=== PATIENT | female | born 1995 | race Caucasian/White ===

== ENCOUNTER → 2017-03-23 16:00 | Outpatient (CLI) | payer OTHER, SELFPAY ==
--- NOTE | 2017-03-23 14:31 | MRI_ITS ---
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 TECHNIQUE: Standardized fat and water weighted pulse sequences were obtained in all 3 orthogonal planes. COMPARISON: Radiographs 02/02/2017. FINDINGS: Normal talonavicular articulation. Normal navicular-cuneiform articulations. Normal intercuneiform articulations. Normal first tarsometatarsal articulation. Normal Lisfranc ligament. Normal second and third tarsometatarsal articulations. Normal cuboid fourth and cuboid fifth tarsometatarsal articulation. Normal first through fifth metatarsi. There is a bone island in the first metatarsal base. Normal tibialis anterior tendon. Normal extensor hallucis longus tendon. Normal extensor digitorum longus tendons. Normal visualized peroneus longus tendon and distal insertion. Normal visualized peroneus brevis tendon and distal insertion. Normal intrinsic muscles of the mid and forefoot region. Normal extensor digitorum brevis muscle. Normal subcutis adipose space. MRI/Lower Ext/No Jt/w/o IMPRESSION: Unremarkable MRI of the right foot without demonstrated stress fracture. Electronically Signed: Mark Watson MD at 15:57 EST Tel , Service support ,
== END ==
PROVIDERS: Family Provider Family Medicine; PCP Family Medicine; Visit Provider Orthopaedic Surgery
DX: M79.673 Pain in unspecified foot (principal)
CPT/HCPCS: 73718

== ENCOUNTER → 2017-07-12 13:41 | Outpatient (CLI) | payer OTHER, SELFPAY ==
[2017-07-12 15:54] LABS: Basophil# 0.03 X10^3/uL; Basophil% 0.6 % (0-1); Eosinophil# 0.13 X10^3/uL; Eosinophils% 2.5 % (0-5); Hematocrit 40.5 % (37-47); Hemoglobin 13.2 g/dl (12.0-15.0); Lymphocyte % 46.6 % (19-41); Mean Corp Hgb Conc 32.6 g/gl (32-36); Mean Corpuscular Hgb 32.5 pg (27.0-32.0); Mean Corpuscular Volume 99.8 fL (81-99); Mean Platelet Vol. 11.9 fl (6.2-12.0); Monocyte# 0.59 X10^3/uL; Monocyte% 11.5 % (0-10); Neutrophil # 1.99 X10^3/uL (2.7-7.7); Neutrophil % 38.6 % (47-70); POSITIVE COUNT NO; POSITIVE DIFFERENTIAL NO; POSITIVE MORPHOLOGY NO; Platelet Count 226 K/mm3 (150-450); RBC Distribution Width CV 12.4 % (11.6-14.6); RBC Distribution Width SD 44.9 fl (35.1-43.9); Red Blood Count 4.06 M/mm3 (4.2-5.4); White Blood Count 5.2 K/mm3 (4.4-11.0)
[2017-07-12 16:05] LABS: Anion Gap 8 (5-15); BUN 15 mg/dL (7-18); BUN/Creat Ratio 18.6 RATIO (10-20); Calcium,Total 8.4 mg/dL (8.5-10.1); Chloride 106 mmol/L (98-107); EST Glomerular Filtration Rate 97 mL/min (>60); Est Glom Filt Rate - Afr Amer 117 mL/min (>60); Glucose 70 mg/dL (74-106); Potassium 3.6 mmol/L (3.5-5.1); Sodium Level 139 mmol/L (136-145)
[2017-07-14 11:47] LABS: AST(SGOT) 18 U/L (15-37); Alanine Aminotransfer ALT/SGPT 18 U/L (13-56); Albumin, Serum 3.7 g/dL (3.2-5.0); Alkaline Phosphatase 68 U/L (45-117); Globulin 3.8 g/dL (2.2-4.2); Protein, Total 7.5 g/dL (6.4-8.2)
== END ==
PROVIDERS: Family Provider Family Medicine; PCP Family Medicine; Visit Provider Family Medicine
DX: Z01.818 Encounter for other preprocedural examination (principal)
CPT/HCPCS: 80048; 82040; 82247; 84075; 84156; 84450; 84460; 85025

== ENCOUNTER 2017-07-21 05:54 | Day surgery (SDC) | payer OTHER, SELFPAY ==
[2017-07-21 06:16] LABS: Internal QC Validated? YES +Cl - CLEAR BKGD; Pregnancy, Urine Negative Negative
[2017-07-21 06:18] VITALS: BP 107/65; PULSE 70; RESP 18; TEMP 36.4; O2SAT 100; BMI 21.5
[2017-07-21] MEDS: Cefazolin 2 GM in 0.9% Normal Saline 100 ML IV (07:24)
--- NOTE | 2017-07-21 07:30 | NEUR_PTH ---
PATIENT: ENZO PAULINO LOC: [facility] – [place] U#:[id number] AGE/SX: 21/F ROOM: RE07/21/[address]: Dr. Marques Ferrer DPM : 1995 BED: DIS: 07/21/2017 SPEC #: [id number] RECD: 07/21/17 09:09 STATUS: [place] REAnjelica #: [id number] SPENCER: 07/21/17 07:[address]: Marques Ferrer DEPT: SURGICAL PATHOLOGY RECD BY: Claudio Clemente ENTERED: 07/21/17 10:48 SP TYPE: NEUROMA OTHR DR: Dr. Thee Hahn MD Tissues: NEUROMA Procedures: Surgery Specimen Level III HEADER OPERATION: Excision, neuroma, intermetatarsal, third PRE-OP DIAGNOSIS: Neuroma third intermetatarsal space TISSUE SUBMITTED: Neuroma third intermetatarsal space, right foot MICROSCOPIC DIAGNOSIS Soft tissue right foot, third intermetatarsal space, excision: Consistent with neuroma. AM:narinder 07/24/17 MICROSCOPIC DESCRIPTION Slides are reviewed. GROSS DESCRIPTION Received in fixative is one container labeled with the patient's name and designated neuroma third intermetatarsal space, right foot. The specimen consists of multiple irregular fragments of white-yellow soft tissue that in aggregate measure 3 x 1.5 x 0.3 cm. The specimen is totally submitted in one cassette. / AM:narinder 07/21/17 TC:1 CPT: 47864
[2017-07-21] MEDS: Bupivacaine Mpf 0.5% 30 ML VIAL (08:10)
--- NOTE | 2017-07-21 08:21 | PCM.DC.POD ---
Discharge Diet: Light diet - advance as tolerated Discharge Activity: May Not Drive, Use Crutches Weight Bearing Status: No weight bearing - No weight right foot Keep extremity elevated above heart level: Right Leg - Keep right foot elevated for at least 50 minutes of every hour using pillows Call your doctor if your incision/area has: Continuous Slow Oozing, Sudden Increased Bleeding, Foul Smelling Discharge Call your doctor if you observe: Fever of 101 or Higher, Coldness, Increased Pain, Shortness of breath, Chest pain, Increased palpitations (irregular heartbeat), Calf discomfort, Uncontrolled pain Cleanse incision/area with: Do not get Incision Wet, Keep Dressing Clean & Dry Allergies/Adverse Reactions: Allergies nickel Allergy (Mild, Verified 07/14/17 15:35) Rash Medications to take at Discharge escitalopram 10 mg tablet 20 mg PO QDAY 03/15/17 topiramate 50 mg tablet 50 mg PO BID 03/15/17 L norgest/E estradiol-E estrad 0.15 mg-30 mcg (84)/10 mcg(7) tabs,3mos 1 tab PO Q24H 04/07/17 Magnesium 250 mg PO DAILY 07/14/17 Pnv95/Ferrous Fumarate/FA [ Formula] 1 each PO DAILY 07/14/17 Hydrocodone/Acetaminophen [Vicodin 5-300 mg Tablet] 1 - 2 tab PO Q6H PRN PRN 3 Days #30 tab 07/21/17 The following prescriptions were given: Hydrocodone/Acetaminophen [Vicodin 5-300 mg Tablet] 1 - 2 tab PO Q6H PRN PRN 3 Days #30 tab PRN Reason: Pain Primary Care Physician: Thee Hahn MD [Primary Care Provider] - Please Follow Up With: Marques Ferrer DPM When: within 1 week, sooner if needed
[2017-07-21 08:22] VITALS: BP 107/65; BP 98/66; PULSE 80; RESP 16; TEMP 36.5; O2SAT 100
--- NOTE | 2017-07-21 08:22 | PCM.OPRPT ---
Report of Operation Date of Procedure: 07/21/17 Pre-Operative Diagnosis: 3rd Intermetatarsal space neuroma right foot Post-Operative Diagnosis: Same Surgery/Procedure Performed:: Excision of 3rd intermetatarsal space neuroma right foot Description of Surgical Findings:: perineural fibrosis surrounded by fatty tissue 3rd interspace neuroma right foot insurance claims representative: yes - Dr. Wesley Rush Type of Anesthesia:: General Specimen's removed: Excised 3rd intermetatarsal space neuroma right foot sent to pathology Estimated Blood Loss (mL): <1 mL Description of Procedure: Indications: There is a 21 year old female with history of chronic right foot pain at level of the 3rd intermetatarsal/digital space. She has undergone extensive conservative / nonsurgical care but continues to have significant limiting pain. She elected to proceed with surgical intervention of excision of 3rd intermetatarsal space, left foot. This was discussed with her in great detail. She agreed with this plan, reviewed all of the possible benefits vs risks, goal, expectations, and typical healing time. She was able to repeat these back, all of her questions were answered. The consent forms were reviewed with her and she agreed signed them. Operative procedure: The patient was brought back to the operating room and was placed on the operating room table in the supine position. Patient was carefully secured the the operating room table with a safely belt around her waist. A time out was performed and the patient was properly identified and the surgical plan was confirmed. The patient received 2g of IV Cefazolin for antibiotic prophylaxis. A well padded pneumatic tourniquet was applied around the right ankle. The patient did receive general anesthesia per the anesthesiologist. The right foot was scrubbed, prepped, draped in the usual aseptic fashion. The right foot was elevated for 3 minutes and the right ankle pneumatic tourniquet was inflated to 250mmHg. Attention was directed to the 3rd intermetatarsal space. An incision was made using a 15 blade on the dorsal aspect. Careful dissection was completed down to the deep transverse metatarsal ligament which was released in sharp fashion. A plantar neuroma was identified localized to the site, which was yellow, degenerative and had significant fatty tissue around it. There were findings consistent with perineural fibrosis to the lesion. This was carefully dissected out, removing the proximal nerve and also the distal branches to the 3rd and 4th toes at the base of the toes. This was passed from the surgical site and was sent to pathology for further evaluation. The proximal nerve stump was health, viable and was carefully buried into the intrinsic musculature of the foot. All other tissue to the site appeared healthy and viable with no other abnormality present. The site was flushed out with copious amounts of normal saline solution, all tissues appeared to be healthy and viable with tissue planes intact at this time. The subcutaneous tissue was reapproximated using 4-0 Vicryl. The skin was reapproximated using 4-0 Monocryl. 10mL of 0.5% Bupivacaine was given as a local nerve block around the surgical site. 4mg of Dexamethasone phosphate was injected into the proximal incision site. Cavilon was painted to the sutured skin edegs and steristrips were applied across the sutures skin incision site. All vital structures including all vital musculoskeletal and neurovascular structures were properly identified and protected/retracted as necessary. The pneumatic tourniquet was deflated at 34 minutes, and there was immediate return vascular flow to the foot, CFT < 2 seconds to all toes, normal temperature gradient, pedal pulses intact. Hemostasis was achieved prior to closure. A dressing was applied which consisted of Betadine soaked adaptic, 4x4 gauze, kerlix, and shorty bandage. The patient tolerated the above operative procedure well at the anesthesia well with no complication. The patient was transported to the recovery room with vital signs stable and in good condition. Post operative orders were placed. Post operative instructions were reviewed with her as well as with her family who was here with her today. No weightbearing right foot, keep right foot elevated for at least 50 minutes of every hour, keep dressing clean, dry and intact. Prescription for Vicodin 5mg/300mg was prescribed: 1-2 tabs PO q 6 hours PRN pain. She is to follow up with me within 1 week or sooner if needed. Grafts/Implants Used: None - Complications None
[2017-07-21 08:30] VITALS: BP 100/69; BP 107/65; PULSE 68; RESP 16; O2SAT 100
[2017-07-21 08:45] VITALS: BP 107/65; BP 109/64; PULSE 67; RESP 16; O2SAT 100
[2017-07-21 08:51] VITALS: BP 101/61; BP 107/65; PULSE 68; RESP 16; TEMP 36.6; O2SAT 100
[2017-07-21] MEDS: HYDROcodone Bitartrate/Apap 5/325 Tablet PO (09:12)
[2017-07-21 10:16] VITALS: BP 107/65
== END 2017-07-21 10:20 | disposition home or self-care (01) ==
LOC: SDC 05:56 → AC 05:56
PROVIDERS: Anesthesiology; Family Provider Family Medicine; PCP Family Medicine; Visit Provider Podiatrist
PROC: (CPT 28080; principal; 2017-07-21 07:15)
DX: G57.81 Other specified mononeuropathies of right lower limb (principal); F41.9 Anxiety disorder, unspecified; Z79.899 Other long term (current) drug therapy
CPT/HCPCS: 28080; 81025; 88304; J7120; J2405

== ENCOUNTER 2017-09-22 10:00 | Outpatient (RCR) | payer OTHER, SELFPAY ==
--- NOTE | 2017-08-23 15:57 | HP.PTEVAL ---
Patient's Visit Information ENZO VLILA is a 21 year old F referred to Physical Therapy by Marques Ferrer with a diagnosis of S/P Mortons Neuroma. Date of Evaluation: 08/23/17 Physical Therapist: Vlad Rahman PT, - Visit Plan Frequency: 2-3x /Week Duration: 4 Weeks Plan: R foot stretching/strengthening, balance and proprio, bike, and HEP - Subjective Subjective: DOS: 07/21/17. Pt reports she had R foot pain for several years prior to having this surgery. Pt reports she just always thought it was bad shoes and had back pain. Pt reports she is glad she had the surgery. The bad pain she had before the surgery is gone. Pt reports she has numbness in her R foot where the neuroma was. No sleep diff secondary to pain. 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 Pt runs ;the [employer]. 0/10 at rest, 3/10 at worst (standing and walking around a lot) - Pain Rt foot Pain Intensity (Out of 10): 0 Pain Intensity Range: 3 - Objective Neuro: B LE sensation is WNL to light touch. Observation: Incision is healing well. No obvious signs of infection. ROM: B ankle's are WNL. 2-4th digits on R foot are minimally limited. MMT: B ankles are 5/5. Pt lacks functional movement with the intrinsics of the R foot between the 2-4th digits. - Goals Goal 1:: Decrease R foot pain x 50% to aid with increased jojo for ambulation Goal Time Frame: 4-6 Weeks Goal 2:: Increase R foot strength x 50% to aid with RTS Goal Time Frame: 4-6 Weeks Goal 3:: I with HEP - Rehabilitation Potential Physical Therapy Diagnosis: R foot weakness, limited mobility, and inabiality to participate in sport secondary to being s/p Mortons neuroma Rehabilitation Potential: Good - Anticipated Interventions Patient/Client Instruction: Educate patient on: Condition, Plan of Care For the Purpose of:: To improve self management Therapeutic Exercise to Include: Strength training, Endurance training, Balance training, Flexibilty training, Gait and locomotor training, Active ROM For the Purpose of:: To decrease pain, To increase ROM, To improve muscle performance and motor function Cryotherapy (ice pack, ice massage): Yes For the Purpose of:: To decrease pain Thank you for the opportunity to evaluate your patient. For Medicare and Medicare HMO plans, please review the plan of care and approve it. It will need to be FAXED BACK to us at [phone] for Medicare purposes. Please let me know if there are questions or concerns regarding this plan of care. Physician Signature: Date:
--- NOTE | 2017-12-13 07:57 | HP.PT.NRP ---
HP - Discharge Summary (1) - Patient Information ENZO VILLA was seen in my office for initial evaluation on 08/23/17. The following Plan of Care was established for this patient: Initial Frequency: 2-3x /Week Initial Duration: 4 Weeks - Anticipated Interventions Patient/Client Instruction: Educate patient on: Condition, Plan of Care For the Purpose of:: To improve self management Therapeutic Exercise to Include: Strength training, Endurance training, Balance training, Flexibilty training, Gait and locomotor training, Active ROM For the Purpose of:: To decrease pain, To increase ROM, To improve muscle performance and motor function Cryotherapy (ice pack, ice massage): Yes For the Purpose of:: To decrease pain This patient was last seen in our office . Pertinent comments regarding their Physical therapy will appear below: Pt was treated for 9 PT visits through the date of 09/22/17 for her R foot pain. Pt was going on vacation at that time and we discussed following up with her after her vacation. Pt has not returned through todays date, and is therefore discontinued at this time. At this point I will be discontinuing this patient from physical therapy. I would be happy to see this patient again in the future if found appropriate by the physician. Thank you! Vlad Rahman, PT,
== END 2017-09-22 19:00 | disposition home or self-care (01) ==
LOC: PT 10:00
PROVIDERS: Family Provider Family Medicine; PCP Family Medicine; Visit Provider Podiatrist
DX: Z98.890 Other specified postprocedural states (principal)
CPT/HCPCS: 97110; 97161; 97530

== ENCOUNTER 2022-11-28 20:45 | Inpatient (IN) | payer BC, SELFPAY ==
[2022-11-28] VITALS (21 sets, daily range): BP systolic 121–122; BP diastolic 66–77; PULSE 59–97; TEMP 36.5–37.1; O2SAT 91–100; BMI 30.4
[2022-11-28] MEDS: Lactated Ringers 1,000 ML 50 ML IV (20:50)
--- NOTE | 2022-11-28 21:04 | PCM.HP.OB ---
HPI - General General Date of Admission: 11/28/22 Date of Service: 11/28/22 Chief Complaint: labor HPI Narrative ENZO VILLA, is a 27 F who presents at 40w5d with ctx's and 4-5 cm with BBOW per RN. No vb, lof. Good FM. [facility] Medical History (Updated 11/28/22 @ 21:[address] Lamar Chapin, ) Pseudotumor cerebri Home Medications escitalopram oxalate 10 mg tablet (Lexapro) 20 mg PO QDAY anxiety 03/15/17 [History Last Taken Unknown] topiramate 50 mg tablet (Topamax) 50 mg PO BID headaches 03/15/17 [History Last Taken Unknown] L norgest/E estradiol-E estrad 0.15 mg-30 mcg (84)/10 mcg(7) tabs,3mos (Ashlyna) 1 tab PO Q24H 04/07/17 [History Last Taken Unknown] magnesium 250 mg tablet 250 mg PO DAILY headaches 07/14/17 [History Last Taken Unknown] vit no.95-ferrous fumarate 28 mg-folic acid 800 mcg tablet ( Multivitamins) 1 ea PO DAILY supplement 07/14/17 [History Last Taken Unknown] hydrocodone 5 mg-acetaminophen 300 mg tablet 1 - 2 tab PO Q6H PRN PRN Pain 3 days #30 tabs 07/21/17 [Rx Last Taken Unknown] Allergy/AdvReac Type Severity Reaction Status Date / Time nickel Allergy Mild Rash Verified 11/28/22 20:29 Family History Other Arthritis Surgical History (Updated 07/21/17 @ 10:[address] Marques Ferrer, DPM) History of tonsillectomy and adenoidectomy Social History (Updated 04/10/17 @ 10:43 by Mario Jeffers DO) Smoking Status: Never smoker NST FHR Rate Baby A Baseline: 120 Variability:: Moderate Accelerations:: 15 x 15 Decelerations:: None NST Reactive:: Yes FHR Category:: Category I Uterine Activity:: ctx q 2-3 min Vital Signs Vital Signs Vital Signs: 11/28/22 20:25 11/28/22 20:25 11/28/22 20:25 Temperature Temperature Source Temporal Pulse Rate 73 Blood Pressure BP Systolic BP Diastolic Pulse Ox 97 11/28/22 20:26 11/28/22 20:26 11/28/22 20:25 Temperature 97.7 F L Temperature Source Pulse Rate 69 Blood Pressure 121/77 H BP Systolic 121 BP Diastolic 77 Pulse Ox Weight Weight: 212 lb Body Mass Index (BMI) 30.4 Labs Labs Labs: Hct 40.5 % (37-47) Hgb 13.2 g/dl (12.0-15.0) VZV IgG Antibody < 135 index (Immune >165) L Assessment & Plan (1) 40 weeks gestation of : PLAN: Admit for routine intrapartum care. Patient plans unmedicated . GBS negative. Expected estimated weight less than 4500 g and pelvis adequate. Anticipate vaginal delivery. (2) Primiparous: (3) Uterine contractions:
[2022-11-28 21:11] LABS: Absolute Lymphocyte Count 1.53 X10^3/uL (0.83-4.51); Absolute Neutrophil Count 10.9 X10^3/uL (2.0-7.7); Basophil# 0.04 X10^3/uL; Basophil% 0.3 % (0-1); Eosinophil# 0.01 X10^3/uL; Eosinophils% 0.1 % (0-5); Hematocrit 40.2 % (37-47); Hemoglobin 13.3 g/dL (12.0-15.0); Lymphocyte # 1.53 X10^3/ul (0.83-4.51); Lymphocyte % 11.5 % (19-41); Mean Corp Hgb Conc 33.1 g/dL (32-36); Mean Corpuscular Volume 99.8 fL (81-99); Mean Platelet Vol. 12.1 fl (6.2-12.0); Monocyte# 0.74 X10^3/uL; Monocyte% 5.6 % (0-10); NRBC Flagged by Analyzer 0 % (0-5); Neutrophil % 81.7 % (47-70); Platelet Count 220 K/mm3 (150-450); RBC Distribution Width CV 12.4 % (11.6-14.6); RBC Distribution Width SD 45.7 fl (35.1-43.9); Red Blood Count 4.03 M/mm3 (4.2-5.4); White Blood Count 13.3 K/mm3 (4.4-11.0)
--- NOTE | 2022-11-28 21:19 | PCM.PN.BLA ---
Progress Note At bedside and pt uncomfortable with ctx's Assessment & Plan Assessment/Plan (1) 40 weeks gestation of : PLAN: Cvx 5/70/0, head well applied. AROM performed for clear fluid in usual fashion. Pt requested intermittent auscultation. FHT checked before and after rupture and reassuring. (2) Uterine contractions:
[2022-11-28 21:48] LABS: Syphilis Antibodies Non-reactive
[2022-11-28] MEDS: Oxytocin 15 Units/NS 250ml 15 UNITS/250 ML IV.SOLN 83 UNITS IV (22:43)
[2022-11-29] VITALS (25 sets, daily range): BP systolic 109–129; BP diastolic 63–75; PULSE 74–100; RESP 16; TEMP 36.7–37; O2SAT 98–100
--- NOTE | 2022-11-29 00:07 | PCM.OPRPT ---
Problems Associated Problem List Diagnoses (1) 40 weeks gestation of : (2) Primiparous: (3) Uterine contractions: (4) Vaginal delivery: Report of Operation Date of Procedure: 11/29/22 Pre-Operative Diagnosis: 40 week gestation, single IUP, labor Post-Operative Diagnosis: As above, precipitous delivery Surgery/Procedure Performed:: Repair of bilateral sulcal lacerations Repair of 2nd degree perineal laceration Repair of leonardo urethral laceration Description of Surgical Findings:: VMI in JUSTIN position with a loose nuchal cord x 1. Apgars 8, 9. Normal appearing placenta with 3 VC Surgeon: Lamar Chapin Type of Anesthesia: Local Special Medications: None Specimen's removed: Placenta Drains: Fishman placed at time of repair Estimated Blood Loss (mL): 400 Fluids Replaced: N/A Description of Procedure: Patient was complete and pushing. The head of the was delivered in left occiput anterior position. A loose nuchal cord x1 was noted but the shoulders and body of the spontaneously delivered without any force or delay through the nuchal cord. A vigorous viable male was delivered atraumatically and placed on maternal abdomen. The cord was clamped and cut after 60 sec delay by the father of the baby. Cord blood was obtained. Placenta was delivered spontaneously and noted to be normal-appearing and intact with a three-vessel cord. The fundus was firm. The cervix was inspected all the way around and noted to be normal-appearing and intact. Bilateral sulcal lacerations were noted. 3-0 Vicryl was used to repair the bilateral sulcal lacerations in a running fashion. A second-degree perineal laceration was repaired with 3-0 Vicryl in usual sterile fashion. 1 vaginal packing was placed. A laceration was noted going from the clitoris to the urethra, and it was actively bleeding. Pressure was applied for several minutes and bleeding was still noted. A fishman catheter was placed with return of clear urine. Using 3-0 Vicryl two single interrupted sutures were placed along the periurethral laceration for hemostasis. Sponge counts were correct. Grafts/Implants Used: None Complications None Admit VTE Documentation VTE Present on Admission: No
[2022-11-29] MEDS: oxyCODONE 5 MG Tablet PO (00:09)
[2022-11-29] MEDS: Lidocaine 1% (20 ml mdv) 20 ML Vial INFILT (00:11)
[2022-11-29] MEDS: Oxytocin 10 UNITS/ML Vial IM (00:11)
[2022-11-29] MEDS: Ibuprofen 600 MG Tablet PO ×3 (01:51→16:03)
[2022-11-29] MEDS: Benzocaine/Lanolin/Aloe Vera 1 SPRAY EACH TOPICAL (01:51)
[2022-11-29] MEDS: 0.9% Saline Lock 10 ML Syringe IV (01:51)
[2022-11-29] MEDS: Acetaminophen 500 MG Tablet 1000 MG PO ×3 (04:52→19:42)
[2022-11-29 05:12] LABS: Absolute Neutrophil Count 13.9 X10^3/uL (2.0-7.7); Basophil# 0.04 X10^3/uL; Basophil% 0.2 % (0-1); Hematocrit 35.5 % (37-47); Hemoglobin 11.7 g/dL (12.0-15.0); Lymphocyte % 11.4 % (19-41); Mean Corpuscular Hgb 33.1 pg (27.0-32.0); Mean Corpuscular Volume 100.3 fL (81-99); Mean Platelet Vol. 11.8 fl (6.2-12.0); Monocyte# 1.51 X10^3/uL; Monocyte% 8.6 % (0-10); NRBC Flagged by Analyzer 0 % (0-5); Neutrophil # 13.87 X10^3/uL (2.7-7.7); Neutrophil % 79.1 % (47-70); POSITIVE DIFFERENTIAL YES; Platelet Count 201 K/mm3 (150-450); RBC Distribution Width CV 12.4 % (11.6-14.6); RBC Distribution Width SD 45.4 fl (35.1-43.9); Red Blood Count 3.54 M/mm3 (4.2-5.4); White Blood Count 17.5 K/mm3 (4.4-11.0)
[2022-11-29 05:21] LABS: Differential Indicated SCAN CRITERIA MET
[2022-11-29 07:06] LABS: Differential Comment SCANNED
--- NOTE | 2022-11-29 08:36 | PCM.PN.OB ---
Subjective Subjective Denies complaints Objective Data Objective Data Vital Signs: Vital Signs Temp Pulse Resp BP Pulse Ox O2 Del Method 98.5 F 83 16 109/65 98 Room Air 11/29/22 04:42 11/29/22 04:42 11/29/22 04:42 11/29/22 04:42 11/29/22 01:42 11/29/22 04:42 Oxygen Delivery Method Room Air Weight: 212 lb Body Mass Index (BMI) 30.4 Intake & Output: Intake and Output for Last 24 Hours 11/27/22 11/28/22 11/29/22 23:59 23:59 23:59 Intake Total 20.83 / 20.83 250 / 250 Output Total 400 / 400 Balance -379.17 / -379.17 250 / 250 Lab / Micro Data 11/29/22 04:55 Labs: Laboratory Results - last 24 hr 11/28/22 20:50: WBC 13.3 H, RBC 4.03 L, Hgb 13.3, Hct 40.2, MCV 99.8 H, MCH 33.0 H, MCHC 33.1, RDW Std Deviation 45.7 H, RDW Coeff of Aga 12.4, Plt Count 220, MPV 12.1 H, Immature Gran % (Auto) 0.800, Neut % (Auto) 81.7 H, Lymph % (Auto) 11.5 L, Winkler % (Auto) 5.6, Eos % (Auto) 0.1, Baso % (Auto) 0.3, Absolute Neuts (auto) 10.9 H, Absolute Lymphs (auto) 1.53, Nucleated RBC % 0, Syphilis Total Ab Non-reactive, Antibody Screen NEGATIVE 11/29/22 04:55: WBC 17.5 H, RBC 3.54 L, Hgb 11.7 L, Hct 35.5 L, MCV 100.3 H, MCH 33.1 H, MCHC 33.0, RDW Std Deviation 45.4 H, RDW Coeff of Aga 12.4, Plt Count 201, MPV 11.8, Immature Gran % (Auto) 0.700, Neut % (Auto) 79.1 H, Lymph % (Auto) 11.4 L, Winkler % (Auto) 8.6, Eos % (Auto) 0.0, Baso % (Auto) 0.2, Absolute Neuts (auto) 13.9 H, Absolute Lymphs (auto) 2.00, Nucleated RBC % 0, Differential Comment SCANNED, Diff Path Review August Physical Exam Const alert, oriented x3 and no apparent distress HEENT normocephalic GI soft to palpation, non-tender and non-distended GI Narrative: fundus firm, mid & below umbilicus Extremity normal to inspection and no calf tenderness Assessment & Plan (1) Vaginal delivery: COMMENT: PPD#1 PLAN: Plan Vaginal packing removed. No active bleeding noted. RN to remove fishman. HEME - cbc reviewed Routine care
[2022-11-29] MEDS: Senna/Docusate Sodium 1 Tablet PO (09:12)
[2022-11-29] MEDS: Sertraline 50 MG Tablet 25 MG PO (22:15)
[2022-11-30] MEDS: Ibuprofen 600 MG Tablet PO ×2 (01:58→08:14)
[2022-11-30 01:59] VITALS: BP 123/61; PULSE 70; RESP 16; TEMP 36.8
[2022-11-30] MEDS: Senna/Docusate Sodium 1 Tablet PO (08:14)
[2022-11-30] MEDS: Acetaminophen 500 MG Tablet 1000 MG PO (08:15)
[2022-11-30 08:25] VITALS: BP 118/66; PULSE 75; RESP 14; TEMP 36.8
--- NOTE | 2022-11-30 08:59 | PCM.DC.SUM ---
Providers Date of Admission: 11/28/22 Primary Care Physician: Dr. Hernán Lind MD Reason For Visit: VAGINAL DELIVERY Diagnosis Discharge Diagnosis (1) Vaginal delivery: Status: Acute Code(s): O80 - Encounter for full-term uncomplicated delivery Medications at Discharge Home Medications topiramate 50 mg tablet (Topamax) 50 mg PO BID headaches 03/15/17 magnesium 250 mg tablet 250 mg PO DAILY headaches 07/14/17 vit no.95-ferrous fumarate 28 mg-folic acid 800 mcg tablet ( Multivitamins) 1 ea PO DAILY supplement 07/14/17 sertraline 25 mg tablet mg PO QHS anxiety 11/29/22 Hospital Course Operations None Summary of Care Provided Hospital Course: 27-year-old female admitted in spontaneous labor. She delivered on 11/28/2022. She had some bilateral sulcus tears and a second-degree laceration. She had vaginal packing placed. This was removed on day #1. Patient's hemoglobin was stable. By day #2 she was ambulating, urinating tolerating regular diet without difficulty. She desired discharge home. was breast-feeding and doing well. Physical Exam Const alert and no apparent distress Narrative: Fundus firm, below umbilicus. Weight / BMI Weight Weight: 96.162 kg Body Mass Index (BMI) 30.4 ABG / Lab / Microbiology Data 11/29/22 04:55 D/C Instructions Discharge Diet: No restrictions May resume sexual activity in: 6 weeks Call your doctor if your incision/area has: Continuous Slow Oozing, Sudden Increased Bleeding, Foul Smelling Discharge and Swelling at the incision site Call your doctor if you observe: Fever of 101 or Higher and Inability to urinate Please Follow Up With: Lamar Chapin DO When: Call [phone] or send a [employer] message to schedule follow-up appointment in 1 week and 6 weeks or as needed. Meaningful Use Info Meaningful Use Diagnoses (Choose all that apply): None applicable Discharge Plan Admission Admit Date/Time: 11/28/22 20:45 Primary Reason for Your Visit: Vaginal delivery Attending Provider: Lamar Chapin Primary Care Provider: Hernán Lind Discharge Orders/Prescriptions Prescriptions: Continued topiramate [Topamax] 50 mg tablet 50 mg PO BID magnesium 250 MG tablet 250 mg PO DAILY PNV cmb#95-ferrous fumarate-FA [ Multivitamins] 1 EACH tablet 1 ea PO DAILY sertraline 25 mg tablet PO QHS Patient Comments: take 1 tablet by mouth once daily Referrals / Follow Up: Hernán Lind MD [Primary Care Provider] - Disposition Disposition (needs filled in before D/C Order can be placed): Home, Self Care
--- NOTE | 2022-11-30 09:20 | CASEMGMT ---
Social Work Assessment Labor and Delivery Unit Patient Address:[address] [place] [address]. [place] [address] Phone number: [phone] Date of Referral: 11/29/22 Time of Referral:? 829 Referred By: Nursing staff Date of Intervention: ??11/30/22 Time of Intervention:? 0900 Reason for Referral:? Sw consult received due to maternal mental health history positive for anxiety. Sw was informed by nursing staff that mother of baby (NICK Smith) has history of anxiety and is prescribed zoloft. Sw completed chart review and presented to bedside to meet with MOB. Sw introduced self to MOB and father of baby (FODian Jeffers). Sw explained reason for sw involvement. Sw completed psychosocial assessment and had FOB step out of the room to MOB could complete the Blue Grass Depression Scale. FOB did so respectfully and without pause. History obtained from: medical records, MOB and FOB. Household composition: Currently residing in the family home is VANIA, MELISSA, baby boy and their family dog, and Clara Doodle named Willian. Patient's parent/guardian status:?VANIA states that she and MELISSA are high school sweet hearts and have been together for 10 years, for almost 2. When meeting with MOB privately MOB denied any concerns of domestic violence or intimate partner violence. Medical History: VANIA received care with [facility] throughout her . VANIA is 27 year old, 1, para 0- now 1. VANIA presented to hospital in active labor and delivered baby on 11/28/22 via vaginal delivery. Baby boy, named Manny Christianson, was born at 40 weeks gestation, weighing 7lb 4oz and his apgars were 8 and 9 at one and five minutes of life respectfully. MOB states that she tore pretty bad and required lots of stitches. MOB states that although she tore she is thankful that baby is healthy. MOB states that she is breast feeding and it is going well. Baby will be seeing Dr. Pascual for Pediatrics. Educational Status:? Both parents are high school graduates. Both parents went on to obtain Bachelors Degrees. MOB has a Bachelors in Business and MELISSA has a Bachelors in Business management. Financial Status: Both parents are gainfully employed outside of the home. MELISSA was formerly working for a [employer] company, however it was long hours and far from home. FOB recently quit that job and started working for his family farm. MELISSA states that he is able to take time off now that baby has been born. MELISSA states he is willing to see if farming is his thing. VANIA works for [employer] and is able to have the rest of the year off. Her maternity leave will end at the beginning of the New Year. Supplies:?MOB states that they have obtained everything that they need for baby including: car seat, safe sleep space, clothes, diapers, wipes and a breast pump. Childcare/Caregiver(s):? VANIA states that she is able to nitro worker, so she will be the primary childcare provider to baby even when she is working. MOB states that they have a lot of family who are also available to watch baby if necessary. Transportation:??Both parents have a drivers license and reliable transportation. No transportation barriers at this time. Programs/Agencies Involved: ?Parents are not connected to any community financial supports at this time. Mo asked VANIA if she has been active with mental health counseling before, MOB denied. Sw provided VANIA with list of [facility] resources and encouraged MOB to review them and get connected to help if she were to struggle during this period. MOB expressed understanding. Children Services/Legal Issues:?NO former involvement, no issues or concerns warranting referral at this time. ?? Behavioral Health Issues: ??Mental Health History:?MELISSA denies mental health history, however when meeting with MOB privately, she states that MELISSA was experiencing some anxiety prior to changing jobs. VANIA states that she has been diagnosed with anxiety and is prescribed Zoloft. MOB states that her symptoms seem to stem around not being able to control things. VANIA completed the Blue Grass Depression Scale and her score was a 10. Mo explained to VANIA that with her high score she would benefit from getting connected to a mental health support person/ counselor. MOB expressed understanding. MOB stated that she is also receptive to increasing her Zoloft dose if that will also be of benefit. Sw encouraged VANIA to talk to her PCP who prescribes her medication, and also to reach out to family and friends who are supports. MOB expressed understanding and agreement. ?? Substance Use History:?MOB denies substance use prior to and during . ? Family History: MOB states that she has a maternal grandpa who has a history of alcoholism. MOB states that aside from that there are no concerns of mental health or substance use on either side of the family. ? Drug Screens: No urine screens observed in chart review. Family/Social Stressors:? Parents deny stressors at this time. MOB states that the biggest stressor they have experienced lately is FOB resigning from his job and starting a new career. MOB states that it has been an adjustment for them, but a positive one. Support Systems: MOB states that both sets of grandparents are supportive. MOB states that they have a lot of other family members and friends who are natural supports for them. Depression/Shaken Baby/Safe Sleeping:? Sw educated parents on signs and symptoms of baby blues and depression and anxiety. Sw provided literature for parents to review. Sw encouraged parents have a conversation regarding how FOB can support MOB during this phase if she were to struggle with the blues or . Parents expressed understanding. Sw educated parents on shaken baby prevention and ABCs of safe sleep. Parents expressed understanding. ASSESSMENT:? Parents were talkative during assessment and understanding of importance to discuss maternal mental health history. Parents have housing, transportation, employment, supplies for baby and supportive family and friends to talk to should they need something. Parents were receptive of social work involvement and support. Sw emphasized the importance of MOB getting connected to community mental health supports during her period due to her Blue Grass score already being a 10. MOB expressed understanding. PLAN:? MOB medically ready for discharge today. Baby to be discharged with parents when medically ready. ?No other services requested or indicated. Kyle Green, [employer], SCHOOL YEAR [employer]ANNY
[2022-11-30 12:48] LABS: Pathologist Review Reviewed
== END 2022-11-30 11:46 | disposition home or self-care (01) | DRG 807 ==
LOC: WPOUT 20:45 → WP 20:45
PROVIDERS: Admitting Provider Obstetrics & Gynecology; PCP Family Medicine; Visit Provider Obstetrics & Gynecology
DX: O62.3 Precipitate labor (principal); Z37.0 Single live birth; O69.81X0 Labor and delivery complicated by cord around neck, without compression, not applicable or unspecified; O70.1 Second degree perineal laceration during delivery; Z3A.40 40 weeks gestation of pregnancy
CPT/HCPCS: 59025; 59050; 85025; 86780; 86850; 86900; 86901; 99221; J7120; A4216; G0378

== ENCOUNTER 2025-03-09 09:08 | Inpatient (IN) | payer BC, SELFPAY ==
[2025-03-09] VITALS (39 sets, daily range): BP systolic 95–135; BP diastolic 56–84; PULSE 75–101; RESP 16–18; TEMP 35.9–36.8; O2SAT 96–100
--- OUTSIDE RECORDS SUMMARY | 2025-03-09 08:58 | XMS RPT_ITS | CCD ---
Author Organization [facility] ion Partnership [facility] Care Team Providers Care Health Practice Manager Name Role Phone Nadeem Cristina N Unavailable CARLITOS, PRETTI L Unavailable Unavailable YODER, CURT CHE Unavailable Unavailable YODER, CURT CHE Unavailable Unavailable ELLIOTT ASHER Unavailable Unavailable YODER, CURT CHE Unavailable Unavailable YODER, CURT CHE Unavailable Unavailable CARLITOS, PRETTI L Unavailable Unavailable YODER, CURT CHE Unavailable Unavailable YODER, CURT CHE Unavailable Unavailable CARLITOS, PRETTI L Unavailable Unavailable YODER, CURT CHE Unavailable Unavailable YODER, CURT CHE Unavailable Unavailable Mario Jeffers Unavailable Unavailable Primary Care Provider UnavailHernán Mejía Primary Care Unavailable Tavares, Camron Attending Unavailable Wiswell, Camron Admitting Unavailable Unavailable Primary Care Provider UnavailCAMRON Adhikari Referring Unavailable WISWELL, CAMRON Referring Unavailable AUGUSTINA RAPP Attending Unavailable PLOTTS, DEBRA Attending Unavailable PLOTTS, DEBRA Referring Unavailable NEAL MARROQUIN Attending Unavailable JOANNA, CRISTINA Attending Unavailable SERENITY ROGER Attending Unavail able CRISTINA BRADY Attending Unavailable LEIGHA AGUSTIN Attending Unavailable PLOTTS, DEBRA Referring Unavailable BRADY, CRISTINA Attending Unavailable PLOTTS, DEBRA Referring Unavailable PLOTTS, DEBRA Referring Unavailable PLOTTS, DEBRA Attending Unavailable PLOTTS, DEBRA Referring Unavailable PLOTTS, DEBRA Attending Unavailable Allergies Allergy Classification Reported Allergen(s) Allergy Type Date of Onset Reaction(s) Facility (20 sources) nickel; Translations: [nickel] Drug Allergy 05-16-2014 [facility] Work Phone: Medications Current Medications Medication Drug Class(es) Dates Sig (Normalized) Sig (Original) aspirin 81 mg delayed release oral tablet (10 sources) Platelet Aggregation Inhibitor, Nonsteroidal Anti-inflammatory Drug Start: 07-24-2024 take 1 tablet by mouth once daily betamethasone 0.5 mg/ml / clotrimazole 10 mg/ml topical cream (1 source) Azole Antifungal, Corticosteroid Start: 10-24-2024 End: 10-31-2024 clotrimazole-beta methasone (LOTRISONE) cream Indications: Tinea corporis Apply to affected area two times a day for 7 days. 15 g 10/24/2024 10/31/2024 Active Magnesium (1 source) Start: 07-14-2017 take 250 mg by mouth once daily Magnesium Active 250 MG PO DAILY July 14, 2017 12:00am Pnv Cmb#95-Ferrous Fumarate-Fa ( Multivitamins) 1 EACH tablet (1 source) Start: 07-14-2017 Pnv Cmb#95-Ferrous Fumarate-Fa ( Multivitamins) 1 EACH tablet Active 1 EACH PO DAILY July 14, 2017 12:00am prental multivitamin 27 mg iron- 800 mcg tablet (20 sources) take 1 tablet by mouth once daily prental multivitamin 27 mg iron- 800 mcg tablet Take 1 tablet by mouth once daily. Active take 1 tablet by mouth once antonio y prental multivitamin 27 mg iron- 800 mcg tablet Take 1 tablet by mouth once daily. 0 Active Comment on above: Take 1 tablet by félix th once daily. sertraline 50 mg oral tablet (20 sources) Serotonin Reuptake Inhibitor Start: 01-12-2023 End: 06-20-2024 take 1 tablet by mouth once daily sertraline (ZOLOFT) 50 mg tablet Indications: care and examination (HCC) Take 1 tablet by mouth once daily. 90 tablet 3 06/21/2024 Active Start: 11-29-2022 take 1 mg by mouth at bedtime Sertraline Active MG PO AT BEDTIME November 29, 2022 12:00am End: 01-12-2023 take 1 tablet by mouth once daily sertraline (ZOLOFT) 25 mg tablet Take 25 mg by mouth once daily. 0 01/12/2023 Discontinued Comment on above: Take 25 mg by mouth once daily. Take 1 tablet by félix th once daily. topiramate 50 mg oral tablet (1 source) Start: 03-15-20 17 take 1 tablet by mouth twice daily Topiramate (Topamax) 50 mg tablet Active 50 MG PO TWICE A DAY March 15, 2017 1:00am triamcinolone acetonide 0.39648 mg/mg topical ointment (20 sources) Corticosteroid Start: 08-04-19 triamcinolone (KENALOG) 0.025 % ointment Apply to affected area twice daily. 80 g 08/03/2022 Active Comment on above: Apply to affected ar ea twice daily. Completed/Discontinued Medications Medication Drug Class(es) Dates Sig (Normalized) Sig (Original) acetaminophen 300 mg / HYDROcodone bitartrate 5 mg oral tablet (1 source) Opioid Agonist Start: 07-21-2017 End: 11-29-2022 take 1 tablet by mouth every six hours as needed Hydrocodone-Acetami nophen Discontinued 1 - 2 TABLET PO EVERY 6 HOURS NEEDED 30 3 July 21, 2017 12:00am November 29, 2022 9:17am cefprozil 500 mg oral tablet (4 sources) Cephalosporin Antibacterial Start: 02-21-2010 End: 02-28-2010 CEFPROZIL 500 MG TABS twice daily CEFPROZIL [id number] Enzo Holt CNP cyproheptadine hydrochloride 4 mg oral tablet (5 sources) Start: 03-15-2017 End: 04-07-2017 take 4 mg by mouth at bedtime Cyproheptadine Discontinued 4 MG PO AT BEDTIME March 15, 2017 1:00am April 07, 2017 3:37pm Start: 05-16-2014 CYPROHEPTADINE HCL 4 MG TABS 1.5 every night CYPROHEPTADINE HCL [id number] Roscoe Narayanan estradiol 0.1 mg/ml vaginal cream (9 sources) Estrogen Start: 06-08-2023 End: 06-19-2024 estradiol (ESTRACE) 0.01 % (0.1 mg/gram) vaginal cream Indications: care and examination , Superficial dyspareunia , Exclusive by mother Insert 1 gram of cream to lower vagina and outside of vagina twice weekly. 42.5 g 06/08/2023 06/19/2024 Discontinued (Course of therapy completed) Comment on above: Insert 1 gram of cream to lower vagina a nd outside of vagina twice weekly. L Norgest/E.Estrad iol-E.Estrad (1 source) Progestin, Estrogen, Progestin-containin g Intrauterine Device Start: 04-07-2017 End: 11-29-2022 take 1 tablet by mouth every twenty-four hours L Norgest/E.Estradiol- E.Estrad (Ashlyna) 0.15 mg-30 mcg (84)/10 mcg (7) tablets,dose pack,3 month Discontinued 1 TABLET PO Q24H April 07, 2017 1:00am November 29, 2022 9:17am Problems Active Problems Problem Classification Problem Date Documented Date Episodic/Chronic Anxiety disorders (15 sources) Anxiety; Translations: [Anxiety disorder, unspecified] Onset: 07-24-2024 07-24-2024 Chronic Contraceptive and procreative management (1 source) Patient encounter status; Translations: [Encounter for other general counseling and advice on procreation] 06-19-2024 Episodic Early or threatened labor (2 sources) Uterine contractions present; Translations: [False labor, unspecified] 11-28-2022 Episodic Immunizations and screening for infectious disease (5 sources) Vaccination needed; Translations: [Encounter for immunization] Onset: 12-18-2024 Episodic Lymphadenitis (2 sources) Lymphadenopathy; Translations: [Enlarged lymph nodes, unspecified] Episodic Nonmalignant breast conditions (1 source) Inflammatory disorder of breast; Translations: [Mastitis without abscess] 11-11-2023 Episodic Other complications of (2 sources) Gestational age unknown 07-24-2024 Episodic Other connective tissue disease (2 sources) Muscle pain; Translations: [Myalgia, unspecified site] 07-04-2023 Episodic Other connective tissue disease (1 source) Myalgia, unspecified site; Translations: [Muscle pain] Onset: 07-04-2023 Episodic Other female genital disorders (1 source) Superficial pain on intercourse; Translations: [Superficial (introital) dyspareunia] 06-05-2023 Chronic Other and delivery including normal (20 sources) Normal ; Translations: [Encounter for supervision of normal first , unspecified trimester] Onset: 04-17-2022 Resolved: 09-25-2024 Episodic Other screening for suspected conditions (not mental disorders or infectious disease) (5 sources) care status; Translations: [Encounter for screening, unspecified] Onset: 08-29-2024 Episodic Other skin disorders (1 source) Localized swelling, mass and lump, right upper limb; Translations: [Mass of right axilla] Onset: 01-17-2025 Episodic Residual codes; unclassified (2 sources) Gestation period, 7 weeks; Translations: [Less than 8 weeks gestation of ] Episodic Residual codes; unclassified (4 sources) Gestation period, 12 weeks; Translations: [12 weeks gestation of ] Episodic Residual codes; unclassified (1 source) Gestation period, 16 weeks; Translations: [16 weeks gestation of ] Episodic Residual codes; unclassified (3 sources) Gestation period, 20 weeks; Translations: [20 weeks gestation of ] Episodic Residual codes; unclassified (2 sources) Gestation period, 24 weeks; Translations: [24 weeks gestation of ] Episodic Residual codes; unclassified (1 source) Gestation period, 28 weeks; Translations: [28 weeks gestation of ] Episodic Residual codes; unclassified (1 source) Gestation period, 30 weeks; Translations: [30 weeks gestation of ] Episodic Residual codes; unclassified (1 source) Gestation period, 31 weeks; Translations: [31 weeks gestation of ] Episodic Residual codes; unclassified (1 source) Gestation period, 33 weeks; Translations: [33 weeks gestation of ] Episodic Residual codes; unclassified (1 source) Gestation period, 34 weeks; Translations: [34 weeks gestation of ] 10-12-2022 Episodic Residual codes; unclassified (1 source) Gestation period, 36 weeks; Translations: [36 weeks gestation of ] 10-26-2022 Episodic Residual codes; unclassified (1 source) Gestation period, 38 weeks; Translations: [38 weeks gestation of ] 11-09-2022 Episodic Residual codes; unclassified (1 source) Gestation period, 40 weeks; Translations: [40 weeks gestation of ] 11-28-2022 Episodic Residual codes; unclassified (1 source) 40 weeks gestation of ; Translations: [ state, incidental] 11-30-2022 Episodic Residual codes; unclassified (1 source) Other specified health status; Translations: [Exclusive by mother] 06-08-2023 Episodic Residual codes; unclassified (2 sources) Gestation period, 6 weeks; Translations: [Less than 8 weeks gestation of ] 07-24-2024 Episodic Residual codes; unclassified (1 source) Gestation period, 15 weeks; Translations: [15 weeks gestation of ] 09-25-2024 Episodic Residual codes; unclassified (1 source) Gestation period, 27 weeks; Translations: [27 weeks gestation of ] 12-18-2024 Episodic Residual codes; unclassified (1 source) 34 weeks gestation of ; Translations: [34 weeks gestation of (HCC)] Onset: 01-30-2025 Episodic Residual codes; unclassified (1 source) 32 weeks gestation of ; Translations: [32 weeks gestation of (HCC)] Onset: 01-17-2025 Episodic Residual codes; unclassified (1 source) 30 weeks gestation of ; Translations: [30 weeks gestation of (HCC)] Onset: 01-03-2025 Episodic Residual codes; unclassified (1 source) 27 weeks gestation of ; Translations: [27 weeks gestation of (HCC)] Onset: 12-18-2024 Episodic Unclassified (10 sources) [facility] Education - COMMON Onset: 07-24-2024 07-24-2024 Unclassified (10 sources) Education - [place] Onset: 07-24-2024 07-24-2024 Past or Other Problems Problem Classification Problem Date Documented Date Episodic/Chronic Fracture of lower limb (3 sources) Stress fracture, right foot, initial encounter for fracture; Translations: [Stress fracture of the metatarsals] Onset: 02-08-2017 02-20-2017 Episodic Mycoses (2 sources) Tinea corporis; Translations: [Tinea corporis] Onset: 10-24-2024 10-24-2024 Episodic Other connective tissue disease (4 sources) Nodular tenosynovitis; Translations: [Benign neoplasm of connective and other soft tissue, unspecified] Onset: 07-02-2014 07-07-2014 Episodic Other connective tissue disease (3 sources) Foot pain; Translations: [Pain in right foot] Onset: 02-08-2017 02-20-2017 Episodic Other nervous system disorders (20 sources) H/O: migraine; Translations: [Personal history of other diseases of the nervous system and sense organs] Onset: 03-21-2022 03-21-2022 Episodic Other non-traumatic joint disorders (4 sources) Ankle pain; Translations: [Pain in unspecified ankle and joints of unspecified foot] Onset: 05-16-2014 05-16-2014 Episodic Other upper respiratory infections (4 sources) Acute pharyngitis; Translations: [Acute pharyngitis, unspecified] Onset: 02-21-2010 Resolved: 03-07-2010 02-21-2010 Episodic Residual codes; unclassified (14 sources) Family history of breast cancer; Translations: [Family history of malignant neoplasm of breast] Onset: 06-19-2024 06-19-2024 Episodic Residual codes; unclassified (14 sources) Family history of cancer of colon; Translations: [Family history of malignant neoplasm of digestive organs] Onset: 06-19-2024 06-19-2024 Episodic Residual codes; unclassified (15 sources) History of past delivery; Translations: [Personal history of other complications of , childbirth and the puerperium] Onset: 07-24-2024 07-24-2024 Episodic Residual codes; unclassified (1 source) 20 weeks gestation of ; Translations: [20 weeks gestation of (HCC)] Onset: 10-24-2024 Episodic Residual codes; unclassified (1 source) Personal history of other complications of , childbirth and the puerperium; Translations: [History of precipitous delivery] Onset: 07-24-2024 Episodic Residual codes; unclassified (1 source) 15 weeks gestation of ; Translations: [15 weeks gestation of (HCC)] Onset: 09-25-2024 Episodic Residual codes; unclassified (1 source) 12 weeks gestation of ; Translations: [12 weeks gestation of ([facility])] Onset: 08-29-2024 Episodic Residual codes; unclassified (1 source) Less than 8 weeks gestation of ; Translations: [6 weeks gestation of ([facility])] Onset: 07-24-2024 Episodic Screening and history of mental health and substance abuse codes (20 sources) H/O: anxiety state; Translations: [Personal history of other mental and behavioral disorders] Onset: 03-21-2022 03-21-2022 Episodic Sprains and strains (4 sources) Sprain of ankle; Translations: [Sprain of unspecified ligament of right ankle] Onset: 05-16-2014 05-19-2014 Episodic Results Test Name Value Interpretation Reference Range Facility CBC W Auto Differential pane l (Bld)on 12-18-2024 Basophils (Bld) [#/Vol] 0.04 10*3/uL Normal <0.11 [facility] Comment on above: Order Comment: Speci men Type: BLOOD SPECIMEN Ordering Facility: [facility] Address: [address] [place] [address] Performed By: #### 5 7021-8 #### [facility] CLIA [id number] [address] [place] [address] [place] Basophils/100 WBC (Bld) 0.4 % Normal [facility] Comment on above: Order Comment: Speci men Type: BLOOD SPECIMEN Ordering Facility: [facility] Address: [address] [place] [address] Performed By: #### 5 7021-8 #### [facility] CLIA [id number] [address] [place] [address] [place] Differential cell count method Nom (Bld) Auto Normal [facility] Comment on above: Order Comment: Speci men Type: BLOOD SPECIMEN Ordering Facility: [facility] Address: [address] [place] [address] Performed By: #### 5 7021-8 #### [facility] CLIA [id number] [address] [place] [address] [place] Eosinophils (Bld) [#/Vol] 0.09 10*3/uL Normal <0.46 [facility] Comment on above: Order Comment: Speci men Type: BLOOD SPECIMEN Ordering Facility: [facility] Address: [address] [place] [address] Performed By: #### 5 7021-8 #### [facility] CLIA [id number] [address] [place] [address] [place] Eosinophils/100 WBC (Bld) 0.8 % Normal [facility] Comment on above: Order Comment: Speci men Type: BLOOD SPECIMEN Ordering Facility: [facility] Address: [address] [id number] Performed By: #### 5 7021-8 #### [facility] CLIA [id number] [address] [place] [address] [place] Erythrocyte distribution width (RBC) [Ratio] 12.8 % Normal 11.5-15.0 [facility] Comment on above: Order Comment: Speci men Type: BLOOD SPECIMEN Ordering Facility: [facility] Address: [address] [place] [address] Performed By: #### 5 7021-8 #### [facility] CLIA [id number] [address] [place] [address] [place] Hematocrit (Bld) [Volume fraction] 36.0 % Normal 36.0-46.0 [facility] Comment on above: Order Comment: Speci men Type: BLOOD SPECIMEN Ordering Facility: [facility] Address: [address] [place] [address] Performed By: #### 5 7021-8 #### [facility] CLIA [id number] [address] [place] [address] [place] Hemoglobin (Bld) [Mass/Vol] 12.0 g/dL Normal 11.5-15.5 [facility] Comment on above: Order Comment: Speci men Type: BLOOD SPECIMEN Ordering Facility: [facility] Address: [address] [place] [address] Performed By: #### 5 7021-8 #### [facility] CLIA [id number] [address] [place] [address] [place] Immature granulocytes (Bld) [#/Vol] 0.23 10*3/uL High <0.10 [facility] Comment on above: Order Comment: Speci men Type: BLOOD SPECIMEN Ordering Facility: [facility] Address: [address] [place] [address] Performed By: #### 5 7021-8 #### [facility] CLIA [id number] [address] [place] [address] [place] Immature granulocytes/100 WBC (Bld) 2.0 % Normal [facility] Comment on above: Order Comment: Speci men Type: BLOOD SPECIMEN Ordering Facility: [facility] Address: [address] [place] [address] Performed By: #### 5 7021-8 #### [facility] CLIA [id number] [address] [place] [address] [place] Lymphocytes (Bld) [#/Vol] 2.10 10*3/uL Normal 1.00-4.00 [facility] Comment on above: Order Comment: Speci men Type: BLOOD SPECIMEN Ordering Facility: [facility] Address: [address] [place] [address] Performed By: #### 5 7021-8 #### [facility] CLIA [id number] [address] [place] [address] [place] Lymphocytes/100 WBC (Bld) 18.7 % Normal [facility] Comment on above: Order Comment: Speci men Type: BLOOD SPECIMEN Ordering Facility: [facility] Address: [address] [place] [address] Performed By: #### 5 7021-8 #### [facility] CLIA [id number] [address] [place] [address] [place] MCH (RBC) [Entitic mass] 33.0 pg Normal 26.0-34.0 [facility] Comment on above: Order Comment: Speci men Type: BLOOD SPECIMEN Ordering Facility: [facility] Address: [address] [place] [address] Performed By: #### 5 7021-8 #### [facility] CLIA [id number] [address] [place] [address] [place] MCHC (RBC) [Mass/Vol] 33.3 g/dL Normal 30.5-36.0 [facility] Comment on above: Order Comment: Speci men Type: BLOOD SPECIMEN Ordering Facility: [facility] Address: [address] [place] [address] Performed By: #### 5 7021-8 #### [facility] CLIA [id number] [address] [place] [address] [place] MCV (RBC) [Entitic vol] 98.9 fL Normal 80.0-100.0 [facility] Comment on above: Order Comment: Speci men Type: BLOOD SPECIMEN Ordering Facility: [facility] Address: [address] [place] [address] Performed By: #### 5 7021-8 #### [facility] CLIA [id number] [address] [place] [address] [place] Monocytes (Bld) [#/Vol] 0.95 10*3/uL High <0.87 [facility] Comment on above: Order Comment: Speci men Type: BLOOD SPECIMEN Ordering Facility: [facility] Address: [address] [place] [address] Performed By: #### 5 7021-8 #### [facility] CLIA [id number] [address] [place] [address] [place] Monocytes/100 WBC (Bld) 8.5 % Normal [facility] Comment on above: Order Comment: Speci men Type: BLOOD SPECIMEN Ordering Facility: [facility] Address: [address] [place] [address] Performed By: #### 5 7021-8 #### [facility] CLIA [id number] [address] [place] [address] [place] Neutrophils (Bld) [#/Vol] 7.81 10*3/uL High 1.45-7.50 [facility] Comment on above: Order Comment: Speci men Type: BLOOD SPECIMEN Ordering Facility: [facility] Address: [address] [place] [address] Performed By: #### 5 7021-8 #### [facility] CLIA [id number] [address] [place] [address] [place] Neutrophils/100 WBC (Bld) 69.6 % Normal [facility] Comment on above: Order Comment: Speci men Type: BLOOD SPECIMEN Ordering Facility: [facility] Address: [address] [place] [address] Performed By: #### 5 7021-8 #### [facility] CLIA [id number] [address] [place] [address] [place] Nucleated RBC (Bld) [#/Vol] 10*3/uL Normal <0.01 [facility] Comment on above: Order Comment: Speci men Type: BLOOD SPECIMEN Ordering Facility: [facility] Address: [address] [place] [address] Performed By: #### 5 7021-8 #### [facility] CLIA [id number] [address] [place] [address] [place] Nucleated RBC/100 WBC (Bld) [Ratio] 0.0 /100 WBC Normal [facility] Comment on above: Order Comment: Speci men Type: BLOOD SPECIMEN Ordering Facility: [facility] Address: [address] [place] [address] Performed By: #### 5 7021-8 #### [facility] CLIA [id number] [address] [place] [address] [place] Platelet mean volume (Bld) [Entitic vol] 10.1 fL Normal 9.0-12.7 [facility] Comment on above: Order Comment: Speci men Type: BLOOD SPECIMEN Ordering Facility: [facility] Address: [address] [place] [address] Performed By: #### 5 7021-8 #### [facility] CLIA [id number] [address] [place] [address] [place] Platelets (Bld) [#/Vol] 274 10*3/uL Normal 150-400 [facility] Comment on above: Order Comment: Speci men Type: BLOOD SPECIMEN Ordering Facility: [facility] Address: [address] [place] [address] Performed By: #### 5 7021-8 #### [facility] CLIA [id number] [address] [place] [address] [place] RBC (Bld) [#/Vol] 3.64 10*6/uL Low 3.90-5.20 [facility] Comment on above: Order Comment: Speci men Type: BLOOD SPECIMEN Ordering Facility: [facility] Address: [address] [place] [address] Performed By: #### 5 7021-8 #### [facility] CLIA [id number] [address] [place] [address] [place] WBC (Bld) [#/Vol] 11.22 10*3/uL High 3.70-11.[address] [facility] Comment on above: Order Comment: Speci men Type: BLOOD SPECIMEN Ordering Facility: [facility] Address: [address] [place] [address] Performed By: #### 5 7021-8 #### [facility] [facility] CLIA [id number] [address] [place] [address] [place] GESTATIONAL GLUCOSE SCREEN, 1-HOUR, 50 GRAM, NON-FASTINGon 12-18-2024 Glucose [Mass/Vol] 55 mg/dL Low 74-134 [facility] Comment on above: Order Comment: Speci men Type: BLOOD SPECIMEN Ordering Facility: [facility] Address: [address] [place] [id number] Result Comment: [facility] Congress of Obstetricians and Gynecologists (Sophie/Zaynab) guidelines state a gestational diabetes mellitus positive screen is made, in women not previously diagnosed with overt diabetes, when the 1 hr plasma glucose level is equal to or above 140 mg/dL. The [facility] recommends a 135 mg/dL cutoff. Performed By: #### 3 1201-7, 55538-1, 5195-3 #### [facility] CLIA [id number] [address] [place] [address] [place] Reagin and Treponema pallidu m IgG and IgM [Interp]on 12-18-2024 T. pallidum IgG+IgM IA Ql (S) Non-Reactive Normal Nonreactive [facility] Comment on above: Order Comment: Speci men Type: BLOOD SPECIMEN Ordering Facility: [facility] Address: [address] [place] [address] Performed By: #### 3 1201-7, 38939-3, 5195-3 #### [facility] CLIA [id number] [address] [place] [address] [place] Reagin+T pallidum IgG+IgM Se rPl-Impon 12-18-2024 Reagin and Treponema pallidum IgG and IgM [Interp] Cannot exclude recent Treponemal infection if specimen collected within 7-10 days after appearance of suspect lesions or 2-3 weeks after an exposure. Clinical correlation is required. Normal [facility] Comment on above: Order Comment: Speci men Type: BLOOD SPECIMEN Ordering Facility: [facility] Address: [address] [place] [address] Performed By: #### 3 1201-7, 27256-6, 5195-3 #### [facility] CLIA [id number] [address] [place] [address] [place] Examination level ultrasound on 10-24-2024 Indication Standard anatomic survey Impression remote read The patient is referred for a standard anatomic survey. - Single, live, intrauterine . - biometry is consistent with the established gestational age. - No malformations were visualized on a complete standard anatomic survey. - The amniotic fluid volume is normal amount. - The placenta is posterior, fundal. - The Transabdominal cervical length measures 41.7 mm with no evidence of funneling or other dynamic changes. - Not all structural malformations can be detected by ultrasound examination. Recommendations Additional follow-up as clinically indicated. Maternal Assessment Height 178 cm Height (ft) 5 ft Height (in) 10 in Physical Exam Initial weight (lb) 164 lb Initial BMI 23.53 kg/m Method Transabdominal ultrasound examination. View: Adequate visualization Villa . Number of fetuses: 1 Dating LMP on: 06/06/2024 GA by LMP 20 w + 0 d KENYATTA by LMP: 03/13/2025 GA by prior assessment 20 w + 0 d KENYATTA by prior assessment: 03/13/2025 Ultrasound examination on: 10/24/2024 GA by U/S based upon: AC, BPD, Femur, HC GA by U/S 20 w + 0 d KENYATTA by U/S: 03/13/2025 Assigned: based on stated KENYATTA, selected on 08/29/2024 Assigned GA 20 w + 0 d Assigned KENYATTA: 03/13/2025 General Evaluation Cardiac activity present. FHR 149 bpm. movements: present. Presentation: cephalic Placenta: Placental site: posterior, fundal Umbilical cord: Cord vessels: 3 vessel cord. Insertion site: normal insertion Amniotic fluid: Amount of AF: normal amount. MVP 4.2 cm Growth Overview Exam date GA BPD (mm) HC (mm) AC (mm) FL (mm) HL (mm) EFW (g) 10/24/2024 20w 0d 46.4 51% 169.1 35% 142.2 30% 33.4 79% 30.9 64% 318 38% Biometry Standard BPD 46.4 mm 20w 0d 51% Hadlock OFD 59.4 mm 19w 2d 38% Nicolaides HC 169.1 mm 19w 4d 35% Fina Cerebellum tr 21.6 mm 20w 3d 86% Hill Nuchal fold 4.4 mm AC 142.2 mm 19w 4d 30% Hadlock Femur 33.4 mm 20w 5d 79% Fina Humerus 30.9 mm 20w 2d 64% Fina EFW 318 g 19w 5d 38% Hadlock EFW (lb) 0 lb EFW (oz) 11 oz EFW by: Hadlock (HC-AC-FL) Extended Mobile Qa Tester 7.1 mm CM 3.8 mm 15% Nicolaides Nasal bone 6.4 mm Extremities / Bony Struc FL / HC 0.20 92% Hadlock Other Structures FHR 149 bpm Anatomy Cranium: normal Lateral ventricles: normal Choroid plexus: normal Midline falx: normal Cavum septi pellucidi: normal Cerebellum: normal Cisterna magna: normal Head / Neck Vermis: Normal but not required for a standard anatomy exam Neck: Normal but not required for a standard anatomy exam Nuchal fold: Normal but not required for a standard anatomy exam Lips: normal Profile: Normal but not required for a standard anatomy exam Nose: Normal but not required for a standard anatomy exam Face Maxilla: Normal but not required for a standard anatomy exam Mandible: Normal but not required for a standard anatomy exam Orbits: Normal but not required for a standard anatomy exam Lens: Normal but not required for a standard anatomy exam 4-chamber view: normal RVOT view: normal LVOT view: normal 3-vessel view: normal 0-tomrfg-kovbkpl view: normal Heart / Thorax Situs: situs solitus (normal) Aortic arch view: Normal but not required for a standard anatomy exam SVC: Normal but not required for a standard anatomy exam IVC: Normal but not required for a standard anatomy exam Cardiac axis: normal Rt lung: Normal but not required for a standard anatomy exam Lt lung: Normal but not required for a standard anatomy exam Diaphragm: normal Cord insertion: normal Stomach: normal Kidneys: normal Bladder: normal Genitals: normal Abdomen Abdom. wall: normal Cervical spine: normal Thoracic spine: normal Lumbar spine: normal Sacral spine: normal Arms: normal Legs: normal Rt upper arm: normal Rt forearm: normal Rt hand: normal Rt fingers: normal Lt upper arm: normal Lt forearm: normal Lt hand: normal Lt fingers: normal Rt upper leg: normal Rt lower leg: normal Rt foot: normal Lt upper leg: normal Lt lower leg: normal Lt foot: normal Gender: Unspecified Wants to know sex: no Maternal Structures Uterus / Cervix Uterus: Visualized Cervix: Visualized Approach: Transabdominal Cervical length 41.7 mm Other: Patient declined transvaginal ultrasound for cervical length. Ovaries / Tubes / Adnexa Rt ovary: Normal Lt ovary: Normal Performed By: Tere Fowler RDMS Read By: Kendal Dawson M.D. MATERNAL MEDICINE [facility] Radiology Study observation (narrative) [facility] Examination level ultrasound on 08-30-2024 Indication First trimester anatomic survey Impression The patient is referred for a first trimester anatomy scan including nuchal translucency measurement as clinically indicated. - Single, live, intrauterine . - [place] rump length measurement is consistent with the established gestational age. - A qualitative screen of the nuchal translucency and other anatomic structures was unremarkable on a complete first trimester anatomic assessment. - Not all structural malformations can be detected by ultrasound examination. Maternal Structures: Right Ovary: Size 23 mm x 25 mm x 38 mm Left Ovary: Size 34 mm x 19 mm x 15 mm Recommendations - An anatomic survey at 18-20 weeks is recommended given no identified risk factors. Maternal Assessment Height 178 cm Height (ft) 5 ft Height (in) 10 in Physical Exam Initial weight (lb) 164 lb Initial BMI 23.53 kg/m Maternal assessment other: 3 Para 1 REMOTE READ Method Transabdominal ultrasound examination Villa . Number of fetuses: 1 Dating LMP on: 06/06/2024 GA by LMP 12 w + 0 d KENYATTA by LMP: 03/13/2025 GA by prior assessment 12 w + 0 d KENYATTA by prior assessment: 03/13/2025 Ultrasound examination on: 08/29/2024 GA by U/S based upon: CRL GA by U/S 12 w + 2 d KENYATTA by U/S: 03/11/2025 Assigned: based on stated KENYATTA, selected on 08/29/2024 Assigned GA 12 w + 0 d Assigned KENYATTA: 03/13/2025 General Evaluation Cardiac activity present Placenta: posterior Cord vessels: 3 vessel cord Amniotic fluid: normal amount Biometry Standard FHR 168 bpm CRL 57.4 mm 12w 2d 58% Hadlock First Trimester Anatomy Calvarium: normal Falx cerebri: normal Choroid plexus: normal Profile: normal Nasal bone: normal Retronasal triangle: normal Maxilla: normal Mandible: normal Nuchal translucency: Unremarkable Situs: normal Cardiac position: normal Cardiac axis: normal 4-chamber view: visualized 4-chamber view with color: visualized 3-tlwkux-mlcosqf view: normal Abdominal cord insertion: normal Stomach: normal Kidneys: normal Bladder: normal Color doppler of perivesical umbilical arteries: normal Vertebral alignment: normal Arms: normal Hands: normal Legs: normal Feet: normal Maternal Structures Uterus / Cervix Uterus: Visualized Uterus length 135 mm Uterus width 99 mm Uterus height 80 mm Uterus Vol 557.0 cm Ovaries / Tubes / Adnexa Rt ovary: Visualized Rt ovary D1 23 mm Rt ovary D2 25 mm Rt ovary D3 38 mm Rt ovary Vol 11.3 cm Lt ovary: Visualized Lt ovary D1 34 mm Lt ovary D2 19 mm Lt ovary D3 15 mm Lt ovary Vol 5.2 cm Performed By: Shahnaz Love RDMS, RVT Read By: Marily Frank M.D. MATERNAL MEDICINE [facility] CBC W Auto Differential pane l (Bld)on 08-29-2024 Basophils (Bld) [#/Vol] 0.04 10*3/uL Normal <0.11 [facility] Comment on above: Order Comment: Speci men Type: BLOOD SPECIMEN Ordering Facility: [facility] Address: [address] [place] [address] Performed By: #### 3 1201-7, 96483-3, 5195-3 #### [facility] CLIA [id number] [address] [place] [address] [place] Basophils/100 WBC (Bld) 0.5 % Normal [facility] Comment on above: Order Comment: Speci men Type: BLOOD SPECIMEN Ordering Facility: [facility] Address: [address] [place] [address] Performed By: #### 3 1201-7, 48811-8, 5195-3 #### [facility] CLIA [id number] [address] [place] [address] [place] Differential cell count method Nom (Bld) Auto Normal [facility] Comment on above: Order Comment: Speci men Type: BLOOD SPECIMEN Ordering Facility: [facility] Address: [address] [place] [address] Performed By: #### 3 1201-7, 72589-6, 5195-3 #### [facility] CLIA [id number] [address] [place] [address] [place] Eosinophils (Bld) [#/Vol] 0.06 10*3/uL Normal <0.46 [facility] Comment on above: Order Comment: Speci men Type: BLOOD SPECIMEN Ordering Facility: [facility] Address: [address] [place] [address] Performed By: #### 3 1201-7, 90088-8, 5195-3 #### [facility] CLIA [id number] [address] [place] [address] [place] Eosinophils/100 WBC (Bld) 0.7 % Normal [facility] Comment on above: Order Comment: Speci men Type: BLOOD SPECIMEN Ordering Facility: [facility] Address: [address] [place] [address] Performed By: #### 3 1201-7, 11868-7, 5195-3 #### [facility] CLIA [id number] [address] [place] [address] [place] Erythrocyte distribution width (RBC) [Ratio] 12.5 % Normal 11.5-15.0 [facility] Comment on above: Order Comment: Speci men Type: BLOOD SPECIMEN Ordering Facility: [facility] Address: [address] [place] [address] Performed By: #### 3 1201-7, 07111-1, 5195-3 #### [facility] CLIA [id number] [address] [place] [address] [place] Hematocrit (Bld) [Volume fraction] 37.8 % Normal 36.0-46.0 [facility] Comment on above: Order Comment: Speci men Type: BLOOD SPECIMEN Ordering Facility: [facility] Address: [address] [place] [address] Performed By: #### 3 1201-7, 39816-1, 5195-3 #### [facility] CLIA [id number] [address] [place] [address] [place] Hemoglobin (Bld) [Mass/Vol] 12.7 g/dL Normal 11.5-15.5 [facility] Comment on above: Order Comment: Speci men Type: BLOOD SPECIMEN Ordering Facility: [facility] Address: [address] [place] [address] Performed By: #### 3 1201-7, 67872-2, 5195-3 #### [facility] CLIA [id number] [address] [place] [address] [place] Immature granulocytes (Bld) [#/Vol] 0.04 10*3/uL Normal <0.10 [facility] Comment on above: Order Comment: Speci men Type: BLOOD SPECIMEN Ordering Facility: [facility] Address: [address] [place] [address] Performed By: #### 3 1201-7, 19132-9, 5195-3 #### [facility] CLIA [id number] [address] [place] [address] [place] Immature granulocytes/100 WBC (Bld) 0.5 % Normal [facility] Comment on above: Order Comment: Speci men Type: BLOOD SPECIMEN Ordering Facility: [facility] Address: [address] [place] [address] Performed By: #### 3 1201-7, 98167-5, 5194-3 #### [facility] CLIA [id number] [address] [place] [address] [place] Lymphocytes (Bld) [#/Vol] 2.74 10*3/uL Normal 1.00-4.00 [facility] Comment on above: Order Comment: Speci men Type: BLOOD SPECIMEN Ordering Facility: [facility] Address: [address] [place] [address] Performed By: #### 3 1201-7, 03880-5, 5194-3 #### [facility] CLIA [id number] [address] [place] [address] [place] Lymphocytes/100 WBC (Bld) 31.3 % Normal [facility] Comment on above: Order Comment: Speci men Type: BLOOD SPECIMEN Ordering Facility: [facility] Address: [address] [place] [address] Performed By: #### 3 1201-7, 33611-1, 5-3 #### [facility] CLIA [id number] [address] [place] [address] [place] MCH (RBC) [Entitic mass] 32.1 pg Normal 26.0-34.0 [facility] Comment on above: Order Comment: Speci men Type: BLOOD SPECIMEN Ordering Facility: [facility] Address: [address] [place] [address] Performed By: #### 3 1201-7, 38517-5, 3 #### [facility] CLIA [id number] [address] [place] [address] [place] MCHC (RBC) [Mass/Vol] 33.6 g/dL Normal 30.5-36.0 [facility] Comment on above: Order Comment: Speci men Type: BLOOD SPECIMEN Ordering Facility: [facility] Address: [address] [place] [address] Performed By: #### 3 1201-7, 12100-6, 3 #### [facility] CLIA [id number] [address] [place] [address] [place] MCV (RBC) [Entitic vol] 95.5 fL Normal 80.0-100.0 [facility] Comment on above: Order Comment: Speci men Type: BLOOD SPECIMEN Ordering Facility: [facility] Address: [address] [place] [address] Performed By: #### 3 1201-7, 08403-5, 5194-06 #### [facility] CLIA [id number] [address] [place] [address] [place] Monocytes (Bld) [#/Vol] 0.62 10*3/uL Normal <0.87 [facility] Comment on above: Order Comment: Speci men Type: BLOOD SPECIMEN Ordering Facility: [facility] Address: [address] [place] [address] Performed By: #### 3 1201-7, 49224-1, 5195-3 #### [facility] CLIA [id number] [address] [place], [place] [address] [place] Monocytes/100 WBC (Bld) 7.1 % Normal [facility] Comment on above: Order Comment: Speci men Type: BLOOD SPECIMEN Ordering Facility: [facility] Address: [address] [place] [address] Performed By: #### 3 1201-7, 46153-1, 5195-3 #### [facility] CLIA [id number] [address] [place] [address] [place] Neutrophils (Bld) [#/Vol] 5.25 10*3/uL Normal 1.45-7.50 [facility] Comment on above: Order Comment: Speci men Type: BLOOD SPECIMEN Ordering Facility: [facility] Address: [address] [place] [address] Performed By: #### 3 1201-7, 17677-6, 3 #### [facility] CLIA [id number] [address] [place] [address] [place] Neutrophils/100 WBC (Bld) 59.9 % Normal [facility] Comment on above: Order Comment: Speci men Type: BLOOD SPECIMEN Ordering Facility: [facility] Address: [address] [place] [address] Performed By: #### 3 1201-7, 82016-8, 3 #### [facility] CLIA [id number] [address] [place] [address] [place] Nucleated RBC (Bld) [#/Vol] 10*3/uL Normal <0.01 [facility] Comment on above: Order Comment: Speci men Type: BLOOD SPECIMEN Ordering Facility: [facility] Address: [address] [place] [address] Performed By: #### 3 1201-7, 01667-3, 5195-3 #### [facility] CLIA [id number] [address] [place] [address] [place] Nucleated RBC/100 WBC (Bld) [Ratio] 0.0 /100 WBC Normal [facility] Comment on above: Order Comment: Speci men Type: BLOOD SPECIMEN Ordering Facility: [facility] Address: [address] [place] [address] Performed By: #### 3 1201-7, 51544-0, 5195-3 #### [facility] CLIA [id number] [address] [place] [address] [place] Platelet mean volume (Bld) [Entitic vol] 10.3 fL Normal 9.0-12.7 [facility] Comment on above: Order Comment: Speci men Type: BLOOD SPECIMEN Ordering Facility: [facility] Address: [address] [place] [address] Performed By: #### 3 1201-7, 22336-6, 5195-3 #### [facility] CLIA [id number] [address] [place] [address] [place] Platelets (Bld) [#/Vol] 251 10*3/uL Normal 150-400 [facility] Comment on above: Order Comment: Speci men Type: BLOOD SPECIMEN Ordering Facility: [facility] Address: [address] [place] [address] Performed By: #### 3 1201-7, 86125-2, 5195-3 #### [facility] CLIA [id number] [address] [place] [address] [place] RBC (Bld) [#/Vol] 3.96 10*6/uL Normal 3.90-5.20 [facility] Comment on above: Order Comment: Speci men Type: BLOOD SPECIMEN Ordering Facility: [facility] Address: [address] [place] [address] Performed By: #### 3 1201-7, 88413-5, 5195-3 #### [facility] CLIA [id number] [address] [place] [address] [place] WBC (Bld) [#/Vol] 8.75 10*3/uL Normal 3.70-11.00 [facility] Comment on above: Order Comment: Speci men Type: BLOOD SPECIMEN Ordering Facility: [facility] Address: [address] [place] [address] Performed By: #### 3 1201-7, 37643-4, 5195-3 #### [facility] CLIA [id number] [address] [place] [address] [place] Examination level ultrasound on 08-29-2024 Radiology Study observation (narrative) [facility] HBV surface Ag Ser Qlon 08-02 HBV surface Ag Ql (S) Negative Normal Negative [facility] Comment on above: Order Comment: Speci men Type: BLOOD SPECIMEN Ordering Facility: [facility] Address: [address] [place] [address] Performed By: #### 3 1201-7, 76654-3, 5195-3 #### [facility] CLIA [id number] [address] [place] [address] [place] HCV Ab Ser Qlon 08-29-2024 HCV Ab Ql (S) Negative Normal Negative [facility] Comment on above: Order Comment: Speci men Type: BLOOD SPECIMEN Ordering Facility: [facility] Address: [address] [place] [address] Result Comment: The result suggests no evidence of infection with Hepatitis C virus. Should recent infection be suspected, repeat testing may be considered 4-6 weeks after this draw. Performed By: #### 3 1201-7, 10673-3, 5195-3 #### [facility] CLIA [id number] [address] [place] [address] [place] HIV 1+2 Ab IA Qlon HIV 1 and 2 Ab IA.rapid Nom (S/P/Bld) Normal [facility] Comment on above: Order Comment: Speci men Type: BLOOD SPECIMEN Ordering Facility: [facility] Address: [address] [place] [address] Result Comment: Test not indicated. Performed By: #### 3 1201-7, 10976-0, 5195-3 #### [facility] CLIA [id number] [address] [place] [address] [place] HIV 1+2 Ab+HIV1 p24 Ag IA Ql Non-Reactive Normal Nonreactive [facility] Comment on above: Order Comment: Speci men Type: BLOOD SPECIMEN Ordering Facility: [facility] Address: [address] [place] [address] Performed By: #### 3 1201-7, 93947-6, 5195-3 #### [facility] CLIA [id number] [address] [place] [address] [place] HIV immunoassay testing algorithm interpretation (S/P/Bld) [Interp] Normal [facility] Comment on above: Order Comment: Speci men Type: BLOOD SPECIMEN Ordering Facility: [facility] Address: [address] [place] [address] Result Comment: No e vidence of HIV-1 or HIV-2 infection. Should recent infection be suspected, repeat testing may be considered 2-3 weeks after this draw. [place] Rev. Code 3701.243(E): This information has been disclosed to you from confidential records protected from disclosure by state law. You shall make no further disclosure of this information without the specific, written, and informed release of the individual to whom it pertains or as otherwise permitted by state law. A general authorization for the release of medical or other information is not sufficient for the purpose of the release of HIV test results or diagnoses. Performed By: #### 3 1201-7, 84575-1, 5195-3 #### [facility] CLIA [id number] [address] [place] [address] [place] HbA1c (Bld)on 08-29-2024 Average glucose Estimated from glycated hemoglobin (Bld) [Mass/Vol] 97 mg/dL Normal [facility] Comment on above: Order Comment: Speci men Type: BLOOD SPECIMEN Ordering Facility: [facility] Address: [address] [place] [address] Result Comment: eAG: (Estimated average glucose) is a calculated value from HgbA1c and is customer service representative teller of the average blood glucose level in the last 2-3 month period. Performed By: #### 3 1201-7, 82291-4, 5195-3 #### [facility] CLIA [id number] [address] [place] [address] [place] HbA1c (Bld) [Mass fraction] 5.0 % Normal 4.3-5.6 [facility] [facility] Comment on above: Order Comment: Jose Miguel yi Type: BLOOD SPECIMEN Ordering Facility: [facility] Address: [address] [place] [address] Result Comment: Amer [place] Diabetes Association guidelines indicate that patients with HgbA1c in the range 5.7-6.4% are at increased risk for development of diabetes, and intervention by lifestyle modification may be beneficial. HgbA1c greater or equal to 6.5% is considered diagnostic of diabetes. Performed By: #### 3 1201-7, 05370-1, 5194-3 #### [facility] CLIA [id number] [address] [place] [address] [place] [id number] PLUSon 08-29-2024 Cell-free DNA./Cell-free DNA.total Dosage of chromosome-specific cfDNA (cfDNA) [Molar fraction] 17% Normal [facility] Comment on above: Order Comment: Jose Miguel yi Type: BLOOD SPECIMEN Ordering Facility: [facility] Address: [address] [place] [address] Performed By: #### 3 1201-7, 16945-3, 5-3 #### [facility] CLIA [id number] [address] [place] [address] [place] Chr 13+18+21+X+Y aneuploidy Dosage of chromosome-specific cfDNA Ql (cfDNA) Negative Normal [facility] Comment on above: Order Comment: Jose Miguel yi Type: BLOOD SPECIMEN Ordering Facility: [facility] Address: [address] [place] [address] Performed By: #### 3 1201-7, 62006-8, 5195-3 #### [facility] CLIA [id number] [address] [place] [address] [place] Chr 21 trisomy Dosage of chromosome-specific cfDNA Ql (cfDNA) Negative Normal [facility] Comment on above: Order Comment: Speci men Type: BLOOD SPECIMEN Ordering Facility: [facility] Address: [address] [place] [address] Performed By: #### 3 1201-7, 81283-5, 5195-3 #### [facility] CLIA [id number] [address] [place] [address] [place] Chr X and Y aneuploidy risk Sequencing Ql (cfDNA) [Interp] Not detected Normal [facility] Comment on above: Order Comment: Speci men Type: BLOOD SPECIMEN Ordering Facility: [facility] Address: [address] [place] [address] Result Comment: Not Detected Not Detected Performed By: #### 3 1201-7, 49099-9, 5195-3 #### [facility] CLIA [id number] [address] [place] [address] [place] Citation Ck (Reference lab test) Comment Normal [facility] Comment on above: Order Comment: Speci men Type: BLOOD SPECIMEN Ordering Facility: [facility] Address: [address] [place] [address] Result Comment: 1. P minh DIAZ, et al. Lore Med. 2012;14(3):296-305. 2. Jessie LEYVA, et al. Prenat Diag. 2013;33(6):591-597. 3. Manny C, et al. Clin Chem. 2015 Apr;61(4):608-616. 4. Janice DIAZ, et al. Lore Med. 2011;13(11):913-920. 5. ACOG/SMFM Practice Bulletin No. 226, Jan 2020. Performed By: #### 3 1201-7, 57924-3, 5-3 #### [facility] CLIA [id number] [address] [place] [address] [place] Gestational age Estimated from conception date Villa Normal [facility] Comment on above: Order Comment: Speci men Type: BLOOD SPECIMEN Ordering Facility: [facility] Address: [address] [place] [address] Performed By: #### 3 1201-7, 14986-2, 5-3 #### [facility] CLIA [id number] [address] [place] [address] [place] GESTATIONALAGE AGE > OR = 9W Yes Normal [facility] Comment on above: Order Comment: Speci kd Type: BLOOD SPECIMEN Ordering Facility: [facility] Address: [address] [place] [address] Performed By: #### 3 1201-7, 36411-9, 5194-3 #### [facility] CLIA [id number] [address] [place] [address] [place] Laboratory comment Ck (Report) Comment Normal [facility] Comment on above: Order Comment: Jose Miguel yi Type: BLOOD SPECIMEN Ordering Facility: [facility] Address: [address] [place] [address] Result Comment: The MaterniT(R) 21 PLUS laboratory-developed test (LDT) analyzes circulating cell-free DNA from a maternal blood sample. This test is used for screening purposes and not diagnostic. Clinical correlation is recommended. Validation data on twin pregnancies is limited and the ability of this test to detect aneuploidy in higher multiple gestations has not yet been validated. Performed By: #### 3 1201-7, 15622-5, 5-3 #### [facility] CLIA [id number] [address] [place] [address] [place] director merit system name Nom (Provider) Comment Normal [facility] Comment on above: Order Comment: Speci men Type: BLOOD SPECIMEN Ordering Facility: [facility] Address: [address] [place] [address] Result Comment: This specimen showed an expected representation of chromosome 21, 18 and 13 material. Clinical correlation is suggested. Comment Vanessa Moreno MD, Director, [employer] Performed By: #### 3 1201-7, 11204-2, 5195-3 #### [facility] CLIA [id number] [address] [place] [address] [place] LIMITATIONS OF THE TEST Comment Normal [facility] Comment on above: Order Comment: Speci men Type: BLOOD SPECIMEN Ordering Facility: [facility] Address: [address] [place] [address] Result Comment: Madiha bach the results of these tests are highly reliable, discordant results, including inaccurate sex prediction, may occur due to placental, maternal, or mosaicism or neoplasm; vanishing twin; prior maternal organ transplant; or other causes. These tests are screening tests and not diagnostic; they do not replace the accuracy and precision of diagnosis with CVS or amniocentesis. A patient with a positive test result should be referred for genetic counseling and offered invasive diagnosis for confirmation of test results.[5] The results of this testing, including the benefits and limitations, should be discussed with a qualified healthcare provider. management decisions, including termination of the , should not be based on the results of these tests alone. The healthcare provider is responsible for the use of this information in the management of their patient. Sex chromosomal aneuploidies are not reportable for known multiple gestations. A negative result does not ensure an unaffected nor does it exclude the possibility of other chromosomal abnormalities or defects which are not a part of these tests. An uninformative result may be reported, the causes of which may include, but are not limited to, insufficient sequencing coverage, noise or artifacts in the region, amplification or sequencing bias, or insufficient fraction. These tests are not intended to identify pregnancies at risk for neural tube defects or ventral wall defects. Testing for whole chromosome abnormalities (including sex chromosomes) and for subchromosomal abnormalities could lead to the potential discovery of both and maternal genomic abnormalities that could have major, minor, or no, clinical significance. Evaluating the significance of a positive or a non-reportable result may involve both invasive testing and additional studies on the mother. Such investigations may lead to a diagnosis of maternal chromosomal or subchromosomal abnormalities, which on occasion may be associated with benign or malignant maternal neoplasms. These tests may not accurately identify triploidy, balanced rearrangements, or the precise location of subchromosomal duplications or deletions; these may be detected by diagnosis with CVS or amniocentesis. The ability to report results may be impacted by maternal BMI, maternal weight, maternal systemic lupus erythematosus (SLE) and/or by certain pharmaceutical agents such as low molecular weight heparin (for example: Lovenox(R), Xaparin(R), Clexane(R) and Fragmin(R)). Performed By: #### 3 1201-7, 87750-6, 5195-3 #### [facility] CLIA [id number] [address] [place] [address] [place] Monosomy X risk Dosage of chromosome-specific cfDNA Ql (Plasma cell-free+WBC DNA) [Interp] Not detected Normal [facility] Comment on above: Order Comment: Speci men Type: BLOOD SPECIMEN Ordering Facility: [facility] Address: [address] [place] [address] Performed By: #### 3 1201-7, 20034-2, 5194-06 #### [facility] CLIA [id number] [address] [place] [address] [place] NEGATIVE PREDICTIVE VALUE Note Normal [facility] Comment on above: Order Comment: Jose Miguel yi Type: BLOOD SPECIMEN Ordering Facility: [facility] Address: [address] [place] [address] Result Comment: The Negative Predictive Value (NPV) for trisomy 21, 18, and 13 is greater than 99%. The NPV for SCA and ESS cannot be calculated as SCA and ESS are only reported when an abnormality is detected. Performed By: #### 3 1201-7, 12269-2, 5-3 #### [facility] CLIA [id number] [address] [place] [address] [place] PERFORMANCE CHARACTERISTICS Note Normal [facility] Comment on above: Order Comment: Speci men Type: BLOOD SPECIMEN Ordering Facility: [facility] Address: [address], [place] [address] Result Comment: ! Sex ! Accuracy: 99.4% ! ! ! ! Region (associated syndrome) ! Est. Sens# ! Est. Spec ! ! ! ! Trisomy 21 (Down Syndrome) ! 99.1% ! 99.9% ! ! ! ! Trisomy 18 (Lucio Syndrome) ! >99.9% ! 99.6% ! ! ! ! Trisomy 13 (Patau Syndrome) ! 91.7% ! 99.7% ! ! ! ! Sex Chromosome Aneuploidies## ! 96.2% ! 99.7% ! ! ! * As reported in [facility] database nstd37 [https://www.ncbi.nlm.nih.gov/dbvar/studies/nstd37/ ] # Estimated Sensitivity. Sensitivity estimated across the observed size distribution of each syndrome [per [facility] database nstd37] and across the range of fractions observed in routine clinical NIPT. Actual sensitivity can also be influenced by other factors such as the size of the event, total sequence counts, amplification bias, or sequence bias. ## Villa gestation only. Performed By: #### 3 1201-7, 39530-4, 5195-3 #### [facility] CLIA [id number] [address] [place] [address] [place] POSITIVE PREDICTIVE VALUE N/A Normal [facility] Comment on above: Order Comment: Jose Miguel yi Type: BLOOD SPECIMEN Ordering Facility: [facility] Address: [address] [place] [address] Performed By: #### 3 1201-7, 49188-7, 5195-3 #### [facility] CLIA [id number] [address] [place] [address] [place] Reference Lab Test Method Comment Normal [facility] Comment on above: Order Comment: Jose Miguel yi Type: BLOOD SPECIMEN Ordering Facility: [facility] Address: [address] [place] [address] Result Comment: See Notes Circulating cell-free DNA was purified from the plasma component of maternal blood. The extracted DNA was then converted into a genomic DNA library for aneuploidy analysis of chromosomes 21, 18, and 13 via next generation sequencing.[1] Optional findings based on the test order include sex chromosome aneuploidy (SCA)[2], and enhanced sequencing series (ESS)[3], which will only be reported on as an additional finding when an abnormality is detected. SCA testing includes information on X and Y representation, while ESS testing includes deletions in selected regions (22q, 15q, 11q, 8q, 5p, 4p, 1p) and trisomy of chromosomes 16 and 22. Performed By: #### 3 1201-7, 01256-1, 5195-3 #### [facility] CLIA [id number] [address] [place] [address] [place] Service comment (Unsp spec) [Interp] Comment Normal [facility] Comment on above: Order Comment: Speci men Type: BLOOD SPECIMEN Ordering Facility: [facility] Address: [address] [place] [address] Result Comment: See Notes [employer] is a subsidiary of [employer], using the brand [employer]. This test was developed and its performance characteristics determined by [employer]. It has not been cleared or approved by the Food and Drug Administration. This laboratory is certified under the Clinical Laboratory Improvement Amendments (CLIA) as qualified to perform high complexity clinical laboratory testing and accredited by the College [employer] (CAP). Performed By: #### 3 1201-7, 42420-1, 5194-3 #### [facility] CLIA [id number] [address] [place], [place] [address] [place] Sex Dosage of chromosome-specific cfDNA Nom (cfDNA) Comment Normal [facility] Comment on above: Order Comment: Speci men Type: BLOOD SPECIMEN Ordering Facility: [facility] Address: [address] [place] [address] Result Comment: Cons istent with Female Performed By: #### 3 1201-7, 65784-7, 5194-3 #### [facility] CLIA [id number] [address] [place] [address] [place] Test performance information Ck (Unsp spec) Comment Normal [facility] Comment on above: Order Comment: Speci men Type: BLOOD SPECIMEN Ordering Facility: [facility] Address: [address] [place] [address] Result Comment: The performance characteristics of the MaterniT(R) 21 PLUS laboratory-developed test (LDT) have been determined in a clinical validation study with women at increased risk for chromosomal aneuploidy.[1-4] Performed By: #### 3 1201-7, 82970-8, 5-3 #### [facility] CLIA [id number] [address] [place] [address] [place] Trisomy 13 risk Dosage of chromosome-specific cfDNA Ql (cfDNA) [Interp] Negative Normal [facility] Comment on above: Order Comment: Speci men Type: BLOOD SPECIMEN Ordering Facility: [facility] Address: [address] [place] [address] Performed By: #### 3 1201-7, 85526-0, 5-3 #### [facility] CLIA [id number] [address] [place] [address] [place] Trisomy 18 risk Dosage of chromosome-specific cfDNA Ql (Plasma cell-free+WBC DNA) [Interp] Negative Normal [facility] Comment on above: Order Comment: Speci men Type: BLOOD SPECIMEN Ordering Facility: [facility] Address: [address] [place] [address] Performed By: #### 3 1201-7, 41193-5, 5194-3 #### [facility] CLIA [id number] [address] [place] [address] [place] RUBELLA IGG ANTIBODYon 08-29 RUBELLA IGG AB, QUAL Positive Normal Positive [facility] Comment on above: Order Comment: Speci men Type: BLOOD SPECIMEN Ordering Facility: [facility] Address: [address] [place] [address] Result Comment: The result suggests recent or past exposure to Rubella virus or history of Rubella vaccination. Positive result may also be seen due to presence of passively-transferred antibodies. Please correlate with patient's history. Performed By: #### 3 1201-7, 51526-5, 5-3 #### [facility] CLIA [id number] [address] [place] [address] [place] Reagin and Treponema pallidu m IgG and IgM [Interp]on 08-29-2024 T. pallidum IgG+IgM IA Ql (S) Non-Reactive Normal Nonreactive [facility] Comment on above: Order Comment: Speci men Type: BLOOD SPECIMEN Ordering Facility: [facility] Address: [address] [place] [address] Performed By: #### 3 1201-7, 43215-5, 5195-3 #### [facility] CLIA [id number] [address] [place] [address] [place] Reagin+T pallidum IgG+IgM Se rPl-Impon 08-29-2024 Reagin and Treponema pallidum IgG and IgM [Interp] Cannot exclude recent Treponemal infection if specimen collected within 7-10 days after appearance of suspect lesions or 2-3 weeks after an exposure. Clinical correlation is required. Normal [facility] Comment on above: Order Comment: Speci men Type: BLOOD SPECIMEN Ordering Facility: [facility] Address: [address] [place] [address] Performed By: #### 3 1201-7, 16163-8, 5195-3 #### [facility] CLIA [id number] [address] [place] [address] [place] TYPE + SCREEN PRENATALon ABO O Normal [facility] Comment on above: Order Comment: Speci men Type: BLOOD SPECIMEN Ordering Facility: [facility] Address: [address] [place] [address] Performed By: #### T SPN #### [facility] CLIA [id number] [address] [place] [address] [place] Rh Nom (Bld) Positive Normal [facility] Comment on above: Order Comment: Speci men Type: BLOOD SPECIMEN Ordering Facility: [facility] Address: [address] [place] [address] Performed By: #### T SPN #### [facility] CLIA [id number] [address] [place] [address] [place] TYPE AND SCREEN EXPIRATION 09/01/2024 23:59 Normal [facility] Comment on above: Order Comment: Speci men Type: BLOOD SPECIMEN Ordering Facility: [facility] Address: [address] [place] [address] Performed By: #### T SPN #### [facility] CLIA [id number] [address] [place] [address] [id number] CNPLiyah 08-14-2024 CNPN Telephone (PSYRMN) -------- ENZO VILLELA ([id number]) 1995 F Date Time Provider Department 08/14/24 COOPER ROLDAN PSYRMN During your visit today, we recorded the following information about you: Cooper Roldan LISW 08/14/2024 1:39 PM Signed Phone call to patient regarding [facility] referral. Patient did not answer, left message. Outreach attempt #3. Will send MC message. 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 - sertraline (ZOLOFT) 50 mg tablet Take 1 tablet by mouth once daily. - triamcinolone (KENALOG) 0.025 % ointment Apply to affected area twice daily. - prental multivitamin 27 mg iron- 800 mcg tablet Take 1 tablet by mouth once daily. Problem List As Of Date 08/14/2024 Noted Resolved History of anxiety and depression [Z86.59] 03/21/2022 History of migraine headaches [Z86.69] 03/21/2022 Patient request for diagnostic testing [Z01.89] 03/21/2022 Encounter for supervision of normal first pregn*04/17/2022 Family history of breast cancer [Z80.3] 06/19/2024 Family history of colon cancer [Z80.0] 06/19/2024 Encounter for supervision of normal i*07/24/2024 History of precipitous delivery [Z87.59] 07/24/2024 Anxiety [F41.9] 07/24/2024 Encounter Status:Closed by COOPER ROLDAN on 08/14/24 [facility] 08-02-2024 CNPN Telephone (PSYRMN) -------- ENZO VILLELA ([id number]) 1995 F Date Time Provider Department 08/02/24 COOPER ROLDAN PSYRMN During your visit today, we recorded the following information about you: Cooper Roldan LISW 08/02/2024 3:00 PM Signed Phone call to patient regarding [facility] referral. Patient did not answer, left message. [facility] SW can be reached at: [place]: [phone] [place]:[phone] Allergies As of Date: 08/02/2024 Noted Allergy Reaction NICKEL 03/21/2022 2 - Rash Date Reviewed: 07/24/2024 Reviewed by: Chelsi Bell MA - Fully Assessed Reason for Visit: Brass Polisher - Other [9466] Cmt: [facility] Consult Follow Up Prescriptions as of 08/02/2024 - aspirin, enteric coated (ECOTRIN LOW STRENGTH) 81 mg EC tablet Take 1 tablet by mouth once daily. - sertraline (ZOLOFT) 50 mg tablet Take 1 tablet by mouth once daily. - triamcinolone (KENALOG) 0.025 % ointment Apply to affected area twice daily. - prental multivitamin 27 mg iron- 800 mcg tablet Take 1 tablet by mouth once daily. Problem List As Of Date 08/02/2024 Noted Resolved History of anxiety and depression [Z86.59] 03/21/2022 History of migraine headaches [Z86.69] 03/21/2022 Patient request for diagnostic testing [Z01.89] 03/21/2022 Encounter for supervision of normal first pregn*04/17/2022 Family history of breast cancer [Z80.3] 06/19/2024 Family history of colon cancer [Z80.0] 06/19/2024 Encounter for supervision of normal i*07/24/2024 History of precipitous delivery [Z87.59] 07/24/2024 Anxiety [F41.9] 07/24/2024 Encounter Status:Closed by COOPER ROLDAN on 08/02/24 Normal [facility] C. trachomatis+N. gonorrhoea e DNA AUBREY+probe Ql (Unsp spec)on 07-25-2024 C. trachomatis rRNA AUBREY+probe Ql (Unsp spec) Not detected Not detected [facility] Interpretation and review of laboratory results Normal [facility] N. gonorrhoeae rRNA AUBREY+probe Ql (Unsp spec) Not detected Not detected [facility] This FDA-approved as say has been modified to accept rectal swabs self-collected in a healthcare setting. For self-collected rectal swabs, the test was developed and its performance characteristics determined by the [facility]'s [facility] [place] (-[facility]). It has not been cleared or approved by the FDA. -[facility] is regulated under CLIA as qualified to perform high-complexity testing. This test is used for clinical purposes. It should not be regarded as investigational or for research. [facility] Hafsa 07-25-2024 OLENA Telephone (PSYRMN) -------- ENZO VILLELA ([id number]) 1995 F Date Time Provider Department 07/25/24 OCOPER ROLDAN PSYRMN During your visit today, we recorded the following information about you: Cooper Roldan LISW 07/25/2024 11:56 AM Signed Phone call to patient regarding [facility] referral. Patient did not answer, left message. [facility] SW can be reached at: [place]: [phone] [place]:[phone] Allergies As of Date: 07/25/2024 Noted Allergy Reaction NICKEL 03/21/2022 2 - Rash Date Reviewed: 07/24/2024 Reviewed by: Chelsi Bell MA - Fully Assessed Reason for Visit: Brass Polisher - Other [2821] Cmt: [facility] Consult Follow Up Prescriptions as of 07/25/2024 - aspirin, enteric coated (ECOTRIN LOW STRENGTH) 81 mg EC tablet Take 1 tablet by mouth once daily. - sertraline (ZOLOFT) 50 mg tablet Take 1 tablet by mouth once daily. - triamcinolone (KENALOG) 0.025 % ointment Apply to affected area twice daily. - prental multivitamin 27 mg iron- 800 mcg tablet Take 1 tablet by mouth once daily. Problem List As Of Date 07/25/2024 Noted Resolved History of anxiety and depression [Z86.59] 03/21/2022 History of migraine headaches [Z86.69] 03/21/2022 Patient request for diagnostic testing [Z01.89] 03/21/2022 Encounter for supervision of normal first pregn*04/17/2022 Family history of breast cancer [Z80.3] 06/19/2024 Family history of colon cancer [Z80.0] 06/19/2024 Encounter for supervision of normal i*07/24/2024 History of precipitous delivery [Z87.59] 07/24/2024 Anxiety [F41.9] 07/24/2024 Encounter Status:Closed by COOPER ROLDAN on 07/25/24 Normal [facility] TRICHOMONAS VAGINALIS Storm 07-25-2024 Interpretation and review of laboratory results Normal [facility] T. vaginalis DNA AUBREY+probe Ql (Unsp spec) Not detected Not detected [facility] Bacteria Ur Culton Bacteria identified Cx Nom (U) ORGANISM ID: 1 10,000 -<50,000 CFU/ml Normal urogenital clarissa Normal [facility] Comment on above: Performed By: #### 3 1201-7, 43695-1, 5195-3 #### [facility] CLIA [id number] [address] [place] [address] [place] C. trachomatis+N. gonorrhoea e DNA AUBREY+probe Ql (Unsp spec)on 07-24-2024 C. trachomatis rRNA AUBREY+probe Ql (Unsp spec) Not detected Normal Not detected [facility] Comment on above: Order Comment: Speci men Type: BLOOD SPECIMEN Ordering Facility: [facility] Address: [address] [place] [address] Performed By: #### 3 1201-7, 88998-2, 5195-3 #### [facility] CLIA [id number] [address] [place] [address] [place] N. gonorrhoeae rRNA AUBREY+probe Ql (Unsp spec) Not detected Normal Not detected [facility] Comment on above: Order Comment: Speci men Type: BLOOD SPECIMEN Ordering Facility: [facility] Address: [address] [place] [address] Performed By: #### 3 1201-7, 77283-2, 5195-3 #### [facility] CLIA [id number] [address] [place] [address] [place] POC VIDEO MACHINES MECHANIC ULTRASOUNDon 07-25-19 25 Indication Viability; confirm cardiac activity, Uncertain dates Impression Single intrauterine gestational sac, CRL is appropriate for clinical dates, corresponding to KENYATTA cardiac activity is visualized Recommendations Follow up for 1st Trimester Anatomy with Nuchal Translucency as clinically indicated if desired. Method Transvaginal ultrasound examination [place] . Number of embryos: 1 Dating LMP on: 06/06/2024 GA by LMP 6 w + 6 d KENYATTA by LMP: 03/13/2025 Ultrasound examination on: 07/24/2024 GA by U/S based upon: CRL GA by U/S 6 w + 4 d KENYATTA by U/S: 03/15/2025 Assigned: based on the LMP, selected on 07/24/2024 Assigned GA 6 w + 6 d Assigned KENYATTA: 03/13/2025 Biometry Standard CRL 7.1 mm 6w 4d 18% Hadlock Assessment Gestational sac: visualized Location: intrauterine Yolk sac: visualized Embryo: visualized CRL 7.1 mm 6w 4d 18% Hadlock Cardiac activity: present General Evaluation Cardiac activity present Performed By: Debra Mcdonald CNM Read By: Debra Mcdonald CNM MATERNAL MEDICINE [facility] Radiology Study observation (narrative) [facility] TRICHOMONAS VAGINALIS NAATon 07-24-2024 T. vaginalis DNA AUBREY+probe Ql (Unsp spec) Not detected Normal Not detected [facility] Comment on above: Order Comment: Speci men Type: BLOOD SPECIMEN Ordering Facility: [facility] Address: [address] [place] [address] Performed By: #### 3 1201-7, 64869-4, 5195-3 #### [facility] CLIA [id number] [address] [place] [address] [place] CNCOon 07-17-2024 CNCO Letter Text Normal [facility] CNOVon 06-19-2024 CNOV Office Visit (OBGYWM ) -------- ENZO VILLELA ([id number]) 1995 F Date Time Provider Department 06/19/24 10:45 AM CRISTINA BRADY During your visit today, we recorded the following information about you: Blood pressure Weight Height Last Period 100/66 73.5 kg 1.778 m 06/06/24 Cristina Brady APRN.GORANM 06/19/2024 11:14 AM Signed Enzo is a 28 year old who presents for an annual gynecologic exam without complaints. Still , started menses 02/24 and regular at this time. Had chemical 04/27. Trying conceive. Taking PNV Still get period: Yes LMP: 06/06/2024 Menses: cycles every 28-31 days and 5 days of flow Menstrual flow: Moderate Bleeding amount bothersome: No Bleeding between periods: No Period symptoms: None Sexually active: Yes Contraception: Cycle tracking Contraception frequency: Sometimes HPV: N/A Last pap smear: 04/06/2022 Normal History of abnormal pap: No Bothersome pelvic pain: No Last mammogram: never Sexually active: Yes OB History Gravida1 Para1 Term1 Preterm0 AB0 Living1 SAB0 IAB0 Ectopic0 Multiple0 Live Births1 [place] Tender History LMP: 06/06/2024 (Exact Date), Having periods Age at Menarche: 16 Age at First : Age at Menopause: [place] Tender History Comments: Sexual Activity: Yes; Male Contraception: Rhythm Menstrual Tracking History Flowsheet Row Appointment from 06/10/2024 in OB/Gynecology Period Cycle (Days) 29 Period Duration (Days) 5 Menstrual Flow Moderate FAMILY HISTORY Problem Relation Age of Onset Arthritis Mother No Known Problems Father No Known Problems Brother No Known Problems Brother No Known Problems Brother Hypertension Maternal Grandmother Diabetes Maternal Grandmother Liver Disease Maternal Grandfather Alcohol abuse Maternal Grandfather Breast Cancer Paternal Grandmother Colon Cancer Paternal Grandfather SOCIAL HISTORY Social History Tobacco Use Smoking status: Never Smokeless tobacco: Never Vaping Use Vaping status: Never Used Substance Use Topics Alcohol use: Not Currently Drug use: Never REVIEW OF SYSTEMS Abdomen: No abdominal pain, nausea, vomiting, diarrhea, or constipation. No bloating, early satiety, indigestion, or increased flatulence. Bladder: No dysuria, gross hematuria, urinary frequency, urinary urgency, or incontinence. Breast: No breast lumps, nipple d/c, overlying skin changes, redness or skin retraction. Allergies and current medication updated:Yes SENSITIVE EXAM: The sensitive examination was discussed with the Patient or Patient's Authorized Wire Winding Machine Operator. As applicable, any other physician, advance practice provider, medical student, or other health professional student that will be observing or involved in the sensitive examination for educational or training purposes was discussed with the Patient or Authorized Wire Winding Machine Operator. The Patient or Authorized Wire Winding Machine Operator has agreed to proceed with the sensitive examination. (Sensitive examination includes inspection and/or palpation of the breasts, pelvis, prostate and anorectal regions). EXAM: BP 100/66 Ht 5' 10 (1.78m) Wt 162 lb (73.5kg) LMP 06/06/2024 BMI 23.24 kg/(m2). GENERAL: pleasant, female in no apparent distress HEENT: Normocephalic, atraumatic, mucus membranes moist, and no lesions NECK: Supple, full range of motion, no adenopathy, and thyroid normal DERMATOLOGY: Normal, without lesions, non-icteric, and non-hirsute BREAST: soft, non-tender, symmetric, no dominant mass, normal nipple-areolar complex, no lymphadenopathy, and no nipple discharge CHEST: Normal inspiratory effort ABDOMEN: soft, non-tender, and no masses PELVIC: external genitalia normal, normal Bartholin's glands, urethra, [place]'s glands, no vulvar lesions, no cervical lesions, good vaginal support, physiologic discharge present, normal appearing perineal body and perianal region BIMANUAL: uterus normal size, shape and consistency, no adnexal masses, and non-tender RECTOVAGINAL: deferred. NEURO: alert and oriented x3,exam grossly non-focal EXTREMITIES: normal ASSESSMENT/PLAN: 1. Encounter for gynecological examination (general) (routine) with abnormal findings - ICD9: V72.31, ICD10: Z01.411 (primary diagnosis) - Completed pelvic and breast exam - Encouraged monthly BSE - Follow up for annual exam in one year. 2. Family history of breast cancer - ICD9: V16.3, ICD10: Z80.3 -Discussed genetics referral if desires 3. Family history of colon cancer - ICD9: V16.0, ICD10: Z80.0 -Discussed genetics referral if desires 4. Encounter for preconception consultation - ICD9: V26.49, ICD10: Z31.69 Reviewed pre-conception guidelines including folic acid supplementation, optimal timing of intercourse, avoidance of smoking, alcohol, and exposure to environmental chemicals. Discussed rubella and varicella titers (more content not included)... Normal [facility] CNTHERAPYon 08-07-2023 CNTHERAPY OT/PT/Speech Visit (AKPTB) -------- ENZO VILLELA ([id number]) 1995 F Date Time Provider Department 08/07/23 5:15 PM SHARLA CADENA Date Time Provider Department [place] 08/07/2023 5:15 PM [id number] CADENA [facility] Reason for Visit: Physical Therapy [503] Primary Visit Diagnosis:Muscle pain [M79.10] Allergies As of Date: 08/07/2023 Noted Allergy Reaction NICKEL 03/21/2022 2 - Rash Date Reviewed: 06/05/2023 Reviewed by: Stephani Smith MA - Fully Assessed Prescriptions as of 08/07/2023 - estradiol (ESTRACE) 0.01 % (0.1 mg/gram) vaginal cream Insert 1 gram of cream to lower vagina and outside of vagina twice weekly. - sertraline (ZOLOFT) 50 mg tablet Take 1 tablet by mouth once daily. - triamcinolone (KENALOG) 0.025 % ointment Apply to affected area twice daily. - prental multivitamin 27 mg iron- 800 mcg tablet Take 1 tablet by mouth once daily. -------- Sem Manager: Therapy (PT/OT/Speech/Resp) ID: [id number] 08/07/2023 5:56 PM Author: SHARLA CADENA Signed by SHARLA CADENA PT on 08/07/2023 at 5:56 PM Document text: Program_ID:[id number] Access Code: [email or web address] URL: [email or web address]/ Date: 08-07-2023 Prepared By: Sharla Cadena Program Notes Exercises - Supine Diaphragmatic Breathing - 10 x daily - 7 x weekly - 1 sets - 5-10 reps - Supine Transversus Abdominis Bracing - Hands on Stomach - 1 x daily - 7 x weekly - 1 sets - 10 reps - Seated Pelvic Floor Lengthening - 1 x daily - 7 x weekly - 1 sets - 5 reps - Seated Pelvic Floor Contraction - 3 x daily - 7 x weekly - 1 sets - 10 reps Normal [facility] THERAPY NTon 08-07-2023 THERAPY NT HNO ID: [id number] Author: SHARLA CADENA, PT Service: ? Author Type: Physical Therapist Type: Therapy (PT/OT/Speech/Resp) Filed: 08/07/2023 17:56 Note Text: Program_ID:[id number] Access Code: [email or web address] URL: [email or web address]/ Date: 08-07-2023 Prepared By: Sharla Cadena Program Notes Exercises - Supine Diaphragmatic Breathing - 10 x daily - 7 x weekly - 1 sets - 5-10 reps - Supine Transversus Abdominis Bracing - Hands on Stomach - 1 x daily - 7 x weekly - 1 sets - 10 reps - Seated Pelvic Floor Lengthening - 1 x daily - 7 x weekly - 1 sets - 5 reps - Seated Pelvic Floor Contraction - 3 x daily - 7 x weekly - 1 sets - 10 reps Normal [facility] CNTHERAPYon 07-04-2023 CNTHERAPY OT/PT/Speech Visit (AKPTB) -------- ENZO VILLELA ([id number]) 1995 F Date Time Provider Department 07/04/23 2:45 PM SHARLA CADENA Date Time Provider Department Center 07/04/2023 2:45 PM [id number] CADENA [facility] Reason for Visit: PT Eval [747] Primary Visit Diagnosis:Muscle pain [M79.10] Allergies As of Date: 07/04/2023 Noted Allergy Reaction NICKEL 03/21/2022 2 - Rash Date Reviewed: 06/05/2023 Reviewed by: Stephani Smith MA - Fully Assessed Prescriptions as of 07/04/2023 - estradiol (ESTRACE) 0.01 % (0.1 mg/gram) vaginal cream Insert 1 gram of cream to lower vagina and outside of vagina twice weekly. - sertraline (ZOLOFT) 50 mg tablet Take 1 tablet by mouth once daily. - triamcinolone (KENALOG) 0.025 % ointment Apply to affected area twice daily. - prental multivitamin 27 mg iron- 800 mcg tablet Take 1 tablet by mouth once daily. -------- Sem Manager: Therapy (PT/OT/Speech/Resp) ID: [id number] 07/04/2023 3:34 PM Author: SHARLA CADENA Signed by SHARLA CADENA PT on 07/04/2023 at 3:34 PM Document text: Program_ID:[id number] Access Code: [email or web address] URL: [email or web address] [email or web address]. [email or web address] medical [email or web address] Date: 07-04-2023 Prepared By: Sharla Cadena Program Notes Exercises - Supine Diaphragmatic Breathing - 10 x daily - 7 x weekly - 1 sets - 5-10 reps - Supine Transversus Abdominis Bracing - Hands on Stomach - 1 x daily - 7 x weekly - 1 sets - 10 reps - Seated Pelvic Floor Lengthening - 1 x daily - 7 x weekly - 1 sets - 5 reps Letter Text Normal [facility] THERAPY NTon 07-04-2023 THERAPY NT HNO ID: [id number] Author: SHARLA CADENA PT Service: ? Author Type: Physical Therapist Type: Therapy (PT/OT/Speech/Resp) Filed: 07/04/2023 15:34 Note Text: Program_ID:[id number] Access Code: [email or web address] URL: [email or web address] Date: 07-04-2023 Prepared By: Sharla Cadena Program Notes Exercises - Supine Diaphragmatic Breathing - 10 x daily - 7 x weekly - 1 sets - 5-10 reps - Supine Transversus Abdominis Bracing - Hands on Stomach - 1 x daily - 7 x weekly - 1 sets - 10 reps - Seated Pelvic Floor Lengthening - 1 x daily - 7 x weekly - 1 sets - 5 reps Normal [facility] BACTERIAL VAGINOSIS NAATon 0 06-06-2023 Lactobacillus crispatus+gasseri+j ensenii + Gardnerella vaginalis + Atopobium vaginae rRNA AUBREY+probe Ql (Vag fld) Negative Negative for bacterial vaginosis [facility] JAE/TRICHOMONAS NAATon 0 06-06-2023 C. glabrata RNA AUBREY+probe Ql (Vag fld) Negative Negative for Jae glabrata [facility] Jae sp DNA AUBREY+probe Ql (Vag fld) Negative Negative for Jea species [facility] T. vaginalis DNA AUBREY+probe Ql (Unsp spec) Negative Negative for Trichomonas vaginalis by amplification [facility] MR/BMS.BBCon 01-05-2023 MR/BMS.[facility] [address] [place], [place] [id number] OFFICE VISIT Date of Service: 12/01/22 MR#: [id number] Acct: [id number] Name: ENZO PAULINO Rep #: [id number] : 1995 Provider: Deidre Peralta NP Age/Sex: 27/F Location[place] [facility] Status: Signed Intake Vital Signs 11/28/22 20:28 01/05/23 10:09 Height 5 ft 10 in 5 ft 10 in Intake Visit Reasons: first time bf mom Chief Complaint: assessment Allergies nickel Allergy (Mild, Verified 11/28/22 20:29) Rash : Yes PFSH PFSH Medical History (Updated 12/08/22 @ 00:21 by Saulo Gomez) Pseudotumor cerebri Vaginal delivery Surgical History (Updated 11/28/22 @ 21:39 by Cheryl Moreira) History of surgery History of tonsillectomy and adenoidectomy Family History Other Arthritis Social History (Updated 04/10/17 @ 10:43 by Mario Jeffers DO) Smoking Status: Never smoker History Elective abortions Hx Para 0 Spontaneous abortions Hx # Term Pregnancies Ectopic pregnancies Hx # Pregnancies Multiple births # of living children HPI HPI HPI: ENZO VILLELA, is a 27 F who presents to the office today for assessment. History provided by the patient. ROS ROS Const Constitutional: Denies fever(s) or lethargy : Denies nipple discharge Skin Skin/Breast: Denies breast pain, breast skin changes or nipple discharge Details: q2 hours, 15-30 minutes to one side, milk started to come in- feeling full, patinet has right enlarged lymph node in underarm- noticed during and has repeat US/scan on Dec 21, minimal nipple pain with feeds Exam Maternal Assessment Breast Assessment Bilateral Breasts: Full Nipple Assessment Bilateral Nipples: Everted Areolar Tissue Areolar Tissue: Pliable Assessment Baby Feeding History Is your baby latching onto the breast: Yes Number of Breast Feedings in 24 hours: 12 Minutes per breast: First Breast: 15-30 Supplements Supplement Type:: None Breast Pumping Frequency: has not started pumping Goals Breast Feeding Goals: Exclusive Exam Const General: comfortable and no acute distress Orientation: alert and oriented x3 Chest Breast inspection: normal inspection of the breasts Breast palpation: normal palpation of the breasts (bilateral breast tissue full ) and abnormal palpation of the axilla (2-3 cm possible lymph node to right underarm, mobile ) Other: bilateral nipples slight reddened Resp Effort Inspection: normal respiratory effort Skin General: no rashes or lesions noted Psych Appearance: grossly normal Mental Status: mental status grossly normal Affect: normal affect Assessment and Plan Assessment and Plan (1) Care and examination of lactating mother: Plan: Latch Score L - Latch Latch: Grasps breast, tongue down, lips flanged, rhymic sucking (2) A - Audible Swallowing Audible Swallowing: Spontaneous intermittent <24 hrs, spontaneous frequent >24 hrs (2) T - Type of Nipple Type of Nipple: Everted (after stimulation) (2) C - Comfort (Breast/Nipple) Comfort (Breast/Nipple): Filling/reddened/small blisters/bruises/mild/mo derate discomfort (1) H - Hold (Positioning) Hold (Positioning): Minimal assist, teach/hold one side and mother does other (1) Total Score Total Score:: 8 Observation Feeding Observed:: Yes Observed baby latching for 22 minutes in office. Educated on skin to skin, feeding on demand, offering both sides with each feed. Educated on engorgement, ice, milk supply, pumping and milk storage. OB following up with enlarged lymph node. Can follow up with PRN. Coding Level of Care Code 31679 PRVT COUNSELING INDIVID Diagnoses Care and examination of lactating mother Z39.1 Time Spent (min) 30 01/05/23 1015 Date Deidre Peralta NP FRESH WORK INSPECTOR-C Cosigner Signature: Date (if applicable) CC: Normal [facility] CBC W/Diff, Automatedon 08 PATH REV Reviewed Normal [facility] Comment on above: Result Comment: Neut rophilic leukocytosis. Macrocytic anemia. Clinical correlation necessary. Eamon Erickson M.D. 11/30/22 AMENDED REPORT 11/30/22 1248 PATH REV previously reported as: August Performed By: #### L 100.0100 #### [facility] [address] [place], [address] CBC-Complete Blood Cnt No Di ffon 11-30-2022 HCT Normal 37-47 [facility] Comment on above: Order Comment: Reaso n for Laboratory Test Day #1 Result Comment: CAITLIN ENT DISCHARGED. SPECIMEN NOT RECEIVED. Performed By: #### L 100.0500 #### [facility] [address] [place], [address] HGB Normal 12.0-15.0 [facility] Comment on above: Order Comment: Reaso n for Laboratory Test Day #1 Result Comment: CAITLIN ENT DISCHARGED. SPECIMEN NOT RECEIVED. Performed By: #### L 100.0500 #### [facility] [address] [place], [address] MCH Normal 27.0-32.0 [facility] Comment on above: Order Comment: Reaso n for Laboratory Test Day #1 Result Comment: CAITLIN ENT DISCHARGED. SPECIMEN NOT RECEIVED. Performed By: #### L 100.0500 #### [facility] [address] [place], [address] MCHC Normal 32-36 [facility] Comment on above: Order Comment: Reaso n for Laboratory Test Day #1 Result Comment: CAITLIN ENT DISCHARGED. SPECIMEN NOT RECEIVED. Performed By: #### L 100.0500 #### [facility] [address] [place], [address] MCV Normal 81-99 [facility] Comment on above: Order Comment: Reaso n for Laboratory Test Day #1 Result Comment: CAITLIN ENT DISCHARGED. SPECIMEN NOT RECEIVED. Performed By: #### L 100.0500 #### [facility] [address] [place], [address] PLT Normal 150-450 [facility] Comment on above: Order Comment: Reaso n for Laboratory Test Day #1 Result Comment: CAITLIN ENT DISCHARGED. SPECIMEN NOT RECEIVED. Performed By: #### L 100.0500 #### [facility] [address] [place], [address] RBC Normal 4.2-5.4 [facility] Comment on above: Order Comment: Reaso n for Laboratory Test Day #1 Result Comment: CAITLIN ENT DISCHARGED. SPECIMEN NOT RECEIVED. Performed By: #### L 100.0500 #### [facility] [address] [place], [address] RDW CV Normal 11.6-14.6 [facility] Comment on above: Order Comment: Reaso n for Laboratory Test Day #1 Result Comment: CAITLIN ENT DISCHARGED. SPECIMEN NOT RECEIVED. Performed By: #### L 100.0500 #### [facility] [address] [place], [address] RDW SD Normal 35.1-43.9 [facility] Comment on above: Order Comment: Reaso n for Laboratory Test Day #1 Result Comment: CAITLIN ENT DISCHARGED. SPECIMEN NOT RECEIVED. Performed By: #### L 100.0500 #### [facility] [address] [place], [address] WBC Normal 4.4-11.0 [facility] Comment on above: Order Comment: Reaso n for Laboratory Test Day #1 Result Comment: CAITLIN ENT DISCHARGED. SPECIMEN NOT RECEIVED. Performed By: #### L 100.0500 #### [facility] [address] [place], [address] Absolute lymphocyte countOrd ered By: Camron Chapin on 11-29-2022 Lymphocytes Auto (Unsp spec) [#/Vol] 2.00 10*3/uL 0.83-4.51 [facility] Basophil percentageOrdered B y: Camron Chapin on 11-29-2022 Basophils/100 WBC (Bld) 0.2 % 0-1 [facility] Eosinophils/100 WBC (Bld) 0.0 % 0-5 [facility] Neutrophils (Bld) [#/Vol] 13.9 10*3/uL 2.0-7.7 [facility] Neutrophils/100 WBC (Bld) 79.1 % 47-70 [facility] WBC (Bld) [#/Vol] 17.5 10*3/uL 4.4-11.0 [facility] Blood erythrocytes count (nu mber/volume)Ordered By: Camron Chapin on 11-29-2022 RBC (Bld) [#/Vol] 3.54 10*6/uL 4.2-5.4 [facility] Blood hemoglobin measurement (mass/volume)Ordered By: Camron Chapin on 11-29-2022 Hemoglobin (Bld) [Mass/Vol] 11.7 g/dL 12.0-15.0 [facility] Blood lymphocytes/100 leukoc ytesOrdered By: Camron Chapin on 11-29-2022 Lymphocytes/100 WBC (Bld) 11.4 % 19-41 [facility] Blood manual differential co mment interpretation (narrative result)Ordered By: Camron Chapin on 11-29-2022 Manual differential comment Ck (Bld) [Interp] SCANNED [facility] Comment on above: MONOCYTOSIS PRESENT Blood monocytes/100 leukocyt esOrdered By: Camron Chapin on 11-29-2022 Monocytes/100 WBC (Bld) 8.6 % 0-10 [facility] Blood platelet mean volumeOr dered By: Camron Chapin on 11-29-2022 Platelet mean volume (Bld) [Entitic vol] 11.8 fL 6.2-12.0 [facility] Determination of erythrocyte mean corpuscular volume (MCV)Ordered By: Camron Chapin on 11-29-2022 MCV (RBC) [Entitic vol] 100.3 fL 81-99 [facility] Hematocrit Auto (Bld) [Volum e fraction]Ordered By: Camron Chapin on 11-29-2022 Hematocrit (Bld) [Volume fraction] 35.5 % 37-47 [facility] - Hematology and Cell countsOrdered By: Camron Chapin on 11-29-2022 Erythrocyte distribution width (RBC) [Entitic vol] 45.4 fL 35.1-43.9 [facility] Erythrocyte distribution width (RBC) [Ratio] 12.4 % 11.6-14.6 [facility] Immature granulocytes/100 WBC (Bld) 0.700 % 0.0-0.9 [facility] Comment on above: IG% - Immature Granu locytes (promyelocytes, myelocytes and metamyelocytes) > 1% indicates that a LEFT SHIFT is Present. MCH (RBC) [Entitic mass] 33.1 pg 27.0-32.0 [facility] Nucleated RBC/100 WBC (Bld) [Ratio] 0 % 0-5 [facility] MCHC Auto (RBC) [Mass/Vol]Or dered By: Camron Chapin on 11-29-2022 MCHC (RBC) [Mass/Vol] 33.0 g/dL 32-36 [facility] Operative Reporton 3 Operative Report [facility] [facility] Medical Records Department [address] [place] [address] Operative Report 11/29/22 0007 MR#: [id number] Acct: [id number] Name: ENZO OSMAN Rep #: [id number] : 1995 27 From: Camron Chapin DO PCP: Dr. Hernán Lind MD Status:ADM IN Location: [id number] Problems Associated Problem List Diagnoses (1) 40 weeks gestation of : (2) Primiparous: (3) Uterine contractions: (4) Vaginal delivery: Report of Operation Date of Procedure: 11/29/22 Pre-Operative Diagnosis: 40 week gestation, single IUP, labor Post-Operative Diagnosis: As above, precipitous delivery Surgery/Procedure Performed:: Repair of bilateral sulcal lacerations Repair of 2nd degree perineal laceration Repair of leonardo urethral laceration Description of Surgical Findings:: VMI in JUSTIN position with a loose nuchal cord x 1. Apgars 8, 9. Normal appearing placenta with 3 VC Surgeon: Camron Chapin Type of Anesthesia: Local Special Medications: None Specimen's removed: Placenta Drains: Mccormick placed at time of repair Estimated Blood Loss (mL): 400 Fluids Replaced: N/A Description of Procedure: Patient was complete and pushing. The head of the was delivered in left occiput anterior position. A loose nuchal cord x1 was noted but the shoulders and body of the spontaneously delivered without any force or delay through the nuchal cord. A vigorous viable male infant was delivered atraumatically and placed on maternal abdomen. The cord was clamped and cut after 60 sec delay by the father of the baby. Cord blood was obtained. Placenta was delivered spontaneously and noted to be normal-appearing and intact with a three-vessel cord. The fundus was firm. The cervix was inspected all the way around and noted to be normal-appearing and intact. Bilateral sulcal lacerations were noted. 3-0 Vicryl was used to repair the bilateral sulcal lacerations in a running fashion. A second-degree perineal laceration was repaired with 3-0 Vicryl in usual sterile fashion. 1 vaginal packing was placed. A laceration was noted going from the clitoris to the urethra, and it was actively bleeding. Pressure was applied for several minutes and bleeding was still noted. A mccormick catheter was placed with return of clear urine. Using 3-0 Vicryl two single interrupted sutures were placed along the periurethral laceration for hemostasis. Sponge counts were correct. Grafts/Implants Used: None Complications None Admit VTE Documentation VTE Present on Admission: No 11/29/22 0016 Cosigner Signature (if applicable): CC: Dr. Hernán Lind MD; Dr. Camron Chapin DO Signed Normal [facility] Platelets bldOrdered By: Josh Chapin on 11-29-2022 Platelets (Bld) [#/Vol] 201 10*3/uL 150-450 [facility] Review by pathologistOrdered By: Camron Chapin on 11-29-2022 Pathologist review Ck (Unsp spec) [Interp] May foll [facility] Type AND Screenon 11-29-2022 Ab SCREEN GEL Negative Normal [facility] Comment on above: Order Comment: Labor Performed By: #### B TS, L100.0100 #### [facility] [address] [place], [address] ABO and Rh group Nom (Bld) Blood group O Rh(D) positive Normal [facility] Comment on above: Order Comment: Labor Performed By: #### Gabriela NERI, L100.0100 #### [facility] [address] [place], [address] CBC W/Diff, Automatedon 11-02 Absolute Lymph 1.53 X10 3/uL Normal 0.83-4.51 [facility] Comment on above: Performed By: #### Gabriela NERI, L100.0100 #### [facility] [address] [place], [address] Absolute Neut 10.9 X10 3/uL High 2.0-7.7 [facility] Comment on above: Performed By: #### Gabriela NERI, L100.0100 #### [facility] [address] [place], [address] Basophils/100 WBC (Bld) 0.3 % Normal 0-1 [facility] Comment on above: Performed By: #### Gabriela NERI, L100.0100 #### [facility] [address] [place], [address] Eosinophils/100 WBC (Bld) 0.1 % Normal 0-5 [facility] Comment on above: Performed By: #### Gabriela NERI, L100.0100 #### [facility] [address] [place], [address] Erythrocyte distribution width (RBC) [Ratio] 12.4 % Normal 11.6-14.6 [facility] Comment on above: Performed By: #### Gabriela NERI, L100.0100 #### [facility] [address] [place], [address] Hematocrit (Bld) [Volume fraction] 40.2 % Normal 37-47 [facility] Comment on above: Performed By: #### Gabriela NERI, L100.0100 #### [facility] [address] [place], [address] Hemoglobin (Bld) [Mass/Vol] 13.3 g/dL Normal 12.0-15.0 [facility] Comment on above: Performed By: #### Gabriela NERI, L100.0100 #### [facility] [address] [place], [address] IG% 0.800 Normal 0.0-0.9 [facility] Comment on above: Result Comment: IG% - Immature Granulocytes (promyelocytes, myelocytes and metamyelocytes) > 1% indicates that a LEFT SHIFT is Present. Performed By: #### Gabriela NERI, L100.0100 #### [facility] [address] [place], [address] Lymphocytes/100 WBC (Bld) 11.5 % Low 19-41 [facility] Comment on above: Performed By: #### Gabriela NERI, L100.0100 #### [facility] [address] [place], [address] MCH (RBC) [Entitic mass] 33.0 pg High 27.0-32.0 [facility] Comment on above: Performed By: #### Gabriela NERI, L100.0100 #### [facility] [address] [place], [address] MCHC (RBC) [Mass/Vol] 33.1 g/dL Normal 32-36 [facility] Comment on above: Performed By: #### Gabriela NERI, L100.0100 #### [facility] [address] [place], [address] MCV (RBC) [Entitic vol] 99.8 fL High 81-99 [facility] Comment on above: Performed By: #### Gabriela NERI, L100.0100 #### [facility] [address] [place], [address] Monocytes/100 WBC (Bld) 5.6 % Normal 0-10 [facility] Comment on above: Performed By: #### Gabriela NERI, L100.0100 #### [facility] [address] [place], [address] Neutrophils/100 WBC (Bld) 81.7 % High 47-70 [facility] Comment on above: Performed By: #### Gabriela NERI, L100.0100 #### [facility] [address] [place], [address] Nucleated RBC (Bld) [#/Vol] 0 10*3/uL Normal 0-5 [facility] Comment on above: Performed By: #### Gabriela NERI, L100.0100 #### [facility] [address] [place], [address] Platelet mean volume (Bld) [Entitic vol] 12.1 fL High 6.2-12.0 [facility] Comment on above: Performed By: #### Gabriela NERI, L100.0100 #### [facility] [address] [place], [address] Platelets (Bld) [#/Vol] 220 10*3/uL Normal 150-450 [facility] Comment on above: Performed By: #### Gabriela NERI, L100.0100 #### [facility] [address] [place], [address] RBC (Bld) [#/Vol] 4.03 10*6/uL Low 4.2-5.4 [facility] Comment on above: Performed By: #### Gabreila NERI, L100.0100 #### [facility] [address] [place], [address] RDW SD 45.7 fl High 35.1-43.9 [facility] Comment on above: Performed By: #### Gabriela NERI, L100.0100 #### [facility] [address] [place], [place], [address] WBC (Bld) [#/Vol] 13.3 10*3/uL High 4.4-11.0 [facility] Comment on above: Performed By: #### B TS, L100.0100 #### [facility] [address] [place], [address] H AND P Exam - OB/GYNon 11-02 H&P Exam - PACKAGE CLERK [facility] Medical Records Department [address] [place] [address] H P Exam - PACKAGE CLERK 11/28/22 2104 MR#: [id number] Acct: [id number] Name: ENZO OSMAN Rep #: [id number] : 1995 27 From: Camron Chapin DO PCP: Dr. Hernán Lind MD Status:ADM IN Location: [id number] HPI - General General Date of Admission: 11/28/22 Date of Service: 11/28/22 Chief Complaint: labor HPI Narrative ENZO OSMAN, is a 27 F who presents at 40w5d with ctx's and 4-5 cm with BBOW per RN. No vb, lof. Good FM. PFSH PFS Medical History (Updated 11/28/22 @ 21:[address] Camron Chapin, DO) Pseudotumor cerebri Home Medications escitalopram oxalate 10 mg tablet (Lexapro) 20 mg PO QDAY anxiety 03/15/17 [History Last Taken Unknown] topiramate 50 mg tablet (Topamax) 50 mg PO BID headaches 03/15/17 [History Last Taken Unknown] L norgest/E estradiol-E estrad 0.15 mg-30 mcg (84)/10 mcg(7) tabs,3mos (Ashlyna) 1 tab PO Q24H 04/07/17 [History Last Taken Unknown] magnesium 250 mg tablet 250 mg PO DAILY headaches 07/14/17 [History Last Taken Unknown] vit no.95-ferrous fumarate 28 mg-folic acid 800 mcg tablet ( Multivitamins) 1 ea PO DAILY supplement 07/14/17 [History Last Taken Unknown] hydrocodone 5 mg-acetaminophen 300 mg tablet 1 - 2 tab PO Q6H PRN PRN Pain 3 days #30 tabs 07/21/17 [Rx Last Taken Unknown] Allergy/AdvReac Type Severity Reaction Status Date / Time nickel Allergy Mild Rash Verified 11/28/22 20:29 Family History Other Arthritis Surgical History (Updated 07/21/17 @ 10:[address] Marques Ferrer DPM) History of tonsillectomy and adenoidectomy Social History (Updated 04/10/17 @ 10:43 by Mario Jeffers DO) Smoking Status: Never smoker NST FHR Rate Baby A Baseline: 120 Variability:: Moderate Accelerations:: 15 x 15 Decelerations:: None NST Reactive:: Yes FHR Category:: Category I Uterine Activity:: ctx q 2-3 min Vital Signs Vital Signs Vital Signs: 11/28/22 20:25 11/28/22 20:25 11/28/22 20:25 Temperature Temperature Source Temporal Pulse Rate 73 Blood Pressure BP Systolic BP Diastolic Pulse Ox 97 11/28/22 20:26 11/28/22 20:26 11/28/22 20:25 Temperature 97.7 F L Temperature Source Pulse Rate 69 Blood Pressure 121/77 H BP Systolic 121 BP Diastolic 77 Pulse Ox Weight Weight: 212 lb Body Mass Index (BMI) 30.4 Labs Labs Labs: Hct 40.5 % (37-47) Hgb 13.2 g/dl (12.0-15.0) VZV IgG Antibody < 135 index (Immune >165) L Assessment Plan (1) 40 weeks gestation of : PLAN: Admit for routine intrapartum care. Patient plans unmedicated . GBS negative. Expected estimated weight less than 4500 g and pelvis adequate. Anticipate vaginal delivery. (2) Primiparous: (3) Uterine contractions: 11/28/222106 Cosigner Signature (if applicable): CC: Dr. Hernán Lind MD; Dr. Camron Chapin DO Signed [facility] [id number] 11-28-2022 Syphilis Abs Non-Reactive [facility] Comment on above: Performed By: #### L [id number] #### [facility] [address] [place], [address] Serum Treponema species anti body detectionOrdered By: Camron Chapin on 11-28-2022 Treponema sp Ab Ql (S) Non-Reactive [facility] URINE OB DIP B/Oon 3 Glucose Ql (U) Negative Neg mg/dL [facility] Protein.monoclonal (U) [Mass/Vol] Negative Neg mg/dL [facility] URINE OB DIP B/Oon 3 Glucose Ql (U) Negative Neg mg/dL [facility] Protein.monoclonal (U) [Mass/Vol] Negative Neg mg/dL [facility] URINE OB DIP B/Oon 3 Glucose Ql (U) Negative Neg mg/dL [facility] Protein.monoclonal (U) [Mass/Vol] Negative Neg mg/dL [facility] URINE OB DIP B/Oon 3 Glucose Ql (U) Negative Neg mg/dL [facility] Protein.monoclonal (U) [Mass/Vol] Negative Neg mg/dL [facility] URINE OB DIP B/Oon 3 Glucose Ql (U) Negative Neg mg/dL [facility] Protein.monoclonal (U) [Mass/Vol] Negative Neg mg/dL [facility] US BREAST LTD RIGHTon 2022 [facility] URINE OB DIP B/Oon 3 Glucose Ql (U) Negative Neg mg/dL [facility] Protein.monoclonal (U) [Mass/Vol] Negative Neg mg/dL [facility] URINE OB DIP B/Oon 3 Glucose Ql (U) Negative Neg mg/dL [facility] Protein.monoclonal (U) [Mass/Vol] Negative Neg mg/dL [facility] URINE OB DIP B/Oon 3 Glucose Ql (U) Negative Neg mg/dL [facility] Protein.monoclonal (U) [Mass/Vol] Negative Neg mg/dL [facility] OBSTETRIC ULTRASOUND WHIon 0 07-06-2022 [facility] URINE OB DIP B/Oon 3 Glucose Ql (U) Negative Neg mg/dL [facility] Protein.monoclonal (U) [Mass/Vol] Negative Neg mg/dL [facility] URINE OB DIP B/Oon 3 Glucose Ql (U) Negative Neg mg/dL [facility] Protein.monoclonal (U) [Mass/Vol] Negative Neg mg/dL [facility] NUCHAL TRANSLUCENCY WHIon [facility] URINE OB DIP B/Oon 3 Glucose Ql (U) Negative Neg mg/dL [facility] Protein.monoclonal (U) [Mass/Vol] Negative Neg mg/dL [facility] CYSTIC FIBROSIS PATHOGENIC V ARIANT ANALYSISon 04-13-2022 CYSTIC FIBROSIS PATHOGENIC VARIANT RPT CYSTIC FIBROSIS PATHOGENIC VARIANT ANALYSIS Laboratory Accession Number: [id number] RESULT: Negative INTERPRETATION: This individual is negative for 139 pathogenic variants analyzed in the CFTR gene. A negative test result reduces the possibility that this individual has cystic fibrosis (CF) and also reduces the CF carrier risk. This test does not detect all variants in the CFTR gene, and it is possible that this individual could have a CFTR variant not included in this test. Note: due to technical issues, this specimen was not interrogated for three CFTR variants normally included in this panel, c.2464G>T, p.Cam875Q (legacy name E822X), c.3744G>A, p.Oxm7634V (legacy name W8117M(3744G>A)), and c.3587C>G, p.Dsa2172H (legacy name G7340I). These are not variants for which the [place] recommends screening, and the residual carrier risk is not anticipated to be affected significantly. Residual CF carrier risk is based on ethnicity and personal/family history (see table below). For questions about this result, genetic consultation and clinical correlation are recommended. Residual Cystic Fibrosis Carrier Risk after Negative Carrier Screen Residual risk for unlisted ethnicities is unknown. Ethnicity Carrier Detection Residual carrier rate rate (%) risk (with negative family history) 1 in 61 74 1 in 231 Ashkenazi Orthodox 1 in 24 97 1 in 768 1 in 94 49 1 in 183 1 in 25 91 1 in 267 1 in 58 77 1 in 248 LIMITATIONS: DNA studies do not provide a definitive genetic risk in all individuals. While results of this testing are highly accurate, infrequent errors may be due to unusual DNA sequences in the DNA analyzed. Rare polymorphisms or large deletions may affect primer binding resulting in a false negative result. A negative carrier screening panel test result does not remove all risk of having a child with one of these disorders because rare variants may influence the risk of developing disease. METHODOLOGY: Purified genomic DNA is subjected to polymerase chain reaction-based amplification. The CFTR gene is interrogated for known clinically relevant variants(see list below). Primer extension products are analyzed using matrix-assisted laser desorption/ionization mass spectrometry, and specific genotypes assigned. The reference genome used is GRCh38/hg38. VARIANTS ANALYZED: Cystic fibrosis (CFTR, RefSeq# [id number]) Legacy names of 142 pathogenic variants: 1078delT,1154insTC, 1213delT, 1248+1G>A, 1259insA, 1341+1G>A, 5006lmv4, 1525-1G>A, 1548delG, 1677delTA, 1717-1G>A, 1717-8G>A, 1811+1.6kbA>G, 1812-1G>A, 1898+1G>A, 1898+3A>G, 1898+5G>A, 1898+5G>T, 4220znd0>A, 2143delT, 2183AAtoG, 2184delA, 2184insA, 2307insA, 2347delG, 2585delT, 2622+1G>A, 2711delT, 2789+5G>A, 394delTT, 3007delG, 3120+1G>A, 3120G>A, 3121-1G>A, 7887yrn8, 3272-26A>G, 3659delC, 3791delC, 3849+10KbC>T, 3876delA, 3905insT, 405+1G>A, 406-1G>A, 4005+1G>A, 4016insT, 4209TGTT>AA, 4382delA, 457TAT>G, 574delA, 621+1G>T, 663delT, 711+1G>T, 711+3A>G, 711+5G>A, 712-1G>T, 295cto00, 935delA, A455E, A559T, CFTRdele2,3, GXBAnzwc93,23, D110H, I3971W, doviuI315, zmwhiB729, W7137O, E585X, E60X, E822X, E831X, E92K, E92X, F508C, J9493B, Z6979W, G178R, G330X, G542X, G551D, G85E, G970R, H199Y, I336K, K710X, I1676K, R2209J, L206W, L467P, L732X, L927P, V7308K, M1V, W3160Z, P205S, P67L, Z6159V, Q220X, Q39X, Q493X, Q525X, Q552X, Q890X, Q98X, X4370I, C6418R, A7474R, H2752X, R117C, R117H, R334W, R347H, R347P, R352Q, R553X, R560K, R560T, R709X, R75X, R764X, R851X, M8271X, C9796F, U8572D, S341P, S466X, S489X, S492F, S549N, F446E-WZT, T697I-JCV, S945L, T338I, V520F, Q8844T, I4749D (3611), B8412W (3612), C6951Q, W401X, W846X, S3247T (C>A), C5437G (C>G), Y122X (conditionally reported variants: Poly T, I506V, I507V). This test was developed and its performance characteristics determined by [facility]'s [facility] [place] ([facility]). It has not been cleared or approved by the FDA. [facility] is regulated under CLIA as qualified to perform high- complexity testing. This test is used for clinical purposes. It should not be regarded as investigational or for research. REFERENCES: 1. Carrier screening for genetic conditions. Committee Opinion No. 691. [place]. Obstet Gynecol. 2017;129:e41-55. 2. The Clinical and Functional Translation of CFTR (CFTR2); available at http://CFTR2.org. 3. Erinn EA, Dae EM, Yanira SHAH, et al. CFTR mutation distribution among [place] and individuals: Evaluation in cystic fibrosis patient and carrier screening populations. Lore Med. 2004;6(5):392-99. 4. For more information about CF consult www.Ge (more content not included)... [facility] PAP FLUID CERVICAL SCREENING on 04-08-2022 Case Report Gynecologic Cytology Report Case: [id number] Authorizing Provider: Cristina Brady APRN.CNM Collected: 04/06/2022 02:05 PM Ordering Location: OB/Gynecology Received: 04/06/2022 04:49 PM First Screen: Antonieta Chiang, CT, ASCP Specimen: Pap, Manual, Screening, CERVICAL SCREENING FLUID [facility] Clinical History ROUTINE EXAM [facility] Cytology Interpretation Negative [facility] FINAL DIAGNOSIS A - CERVICAL SCREENI NG FLUID Satisfactory for interpretation Negative for Intraepithelial lesion or malignancy. Blood [facility] HPV Requested? Yes, Reflex HPV for ASCUS [facility] LMP [facility] Other Interpretation Blood [facility] Pap Disclaimer The Pap Smear is a screening test for cervical cancer. False negative results occur with all screening tests, emphasizing the need for rescreening at recommended intervals, and clinical correlation. [facility] Performing Lab Technical component, caisson worker screening performed at [facility], [address] [place], [place] [id number] CLIA# [id number] Diagnostic interpretation performed at [facility], [address] [place], [place] [id number] CLIA# [id number] Endocrinology Teacher: George Doyle M.D. [facility] HEP B SURF AG SCRNon 023 HBV surface Ag Ql (S) Negative Negative [facility] HEP C AB IA W/CONF SCRNon HCV Ab Ql (S) Negative Negative [facility] HIV 1+2 Ab IA Qlon 3 HIV 1 and 2 Ab IA.rapid Nom [facility] HIV 1+2 Ab+HIV1 p24 Ag IA Ql Non-Reactive Nonreactive [facility] HIV Interpretation [facility] RUBELLA IGG ABon 04-07-2022 Rubella IgG, Qual Positive Positive [facility] Reagin and Treponema pallidu m IgG and IgM [Interp]on 04-07-2022 Syphilis Interpretation Cannot exclude recent Treponemal infection if specimen collected within 7-10 days after appearance of suspect lesions or 2-3 weeks after an exposure. Clinical correlation is required. [facility] T. pallidum IgG+IgM IA Ql (S) Non-Reactive Nonreactive [facility] TYPE + SCREEN PRENATALon ABO O [facility] HIstorical Ab Scr Status Negative [facility] Rh Nom (Bld) Positive [facility] Type and Screen Expiration 04/09/2022 23:59 [facility] URINE CULTUREon 04-07-2022 Bacteria identified Cx Nom (U) No growth (<1,000 CFU/ml) [facility] C. trachomatis+N. gonorrhoea e DNA AUBREY+probe Ql (Unsp spec)on 04-06-2022 C. trachomatis DNA AUBREY+probe Ql (Unsp spec) Negative Negative for Chlamydia trachomatis by amplificaton [facility] N. gonorrhoeae DNA AUBREY+probe Ql (Unsp spec) Negative Negative for Neisseria gonorrhoeae by amplification [facility] CBC panel Auto (Bld)on 04-06 Erythrocyte distribution width (RBC) [Ratio] 12.6 % 11.5 - 15.0 % [facility] Hematocrit (Bld) [Volume fraction] 35.4 % Low 36.0 - 46.0 % [facility] Hemoglobin (Bld) [Mass/Vol] 11.9 g/dL 11.5 - 15.5 g/dL [facility] MCH (RBC) [Entitic mass] 32.2 pg 26.0 - 34.0 pg [facility] MCHC (RBC) [Mass/Vol] 33.6 g/dL 30.5 - 36.0 g/dL [facility] MCV (RBC) [Entitic vol] 95.7 fL 80.0 - 100.0 fL [facility] Nucleated RBC (Bld) [#/Vol] <0.01 k/uL [facility] Platelet mean volume (Bld) [Entitic vol] 10.7 fL 9.0 - 12.7 fL [facility] Platelets (Bld) [#/Vol] 230 10*3/uL 150 - 400 k/uL [facility] RBC (Bld) [#/Vol] 3.70 10*6/uL Low 3.90 - 5.2 0 m/uL [facility] WBC (Bld) [#/Vol] 6.94 10*3/uL 3.70 - 11. 00 k/uL [facility] Progress Noteon 10-11-2017 Sem Manager Authentication Interface Message Text I had the pleasure of seeing Enzo in clinic today for a follow-up visitregarding her headaches. She was last seen at the clinic on 07/12/2017. She is 21years old and was accompanied by her mother for this visit.Since the last visit, Enzo reports since we added the Riboflavin 400mg daily,she has only had one severe migraine and averaging about one milder headache amonth. When she got her severe migraine it was when she was ion vacation andbelieves it was due to the barometric pressure change. She does report shebegan to have some weird dreams, not scary or fearful, but weird. She is unsureif it was after her Lexapro dose increase, the addition of Melatonin or theaddition of the Riboflavin.She had surgery in July for a neuroma removal from her foot and during thistime her headaches remained infrequent as well.Interval headache history:Frequency: See aboveCharacter: pressureLocation: behind the eyes, temporal regionsRadiation: Occipital regionAverage pain scale: 3-4/10Aura: NoneAssociated symptoms: Photophobia and occasional phonophobiaAny Focal Neurologic symptoms with headache: noneDuration: 45 minutes with treatmentAbortive Treatment: Imitrex 25 mg for severe or Aleve 2 tabletsResponse to treatment: effective, has not used AcetaminophenAny recent E.R. Visits for headache: NonePreventive treatment: Topamax 50 mg BID, Magnesium,RiboflavinAggr avating factors: Not drinking enough water, not treatingOverall patient's assessment of headaches: ImprovedPrevious Abortive Medications Used: Tylenol, naproxen, ibuprofen Previous Preventive Medications Used: None Previous Work-Up Done For Headache: Spinal tap on prone position on 03/06/2014: Opening pressure: 38. CSF routineanalysis: normal.MRI of the brain 03/03/2014CT 02/28/2014- normalMRV 03/11/14: no venous thrombosis Pertinent labs and imaging have been reviewed.Meds:Medication Sig topiramate (TOPAMAX) 50 MG tablet Take 1 Tab (50 mg) by mouth 2 times daily SUMAtriptan (IMITREX) 25 MG tablet Treat within 30 minutes of migraine onset,repeat in 2 hours if needed Magnesium Oxide (MAG OX) 400 (241.3 Mg) MG TABS tablet Take one tablet vitamin B-2 (RIBOFLAVIN) 100 MG capsule Take 4 capsules daily escitalopram (LEXAPRO) 10 MG tabletTake 20 mg by mouth daily ASHLYNA 0.15-0.03 &0.01 MG TABS take 1 tablet by mouth once daily Naproxen Sodium (ALEVE) 220 MG CAPS Take 440 mg by mouth as needed.Indications: headacheAllergies: No Known AllergiesPast Medical History:- Stress fracture on the right foot- T&A- Eczema-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 - Maternal grandfather- [place] at age 57. - Maternal grandmother- DM. - Paternal grandfather- colon cancer. - Paternal grandmother- breast cancer. - Maternal aunt- mental retardation. 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 There has not been any injuries that have required medical attentionHead: Negative for any medical issues regarding the patient's skullFace: Negative for any facial abnormalitiesNeck: Negative for any medical issues regarding the patient's neck or neckstructuresEyes: Negative for any medical issues regarding the patient's eyesENT: Negative for any medical issues regarding the patient's ears, nose orthroatRespiratory: Negative for any medical issues regarding the lungsCardiovascular: Negative for any medical issues regarding the patient's heartGI: Negative for any medical issues regarding the esophagus, stomach,intestines, exocrine pancreas or liverUrinary: Negative for any medical issues with eliminationMusculoskel: Negative for any medical issues regarding the patient's musclesOrthopedic: Negative for any orthopedic issues involving bones, joints, spine orsoft tissues comprising the orthopedic systemsSkin: Negative for any skin abnormalities or discolorationHematologic : Negative for any medical issues involving the blood or bloodclotting mechanismsEndocrine system: Negative for any medical issues regarding the endocrine systemincluding problems with the thyroid gland or diabetesInfectious: Negative for any infectious processes that have required theassistance of a physicianNeuro exam:VSS: BP 115/56 Pulse 73 Ht 178 cm Wt 70.4 kg BMI 22.22 kg/m General: Patient appears healthy, well developed, well nourished and in noacute distressCardiac: Rhythm regular, no murmurs presentRespiratory: CTA, No wheezing, rhonchi or rales present.Mental status: Normal for age including orientation, memory, attention span,language and fund of knowledgeCranial nerve testing revealed the following:II- Pupils constrict to light bilaterally and accomodation reflex present. Nopapilledema on fundoscopic examination to the un-dilated eye.III, IV, - Pupils are equal, round, and reactive to light. Extraocularmovements are intact. No nystagmus or strabismus present.V- Facial sensation was present and symmetricalVII - Eye closure was normal bilaterally and facial contours and strength weresymmetricalVIII - Hearing present and equal bilaterallyIX & X - Uvula midline with normal soft palate movementXI - Shoulder shrug strength appeared normal bilaterallyXII - Tongue protrusion was midlineMotor exam: Normal strength, muscle mass and tone in all extremities.Deep tendon reflexes were 2+ bilaterally.Cerebellar exam noted no involuntary movements or tremors present and finger tonose without dysmetria bilaterally.Sensation was intact and present to light touch.Coordination: fine motor intact, finger/nose exam performed, no abnormalitiespresent. Rapidly alternating movements performed correctly.Gait: tandem gait normal and no ataxic movements presentLabs: NoneImpression: 21yo female with episodic migraine without aura improved with theaddition of Riboflavin.Plans:1. Keep a headache diary and bring to your next visit.2. Practice good lifestyle habits by: Drinking plenty of fluids Get regular and sufficient sleep Eat balanced meals Avoid skipping any meals especially breakfast Minimize stress Avoid known headache triggers3. Preventive treatment: Decrease Topamax 50mg-Take 1/2 tablet in the AM and one tablet in the PM for one week and then onetablet in the PM and stay there-If with this weaning process the headache frequency begins to increase, go backto the dose that kept the headaches at bay and notify the office.-Continue Magnesium 400mg daily-Continue Riboflavin 400mg daily 4. Abortive Treatment(Mild): (Treat within 30 minutes of migraine onset) Lay down in a cool, dark, quiet room Apply cold compress to forehead For head pain: Take Aleve 2-3 tablets. If no better in 2 hours, take 2 ExtraStrength Tylenol Limit over the counter medication use to 2-3 days/week. 5. Abortive Treatment(Severe): (Treat within 30 minutes of migraine onset) Lay down in a cool, dark, quiet room Apply cold compress to forehead For head pain: Take Imitrex 25mg. If no better in 2 hours, take Imitrex 25mg Can take 2 doses of Imitrex in one day, 4 doses in 2 consecutive days, no morethan 8 days per month.6. Return in 3 months, sooner if neededPrejhonny Urbina, MSN, SAND CLEANING MACHINE OPERATOR, CPNPNeurology Nurse Practitioner[address] [phone] note or partial portions of this note may have been created using a copyforward orcopy paste feature, but these portions have been verified and re-edited foraccuracy and any portions not in need of editing or review are not being used togenerate any component necessary for billing purposes. Elements necessary forproper CPT code selection are based only on elements of the visit that arereviewed, re-examined or unique to this visit.Counseling and/or coordination of care was greater than 20 minutes which is morethan 50% of the total time of 25 minutes spent on the encounter. Normal [facility] Progress Noteon 07-12-2017 Sem Manager Authentication Interface Message Text I had the pleasure of seeing Enzo in clinic today for a follow-up visitregarding her headaches. She was last seen at the clinic on 04/05/2017 by She is 21 years old and was accompanied by her mother for this visit.Since the last visit, Enzo reports things have been going well. She hasneuroma in her foot and will be having surgery July 21, 2017. She is unsureif the Magnesium is effective, but thinks it is and mom believe she is on a goodpath. Mom reports she has not been complaining as much and feels she is doingmuch better.Headache Diary:May: March: 12April: 7Severe MigraineFrequency: Once every 2 weeksCharacter: pressureLocation: behind the eyes, temporal regionsRadiation: noneAverage pain scale: 3/10Aura: NoneAssociated symptoms: occasional nausea, photophobia and phonophobiaAny Focal Neurologic symptoms with headache: noneDuration: 20 minutes-2 hours with or without treatmentAbortive Treatment: Imitrex 25 mg or Aleve 2 tabletsResponse to treatment: effectiveAny recent E.R. Visits for headache: NonePreventive treatment: Topamax 50 mg BIDOverall patient's assessment of headaches: Unchanged Mild headacheFrequency: Every other dayCharacter: pressureLocation: bitemporal regions and neckRadiation: noneAverage pain scale: 2/10Aura: noneAssociated symptoms: photophobia and phonophobia (mild)Any Focal Neurologic symptoms with headache: noneDuration: Normal [facility] Progress Noteon 04-05-2017 Sem Manager Authentication Interface Message Text Enzo returns to the clinic today for a follow-up visit regarding headache. Shewas last seen at the clinic on 11/09/16 by Jen Urbina CNP. She is 21 years oldand was accompanied by her mother, Marisol for this visit.Since the last visit, the headaches have been more frequent during the firstsemester in college. She admits that frequency of her headaches especially themilder ones are overall related to the amount of stress that she has.Interval headache history:MigraineFrequenc y: once per monthCharacter: pressureLocation: behind the eyes, temporal regions right more than left, neckRadiation: noneAverage pain scale: 6/10Aura: NoneAssociated symptoms: occasional nausea, photophobia and phonophobiaAny Focal Neurologic symptoms with headache: noneDuration: 1 hour with Imitrex, 2 hours if she takes AleveAbortive Treatment: Imitrex 25 mg or Aleve 2 tabletsResponse to treatment: effectiveAny recent E.R. Visits for headache: NonePreventive treatment: Topamax 50 mg BID. No side effectsOverall patient's assessment of headaches: betterMild headacheFrequency: 3 times per weekCharacter: pressure in bitemporal regionsLocation: bitemporal regions and neckRadiation: noneAverage pain scale: 3/10Aura: noneAssociated symptoms: photophobia and phonophobia (mild)Any Focal Neurologic symptoms with headache: noneDuration: 1-2 hoursAbortive Treatment: Aleve 2 tabletsResponse to treatment: effectiveAny recent E.R. Visits for headache: NonePrevious Abortive Medications Used: Tylenol, naproxen, ibuprofenPrevious Preventive Medications Used: NonePrevious Work-Up Done For Headache:Spinal tap on prone position on 03/06/2014: Opening pressure: 38. CSF routineanalysis: normal.MRI of the brain 03/03/2014CT 02/28/2014- normalMRV 03/11/14: no venous thrombosisAllergies: NKDACurrent Medications:Medication Sig escitalopram (LEXAPRO) 10 MG tablet Take 10 mg by mouth daily topiramate (TOPAMAX) 50 MG tablet Take one tablet in the AM and 1.5 tablets inthe PM (Patient taking differently:50 mg 2 times daily Take one tablet in the AM and 1.5 tablets in the PM) SUMAtriptan (IMITREX) 25 MG tablet Treat within 30 minutes of migraine onset,repeat in 2 hours if needed ASHLYNA 0.15-0.03 &0.01 MG TABS take 1 tablet by mouth once daily Naproxen Sodium (ALEVE) 220 MG CAPS Take 440 mg by mouth as needed.Indications: headachePast Medical History:- Stress fracture on the right foot- T&A- EczemaFamily History:- Mother- arthritis and kidney stones.- Maternal grandfather- [place] at age 57.- Maternal grandmother- DM.- Paternal grandfather- colon cancer.- Paternal grandmother- breast cancer.- Maternal aunt- mental retardation.- Maternal cousin- cerebral palsy- Maternal cousin- ADHD.Social History: She is a 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.Updated Review Of Systems Since the Last Visit With Me:Head: There have not been any medical issues regarding the patient's skullEyes: There have not been any medical issues regarding the patient's eyesENT: There have not been any medical issues regarding the patient's ears, noseor throatNeck: There have not been any medical issues regarding the patient's neck orneck structuresLungs: There have not been any medical issues regarding the patient's lungsHeart: There have not been any medical issues regarding the patient's heartEndocrine system: There have not been any endocrine issues including problemswith the thyroid gland or diabetesGI: There have not been any medical issues with the esophagus, stomach,intestines, exocrine pancreas or liverOrthopedic:+fractur e of the right footInfectious: There have not been any infectious processes that have required theassistance of a physicianHeme: There has not been any medical issues involving the blood or bloodclotting mechanismsGeneral: There has not been any unintended weight gain or lossInjury: There has not been any injuries that have required medical attentionExamination:BP 98/72 Pulse 80 Ht 177.6 cm Wt 67 kg Comment: With walking boot on BMI 21.24 kg/m General Appearance: well appearing, no acute distressHEENT: clear without signs of inflammationChest: Clear to auscultation bilaterallyHeart: Normal rate and rhythm without murmursCV: No cranial, ocular or carotid bruitsSkin: No abnormal cutaneous lesions notedNeurologicMental Status: Patient is bright, alert, and interactive. Fluent speech withnormal ability to follow instructions.Cranial Nerves II-XII: Pupils are equal, round, and reactive to light.Extraocular movements are intact. No papilledema on fundoscopic examination. Theface is symmetric to movement and sensation. The palate elevates equally and thetongue protrudes midline. SCM strength is full.Motor: Tone and strength are normal. No evidence of wasting or fasciculations.DTR: 2+/4+ symmetric, no pathologic reflexes presentSensation: Intact to light touchCoordination: Normal including pgxjce-yppp-yeyfrl testGait:Normal steady gaitImpression:21 year old female with high frequency migraine without aura. Clearlypsychosocial stressors have been contributing and triggering her headaches.Plans:1. Keep a headache diary and bring it with you in the next visit.2. For mild migraine: rest and take Aleve 2 tablets.3. Limit use of pnum-etw-hehtesu pain killers to less than or equal to 2-3 daysper week to avoid rebound or medication overuse headaches4. Abortive Treatment for severe migraine: (Treat within 30 minutes of migraineonset) A. Lay down in a cool, dark quiet room B. Apply cold compress to forehead. C. For head pain: Imitrex 25 mg. If no better in 2 hours, take Imitrex 25 mg.Can take 2 doses of Imitrex in one day, 4 doses in 2 consecutive days, no morethan 8 days per month.5. Preventive Treatment: A. Continue Topamax 50 mg 2x/day. B. Start Magnesium oxide 400 mg once daily. Discussed Magnesium dosing andpotential side effects. Discussed realistic goals of preventive treatment.6. Counseled on healthy habits for headaches.7. Counseled on transitioning to adult care. She wished to continue care withACH for now.8. Return visit in 3-4 months with SOPHIA Andrade M.D., FAHSPediatric NeurologistDirector, Headache Program- [facility] CenterAssistant Professor in Pediatrics- [address], [address] [place], [place] [address]Phone: Nvip note or partial portions of this note may have been created using a copyforward or copy paste feature, but these portions have been verified and elias-edited for accuracy and any portions not in need of editing or review are notbeing used to generate any component necessary for billing purposes. Elementsnecessary for proper CPT code selection are based only on elements of the visitthat are reviewed, re-examined or unique to this visit.The duration of the office visit was 26 minutes, with >50% of the time [id number] counseling regarding diagnosis, prognosis and plan of care. Normal [facility] Office Visiton 02-08-2017 Tobacco smoking status Tobacco smoking status NHIS Invalid Interpretation Code [facility] Work Phone: Tobacco use status CPHS Never smoker Invalid Interpretation Code [facility] Work Phone: Progress Noteon 11-09-2016 Sem Manager Authentication Interface Message Text I had the pleasure of seeing Enzo in clinic today for a follow-up visitregarding her headaches. She was last seen at the clinic on 06/24/2016. She is 21years old and was accompanied by her mother for this visit.Since the last visit, Enzo reports her headaches have decreased in frequencysince the conclusion of school in August. She still has been averaging aboutonce/week, but she feels they are less severe and shorter in duration. She hasnot needed her Imitrex, but the headaches are usually relieved with Aleve 2tablets.Interval headache history:Frequency: Once/weekPain: Pressure and stabbingLocation: Behind the ears and eyesRadiation: Bitemporal regionAverage pain scale: 3/10Aura: Lines of lights twiceAssociated symptoms: Photophobia and phonophobiaAny Focal Neurologic symptoms with headache: NoDuration: One hour without treatmentAbortive Treatment: Aleve 2 tabletsResponse to treatment: Effective majority of the timeAggravating Factors: Dehydration, vigorous physical activity, stressAny recent E.R. Visits for headache: NoPreventive treatment: TopamaxOverall patient's assessment of headaches: ImprovedHeadache Disability:1. In the last 3 months, how many full days of school were missed due toheadaches? : 02. In the last 3 months, how many partial days of school were missed due toheadaches? (Do not include the full days missed counted on Question 1): 03. In the last 3 months, how many days did you function less than half yourability in school because of a headache? (Do not include the days counted inQuestions 1 and 2): 04. In the last 3 months, how many days were you not able to do things at homedue to a headache? (For example chores, homework, etc): 05. In the last 3 months, how many days did you not participate in otheractivities due to a headache? (For example: play, go out, sports, etc): 26. In the last 3 months, how many days did you participate in these activitiesbut functioned at less than half your ability? (Do not include the days countedin Question 5): 1Total Score: 3Previous Abortive Medications Used: Tylenol, naproxen, ibuprofen Previous Preventive Medications Used: None Previous Work-Up Done For Headache:Spinal tap on prone position on 03/06/2014: Opening pressure: 38. CSF routineanalysis: normal.MRI of the brain 03/03/2014CT 02/28/2014- normal MRI 03/17/2014:IMPRESSION: No thrombus is seen in the superior sagittal, straight, transverseand sigmoidsinuses. The visualized proximal internal jugular veins are normal inappearance. The internalcerebral veins are unremarkable. No thrombus is seen in the rest of the drainingcorticalveins.Pe rtinent labs and imaging has been reviewed.Meds:Medication Sig topiramate (TOPAMAX) 50 MG tablet Take one tablet in the AM and 1.5 tablets inthe PM ASHLYNA 0.15-0.03 &0.01 MG TABS take 1 tablet by mouth once daily SUMAtriptan (IMITREX) 25 MG tablet Treat within 30 minutes of migraine onset,repeat in 2 hours if needed Naproxen Sodium (ALEVE) 220 MG CAPS Take 440 mg by mouth as needed.Indications: headacheAllergies: No Known AllergiesPast History:Diagnosis 6Th nerve palsy Family History:- Mother- arthritis and kidney stones.- Maternal grandfather- [place] at age 57.- Maternal grandmother- DM.- Paternal grandfather- colon cancer.- Paternal grandmother- breast cancer.- Maternal aunt- mental retardation.- Maternal cousin- cerebral palsy- Maternal cousin- ADHD.Social History: She is going to [employer] this November [place] in [id number]. 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 Her team placed 3rd and 8th. She also has aboyfriend of 4 years now.ROS:General: Negative for any unintended weight gain or lossInjury. There has not been any injuries that have required medical attentionHead: Negative for any medical issues regarding the patient's skullFace: Negative for any facial abnormalitiesNeck: Negative for any medical issues regarding the patient's neck or neckstructuresEyes: Negative for any medical issues regarding the patient's eyesENT: Negative for any medical issues regarding the patient's ears, nose orthroatRespiratory: Negative for any medical issues regarding the lungsCardiovascular: Negative for any medical issues regarding the patient's heartGI: Negative for any medical issues regarding the esophagus, stomach,intestines, exocrine pancreas or liverUrinary: Negative for any medical issues with eliminationMusculoskel: Negative for any medical issues regarding the patient's musclesOrthopedic: Negative for any orthopedic issues involving bones, joints, spine orsoft tissues comprising the orthopedic systemsSkin: Negative for any skin abnormalities or discolorationHematologic : Negative for any medical issues involving the blood or bloodclotting mechanismsEndocrine system: Negative for any medical issues regarding the endocrine systemincluding problems with the thyroid gland or diabetesInfectious: +viral infectionNeuro exam:VSS: BP 104/80 Pulse 60 Ht 177.6 cm Wt 61.6 kg BMI 19.53 kg/n9Uicheld: Patient appears healthy, well developed, well nourished and in noacute distressCardiac: Rhythm regular, no murmurs presentRespiratory: CTA, No wheezing, rhonchi or rales present.Mental status: Normal for age including orientation, memory, attention span,language and fund of knowledgeCranial nerve testing revealed the following:II- Pupils constrict to light bilaterally and accomodation reflex present. Nopapilledema on fundoscopic examination to the un-dilated eye.III, IV, - Pupils are equal, round, and reactive to light. Extraocularmovements are intact. No nystagmus or strabismus present.V- Facial sensation was present and symmetricalVII - Eye closure was normal bilaterally and facial contours and strength weresymmetricalVIII - Hearing present and equal bilaterallyIX & X - Uvula midline with normal soft palate movementXI - Shoulder shrug strength appeared normal bilaterallyXII - Tongue protrusion was midlineMotor exam: Normal strength, muscle mass and tone in all extremities.Deep tendon reflexes were 2+ bilaterally.Cerebellar exam noted no involuntary movements or tremors present and finger tonose without dysmetria bilaterally.Sensation was intact and present to light touch.Coordination: fine motor intact, finger/nose exam performed, no abnormalitiespresent. Rapidly alternating movements performed correctly.Gait: tandem gait normal and no ataxic movements presentLabs: NoneImpression: 21yo female with episodic migraine with and without aura.Plans:1. Keep a headache diary and bring to your next visit.2. Practice good lifestyle habits by: Drinking plenty of fluids Get regular and sufficient sleep Eat balanced meals Avoid skipping any meals especially breakfast Minimize stress Avoid known headache triggers3. Preventive treatment: Decrease Topamax 50mg-Take one tablet 2x/day-If with this weaning process the headache frequency begins to increase, go backto the dose that kept the headaches at bay and notify the office.4. Abortive Treatment(Mild): (Treat within 30 minutes of migraine onset) Lay down in a cool, dark, quiet room Apply cold compress to forehead For head pain: Take Aleve 2 tablets. If no better in 2 hours, take 2 ExtraStrength TylenolLimit over the counter medication use to 2-3 days/week.5. Abortive Treatment(Severe): (Treat within 30 minutes of migraine onset) Lay down in a cool, dark, quiet room Apply cold compress to forehead For head pain: Take Imitrex 25mg. If no better in 2 hours, take Imitrex 25mgCan take 2 doses of Imitrex in one day, 4 doses in 2 consecutive days, no morethan 8 days per month.6. Begin to look for an adult neurologist7. Return in 4 months, sooner if neededPrejhonny Urbina, MSN, SAND CLEANING MACHINE OPERATOR, CPNPNeurology Nurse Practitioner[address] [phone] note or partial portions of this note may have been created using a copyforward orcopy paste feature, but these portions have been verified and re-edited foraccuracy and any portions not in need of editing or review are not being used togenerate any component necessary for billing purposes. Elements necessary forproper CPT code selection are based only on elements of the visit that arereviewed, re-examined or unique to this visit.The duration of the office visit was 25 minutes, with 10minutes spent witheducation, counseling and/or coordination of care on medication dosing Normal [facility] Office Visiton 07-02-2014 Documentation of current medications (procedure) Done Invalid Interpretation Code [facility] Work Phone: Tobacco use CPHS Never smoker Invalid Interpretation Code [facility] Work Phone: Office Visit: Pharyngitison 02-21-2010 Rapid strep test Negative Invalid Interpretation Code [facility] Work Phone: S. pyogenes DNA AUBREY+probe Ql (Throat) Negative Invalid Interpretation Code [facility] Work Phone: Vital Signs Date Time Vital Sign Value Performing Clinician Facility 12-18-2024 09:24-0400 Body mass index (BMI) [Ratio] 27.75 kg/m2 Augustina Rapp MD Work Phone: [facility] 12-18-2024 09:24-0400 Body weight 87.73 kg Augustina Rapp MD Work Phone: [facility] 12-18-2024 09:24-0400 Diastolic blood pressure 80 mm[Hg] Augustina Rapp MD Work Phone: [facility] 12-18-2024 09:24-0400 Systolic blood pressure 120 mm[Hg] Augustina Rapp MD Work Phone: [facility] 11-21-2024 10:36-0400 Body mass index (BMI) [Ratio] 26.72 kg/m2 Debra Plotts SAND CLEANING MACHINE OPERATOR.CNM Work Phone: [facility] 11-21-2024 10:36-0400 Body weight 84.46 kg Debra Plotts SAND CLEANING MACHINE OPERATOR.CNM Work Phone: [facility] 11-21-2024 10:36-0400 Diastolic blood pressure 66 mm[Hg] Debra Plotts SAND CLEANING MACHINE OPERATOR.CNM Work Phone: [facility] 11-21-2024 10:36-0400 Systolic blood pressure 118 mm[Hg] Debra Plotts SAND CLEANING MACHINE OPERATOR.CNM Work Phone: [facility] 10-24-2024 09:51-0400 Body mass index (BMI) [Ratio] 25.25 kg/m2 Nealhayden Marroquin SAND CLEANING MACHINE OPERATOR.DATA PROCESSOR Work Phone: [facility] 10-24-2024 09:51-0400 Body weight 79.83 kg Neal Marroquin SAND CLEANING MACHINE OPERATOR.DATA PROCESSOR Work Phone: [facility] 10-24-2024 09:51-0400 Diastolic blood pressure 62 mm[Hg] Neal Marroquin SAND CLEANING MACHINE OPERATOR.DATA PROCESSOR Work Phone: [facility] 10-24-2024 09:51-0400 Systolic blood pressure 112 mm[Hg] Neal Perezjuice SAND CLEANING MACHINE OPERATOR.DATA PROCESSOR Work Phone: [facility] 09-25-2024 15:10-0400 Body mass index (BMI) [Ratio] 23.96 kg/m2 Cristina Brady SAND CLEANING MACHINE OPERATOR.CNM Work Phone: [facility] 09-25-2024 15:10-0400 Body weight 75.75 kg Cristina Brady SAND CLEANING MACHINE OPERATOR.CNM Work Phone: [facility] 09-25-2024 15:10-0400 Diastolic blood pressure 66 mm[Hg] Cristina Brady SAND CLEANING MACHINE OPERATOR.CNM Work Phone: [facility] 09-25-2024 15:10-0400 Systolic blood pressure 110 mm[Hg] Cristina Brady SAND CLEANING MACHINE OPERATOR.CNM Work Phone: [facility] 08-29-2024 15:05-0400 Body mass index (BMI) [Ratio] 24.11 kg/m2 Debra Mcdonald SAND CLEANING MACHINE OPERATOR.CNM Work Phone: [facility] 08-29-2024 15:05-0400 Body weight 76.2 kg Debra Mcdonald SAND CLEANING MACHINE OPERATOR.CNM Work Phone: [facility] 08-29-2024 15:05-0400 Diastolic blood pressure 68 mm[Hg] Debra Plotts SAND CLEANING MACHINE OPERATOR.CNM Work Phone: [facility] 08-29-2024 15:05-0400 Systolic blood pressure 100 mm[Hg] Debra Plotts SAND CLEANING MACHINE OPERATOR.CNM Work Phone: [facility] 07-24-2024 12:56-0400 Body height 177.8 cm Debra Plotts SAND CLEANING MACHINE OPERATOR.CNM Work Phone: [facility] 07-24-2024 12:56-0400 Body mass index (BMI) [Ratio] 23.65 kg/m2 Debra Plotts SAND CLEANING MACHINE OPERATOR.CNM Work Phone: [facility] 07-24-2024 12:56-0400 Body weight 74.75 kg Debra Mcdonald SAND CLEANING MACHINE OPERATOR.CNM Work Phone: [facility] 07-24-2024 12:56-0400 Diastolic blood pressure 64 mm[Hg] Debra Mcdonald SAND CLEANING MACHINE OPERATOR.CNM Work Phone: [facility] 07-24-2024 12:56-0400 Systolic blood pressure 102 mm[Hg] Debra Mcdonald SAND CLEANING MACHINE OPERATOR.CNM Work Phone: [facility] 06-19-2024 10:41-0400 Body height 177.8 cm Cristina Brady SAND CLEANING MACHINE OPERATOR.CNM Work Phone: [facility] 06-19-2024 10:41-0400 Body mass index (BMI) [Ratio] 23.24 kg/m2 Cristina Brady SAND CLEANING MACHINE OPERATOR.CNM Work Phone: [facility] 06-19-2024 10:41-0400 Body weight 73.48 kg Cristina Brady SAND CLEANING MACHINE OPERATOR.CNM Work Phone: [facility] 06-19-2024 10:41-0400 Diastolic blood pressure 66 mm[Hg] Cristina Brady SAND CLEANING MACHINE OPERATOR.CNM Work Phone: [facility] 06-19-2024 10:41-0400 Systolic blood pressure 100 mm[Hg] Cristina Brady SAND CLEANING MACHINE OPERATOR.CNM Work Phone: [facility] 06-05-2023 [id number] Body height 180.3 cm Camron Chapin MD Work Phone: [facility] 06-05-2023 [id number] Body weight 68.81 kg Camron Chapin MD Work Phone: [facility] 06-05-2023 14:26-0500 Diastolic blood pressure 70 mm[Hg] Camron Chapin MD Work Phone: [facility] 06-05-2023 14:26-0500 Systolic blood pressure 110 mm[Hg] Camron Chapin MD Work Phone: [facility] 01-12-2023 10:09-0400 Body weight 83.1 kg Camron Chapin MD Work Phone: [facility] 01-12-2023 10:09-0400 Diastolic blood pressure 70 mm[Hg] Camron Chapin MD Work Phone: [facility] 01-12-2023 10:09-0400 Systolic blood pressure 102 mm[Hg] Camron Chapin MD Work Phone: [facility] 11-30-2022 08:25-0400 Body temperature 98.3 [degF] [facility] 11-30-2022 08:25-0400 Diastolic blood pressure 66 mm[Hg] [facility] 11-30-2022 08:25-0400 Heart rate 75 /min [facility] 11-30-2022 08:25-0400 Respiratory rate 14 /min [facility] 11-30-2022 08:25-0400 Systolic blood pressure 118 mm[Hg] [facility] 11-29-2022 01:42-0400 SaO2% (BldA) [Mass fraction] 98 % [facility] 11-28-2022 20:28-0400 Body height 177.8 cm [facility] 11-28-2022 20:28-0400 Body mass index (BMI) [Ratio] 30.4 kg/m2 [facility] 11-28-2022 20:28-0400 Body weight 96.16 kg [facility] 11-09-2022 15:57-0400 Diastolic blood pressure 83 mm[Hg] Debra Mcdonald SAND CLEANING MACHINE OPERATOR.CNM Work Phone: [facility] 11-09-2022 15:57-0400 Systolic blood pressure 117 mm[Hg] Debra Mcdoanld SAND CLEANING MACHINE OPERATOR.CNM Work Phone: [facility] 10-26-2022 13:17-0400 Body weight 95.25 kg Debra Mcdonald SAND CLEANING MACHINE OPERATOR.CNM Work Phone: [facility] 10-26-2022 13:17-0400 Diastolic blood pressure 78 mm[Hg] Debra Mcdonald SAND CLEANING MACHINE OPERATOR.CNM Work Phone: [facility] 10-26-2022 13:17-0400 Systolic blood pressure 120 mm[Hg] Debra Plotts SAND CLEANING MACHINE OPERATOR.CNM Work Phone: [facility] 10-12-2022 13:26-0400 Body weight 93.8 kg Debra Plotts SAND CLEANING MACHINE OPERATOR.CNM Work Phone: [facility] 10-12-2022 13:26-0400 Diastolic blood pressure 81 mm[Hg] Debra Plotts SAND CLEANING MACHINE OPERATOR.CNM Work Phone: [facility] 10-12-2022 13:26-0400 Systolic blood pressure 120 mm[Hg] Debra Plotts SAND CLEANING MACHINE OPERATOR.CNM Work Phone: [facility] 10-06-2022 11:18-0400 Body weight 93.89 kg Debra Plotts SAND CLEANING MACHINE OPERATOR.CNM Work Phone: [facility] 10-06-2022 11:18-0400 Diastolic blood pressure 68 mm[Hg] Debra Plotts SAND CLEANING MACHINE OPERATOR.CNM Work Phone: [facility] 10-06-2022 11:18-0400 Systolic blood pressure 116 mm[Hg] Debra Plotts SAND CLEANING MACHINE OPERATOR.CNM Work Phone: [facility] 09-23-2022 14:35-0400 Body weight 92.26 kg Camron Chapin MD Work Phone: [facility] 09-23-2022 14:35-0400 Diastolic blood pressure 60 mm[Hg] Camron Chapin MD Work Phone: [facility] 09-23-2022 14:35-0400 Systolic blood pressure 104 mm[Hg] Camron Chapin MD Work Phone: [facility] 09-14-2022 13:23-0400 Body weight 91.81 kg Cristina Brady SAND CLEANING MACHINE OPERATOR.CNM Work Phone: [facility] 09-14-2022 13:23-0400 Diastolic blood pressure 75 mm[Hg] Cristina Brady SAND CLEANING MACHINE OPERATOR.CNM Work Phone: [facility] 09-14-2022 13:23-0400 Systolic blood pressure 113 mm[Hg] Cristina Brady SAND CLEANING MACHINE OPERATOR.CNM Work Phone: [facility] 08-31-2022 13:49-0400 Body weight 90.27 kg Cristina Brady SAND CLEANING MACHINE OPERATOR.CNM Work Phone: [facility] 08-31-2022 13:49-0400 Diastolic blood pressure 79 mm[Hg] Cristina Brady SAND CLEANING MACHINE OPERATOR.CNM Work Phone: [facility] 08-31-2022 13:49-0400 Systolic blood pressure 127 mm[Hg] Cristina Brady SAND CLEANING MACHINE OPERATOR.CNM Work Phone: [facility] 08-03-2022 14:36-0400 Body weight 87.54 kg Cristina Brady SAND CLEANING MACHINE OPERATOR.CNM Work Phone: [facility] 08-03-2022 14:36-0400 Diastolic blood pressure 77 mm[Hg] Cristina Brady SAND CLEANING MACHINE OPERATOR.CNM Work Phone: [facility] 08-03-2022 14:36-0400 Systolic blood pressure 126 mm[Hg] Cristina Brady SAND CLEANING MACHINE OPERATOR.CNM Work Phone: [facility] 07-06-2022 14:13-0400 Body weight 83.46 kg Cristina Brady SAND CLEANING MACHINE OPERATOR.CNM Work Phone: [facility] 07-06-2022 14:13-0400 Diastolic blood pressure 70 mm[Hg] Cristina Brady SAND CLEANING MACHINE OPERATOR.CNM Work Phone: [facility] 07-06-2022 14:13-0400 Systolic blood pressure 102 mm[Hg] Cristina Brady SAND CLEANING MACHINE OPERATOR.CNM Work Phone: [facility] 06-08-2022 15:30-0500 Body weight 82.56 kg Debra Puentespop SAND CLEANING MACHINE OPERATOR.CNM Work Phone: [facility] 06-08-2022 15:30-0500 Diastolic blood pressure 68 mm[Hg] Debra Dhavalpop SAND CLEANING MACHINE OPERATOR.CNM Work Phone: [facility] 06-08-2022 15:30-0500 Systolic blood pressure 114 mm[Hg] Debra Mcdonald SAND CLEANING MACHINE OPERATOR.CNM Work Phone: [facility] 05-11-2022 14:25-0500 Body weight 79.92 kg Debra Mcdonald SAND CLEANING MACHINE OPERATOR.CNM Work Phone: [facility] 05-11-2022 14:25-0500 Diastolic blood pressure 70 mm[Hg] Debra Puentests SAND CLEANING MACHINE OPERATOR.CNM Work Phone: [facility] 05-11-2022 14:25-0500 Systolic blood pressure 100 mm[Hg] Debra Puentests SAND CLEANING MACHINE OPERATOR.CNM Work Phone: [facility] 04-06-2022 13:30-0500 Body height 177.8 cm Cristina Brady SAND CLEANING MACHINE OPERATOR.CNM Work Phone: [facility] 04-06-2022 13:05-0500 Body weight 77.93 kg Cristina Brady SAND CLEANING MACHINE OPERATOR.CNM Work Phone: [facility] 04-06-2022 13:05-0500 Diastolic blood pressure 64 mm[Hg] Cristina Brady SAND CLEANING MACHINE OPERATOR.CNM Work Phone: [facility] 04-06-2022 13:05-0500 Systolic blood pressure 110 mm[Hg] Cristina Brady SAND CLEANING MACHINE OPERATOR.CNM Work Phone: [facility] 05-16-2014 14:12-0500 BMI (Body Mass Index) 19.66 kg/m2 Cristina Silver [facility] Work Phone: 05-16-2014 14:12-0500 Body weight 63.96 kg Mario Jeffers Work Phone: [facility] Work Phone: 05-16-2014 14:12-0500 BP Diastolic 66 mm[Hg] Cristina Silver [facility] Work Phone: 05-16-2014 14:12-0500 BP Systolic 97 mm[Hg] Cristina Silver [facility] er Sports Medicine and Orthopaedics Work Phone: 05-16-2014 14:12-0500 Height 180.34 [facility] Work Phone: 05-16-2014 14:12-0500 Pulse (Heart Rate) 68 /min [facility] enter Sports Medicine and Orthopaedics Work Phone: 05-16-2014 14:12-0500 [facility] 63.96 [facility] Work Phone: 02-21-2010 15:55-0500 Body Temperature 99.7 [degF] [facility] ter [facility] Medicine [facility] Work Phone: 02-21-2010 15:55-0500 Body Temperature 99.68 [degF] [facility] Medicine [facility] Work Phone: 02-21-2010 15:55-0500 Body weight 43.18 kg Mario Zeyad Work Phone: [facility] Work Phone: 02-21-2010 15:55-0500 Respiratory Rate 16 /min [facility] Medicine [facility] Work Phone: 02-21-2010 15:55-0500 Weight 43.18 [facility] Work Phone: Encounters Encounter Date Encounter Type Care Provider Facility Start: 01-30-2025 End: 01-30-2025 ambulatory SERENITY ALMANZAR Facility:[facility] Start: 01-17-2025 End: 01-17-2025 ambulatory CRISTINA BRADY Facility:[facility] Start: 01-03-2025 End: 01-03-2025 ambulatory LEIGHA AGUSTIN Facility:[facility] Start: 12-18-2024 End: 12-18-2024 Patient encounter procedure Augustina Rapp MD Work Phone: OB/Gynecology Comment on above: Need for influenza v accination (Primary Dx); Need for vaccination; 27 weeks gestation of (HCC); Encounter for supervision of normal first in second trimester (HCC) Start: 12-18-2024 End: 12-18-2024 ambulatory AUGUSTINA RAPP Facility:[facility] Start: 11-21-2024 End: 11-21-2024 ambulatory DEBRA MCDONALD Facility:[facility] Start: 11-21-2024 End: 11-21-2024 Patient encounter procedure Debra Mcdonald SAND CLEANING MACHINE OPERATOR.CNM Work Phone: OB/Gynecology Comment on above: Screening for diabet es mellitus (Primary Dx); Encounter for supervision of normal first in second trimester (HCC); Encounter for supervision of normal in multigravida in second trimester (HCC); History of precipitous delivery; 24 weeks gestation of (HCC) Start: 10-24-2024 End: 10-24-2024 Patient encounter procedure Neal Marroquin APRN.DATA PROCESSOR Work Phone: OB/Gynecology Comment on above: Encounter for superv ision of normal in multigravida in second trimester (HCC) (Primary Dx); 20 weeks gestation of (HCC); History of precipitous delivery; Anxiety; Tinea corporis Encounter for superv ision of other normal in second trimester (HCC) (Primary Dx); with fetus of unknown gestational age (HCC) Start: 10-24-2024 End: 10-24-2024 ambulatory DEBRA MCDONALD Facility:[facility] Start: 09-25-2024 End: 09-25-2024 Patient encounter procedure Cristina Brady APRN.CNM Work Phone: OB/Gynecology Comment on above: Encounter for superv ision of normal in multigravida in second trimester (HCC) (Primary Dx); 15 weeks gestation of (HCC); Anxiety; History of precipitous delivery Start: 09-25-2024 End: 09-25-2024 ambulatory CRISTINA BRADY Facility:[facility] Start: 09-11-2024 End: 09-11-2024 ambulatory Debra Mcdonald APRN.CNM Work Phone: OB/Gynecology Comment on above: NIPT Start: 08-29-2024 End: 08-29-2024 ambulatory [facility] Facility:[facility] Start: 08-29-2024 End: 08-29-2024 Patient encounter procedure Debra Mcdonald APRN.CNM Work Phone: OB/Gynecology Comment on above: 12 weeks gestation o f (HCC) (Primary Dx); Anxiety; History of precipitous delivery; Encounter for supervision of normal first in third trimester ([facility]); Encounter for supervision of normal in multigravida in first trimester ([facility]) Encounter for antena michael screening for malformation using ultrasound ([facility]) (Primary Dx); 12 weeks gestation of ([facility]) Start: 08-29-2024 End: 08-29-2024 [facility] Facility:[facility] Start: 07-26-2024 End: 09-25-2024 Follow-up encounter Neal Marroquin APRN.DATA PROCESSOR Work Phone: OB/Gynecology Start: 07-24-2024 End: 07-24-2024 Patient encounter procedure Debra Mcdonald APRN.CNM Work Phone: OB/Gynecology Comment on above: with fetus of unknown gestational age (HCC) (Primary Dx); 6 weeks gestation of ([facility]); History of anxiety; Encounter for supervision of normal in multigravida in first trimester ([facility]); History of precipitous delivery; Anxiety Start: 07-24-2024 End: 07-24-2024 ambulatory [facility] Facility:[facility] Start: 07-09-2024 End: 07-09-2024 ambulatory Camron Chapin MD Work Phone: OB/Gynecology Comment on above: Decongestant Start: 06-20-2024 End: 06-21-2024 Refill Camron Chapin MD Work Phone: OB/Gynecology Comment on above: Refill Request Start: 06-19-2024 End: 06-19-2024 ambulatory CRISTINA BRADY Facility:[facility] Start: 06-19-2024 End: 06-19-2024 Patient encounter procedure Cristina Brady APRN.CNM Work Phone: OB/Gynecology Comment on above: Encounter for gyneco logical examination (general) (routine) with abnormal findings (Primary Dx); Family history of breast cancer; Family history of colon cancer; Encounter for preconception consultation Start: 06-19-2024 End: 06-19-2024 Patient encounter status Cristina Brady APRN.CNBandar Work Phone: [facility] Start: 06-10-2024 End: 06-10-2024 Refill Camron Chapin MD Work Phone: OB/Gynecology Comment on above: Refill Request Start: 04-05-2024 End: 04-05-2024 ambulatory Cristina Brady APRN.CNBandar Work Phone: OB/Gynecology Comment on above: Chemical?? Start: 12-07-2023 End: 12-07-2023 ambulatory Camron Chapin MD Work Phone: OB/Gynecology Comment on above: New Pharmacy Start: 12-06-2023 End: 12-07-2023 Refill Camron Chapin MD Work Phone: OB/Gynecology Comment on above: Refill Request Start: 11-11-2023 Refill Marisela Fine PRN.CNP Work Phone: [facility] Comment on above: Refill Request Start: 08-07-2023 End: 08-07-2023 ambulatory CAMRON CHAPIN Facility:[facility] Start: 08-07-2023 End: 08-07-2023 ambulatory Sharla Cadena PT Work Phone: [facility] Comment on above: Muscle pain (Primary Dx) Start: 07-04-2023 End: 07-04-2023 ambulatory CAMRON CHAPIN Facility:[facility] Start: 07-04-2023 End: 07-04-2023 ambulatory Sharla Cadena PT Work Phone: [facility] Comment on above: Muscle pain (Primary Dx) Start: 06-05-2023 End: 06-05-2023 Patient encounter procedure Camron Chapin MD Work Phone: OB/Gynecology Comment on above: Encounter for gyneco logical examination (general) (routine) without abnormal findings (Primary Dx); care and examination; Superficial dyspareunia; Exclusive by mother Start: 06-05-2023 End: 06-05-2023 Patient encounter status Camron Chapin MD Work Phone: [facility] Start: 01-12-2023 End: 01-12-2023 Patient encounter procedure Camron Chapin MD Work Phone: OB/Gynecology Comment on above: care and examination (Primary Dx) Start: 12-19-2022 ambulatory Camron Duvall Work Phone: OB/Gynecology Comment on above: Maternity Leave Form Start: 12-05-2022 ambulatory Camron Duvall Work Phone: [facility] Start: 12-05-2022 Follow-up encounter Camron jordan MD Work Phone: OB/Gynecology Comment on above: PP Follow Up Start: 11-29-2022 ambulatory Camron Duvall Work Phone: OB/Gynecology Comment on above: Ob Delivery Note Start: 11-28-2022 End: 11-30-2022 Evaluation and management of inpatient Hernán Lind Facility:[facility] Start: 11-28-2022 End: 11-30-2022 Evaluation and management of inpatient [facility] Work Phone: Start: 11-25-2022 ambulatory Debra daly APRN.CNM Work Phone: OB/Gynecology Comment on above: Induction Start: 11-09-2022 End: 11-09-2022 Patient encounter procedure Debra Mcdonald APRN.CNM Work Phone: OB/Gynecology Comment on above: 38 weeks gestation o f (Primary Dx); Supervision of normal first , antepartum; History of anxiety; History of migraine headaches; Patient request for diagnostic testing Start: 11-09-2022 End: 11-09-2022 Patient requested procedure Debra Mcdonald APRN.KALIN Work Phone: [facility] Start: 10-26-2022 End: 10-26-2022 Patient encounter procedure Debra Mcdonald APRN.CNBandar Work Phone: OB/Gynecology Comment on above: 36 weeks gestation o f (Primary Dx); Supervision of normal first , antepartum Start: 10-12-2022 End: 10-12-2022 Patient encounter procedure Debra Mcdonald APRN.CNBandar Work Phone: OB/Gynecology Comment on above: 34 weeks gestation o f (Primary Dx) Start: 10-06-2022 End: 10-06-2022 Patient encounter procedure Debra Mcdonald APRN.CNBandar Work Phone: OB/Gynecology Comment on above: 33 weeks gestation o f (Primary Dx) Start: 09-23-2022 End: 09-23-2022 Patient encounter procedure Camron Chapin MD Work Phone: OB/Gynecology Comment on above: 31 weeks gestation o f (Primary Dx) Start: 09-20-2022 Telephone encounter Cristina carr APRN.CNM Work Phone: OB/Gynecology Comment on above: Results Start: 09-20-2022 End: 09-20-2022 Subsequent hospital visit by physician [facility] Work Phone: Radiology Comment on above: Swollen lymph nodes [R59.9] Start: 09-15-2022 Telephone encounter Cristina carr APRN.CNBandar Work Phone: OB/Gynecology Comment on above: Breast Pump Start: 09-14-2022 End: 09-14-2022 Patient encounter procedure Cristina Brady APRN.CNM Work Phone: OB/Gynecology Comment on above: Need for vaccination (Primary Dx); 30 weeks gestation of ; History of anxiety; History of migraine headaches; Patient request for diagnostic testing Start: 09-14-2022 End: 09-14-2022 Patient requested procedure Cristina Brady APRN.CNM Work Phone: OB/Gynecology Start: 08-31-2022 End: 08-31-2022 Patient encounter procedure Cristina Brady APRN.KALIN Work Phone: OB/Gynecology Comment on above: 28 weeks gestation o f (Primary Dx); Swollen lymph nodes Start: 08-03-2022 End: 08-03-2022 Patient encounter procedure Cristina Brady APRN.CNBandar Work Phone: OB/Gynecology Comment on above: 24 weeks gestation o f (Primary Dx) Start: 07-06-2022 End: 07-06-2022 Patient requested procedure Cristina Brady APRN.CNBandar Work Phone: OB/Gynecology Start: 07-06-2022 End: 07-06-2022 Patient encounter procedure Marily Frank MD Work Phone: Maternal Medicine Comment on above: Encounter for superv ision of normal first in first trimester; 7 weeks gestation of History of anxiety ( Primary Dx); History of migraine headaches; Patient request for diagnostic testing; 20 weeks gestation of Start: 06-08-2022 End: 06-08-2022 Patient encounter procedure Debra Mcdonald APRN.CNBandar Work Phone: OB/Gynecology Comment on above: 16 weeks gestation o f (Primary Dx); Encounter for supervision of normal first in first trimester; History of anxiety; History of migraine headaches; Patient request for diagnostic testing Start: 06-08-2022 End: 06-08-2022 Patient requested procedure Debra Mcdonald APRN.CNBandar Work Phone: OB/Gynecology Start: 05-27-2022 Telephone encounter Cristina carr APRN.CNM Work Phone: OB/Gynecology Comment on above: Appointment Start: 05-17-2022 Telephone encounter Leigha Agustin MD Work Phone: Maternal Medicine Comment on above: NIPT results Start: 05-11-2022 End: 05-11-2022 Patient encounter procedure Debra Mcdonald APRN.CNBandar Work Phone: OB/Gynecology Comment on above: 12 weeks gestation o f (Primary Dx); Encounter for supervision of normal first in first trimester First trimester scre ening (Primary Dx); 12 weeks gestation of Start: 05-02-2022 ambulatory Cristina Brady APRN.CNM Work Phone: OB/Gynecology Comment on above: NIPT Testing Start: 04-11-2022 ambulatory [facility] Provider OB/Gynecol rashi Comment on above: visit optio n Start: 04-11-2022 E-mail encounter [facility] caregiver [facility] Start: 04-06-2022 End: 04-06-2022 Patient encounter procedure Cristina Brady APRN.CNBandar Work Phone: OB/Gynecology Comment on above: Encounter for superv ision of normal first in first trimester (Primary Dx); 7 weeks gestation of Start: 03-21-2022 ambulatory Cristina Brady APRN.KALIN Work Phone: OB/Gynecology Comment on above: Resource g uide Start: 03-21-2022 E-mail encounter fro m caregiver Cristina Brady APRN.CNM [facility] Phone[facility] Start: 03-21-2022 End: 03-21-2022 Nursing evaluation of patient and report Nurse [facility] Work Phone: OB/Gynecology Comment on above: Supervision of gege l first , antepartum (Primary Dx); History of anxiety and depression; History of migraine headaches; Patient request for diagnostic testing Start: 03-21-2022 End: 09-25-2024 Patient requested procedure Nurse Pnob [facility] Work Phone: [facility] Work Phone: Start: 10-11-2017 End: 10-11-2017 Patient encounter JEN URBINA [facility] Start: 07-12-2017 End: 07-12-2017 Patient encounter JEN URBINA [facility] Start: 04-05-2017 End: 04-05-2017 Patient encounter ASHER GALLAGHER [facility] Start: 11-09-2016 End: 11-09-2016 Patient encounter JEN URBINA [facility] Procedures Date Procedure Procedure Detail Performing Clinician Start: 10-24-2024 Us preg uterus after 1st trimest 04/03 gestation Debra Mcdonald SAND CLEANING MACHINE OPERATOR.CNM Work Phone: Start: 08-29-2024 Antibody screen HEATH RAPP Comment on above: Order Comment: Speci men Type: BLOOD SPECIMEN Ordering Facility: [facility] Address: [address] [place] [address] Performed By: #### T SPN #### [facility] CLIA [id number] [facility] [place] [place] [address] [place] Start: 08-29-2024 Us preg uterus after 1st trimest 04/03 gestation Debra Mcdonald SAND CLEANING MACHINE OPERATOR.CNM Work Phone: Start: 07-24-2024 Iadna chlamydia trac homatis amplified probe tq Debra Mcdonald SAND CLEANING MACHINE OPERATOR.CNM Work Phone: Start: 07-24-2024 Us uterus l imited 1/> fetuses Debra Mcdonald SAND CLEANING MACHINE OPERATOR.CNM Work Phone: Start: 06-05-2023 BACTERIAL VAGINOSIS NAAT Camron Chapin MD Work Phone: Start: 06-05-2023 Iadna trichomonas va ginalis amplified probe tech Camron Chapin MD Work Phone: Start: 11-09-2022 URINE OB DIP B/O Courtn alexis Mcdonald SAND CLEANING MACHINE OPERATOR.CNM Work Phone: Start: 10-26-2022 URINE OB DIP B/O Courtn ey Plotpop SAND CLEANING MACHINE OPERATOR.CNM Work Phone: Start: 10-12-2022 URINE OB DIP B/O Courtn ey Tamara SAND CLEANING MACHINE OPERATOR.CNM Work Phone: Start: 10-06-2022 URINE OB DIP B/O Courtn ey Plotpop SAND CLEANING MACHINE OPERATOR.CNM Work Phone: Start: 09-23-2022 URINE OB DIP B/O Camron banks MD Work Phone: Start: 09-20-2022 Us breast uni real t autumn with image limited Cristina Brady APRN.CNM Work Phone: Start: 09-14-2022 URINE OB DIP B/O Mina Brady APRN.CNM Work Phone: Start: 08-31-2022 URINE OB DIP B/O Mina Brady APRN.CNM Work Phone: Start: 08-03-2022 URINE OB DIP B/O Mina Brady APRN.CNM Work Phone: Start: 07-06-2022 URINE OB DIP B/O Mina Brady APRN.CNM Work Phone: Start: 07-06-2022 Us preg uterus after 1st trimest 1/ gestation Cristina Brady APRN.CNM Work Phone: Start: 06-08-2022 URINE OB DIP B/O Mina Brady APRN.CNM Work Phone: Start: 05-11-2022 URINE OB DIP B/O Leila Mcdonald APRN.CNM Work Phone: Start: 05-11-2022 Us nuchal translucency 1st gestation Cristina Brady APRN.CNM Work Phone: Start: 04-07-2022 Antibody screen Cristina Brady APRN.CNM Work Phone: Start: 04-06-2022 Cytp cerv/vag auto t hin layer prep mnl screen Cristina Brady APRN.CNBandar Work Phone: Start: 04-06-2022 End: 04-06-2022 Iadna chlamydia trachomatis amplified probe tq Cristina Brady APRN.CNM Work Phone: Start: 02-08-2017 End: 02-08-2017 Documentation of current medications Mario Jeffers Work Phone: Plan of Treatment Date Care Activity Detail Author Start: 12-18-2034 Urine microalbumin profile DTaP,Tdap,Td Vaccine (5 - Td or Tdap) [facility] Start: 10-05-2032 Urine microalbumin profile DTaP,Tdap,Td Vaccine (4 - Td or Tdap) [facility] Start: 09-14-2032 Urine microalbumin profile [facility] Start: 06-24-2025 End: 06-24-2025 Patient encounter procedure 06/24/2025 10:45 AM EDT Office Visit OB/Gynecology [address] [place] [address] Cristina Brady APRN.CN [address] [place] [address] Annual OB/Gynecology Comment on above: Annual Start: 04-06-2025 PAP TESTING PAP TESTING [facility] Start: 04-06-2025 Screening for malignant neoplasm of cervix [facility] Start: 01-16-2025 RSV Vaccine (1 - Risk 1-dose series) RSV Vaccine (1 - Risk 1-dose series) [facility] Start: 12-18-2024 End: 12-18-2024 Patient encounter procedure 12/18/2024 9:40 AM EDT Routine Office Visit OB/Gynecology [address] [place] [address] Augustina Rapp MD [address] [place] [address] Glucose/OB OB/Gynecology Comment on above: Glucose/OB Start: 12-18-2024 End: 12-18-2024 ambulatory 12/18/2024 9:30 AM EDT Results [facility] [address] [place] [address] Lab glucose [facility] Comment on above: Lab glucose Start: 12-02-2024 Influenza vaccination [facility] Start: 11-21-2024 End: 02-20-2025 ANEMIA REFLEX PANEL ANEMIA REFLEX PANEL Lab Routine Encounter for supervision of normal first in second trimester (HCC) Expected: 11/21/2024, Expires: 02/20/2025 [facility] Comment on above: Expected: 11/21/2024, Expires: Start: 11-21-2024 End: 11-21-2025 GESTATIONAL GLUCOSE SCREEN, 1-HOUR, 50 GRAM, NON-FASTING GESTATIONAL GLUCOSE SCREEN, 1-HOUR, 50 GRAM, NON-FASTING Lab Routine Screening for diabetes mellitus Expected: 11/21/2024, Expires: 11/21/2025 [facility] Work Phone: Comment on above: Expected: 11/21/2024, Expires: Start: 11-21-2024 End: 11-21-2025 SYPHILIS TREPONEMAL W/REFLEX SYPHILIS TREPONEMAL W/REFLEX Lab Routine Encounter for supervision of normal first in second trimester (HCC) Expected: 11/21/2024, Expires: 11/21/2025 [facility] Comment on above: Expected: 11/21/2024, Expires: Start: 11-21-2024 End: 11-21-2024 Patient encounter procedure 11/21/2024 10:30 AM EDT Routine Office Visit OB/Gynecology [address] [place] [address] Debra Mcdonald APRN.CNM [address] [place] [address] OB OB/Gynecology Comment on above: OB Start: 2024 HPV Vaccine (1 - 3-dose SCDM series) HPV Vaccine (1 - 3-dose SCDM series) [facility] Start: 10-23-2024 End: 10-23-2024 Patient encounter procedure Maternal Medicine Comment on above: Anatomy Scan OB Routine Start: 09-26-2024 End: 09-26-2024 Patient encounter procedure 09/26/2024 11:15 AM EDT Routine Office Visit OB/Gynecology [address] [address] Debra Mcdonald APRN.CNBandar [address] [place] [place] [address] OB Routine OB/Gynecology Comment on above: OB Routine Start: 09-25-2024 End: 09-25-2024 Patient encounter procedure 09/25/2024 3:15 PM EDT Routine Office Visit OB/Gynecology [address] [place] [address] Cristina Brady APRN.CNM [address] [place] [address] 16wk routine visit OB/Gynecology Comment on above: 16wk routine visit Start: 08-29-2024 End: 08-29-2024 Patient encounter procedure Maternal Medicine Comment on above: Nuchal OB Routine Start: 08-29-2024 End: 11-28-2024 Chromosome 21 trisomy [Presence] in Blood or Tissue by Cytogenetics [facility] Work Phone: Comment on above: Expected: 08/29/2024, Expires: Start: 08-21-2024 End: 08-21-2024 Patient encounter procedure 08/21/2024 2:30 PM EDT Routine Office Visit OB/Gynecology [address] [place] [address] Cristina Brady APRN.CN [address] [place] [address] first ob OB/Gynecology Comment on above: first ob Start: 07-24-2024 End: 10-23-2024 ANEMIA REFLEX PANEL ANEMIA REFLEX PANEL Lab Routine with fetus of unknown gestational age (HCC) Expected: 07/24/2024, Expires: 10/23/2024 [facility] Work Phone: Comment on above: Expected: 07/24/2024, Expires: Start: 07-24-2024 End: 10-23-2024 Hemoglobin A1c in Blood HEMOGLOBIN A1C Lab Routine with fetus of unknown gestational age (HCC) Expected: 07/24/2024, Expires: 10/23/2024 [facility] Comment on above: Expected: 07/24/2024, Expires: Start: 07-24-2024 End: 10-23-2024 Hepatitis B virus surface Ag [Presence] in Serum HEPATITIS B SURFACE ANTIGEN Lab Routine with fetus of unknown gestational age (HCC) Expected: 07/24/2024, Expires: 10/23/2024 [facility] Comment on above: Expected: 07/24/2024, Expires: Start: 07-24-2024 End: 10-23-2024 Hepatitis C virus Ab [Presence] in Serum HEPATITIS C ANTIBODY IA WITH CONFIRMATION Lab Routine with fetus of unknown gestational age (HCC) Expected: 07/24/2024, Expires: 10/23/2024 [facility] Comment on above: Expected: 07/24/2024, Expires: Start: 07-24-2024 End: 10-23-2024 HIV 1+2 Ab [Presence] in Serum or Plasma by Immunoassay HIV 1/2 COMBO WITH REFLEX TO DIFFERENTIATION Lab Routine with fetus of unknown gestational age (HCC) Expected: 07/24/2024, Expires: 10/23/2024 [facility] Comment on above: Expected: 07/24/2024, Expires: Start: 07-24-2024 End: 07-24-2025 OBSTETRIC ULTRASOUND WHI OBSTETRIC ULTRASOUND WHI Anc Imaging Routine with fetus of unknown gestational age (HCC) Expected: 07/24/2024, Expires: 07/24/2025 [facility] Comment on above: Expected: 07/24/2024, Expires: Start: 07-24-2024 End: 10-23-2024 RUBELLA IGG ANTIBODY RUBELLA IGG ANTIBODY Lab Routine with fetus of unknown gestational age (HCC) Expected: 07/24/2024, Expires: 10/23/2024 [facility] Comment on above: Expected: 07/24/2024, Expires: Start: 07-24-2024 End: 10-23-2024 SYPHILIS TREPONEMAL W/REFLEX SYPHILIS TREPONEMAL W/REFLEX Lab Routine with fetus of unknown gestational age (HCC) Expected: 07/24/2024, Expires: 10/23/2024 [facility] Comment on above: Expected: 07/24/2024, Expires: Start: 07-24-2024 End: 10-23-2024 TYPE + SCREEN TYPE + SCREEN Blood Bank Routine with fetus of unknown gestational age (HCC) Expected: 07/24/2024, Expires: 10/23/2024 [facility] Comment on above: Expected: 07/24/2024, Expires: Start: 07-24-2024 End: 07-24-2024 Patient encounter procedure 07/24/2024 1:00 PM EDT Initial Office Visit OB/Gynecology [address] [place] [address] Debra Mcdonald APRN.CNM [address] [place] [address] first ob OB/Gynecology Comment on above: first ob Start: 06-19-2024 End: 06-19-2024 Patient encounter procedure 06/19/2024 10:45 AM EDT Office Visit OB/Gynecology [address] [place] [address] Cristina Brady APRN.CNM [address] [place] [address] Annual exam, TTC OB/Gynecology Comment on above: Annual exam, TTC Start: 06-10-2024 End: 06-10-2024 Patient encounter procedure 06/10/2024 1:40 PM EDT Office Visit OB/Gynecology [address] [place] [address] Camron Chapin MD [address] [place] [address] Annual OB/Gynecology Comment on above: Annual Start: 06-06-2024 End: 06-06-2024 Patient encounter procedure 06/06/2024 1:40 PM EST Office Visit OB/Gynecology [address] [place] [address] Camron Chapin MD [address] [place] [address] Annual OB/Gynecology Comment on above: Annual Start: 12-03-2023 Covid-19 Vaccine ( season) Covid-19 Vaccine () [facility] Start: 12-03-2023 Covid-19 Vaccine () Covid-19 Vaccine () [facility] Start: 12-03-2023 Influenza vaccination [facility] Start: 11-09-2023 End: 11-09-2023 ambulatory 11/09/2023 5:45 PM EDT OT/PT/Speech Visit [facility] [address] [place] [address] Sharla Cadena, PT [address] [place] [address] care and examination [Z39.2]; Encounter for gynecological examination (general) (routine) without abnormal findings [Z01.419]; Superficial dyspareunia [N94.11] [facility] Comment on above: care and examination [Z39.2]; Encounter for gynecological examination (general) (routine) without abnormal findings [Z01.419]; Superficial dyspareunia [N94.11] Start: 10-04-2023 End: 10-04-2023 ambulatory 10/04/2023 5:45 PM EDT OT/PT/Speech Visit [facility] [address] [place] [address] Roscoe Etienne PT [address] [place] [address] care and examination [Z39.2]; Encounter for gynecological examination (general) (routine) without abnormal findings [Z01.419]; Superficial dyspareunia [N94.11] [facility] Comment on above: care and examination [Z39.2]; Encounter for gynecological examination (general) (routine) without abnormal findings [Z01.419]; Superficial dyspareunia [N94.11] Start: 09-04-2023 End: 09-04-2023 ambulatory 09/04/2023 5:00 PM EDT OT/PT/Speech Visit [facility] [address] [place] [address] Roscoe Etienne, PT [address] [facility] [place] [address] care and examination [Z39.2]; Encounter for gynecological examination (general) (routine) without abnormal findings [Z01.419]; Superficial dyspareunia [N94.11] [facility] Comment on above: care and examination [Z39.2]; Encounter for gynecological examination (general) (routine) without abnormal findings [Z01.419]; Superficial dyspareunia [N94.11] Start: 04-03-2023 Behavioral Health Screening Behavioral Health Screening [facility] Start: 04-03-2023 Depression Assessment Depression Assessment [facility] Start: 12-02-2022 Covid-19 Vaccine () Covid-19 Vaccine ( season) [facility] Start: 12-02-2022 Influenza vaccination [facility] Start: 11-30-2022 Patient discharge [facility] Start: 11-30-2022 Complete blood count [facility] Start: 11-29-2022 Administration of medication [facility] Start: 11-29-2022 Application of ice collar, cap or bag [facility] Start: 11-29-2022 Catheterization of vein [facility] Start: 11-29-2022 Introduction of urinary catheter [facility] Start: 11-29-2022 Measuring intake and output [facility] Start: 11-29-2022 Notification of physician [facility] Start: 11-29-2022 Procedure discontinued [facility] Start: 11-29-2022 Provision of activity privileges [facility] Start: 11-29-2022 Vital signs measurements [facility] Start: 11-29-2022 [facility] Start: 11-29-2022 Consultation [facility] Start: 11-28-2022 Admission procedure [facility] Start: 07-05-2022 End: 04-06-2023 OBSTETRIC ULTRASOUND WHI OBSTETRIC ULTRASOUND WHI Anc Imaging Routine Encounter for supervision of normal first in first trimester 7 weeks gestation of Expected: 07/05/2022 (Approximate), Expires: 04/06/2023 [facility] Work Phone: Comment on above: Expected: 07/05/2022 (Approximate), Expi res: 04/06/2023 Start: 06-08-2022 End: 08-08-2022 ALPHA FETOPRO MATERNAL ALPHA FETOPRO MATERNAL Lab Routine 16 weeks gestation of Expected: 06/08/2022, Expires: 08/08/2022 [facility] Work Phone: Comment on above: Expected: 06/08/2022, Expires: 3 Start: 05-07-2022 End: 04-06-2023 NUCHAL TRANSLUCENCY WHI NUCHAL TRANSLUCENCY WHI Anc Imaging Routine Encounter for supervision of normal first in first trimester 7 weeks gestation of Expected: 05/07/2022 (Approximate), Expires: 04/06/2023 [facility] Work Phone: Comment on above: Expected: 05/07/2022 (Approximate), Expi res: 04/06/2023 Start: 05-03-2022 End: 07-03-2022 Chromosome 21 trisomy [Presence] in Blood or Tissue by Cytogenetics [id number] [id number] Lab Routine Encounter for supervision of normal first in first trimester Expected: 05/03/2022, Expires: 07/03/2022 [facility] Work Phone: Comment on above: Expected: 05/03/2022, Expires: 3 Start: 04-03-2022 DEPRESSION ASSESSMENT DEPRESSION ASSESSMENT [facility] Start: 12-02-2021 Influenza vaccination INFLUENZA (#1) [facility] Start: 06-08-2021 COVID-19 VACCINE (4 - Booster for Moderna series) COVID-19 VACCINE (4 - Booster for Moderna series) [facility] Start: 06-08-2021 COVID-19 VACCINE (4 - Moderna series) COVID-19 VACCINE (4 - Moderna series) [facility] Start: 04-03-2021 DEPRESSION ASSESSMENT DEPRESSION ASSESSMENT [facility] Start: 2018 PAP TESTING PAP TESTING [facility] Start: 03-15-2017 End: 03-15-2017 Patient encounter procedure Appointment [facility] Work Phone: Start: 02-08-2017 End: 02-08-2017 Appointment Appointment [facility] Work Phone: Start: 2016 Hepatitis B Vaccine (1 of 3 - 19+ 3-dose series) Hepatitis B Vaccine (1 of 3 - 19+ 3-dose series) [facility] Start: 2016 Urine microalbumin profile DTAP,TDAP,TD (1 - Tdap) [facility] Start: 11-05-2015 Anxiety Screening Anxiety Screening [facility] Start: 11-05-2015 Depression Screening Depression Screening [facility] Start: 11-05-2015 HEPATITIS C SCREENING HEPATITIS C SCREENING [facility] Start: 11-05-2015 HIV SCREENING HIV SCREENING [facility] Start: 05-16-2014 End: 05-16-2014 Radex ankle complete minimum 3 views X-Ray, Ankle [facility] Work Phone: Start: 05-16-2014 End: 05-16-2014 Radex ankle complete minimum 3 views X-Ray, Ankle [facility] Work Phone: Start: 2013 MENINGOCOCCAL B: Consider based on risk (1 of 2 - Patient Seeks Protection) MENINGOCOCCAL B: Consider based on risk (1 of 2 - Patient Seeks Protection) [facility] Start: 2012 HPV Vaccine (1 - 3-dose series) HPV Vaccine (1 - 3-dose series) [facility] Start: 11-05-2011 PEDS TO ADULT TRANSITION ANNUAL ASSESSMENT PEDS TO ADULT TRANSITION ANNUAL ASSESSMENT [facility] Start: 2009 PEDS TO ADULT TRANSITION INITIAL DISCUSSION PEDS TO ADULT TRANSITION INITIAL DISCUSSION [facility] Start: 2008 HPV VACCINE (1 - 2-dose series) HPV VACCINE (1 - 2-dose series) [facility] Start: 11-05-2007 MENINGOCOCCAL B: Consider based on risk (1 of 2 - Risk Bexsero 2-dose series) MENINGOCOCCAL B: Consider based on risk (1 of 2 - Risk Bexsero 2-dose series) [facility] Start: 2006 HPV VACCINE (1 - 2-dose series) HPV VACCINE (1 - 2-dose series) [facility] Start: 05-07-1998 COVID-19 VACCINE (#1) COVID-19 VACCINE (#1) [facility] Start: 1997 HEPATITIS B (1 of 3 - 3-dose series) HEPATITIS B (1 of 3 - 3-dose series) [facility] Start: 1997 Hepatitis B Vaccine (1 of 3 - 3-dose series) Hepatitis B Vaccine (1 of 3 - 3-dose series) [facility] Bacteria identified in Urine by Culture BACTERIAL CULTURE, URINE Microbiology Routine with fetus of unknown gestational age (HCC) 07/24/2024 3:11 PM EDT [facility] Hematocrit [Volume Fraction] of Blood [facility] Hemoglobin [Mass/vol ume] in Blood [facility] Leukocytes [#/volume ] in Blood [facility] Mean corpuscular hemoglobin concentration determination [facility] Mean corpuscular hemoglobin determination [facility] Patient Education ANKLE+SPRAIN [employer] [facility] Work Phone: Patient referral [facility] Work Phone: Platelets [#/volume] in Blood [facility] Red blood cell count [facility] Red cell distributio n width determination [facility] ROUTINE, GR OUP B STREP PCR ROUTINE, GROUP B STREP PCR Microbiology Routine 36 weeks gestation of 10/26/2022 2:15 PM EDT [facility] Work Phone: End: 09-30-2023 US BREAST LTD RIGHT US BREAST LTD RIGHT Radiology Routine Swollen lymph nodes 1 Occurrences starting 08/31/2022 until 09/30/2023 [facility] Work Phone: Comment on above: 1 Occurrences starting 08/31/2022 until 09/30/2023 [facility] Immunizations Immunization Date Immunization Notes Care Provider Fa aver[facility] 12-18-2024 influenza, seasonal, injectable, preservative free Augustina Rapp MD Work Phone: [facility] 12-18-2024 tetanus toxoid, redu cliff diphtheria toxoid, and acellular pertussis vaccine, adsorbed Augustina Rapp MD Work Phone: [facility] 10-05-2022 tetanus toxoid, redu cliff diphtheria toxoid, and acellular pertussis vaccine, adsorbed [facility] 09-14-2022 tetanus toxoid, redu cliff diphtheria toxoid, and acellular pertussis vaccine, adsorbed Cristina Brady APRN.CNM Work Phone: [facility] 01-17-2020 influenza virus vaccine, unspecified formulation Camron Chapin MD Work Phone: [facility] Payers Date Payer Category Payer Self-pay [id number] 2022 [employer] [id number] 2022 Unknown [employer] PPO [id number] 2022-Present [phone] [address] [place] [address] PPO [id number] 2022 Unknown [id number] 2013 Unknown [id number] Unknown [id number] Social History Date Type Detail Facility Start: 03-21-2022 Tobacco smoking stat us NHIS Never smoked tobacco [facility] Work Phone: Start: 03-21-2022 Tobacco use and exposure Smokeless tobacco non-user [facility] Work Phone: Start: 03-21-2022 End: 12-18-2024 Alcohol intake Ex-drinker (finding) [facility] Start: 03-21-2022 Education 17 [facility] [place] Start: 03-21-2022 Alcohol Comment Occasionally [facility] Start: 03-02-2022 [facility] [place] Start: 1995 Sex Assigned At Female C [facility] Start: 08-03-2022 End: 10-12-2022 History of Social function [facility] [place] Start: 08-03-2022 End: 10-12-2022 Tobacco use panel [facility] [place] The thought of mary haque myself has occurred to me Never [facility] [place] Start: 03-13-2020 National Score (1-10 0), lower number is lower risk 50 [facility] [place] Start: 03-21-2022 Gender identity Identifies as female gender (finding) [facility] [place] Start: 11-28-2022 Tobacco smoking stat us NHIS Unknown if ever smoked [facility] Start: 07-24-2024 Sexual orientation Heterosexual (pranav riddle) [facility] [place] Goals Date Patient Goal Desired Activity /State Personal health goal Personal health goal Clinical Notes 03-21-2022 to 12-18-2024 Quick Notes - Augustina Rapp MD - 12/18/2024 9:58 AM EDTPrenatal Quick Notes - Augustina Rapp MD - 12/18/2024 9:58 AM Stephani Castelan MA - 12/18/2024 9:23 AM EDTPatient Instructions Note Date & Type Note Facility 12-18-2024 Progress note Formatting of t his note might be different from the original. S: Enzo Villela is a 29 year old female who presents at 03/13/2025, Alternate KENYATTA Entry for a routine visit. Denies headache, visual changes, chest pain, shortness of breath, vaginal bleeding, leakage of fluid, or dysuria. Feeling well, no complaints. Good movement, No contractions O: See flow sheet Gen: No apparent distress Abd: Gravid, nontender TDAP today Flu vaccine today GCT fresh test today Declined LARC ASSESSMENT/PLAN: 1. Need for influenza vaccination - ICD9: V04.81, ICD10: Z23 (primary diagnosis) - INFLUENZA VACCINE, PRSV FREE, AGE 6MO-64YR, TRIVALENT (AFLURIA, FLUARIX, FLULAVAL, FLUVIRIN, FLUZONE) 2. Need for vaccination - ICD9: V05.9, ICD10: Z23 3. 27 weeks gestation of (HCC) - ICD9: V22.2, ICD10: Z3A.27 4. Encounter for supervision of normal first in second trimester ([facility]) - ICD9: V22.0, ICD10: Z34.02 Augustina Rapp MD [facility] [place] 12-18-2024 Miscellaneous Notes S: Enzo Villela is a 29 year old female who presents at 03/13/2025, Alternate KENYATTA Entry for a routine visit. Denies headache, visual changes, chest pain, shortness of breath, vaginal bleeding, leakage of fluid, or dysuria. Feeling well, no complaints. Good movement, No contractions O: See flow sheet Gen: No apparent distress Abd: Gravid, nontender TDAP today Flu vaccine today GCT fresh test today Declined LARC ASSESSMENT/PLAN: 1. Need for influenza vaccination - ICD9: V04.81, ICD10: Z23 (primary diagnosis) - INFLUENZA VACCINE, PRSV FREE, AGE 6MO-64YR, TRIVALENT (AFLURIA, FLUARIX, FLULAVAL, FLUVIRIN, FLUZONE) 2. Need for vaccination - ICD9: V05.9, ICD10: Z23 3. 27 weeks gestation of (HCC) - ICD9: V22.2, ICD10: Z3A.27 4. Encounter for supervision of normal first in second trimester ([facility]) - ICD9: V22.0, ICD10: Z34.02 Augustina Rapp MD documented in this encounter [facility] [place] 12-18-2024 Note HNO ID: [id number] Author: STEPHANI SMITH MA Service: ? Author Type: Bottling Supervisor Type: Progress Notes Filed: 12/18/2024 12:38 Note Text: Patient identified by name and date of . Enzo Villela presents today for a vaccination of Tdap. Patient denies an allergy to latex: yes Patient denies a severe (life-threatening) allergy to a previous dose of Tdap, DTP, DTaP, DT or Td vaccine. Yes Patient denies history of epilepsy or neurological problems: Yes Patient is afebrile and denies being moderately or severely ill: Yes Patient denies history of Guillain-Welcome Syndrome (a severe paralytic illness): Yes Tdap Adacel injection was given without incident. See immunizations for details of immunizations administered today. VIS sheet provided: Yes Provider Augustina Rapp MD was present in office at time of injection. Stephani Smith MA [facility] 12-18-2024 History of Presen t illness Narrative Patient identified by name and date of . Enzo Villela presents today for a vaccination of Tdap. Patient denies an allergy to latex: yes Patient denies a severe (life-threatening) allergy to a previous dose of Tdap, DTP, DTaP, DT or Td vaccine. Yes Patient denies history of epilepsy or neurological problems: Yes Patient is afebrile and denies being moderately or severely ill: Yes Patient denies history of Guillain-Welcome Syndrome (a severe paralytic illness): Yes Tdap Adacel injection was given without incident. See immunizations for details of immunizations administered today. VIS sheet provided: Yes Provider Augustina Rapp MD was present in office at time of injection. Stephani Smith MA documented in this encounter [facility] [place] 12-18-2024 Instructions Stephani Smith MA - 12/18/2024 9:23 AM EDT SEQUENTIAL SCREENINGS The [facility] [place] offers sequential screenings for women who are interested in screenings for chromosomal abnormalities and certain defects during a . The sequential screen combines ultrasound and blood tests to determine the risk of chromosomal abnormalities, including Down's Syndrome (Trisomy 21) and Trisomy 18, as well as open neural tube defects including spina bifida. Ultrasound examination is performed between 11 weeks and 13 weeks gestational age. Blood tests are drawn after the ultrasound and again later in the between 15 and 21 weeks gestational age. Please let your physician know if you are interested in this testing. It will require an appointment with our electrocardiograph technician. This is not an ultrasound performed by a physician in our office during a routine visit. SIGNS AND SYMPTOMS OF LABOR 1. Contractions every 10 minutes or more often 2. Clear, pink, or brownish fluid (water) leaking from vagina 3. Feeling that baby is pushing down, pressure 4. Low, dull backache 5. Cramps that feel like a period 6. Cramps with or without diarrhea If you notice any of the above symptoms, contact our office at [phone] and ask to speak with a nurse. After hours, you can call doctors registry at [phone] OR call [facility] at [phone] and ask to have the doctor carbonation tester paged. If you consider this an emergency, dial 3-7-2 or go to your nearest emergency department. NEED HELP? Are you dealing with a violent or abusive relationship? Are you a victim of rape or sexual assult? Call [facility] ([place]) 24 hour Crisis Hotline: 180.980.6365 or 418-626-9279. MANUAL Your Guide to a Healthy manual is now on-line. Visit [email or web address] to download your free copy documented in this encounter [facility] [place] 11-21-2024 Progress note Formatting of t his note might be different from the original. S: Enzo Villela is a 29 year old female who presents at 24 weeks gestation for a routine visit. Positive movements. Denies headache, visual changes, chest pain, shortness of breath, vaginal bleeding, leakage of fluid, or dysuria. Feeling well, no complaints. O: See flow sheet Gen: No apparent distress Abd: Gravid, non tender ASSESSMENT/PLAN: 1. Screening for diabetes mellitus - ICD9: V77.1, ICD10: Z13.1 (primary diagnosis) 2. Encounter for supervision of normal in multigravida in second trimester 3. History of precipitous delivery 4. 24 weeks gestation of - Mood / anxiety- stable - Continue Zoloft 50 mg PO Daily - Continue ASA/ vitamin daily - Discussed The Fresh Test for GCT- patient to look into product - RTO 4 weeks or sooner if needed Debra Mcdonald APRN.CNM [facility] [place] 11-21-2024 Miscellaneous Notes S: Enoz Villela is a 29 year old female who presents at 24 weeks gestation for a routine visit. Positive movements. Denies headache, visual changes, chest pain, shortness of breath, vaginal bleeding, leakage of fluid, or dysuria. Feeling well, no complaints. O: See flow sheet Gen: No apparent distress Abd: Gravid, non tender ASSESSMENT/PLAN: 1. Screening for diabetes mellitus - ICD9: V77.1, ICD10: Z13.1 (primary diagnosis) 2. Encounter for supervision of normal in multigravida in second trimester 3. History of precipitous delivery 4. 24 weeks gestation of - Mood / anxiety- stable - Continue Zoloft 50 mg PO Daily - Continue ASA/ vitamin daily - Discussed The Fresh Test for GCT- patient to look into product - RTO 4 weeks or sooner if needed Debra Mcdonald APRN.CNM documented in this encounter [facility] [place] 10-24-2024 Progress note Formatting of t his note might be different from the original. EH - S: Enzo is a 28 year old female who presents at 20w0d for a routine visit. Feeling movement. Denies headache today, visual changes, chest pain, shortness of breath, vaginal bleeding, leakage of fluid, or dysuria. Has some tailbone pain. Has ringworm on right arm. Occasional headaches and constipation. O: See flow sheet Gen: No apparent distress Abd: Gravid, nontender ASSESSMENT/PLAN: 1. Encounter for supervision of normal in multigravida in second trimester (HCC) - ICD9: V22.1, ICD10: Z34.82 (primary diagnosis) - Continue PNV and LDA - Discussed Tylenol for headaches, Magnesium Citrate 400 mg per day, may also help with constipation - Continue topical antifungal for ringworm 2. 20 weeks gestation of (HCC) - ICD9: V22.2, ICD10: Z3A.20 - Anatomy ultrasound today, report pending - Discussed medicare specialist and pelvic floor therapy for pain, consult to PFPT placed 3. History of precipitous delivery - ICD9: V13.29, ICD10: Z87.59 4. Anxiety - ICD9: 300.00, ICD10: F41.9 - Continue Zoloft - Reports mood stable PTL precautions reviewed. RTO in 4 weeks or sooner as needed. Neal Marroquin APRN.DATA PROCESSOR T [facility] [place] 10-24-2024 Miscellaneous Notes EH - S: Enzo is a 28 year old female who presents at 20w0d for a routine visit. Feeling movement. Denies headache today, visual changes, chest pain, shortness of breath, vaginal bleeding, leakage of fluid, or dysuria. Has some tailbone pain. Has ringworm on right arm. Occasional headaches and constipation. O: See flow sheet Gen: No apparent distress Abd: Gravid, nontender ASSESSMENT/PLAN: 1. Encounter for supervision of normal in multigravida in second trimester ([facility]) - ICD9: V22.1, ICD10: Z34.82 (primary diagnosis) - Continue PNV and LDA - Discussed Tylenol for headaches, Magnesium Citrate 400 mg per day, may also help with constipation - Continue topical antifungal for ringworm 2. 20 weeks gestation of (HCC) - ICD9: V22.2, ICD10: Z3A.20 - Anatomy ultrasound today, report pending - Discussed medicare specialist and pelvic floor therapy for pain, consult to PFPT placed 3. History of precipitous delivery - ICD9: V13.29, ICD10: Z87.59 4. Anxiety - ICD9: 300.00, ICD10: F41.9 - Continue Zoloft - Reports mood stable PTL precautions reviewed. RTO in 4 weeks or sooner as needed. Neal Marroquin APRN.CNP documented in this encounter [facility] [place] 10-24-2024 Instructions Neal Marroquin APRN.CNP - 10/24/2024 9:51 AM EDT Headaches: Magnesium Citrate 400 mg per day SEQUENTIAL SCREENINGS The [facility] [place] offers sequential screenings for women who are interested in screenings for chromosomal abnormalities and certain defects during a . The sequential screen combines ultrasound and blood tests to determine the risk of chromosomal abnormalities, including Down's Syndrome (Trisomy 21) and Trisomy 18, as well as open neural tube defects including spina bifida. Ultrasound examination is performed between 11 weeks and 13 weeks gestational age. Blood tests are drawn after the ultrasound and again later in the between 15 and 21 weeks gestational age. Please let your physician know if you are interested in this testing. It will require an appointment with our electrocardiograph technician. This is not an ultrasound performed by a physician in our office during a routine visit. SIGNS AND SYMPTOMS OF LABOR 1. Contractions every 10 minutes or more often 2. Clear, pink, or brownish fluid (water) leaking from vagina 3. Feeling that baby is pushing down, pressure 4. Low, dull backache 5. Cramps that feel like a period 6. Cramps with or without diarrhea If you notice any of the above symptoms, contact our office at [phone] and ask to speak with a nurse. After hours, you can call doctors registry at [phone] OR call [facility] at [phone] and ask to have the doctor carbonation tester paged. If you consider this an emergency, dial 5--4 or go to your nearest emergency department. NEED HELP? Are you dealing with a violent or abusive relationship? Are you a victim of rape or sexual assult? Call [facility] ([place]) 24 hour Crisis Hotline: 176.246.9939 or 139-389-6837. MANUAL Your Guide to a Healthy manual is now on-line. Visit [email or web address] to download your free copy documented in this encounter [facility] [place] 09-25-2024 Progress note Formatting of t his note might be different from the original. DAVE-S: Enzo Villela is a 28 year old female who presents at 15w6d with KENYATTA:03/13/2025, Alternate KENYATTA Entry for a routine visit. Denies headache, visual changes, chest pain, shortness of breath, vaginal bleeding, leakage of fluid, or dysuria. Feeling well, no complaints. O: See flow sheet Gen: No apparent distress Abd: Gravid, nontender ASSESSMENT/PLAN: 1. Encounter for supervision of normal in multigravida in second trimester -PN labs completed -Continue ASA -Anatomy US ordered 2. 15 weeks gestation of 3. Anxiety 4. History of precipitous delivery PTL precautions reviewed and when to call RTO in 4 weeks Cristina Brady APRN.CNM [facility] [place] 09-25-2024 Miscellaneous Notes DAVE-S: Enzo Villela is a 28 year old female who presents at 15w6d with KENYATTA:03/13/2025, Alternate KENYATTA Entry for a routine visit. Denies headache, visual changes, chest pain, shortness of breath, vaginal bleeding, leakage of fluid, or dysuria. Feeling well, no complaints. O: See flow sheet Gen: No apparent distress Abd: Gravid, nontender ASSESSMENT/PLAN: 1. Encounter for supervision of normal in multigravida in second trimester -PN labs completed -Continue ASA -Anatomy US ordered 2. 15 weeks gestation of 3. Anxiety 4. History of precipitous delivery PTL precautions reviewed and when to call RTO in 4 weeks Cristina Brady APRN.CNM documented in this encounter [facility] [place] 09-25-2024 Instructions Nelson Payne MA - 09/25/2024 3:05 PM EDT SEQUENTIAL SCREENINGS The [facility] [place] offers sequential screenings for women who are interested in screenings for chromosomal abnormalities and certain defects during a . The sequential screen combines ultrasound and blood tests to determine the risk of chromosomal abnormalities, including Down's Syndrome (Trisomy 21) and Trisomy 18, as well as open neural tube defects including spina bifida. Ultrasound examination is performed between 11 weeks and 13 weeks gestational age. Blood tests are drawn after the ultrasound and again later in the between 15 and 21 weeks gestational age. Please let your physician know if you are interested in this testing. It will require an appointment with our electrocardiograph technician. This is not an ultrasound performed by a physician in our office during a routine visit. SIGNS AND SYMPTOMS OF LABOR 1. Contractions every 10 minutes or more often 2. Clear, pink, or brownish fluid (water) leaking from vagina 3. Feeling that baby is pushing down, pressure 4. Low, dull backache 5. Cramps that feel like a period 6. Cramps with or without diarrhea If you notice any of the above symptoms, contact our office at [phone] and ask to speak with a nurse. After hours, you can call doctors registry at [phone] OR call [facility] at [phone] and ask to have the doctor carbonation tester paged. If you consider this an emergency, dial 9-1-4 or go to your nearest emergency department. NEED HELP? Are you dealing with a violent or abusive relationship? Are you a victim of rape or sexual assult? Call [facility] ([place]) 24 hour Crisis Hotline: 164.350.2927 or 928-117-8510. MANUAL Your Guide to a Healthy manual is now on-line. Visit [email or web address] to download your free copy documented in this encounter [facility] [place] 09-02-2024 Progress note Formatting of t his note might be different from the original. Anatomy ultrasound reviewed. No abnormalities identified. Follow up as clinically indicated. Please place copy in ob chart. Leigha Agustin MD [facility] [place] 09-02-2024 Miscellaneous Notes Anatomy ultrasound reviewed. No abnormalities identified. Follow up as clinically indicated. Please place copy in ob chart. Leigha Agustin MD documented in this encounter [facility] [place] 08-30-2024 Note HNO ID: [id number] Author: COOPER ROLDAN LISW Service: ? Author Type: Plate Printer Type: Progress Notes Filed: 08/30/2024 20:13 Note Text: Summary: Integrated Mental Health Plan of Care Integrated Mental Health Plan of Care If not connected to Care are they agreeable to referral?No declined referral Patient outreached X3 with no contact Additional information Patient outreach: phone call, left message x3, MCM sent, unable to reach patient. [facility] 08-29-2024 Progress note Formatting of t his note might be different from the original. S: Enzo Villela is a 28 year old female who presents at 12 weeks gestation for a routine visit. Just completed 1st trimester ultrasound. Having labs drawn today. Desires MaterniT 21 but does not want to know gender. No nausea. Some minor food aversions. Denies headache, visual changes, chest pain, shortness of breath, vaginal bleeding, leakage of fluid, or dysuria. Feeling well, no complaints. O: See flow sheet Gen: No apparent distress Abd: Gravid, non tender ASSESSMENT/PLAN: 1. 12 weeks gestation of 2. Anxiety 3. History of precipitous delivery - Start ASA nightly - Continue vitamin - Continue Zoloft PO daily- feels mood is stable - labs today - RTO 4 weeks Debra Mcdonald APRN.CNM [facility] [place] 08-29-2024 Miscellaneous Notes S: Enzo Villela is a 28 year old female who presents at 12 weeks gestation for a routine visit. Just completed 1st trimester ultrasound. Having labs drawn today. Desires MaterniT 21 but does not want to know gender. No nausea. Some minor food aversions. Denies headache, visual changes, chest pain, shortness of breath, vaginal bleeding, leakage of fluid, or dysuria. Feeling well, no complaints. O: See flow sheet Gen: No apparent distress Abd: Gravid, non tender ASSESSMENT/PLAN: 1. 12 weeks gestation of 2. Anxiety 3. History of precipitous delivery - Start ASA nightly - Continue vitamin - Continue Zoloft PO daily- feels mood is stable - labs today - RTO 4 weeks Debra Mcdonald APRN.CNM documented in this encounter [facility] [place] 08-29-2024 Nelson Lr MA - 08/29/2024 3:02 PM EDT SEQUENTIAL SCREENINGS The [facility] [place] offers sequential screenings for women who are interested in screenings for chromosomal abnormalities and certain defects during a . The sequential screen combines ultrasound and blood tests to determine the risk of chromosomal abnormalities, including Down's Syndrome (Trisomy 21) and Trisomy 18, as well as open neural tube defects including spina bifida. Ultrasound examination is performed between 11 weeks and 13 weeks gestational age. Blood tests are drawn after the ultrasound and again later in the between 15 and 21 weeks gestational age. Please let your physician know if you are interested in this testing. It will require an appointment with our electrocardiograph technician. This is not an ultrasound performed by a physician in our office during a routine visit. SIGNS AND SYMPTOMS OF LABOR 1. Contractions every 10 minutes or more often 2. Clear, pink, or brownish fluid (water) leaking from vagina 3. Feeling that baby is pushing down, pressure 4. Low, dull backache 5. Cramps that feel like a period 6. Cramps with or without diarrhea If you notice any of the above symptoms, contact our office at [phone] and ask to speak with a nurse. After hours, you can call doctors registry at [phone] OR call [facility] at [phone] and ask to have the doctor carbonation tester paged. If you consider this an emergency, dial 1- or go to your nearest emergency department. NEED HELP? Are you dealing with a violent or abusive relationship? Are you a victim of rape or sexual assult? Call [facility] ([place]) 24 hour Crisis Hotline: 374.578.1642 or 915-408-7968. MANUAL Your Guide to a Healthy manual is now on-line. Visit [email or web address] to download your free copy documented in this encounter [facility] [place] 07-24-2024 Note Addended by: DEBRA MCDONALD on: 07/24/2024 02:28 PM Modules accepted: Orders [facility] [place] 07-24-2024 Miscellaneous Notes Addended by: DEBRA MCDONALD on: 07/24/2024 02:28 PM Modules accepted: Orders Addended by: CARMELA SHORT on: 07/24/2024 02:16 PM Modules accepted: Orders Patient is at 6w6d gestation here for NOB. See progress note. Debra Mcdonald APRN.CNM documented in this encounter [facility] [place] 07-24-2024 Note Addended by: CARMELA SHORT on: 07/24/2024 02:16 PM Modules accepted: Orders [facility] [place] 07-24-2024 Progress note Formatting of t his note might be different from the original. Patient is at 6w6d gestation here for NOB. See progress note. Debra Mcdonald APRN.CNM [facility] [place] 07-24-2024 Note HNO ID: [id number] Author: DEBRA MCDONALD APRN.CNM Service: ? Author Type: Insole Filler Type: Progress Notes Filed: 07/24/2024 13:51 Note Text: INITIAL OB ASSESSMENT HPI: Enzo is a 28 year old White Female here to establish Obstetrical Care. Patient's last menstrual period was 06/06/2024. from OB Dating Form. was planned Complaints: No OB History Gravida3 Para1 Term1 Preterm0 AB1 Living1 SAB1 IAB0 Ectopic0 Multiple0 Live Births1 Previous history: Prior : No History of 4th degree laceration: No History of shoulder dystocia: No History of Hypertensive disorders including pre-eclampsia or gestational hypertension: No History of gestational diabetes: No Patient's Risk Screening for delivery: Have you had a prior villa between 20w and 36w6d? No How many pregnancies have you had before? 2 Did you have a previous baby with a GBS Infection? No Please select all that apply for any prior : N/A MEDICAL/PSYCHOSOCIAL HISTORY: History of hemorrhage or bleeding concerns: No Thyroid Disease: No History of chronic hypertension: No History of pre-existing diabetes: No No results found for: ABORHD BMI 23.65 kg/(m2) Last Pap: 04/08/2022 History of abnormal pap: No Prior treatment for cervical dysplasia: none. Last HPV: History of STDs: N/A Partner History of STDs: None Did you have a partner with Herpes? No Tobacco use: No E-Cigarette/Vaping Use: No Caffeine use: No Drug use: No Alcohol use: No Multivitamin with Folic acid: No Would refuse blood transfusion if medically necessary: No Social Needs: How often does this describe you? I don't have enough money to pay my bills: Never Within the past 12 months, have you worried that your food would run out before you had money to buy more? Never In the past 12 months, has lack of reliable transportation kept you from going to medical appointments or work, or from getting things needed for daily living? Never In the past 12 months, have you had any concerns about having a place to live, or about the condition or quality of your housing? Never Would you like more information on any of the following (please check all that apply)? Insole Filler care Social History: Do you have any history of depression, anxiety, PTSD, or other mood problems? Yes Do you have a history of abuse or trauma that may impact your experience? No Are you currently employed? Yes Depression/Anxiety Screening: denies, admits to symptoms of depression. OB Depression and Anxiety Screening- This Encounter Over the past 2 weeks have you felt down, depressed, or hopeless? Negative Over the past two weeks, have you felt little interest or pleasure in doing things?? Negative Feeling nervous, anxious or on edge 1-Several days Not being able to stop or control worrying 1-Several days Anxiety Pre-Screening Total (If >/= 3 additional questions will be reviewed) 2 Genetic Screening: Partner present: No Patient verbalized knowledge of partner family health history: Yes Do you or your partner have any personal or family history of defects not previously discussed: No Do you have history of a complicated by anomaly, genetic condition, or demise: No Preeclampsia Risk Screening: Screening for prevention of preeclampsia: High risk factors: None Moderate risk ractors: None OB Risk Screening: Completed, no positive findings documented. 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 90 tablet 3 triamcinolone (KENALOG) 0.025 % ointment Apply to affected area twice daily. 80 g 0 prental multivitamin 27 mg iron- 800 mcg tablet Take 1 tablet by mouth once daily. No current facility-administered medications for this visit. Allergies As of Date: 07/24/2024 Allergen Noted Reaction NICKEL 03/21/2022 Rash Fully Assessed 07/24/2024 Does patient have penicillin allergy: No REVIEW OF SYSTEMS: GENERAL: Negative for: Fever or Chills and Positive for: Fatigue HEENT: Negative for: Headache, Impaired Vision, Ringing in Ears, Nosebleeds NECK: Negative for: Swelling, Pain, Stiffness RESPIRATORY: Negative for: Cough, Shortness of breath, Wheezing GASTROINTESTINAL: Negative for: Heartburn, Constipation, Diarrhea, Blood in stool, Vomiting and positive for nausea, no emesis MUSCULOSKELETAL: Negative for: Muscle or joint pain, stiffness, Joint swell (more content not included)... [facility] 07-24-2024 History of Presen t illness Narrative INITIAL OB ASSESSMENT HPI: Enzo is a 28 year old White Female here to establish Obstetrical Care. Patient's last menstrual period was 06/06/2024. from OB Dating Form. was planned Complaints: No OB History Gravida3 Para1 Term1 Preterm0 AB1 Living1 SAB1 IAB0 Ectopic0 Multiple0 Live Births1 Previous history: Prior : No History of 4th degree laceration: No History of shoulder dystocia: No History of Hypertensive disorders including pre-eclampsia or gestational hypertension: No History of gestational diabetes: No Patient's Risk Screening for delivery: Have you had a prior villa between 20w and 36w6d? No How many pregnancies have you had before? 2 Did you have a previous baby with a GBS Infection? No Please select all that apply for any prior : N/A MEDICAL/PSYCHOSOCIAL HISTORY: History of hemorrhage or bleeding concerns: No Thyroid Disease: No History of chronic hypertension: No History of pre-existing diabetes: No No results found for: ABORHD BMI 23.65 kg/(m^2) Last Pap: 04/08/2022 History of abnormal pap: No Prior treatment for cervical dysplasia: none. Last HPV: History of STDs: N/A Partner History of STDs: None Did you have a partner with Herpes? No Tobacco use: No E-Cigarette/Vaping Use: No Caffeine use: No Drug use: No Alcohol use: No Multivitamin with Folic acid: No Would refuse blood transfusion if medically necessary: No Social Needs: How often does this describe you? I don't have enough money to pay my bills: Never Within the past 12 months, have you worried that your food would run out before you had money to buy more? Never In the past 12 months, has lack of reliable transportation kept you from going to medical appointments or work, or from getting things needed for daily living? Never In the past 12 months, have you had any concerns about having a place to live, or about the condition or quality of your housing? Never Would you like more information on any of the following (please check all that apply)? Insole Filler care Social History: Do you have any history of depression, anxiety, PTSD, or other mood problems? Yes Do you have a history of abuse or trauma that may impact your experience? No Are you currently employed? Yes Depression/Anxiety Screening: denies, admits to symptoms of depression. OB Depression and Anxiety Screening- This Encounter Over the past 2 weeks have you felt down, depressed, or hopeless? Negative Over the past two weeks, have you felt little interest or pleasure in doing things? Negative Feeling nervous, anxious or on edge 1-Several days Not being able to stop or control worrying 1-Several days Anxiety Pre-Screening Total (If >/= 3 additional questions will be reviewed) 2 Genetic Screening: Partner present: No Patient verbalized knowledge of partner family health history: Yes Do you or your partner have any personal or family history of defects not previously discussed: No Do you have history of a complicated by anomaly, genetic condition, or demise: No Preeclampsia Risk Screening: Screening for prevention of preeclampsia: High risk factors: None Moderate risk ractors: None OB Risk Screening: Completed, no positive findings documented. 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 90 tablet 3 triamcinolone (KENALOG) 0.025 % ointment Apply to affected area twice daily. 80 g 0 prental multivitamin 27 mg iron- 800 mcg tablet Take 1 tablet by mouth once daily. No current facility-administered medications for this visit. Allergies As of Date: 07/24/2024 Allergen Noted Reaction NICKEL 03/21/2022 Rash Fully Assessed 07/24/2024 Does patient have penicillin allergy: No REVIEW OF SYSTEMS: GENERAL: Negative for: Fever or Chills and Positive for: Fatigue HEENT: Negative for: Headache, Impaired Vision, Ringing in Ears, Nosebleeds NECK: Negative for: Swelling, Pain, Stiffness RESPIRATORY: Negative for: Cough, Shortness of breath, Wheezing GASTROINTESTINAL: Negative for: Heartburn, Constipation, Diarrhea, Blood in stool, Vomiting and positive for nausea, no emesis MUSCULOSKELETAL: Negative for: Muscle or joint pain, stiffness, Joint swelling NEUROLOGIC/PSYCHIATRIC: Negative for: Weakness, Paralysis, Numbness, Tingling, Tremor, Anxiety, Depression, Memory loss Treatment for anxiety, Zoloft SKIN: Negative for: Rash, Itching GENITOURINARY: Negative for: vaginal itching, vaginal discharge, hematuria or dysuria SENSITIVE EXAM: The sensitive examination was discussed with the Patient or Patient's Authorized Wire Winding Machine Operator. As applicable, any other physician, advance practice provider, medical student, or other health professional student that will be observing or involved in the sensitive examination for educational or training purposes was discussed with the Patient or Authorized Wire Winding Machine Operator. The Patient or Authorized Wire Winding Machine Operator has agreed to proceed with the sensitive examination. (Sensitive examination includes inspection and/or palpation of the breasts, pelvis, prostate and anorectal regions). PHYSICAL EXAM: BP 102/64 Ht 5' 10 (1.78m) Wt 164 lb 12.8 oz (74.8kg) LMP 06/06/2024 BMI 23.65 kg/(m^2). GENERAL: pleasant in no apparent distress DERMATOLOGY: Normal and without lesions NECK: Supple and full range of motion CHEST: Normal inspiratory effort BREAST: deferred ABDOMEN: soft, non-tender, and no masses NEURO: alert and oriented x3,exam grossly non-focal PELVIS: External genitalia normal without lesions. Perineal body intact. No vaginal or cervical lesions. Clinical Pelvimetry: Pelvimetry clinically assessed as adequate Limited OB ultrasound exam: single intrauterine , positive cardiac activity, and crown-rump length 6w4d ASSESSMENT: 28 year old at 6w6d wks gestational age PLAN: 1) Patient oriented to practice. Patient given new OB orientation folder. Discussed routine OB labs including STD/HIV. Discussed how to access Your guide to a health and the Clinical Trials Nurse. Reviewed midwifery and stock cutter services that are available. 2) Screening: Hemoglobin A1C: ordered Baby Aspirin: The patient has been counseled about the potential benefits of low dose aspirin in and our recommendation that this be offered to all patients, regardless of whether they meet the high risk criteria specified above. She Accepts Aneuploidy Screening: Discussed aneuploidy screening, nuchal translucency/first trimester early anatomy ultrasound and NIPT. The risks/benefits and limitations of NIPT/aneuploidy screening were reviewed including the potential for false negative and false positive results. The availability of genetic counseling was reviewed. Information on aneuploidy screening was provided. The patient chooses to proceed with NIPT (10 weeks) Myriad Carrier Screening: Discussed myriad carrier screening. We discussed the availability of professional-society guided carrier screening and reviewed the conditions screened and limitations of screening. The availability of genetic counseling was reviewed. Information on carrier screening was provided. The patient Declines 3) Patient offered option of Virtual Visits. Patient prefers in person visits. Follow up in 4 weeks for 1st trimester ultrasound, AXEL and labs or sooner prn. Debra Mcdonald APRN.CNM documented in this encounter [facility] 07-24-2024 Instructions Chelsi Bell MA - 07/24/2024 8:19 AM EDT Please select the following link to access the [facility] Your Guide to a Healthy . [email or web address] documented in this encounter [facility] 07-09-2024 Telephone encounter Note Can take plain mucinex - avoid Decongestant. Can take benadryl but would not take at regular intervals as may cause her to decrease supply. [facility] Work Phone: 07-09-2024 Miscellaneous Notes Can take plain mucinex - avoid Decongestant. Can take benadryl but would not take at regular intervals as may cause her to decrease supply. LMP 3/6 Approximately 4w5d and . documented in this encounter [facility] 07-09-2024 Telephone encounter Note LMP 3/6 Approximately 4w5d and . [facility] 06-20-2024 Telephone encounter Note Annual with DAVE 06/20/24. Requested Prescriptions Pending Prescriptions Disp Refills sertraline (ZOLOFT) 50 mg tablet 90 tablet 3 Sig: Take 1 tablet by mouth once daily. Pauly Kilpatrick RN [facility] 06-20-2024 Miscellaneous Notes Annual with DAVE 06/20/24. Requested Prescriptions Pending Prescriptions Disp Refills sertraline (ZOLOFT) 50 mg tablet 90 tablet 3 Sig: Take 1 tablet by mouth once daily. Pauly Kilpatrick RN documented in this encounter [facility] 06-19-2024 Note HNO ID: [id number] Author: CRISTINA BRADY APRN.CNM Service: ? Author Type: Insole Filler Type: Progress Notes Filed: 06/19/2024 11:14 Note Text: Enzo is a 28 year old who presents for an annual gynecologic exam without complaints. Still , started menses 02/24 and regular at this time. Had chemical 04/27. Trying conceive. Taking PNV Still get period: Yes LMP: 06/06/2024 Menses: cycles every 28-31 days and 5 days of flow Menstrual flow: Moderate Bleeding amount bothersome: No Bleeding between periods: No Period symptoms: None Sexually active: Yes Contraception: Cycle tracking Contraception frequency: Sometimes HPV: N/A Last pap smear: 04/06/2022 Normal History of abnormal pap: No Bothersome pelvic pain: No Last mammogram: never Sexually active: Yes OB History Gravida1 Para1 Term1 Preterm0 AB0 Living1 SAB0 IAB0 Ectopic0 Multiple0 Live Births1 [place] Tender History LMP: 06/06/2024 (Exact Date), Having periods Age at Menarche: 16 Age at First : Age at Menopause: [place] Tender History Comments: Sexual Activity: Yes; Male Contraception: Rhythm Menstrual Tracking History Flowsheet Row Appointment from 06/10/2024 in OB/Gynecology Period Cycle (Days) 29 Period Duration (Days) 5 Menstrual Flow Moderate FAMILY HISTORY Problem Relation Age of Onset Arthritis Mother No Known Problems Father No Known Problems Brother No Known Problems Brother No Known Problems Brother Hypertension Maternal Grandmother Diabetes Maternal Grandmother Liver Disease Maternal Grandfather Alcohol abuse Maternal Grandfather Breast Cancer Paternal Grandmother Colon Cancer Paternal Grandfather SOCIAL HISTORY Social History Tobacco Use Smoking status: Never Smokeless tobacco: Never Vaping Use Vaping status: Never Used Substance Use Topics Alcohol use: Not Currently Drug use: Never REVIEW OF SYSTEMS Abdomen: No abdominal pain, nausea, vomiting, diarrhea, or constipation. No bloating, early satiety, indigestion, or increased flatulence. Bladder: No dysuria, gross hematuria, urinary frequency, urinary urgency, or incontinence. Breast: No breast lumps, nipple d/c, overlying skin changes, redness or skin retraction. Allergies and current medication updated:Yes SENSITIVE EXAM: The sensitive examination was discussed with the Patient or Patient's Authorized Wire Winding Machine Operator. As applicable, any other physician, advance practice provider, medical student, or other health professional student that will be observing or involved in the sensitive examination for educational or training purposes was discussed with the Patient or Authorized Wire Winding Machine Operator. The Patient or Authorized Wire Winding Machine Operator has agreed to proceed with the sensitive examination. (Sensitive examination includes inspection and/or palpation of the breasts, pelvis, prostate and anorectal regions). EXAM: BP 100/66 Ht 5' 10 (1.78m) Wt 162 lb (73.5kg) LMP 06/06/2024 BMI 23.24 kg/(m2). GENERAL: pleasant, female in no apparent distress HEENT: Normocephalic, atraumatic, mucus membranes moist, and no lesions NECK: Supple, full range of motion, no adenopathy, and thyroid normal DERMATOLOGY: Normal, without lesions, non-icteric, and non-hirsute BREAST: soft, non-tender, symmetric, no dominant mass, normal nipple-areolar complex, no lymphadenopathy, and no nipple discharge CHEST: Normal inspiratory effort ABDOMEN: soft, non-tender, and no masses PELVIC: external genitalia normal, normal Bartholin's glands, urethra, [place]'s glands, no vulvar lesions, no cervical lesions, good vaginal support, physiologic discharge present, normal appearing perineal body and perianal region BIMANUAL: uterus normal size, shape and consistency, no adnexal masses, and non-tender RECTOVAGINAL: deferred. NEURO: alert and oriented x3,exam grossly non-focal EXTREMITIES: normal ASSESSMENT/PLAN: 1. Encounter for gynecological examination (general) (routine) with abnormal findings - ICD9: V72.31, ICD10: Z01.411 (primary diagnosis) - Completed pelvic and breast exam - Encouraged monthly BSE - Follow up for annual exam in one year. 2. Family history of breast cancer - ICD9: V16.3, ICD10: Z80.3 -Discussed genetics referral if desires 3. Family history of colon cancer - ICD9: V16.0, ICD10: Z80.0 -Discussed genetics referral if desires 4. Encounter for preconception consultation - ICD9: V26.49, ICD10: Z31.69 Reviewed pre-conception guidelines including folic acid supplementation, optimal timing of intercourse, avoidance of smoking, alcohol, and exposure to environmental chemicals. Discussed rubella and varicella titers and immunization if needed. Offered carrier screening. Reviewed need for evaluation if not within 12 months. 1) Health maintenance: Pap/HPV up to date. Nutrition, exercise and routine health maintenance exams reviewed. Calcium/Vitamin D supplementation (more content not included)... [facility] 06-19-2024 History of Presen t illness Narrative Enzo is a 28 year old who presents for an annual gynecologic exam without complaints. Still , started menses 02/24 and regular at this time. Had chemical 04/27. Trying conceive. Taking PNV Still get period: Yes LMP: 06/06/2024 Menses: cycles every 28-31 days and 5 days of flow Menstrual flow: Moderate Bleeding amount bothersome: No Bleeding between periods: No Period symptoms: None Sexually active: Yes Contraception: Cycle tracking Contraception frequency: Sometimes HPV: N/A Last pap smear: 04/06/2022 Normal History of abnormal pap: No Bothersome pelvic pain: No Last mammogram: never Sexually active: Yes OB History Gravida1 Para1 Term1 Preterm0 AB0 Living1 SAB0 IAB0 Ectopic0 Multiple0 Live Births1 [place] Tender History LMP: 06/06/2024 (Exact Date), Having periods Age at Menarche: 16 Age at First : Age at Menopause: [place] Tender History Comments: Sexual Activity: Yes; Male Contraception: Rhythm Menstrual Tracking History Flowsheet Row Appointment from 06/10/2024 in OB/Gynecology Period Cycle (Days) 31 Period Duration (Days) 5 Menstrual Flow Moderate FAMILY HISTORY Problem Relation Age of Onset Arthritis Mother No Known Problems Father No Known Problems Brother No Known Problems Brother No Known Problems Brother Hypertension Maternal Grandmother Diabetes Maternal Grandmother Liver Disease Maternal Grandfather Alcohol abuse Maternal Grandfather Breast Cancer Paternal Grandmother Colon Cancer Paternal Grandfather SOCIAL HISTORY Social History Tobacco Use Smoking status: Never Smokeless tobacco: Never Vaping Use Vaping status: Never Used Substance Use Topics Alcohol use: Not Currently Drug use: Never REVIEW OF SYSTEMS Abdomen: No abdominal pain, nausea, vomiting, diarrhea, or constipation. No bloating, early satiety, indigestion, or increased flatulence. Bladder: No dysuria, gross hematuria, urinary frequency, urinary urgency, or incontinence. Breast: No breast lumps, nipple d/c, overlying skin changes, redness or skin retraction. Allergies and current medication updated:Yes SENSITIVE EXAM: The sensitive examination was discussed with the Patient or Patient's Authorized Wire Winding Machine Operator. As applicable, any other physician, advance practice provider, medical student, or other health professional student that will be observing or involved in the sensitive examination for educational or training purposes was discussed with the Patient or Authorized Wire Winding Machine Operator. The Patient or Authorized Wire Winding Machine Operator has agreed to proceed with the sensitive examination. (Sensitive examination includes inspection and/or palpation of the breasts, pelvis, prostate and anorectal regions). EXAM: BP 100/66 Ht 5' 10 (1.78m) Wt 162 lb (73.5kg) LMP 06/06/2024 BMI 23.24 kg/(m^2). GENERAL: pleasant, female in no apparent distress HEENT: Normocephalic, atraumatic, mucus membranes moist, and no lesions NECK: Supple, full range of motion, no adenopathy, and thyroid normal DERMATOLOGY: Normal, without lesions, non-icteric, and non-hirsute BREAST: soft, non-tender, symmetric, no dominant mass, normal nipple-areolar complex, no lymphadenopathy, and no nipple discharge CHEST: Normal inspiratory effort ABDOMEN: soft, non-tender, and no masses PELVIC: external genitalia normal, normal Bartholin's glands, urethra, [place]'s glands, no vulvar lesions, no cervical lesions, good vaginal support, physiologic discharge present, normal appearing perineal body and perianal region BIMANUAL: uterus normal size, shape and consistency, no adnexal masses, and non-tender RECTOVAGINAL: deferred. NEURO: alert and oriented x3,exam grossly non-focal EXTREMITIES: normal ASSESSMENT/PLAN: 1. Encounter for gynecological examination (general) (routine) with abnormal findings - ICD9: V72.31, ICD10: Z01.411 (primary diagnosis) - Completed pelvic and breast exam - Encouraged monthly BSE - Follow up for annual exam in one year. 2. Family history of breast cancer - ICD9: V16.3, ICD10: Z80.3 -Discussed genetics referral if desires 3. Family history of colon cancer - ICD9: V16.0, ICD10: Z80.0 -Discussed genetics referral if desires 4. Encounter for preconception consultation - ICD9: V26.49, ICD10: Z31.69 Reviewed pre-conception guidelines including folic acid supplementation, optimal timing of intercourse, avoidance of smoking, alcohol, and exposure to environmental chemicals. Discussed rubella and varicella titers and immunization if needed. Offered carrier screening. Reviewed need for evaluation if not within 12 months. 1) Health maintenance: Pap/HPV up to date. Nutrition, exercise and routine health maintenance exams reviewed. Calcium/Vitamin D supplementation information provided. Colon cancer screening: start at age 45 Lipids/glucose: followed by PCP Vitamin D: followed by PCP 2) Contraception: none. Contraceptive options reviewed and information provided. 3) STD screening: Declined STD check. 4) Follow up one year or sooner as needed Cristina Brady APRN.CNM documented in this encounter [facility] 06-10-2024 Telephone encounter Note filed [facility] 06-10-2024 Miscellaneous Notes filed Annual appt scheduled with 06/19/24. Requested Prescriptions Pending Prescriptions Disp Refills sertraline (ZOLOFT) 50 mg tablet 90 tablet 4 Sig: Take 1 tablet by mouth once daily. Cielo Dao RN documented in this encounter [facility] 06-10-2024 Telephone encounter Note Annual appt scheduled with 06/19/24. Requested Prescriptions Pending Prescriptions Disp Refills sertraline (ZOLOFT) 50 mg tablet 90 tablet 4 Sig: Take 1 tablet by mouth once daily. Cielo Dao RN [facility] 08-07-2023 Note HNO ID: [id number] Author: SHARLA CADENA PT Service: ? Author Type: Physical Therapist Type: Progress Notes Filed: 08/07/2023 18:07 Note Text: Episode Visit Count: 2 Therapist That Will Accept/Oversee The Plan Of Care: Sharla Cadena PT, DPT Start of Care Date: 07/04/23 Onset Date: 11/23/22 Patient Identified by Name and Date of : Yes REHABILITATION AND SPORTS THERAPY PHYSICAL THERAPY TREATMENT NOTE ASSESSMENT: Enzo Villela tolerated the session with no issues. She demonstrated improvements in pelvic floor muscular tension and pain. Good carryover of instructions and improving coordination. The patient will continue to benefit from ongoing skilled physical therapy to progress toward set goals. PLAN FOR NEXT VISIT: Assess hips, add multifidus, ask about progress with HEP SUBJECTIVE: Patient reports things are going a little better. Doing the exercises and feels like the diaphragmatic breathing really helps relax. Re-attempted intercourse with a better response. Doing the exercises a few times a week, but does them laying in bed and falls asleep. However, not doing the perineal massage much because she doesn't like it. However, doing the other exercises more. Pain: Pain Pain Level: 3 Pain Location: Vaginal Description: Burning, Sharp Frequency: Intermittent (mostly just penetration now) OBJECTIVE MEASURES WITH LEVEL OF FUNCTION: Pelvic Floor Muscle Assessment Consent for pelvic assessment/testing and treatment: Patient verbalized consent for the above treatment approaches today. Patient understands they have control of the treatment and an opportunity to stop treatment at any time., Patient was educated regarding pelvic floor physical therapy assessment/treatment which may include pelvic floor and girdle muscle assessment externally or internally (vaginal or rectal approach). Pelvic Floor Muscle Assessment: Muscle Dynamics, PERFECT Power: 2+ Endurance: 10 (but partial loss around 4-5 sec) Reps: 10 Fast Reps: 5 Reps / Seconds: 08/10 and 01/19 Contracton Pressure: Moderate squeeze, felt all the way around finger surface Duration of Contraction: >3 seconds Recruitment of pelvic floor muscles: Coordinated Range of Motion: Decreased Ability to Lengthen pelvic floor: Difficulty at first, but improves with cueing and practice Diaphragmatic Breathing : Fair Pelvic Floor Manual Assessment Pelvic Floor Tenderness/Hyperactivity: Tested Vaginally in Tested Vaginally in : Supine/hooklying Bulbocavernosus: Bilateral (mod tension, min TTP) Superficial transverse perineal: Bilateral (mod tension, min TTP) Ischiocavernosus: Bilateral (min-mod tension, TTP L>R) Deep transverse perineal: Bilateral (min tension) Iliococcygeus: Bilateral (min-mod tension) Obturator internus: Bilateral (min-mod tension) Pubococcygeus: Bilateral (min-mod tension, TTP) TREATMENT: Manual Therapy: 1: Perineal STM/TPR 2: STM to levator ani 3: Re-instructed patient briefly in perineal massage for home Skilled Intervention: Manual skills to improve joint mobility, ROM, and decrease pain. Utilized anatomy knowledge of the therapist, and assessment of patient's response to intervention. Neuromuscular Re-Education: 1: Internal PFM assessment 2: Pt instructed in diaphragmatic breathing. Place one hand on chest and one hand on abdomen. Inhale through the nose for 4 seconds and exhale through pursed lips for 8 seconds. Allow belly to rise but not chest. Focusing on promoting coordination 3: PFM lengthening with breathing coordination 4: TrA activation with breathing coordination 5: *Long holds 10 sec x10 6: *Quick flicks Skilled Intervention: Skilled judgment used to assess appropriate program for balance and coordination activity. Provided written instruction for home program to facilitate proper performance and compliance. Correct performance of home program was facilitated with verbal, visual, and tactile cueing. Patient education as noted. Access Code: [email or web address] URL: [email or web address] Date: 08/07/2023 Prepared by: Sharla Cadena Exercises - Supine Diaphragmatic Breathing - 10 x daily - 7 x weekly - 1 sets - 5-10 reps - Supine Transversus Abdominis Bracing - Hands on Stomach - 1 x daily - 7 x weekly - 1 sets - 10 reps - 3 hold - Seated Pelvic Floor Lengthening - 1 x daily - 7 x weekly - 1 sets - 5 reps - Seated Pelvic Floor Contraction - 3 x daily - 7 x weekly - 1 sets - 10 reps Billing Manual TherapyTreatment Minutes: 14 Neuromuscular Re-Education Treatment Minutes: 29 Skilled Treatment Time Minutes (timed and untimed codes): 43 Total Session Time (minutes): 43 Session Start Time : 1717 Session Stop Time : 1800 Sharla Cadena, PT [facility] 08-07-2023 History of Presen t illness Narrative Program_ID:[id number] Access Code: [email or web address] URL: [email or web address] Date: 08-07-2023 Prepared By: Sharla Cadena Program Notes Exercises - Supine Diaphragmatic Breathing - 10 x daily - 7 x weekly - 1 sets - 5-10 reps - Supine Transversus Abdominis Bracing - Hands on Stomach - 1 x daily - 7 x weekly - 1 sets - 10 reps - Seated Pelvic Floor Lengthening - 1 x daily - 7 x weekly - 1 sets - 5 reps - Seated Pelvic Floor Contraction - 3 x daily - 7 x weekly - 1 sets - 10 reps Episode Visit Count: 2 Therapist That Will Accept/Oversee The Plan Of Care: Sharla Cadena PT, DPT Start of Care Date: 07/04/23 Onset Date: 11/23/22 Patient Identified by Name and Date of : Yes REHABILITATION AND SPORTS THERAPY PHYSICAL THERAPY TREATMENT NOTE ASSESSMENT: Enzo Byrne Surinderhenry tolerated the session with no issues. She demonstrated improvements in pelvic floor muscular tension and pain. Good carryover of instructions and improving coordination. The patient will continue to benefit from ongoing skilled physical therapy to progress toward set goals. PLAN FOR NEXT VISIT: Assess hips, add multifidus, ask about progress with HEP SUBJECTIVE: Patient reports things are going a little better. Doing the exercises and feels like the diaphragmatic breathing really helps relax. Re-attempted intercourse with a better response. Doing the exercises a few times a week, but does them laying in bed and falls asleep. However, not doing the perineal massage much because she doesn't like it. However, doing the other exercises more. Pain: Pain Pain Level: 3 Pain Location: Vaginal Description: Burning, Sharp Frequency: Intermittent (mostly just penetration now) OBJECTIVE MEASURES WITH LEVEL OF FUNCTION: Pelvic Floor Muscle Assessment Consent for pelvic assessment/testing and treatment: Patient verbalized consent for the above treatment approaches today. Patient understands they have control of the treatment and an opportunity to stop treatment at any time., Patient was educated regarding pelvic floor physical therapy assessment/treatment which may include pelvic floor and girdle muscle assessment externally or internally (vaginal or rectal approach). Pelvic Floor Muscle Assessment: Muscle Dynamics, PERFECT Power: 2+ Endurance: 10 (but partial loss around 4-5 sec) Reps: 10 Fast Reps: 5 Reps / Seconds: 08/10 and 01/19 Contracton Pressure: Moderate squeeze, felt all the way around finger surface Duration of Contraction: >3 seconds Recruitment of pelvic floor muscles: Coordinated Range of Motion: Decreased Ability to Lengthen pelvic floor: Difficulty at first, but improves with cueing and practice Diaphragmatic Breathing : Fair Pelvic Floor Manual Assessment Pelvic Floor Tenderness/Hyperactivity: Tested Vaginally in Tested Vaginally in : Supine/hooklying Bulbocavernosus: Bilateral (mod tension, min TTP) Superficial transverse perineal: Bilateral (mod tension, min TTP) Ischiocavernosus: Bilateral (min-mod tension, TTP L>R) Deep transverse perineal: Bilateral (min tension) Iliococcygeus: Bilateral (min-mod tension) Obturator internus: Bilateral (min-mod tension) Pubococcygeus: Bilateral (min-mod tension, TTP) TREATMENT: Manual Therapy: 1: Perineal STM/TPR 2: STM to levator ani 3: Re-instructed patient briefly in perineal massage for home Skilled Intervention: Manual skills to improve joint mobility, ROM, and decrease pain. Utilized anatomy knowledge of the therapist, and assessment of patient's response to intervention. Neuromuscular Re-Education: 1: Internal PFM assessment 2: Pt instructed in diaphragmatic breathing. Place one hand on chest and one hand on abdomen. Inhale through the nose for 4 seconds and exhale through pursed lips for 8 seconds. Allow belly to rise but not chest. Focusing on promoting coordination 3: PFM lengthening with breathing coordination 4: TrA activation with breathing coordination 5: *Long holds 10 sec x10 6: *Quick flicks Skilled Intervention: Skilled judgment used to assess appropriate program for balance and coordination activity. Provided written instruction for home program to facilitate proper performance and compliance. Correct performance of home program was facilitated with verbal, visual, and tactile cueing. Patient education as noted. Access Code: [email or web address] URL: [email or web address] Date: 08/07/2023 Prepared by: Sharla Cadena Exercises - Supine Diaphragmatic Breathing - 10 x daily - 7 x weekly - 1 sets - 5-10 reps - Supine Transversus Abdominis Bracing - Hands on Stomach - 1 x daily - 7 x weekly - 1 sets - 10 reps - 3 hold - Seated Pelvic Floor Lengthening - 1 x daily - 7 x weekly - 1 sets - 5 reps - Seated Pelvic Floor Contraction - 3 x daily - 7 x weekly - 1 sets - 10 reps Billing Manual TherapyTreatment Minutes: 14 Neuromuscular Re-Education Treatment Minutes: 29 Skilled Treatment Time Minutes (timed and untimed codes): 43 Total Session Time (minutes): 43 Session Start Time : 1717 Session Stop Time : 1800 Sharla Cadena PT documented in this encounter [facility] 07-04-2023 Note HNO ID: [id number] Author: SHARLA CADENA PT Service: ? Author Type: Physical Therapist Type: Progress Notes Filed: 07/04/2023 15:46 Note Text: Episode Visit Count: 1 Therapist That Will Accept/Oversee The Plan Of Care: Sharla Cadena PT, DPT Start of Care Date: 07/04/23 Onset Date: 11/23/22 Patient Identified by Name and Date of : Yes REHABILITATION AND SPORTS THERAPY PHYSICAL THERAPY EVALUATION PLAN OF CARE: Assessment: Enzo Villela presents with chief complaint of pelvic pain that interferes with altered sexual function, physical activities . She presents with impairments in coordination, overall function, range of motion, symptom management, and tissue tenderness. PROMIS? (Patient-Reported Outcomes Measurement Information System) scores were reviewed and identified as within normal limits. Prognosis for therapy is Good due to: current objective clinical presentation, good overall health status, acuteness of condition, good support system/ coping skills . Deficits consistent with vaginal childbirth complicated by tearing resulting in scar tissue and muscle dysfunction/pain. She will benefit from skilled therapy services to meet the goals established for this plan of care as noted below. Goals for Episode of Care: created on 07/04/23 through 10/24/23 Patient demonstrates independence and compliance with home exercise program. Patient displays improved range of motion, coordination, and muscle dynamics of pelvic floor as evidenced by the ability to lengthen without paradoxical contraction at least 80% of the time to normalize bladder/bowel function; reduce pelvic pain. Patient demonstrates ability to perform diaphragmatic breathing and relaxation practice independently to allow for decreased muscle tightness, decreased pain, and improved bladder/bowel function. Patient displays decreased muscle spasms in levator ani, obturator internus, and superficial pelvic floor muscles to allow for decreased pain levels, improved bladder/bowel function. Patient will report decreased pain rating by 2 points to meet minimal clinical important difference for numeric pain rating scale. Patient will demonstrate <1 finger width diastasis recti with good underlying tension to improve core stability. Patient Goals: Not be in pain, be able to have another healthy vaginal Planned Interventions, Frequency, and Duration: Current Frequency: 1x/month Duration: 16 weeks Total Number of Visits Planned: 5 Planned Treatment Interventions: Therapeutic exercise (47978), Neuromuscular re-education (48103), Manual therapy (29004), Therapeutic activities (74150), Self-fci management (03517), Patient/Family/Caregiver Education, Body Mechanics Training, E-Stim Attended/TENS (41253) PLAN FOR NEXT VISIT: Check for progress with HEP, internal manual and recommend pelvic wand as indicated, progress core stability Patient demonstrates good understanding of plan of care and treatment. The above goals and plan of care were discussed and agreed upon by patient/family. SUBJECTIVE: Patient states she had a very quick 7 months ago. Charted as precipitous . Onset of labor to was about 3 hours. She had 4-5 total tears, but 2nd degree tear. Having pain with intercourse and being on her feet a lot. Denies hypermobility conditions. She did have some tailbone pain in . Pelvic pain Patient Goals: Not be in pain, be able to have another healthy vaginal Functional Limitations: altered sexual function, physical activities Intake Information: Prescription present Previous Treatment: NSAIDs Pain: Pain Pain Level: 6 Pain Location: Vaginal Description: Burning, Sharp (tearing) Frequency: Intermittent (penetration and prolonged standing/walking) PROMIS Scales 07/04/2023 Higher is Better Phys Func - Score 56 (within normal limits) Phys Func - Percentile 73 Self-Eff Symptom - Score 54 (Average) Self-Eff Symptom - Percentile 66 T-scores: mean of general population = 50. 5 points is clinically meaningfully difference Percentiles provide an indication of how the patient's score ranks in relation to the general population. Higher percentile rankings indicate better function/quality of life. 50th percentile is the average of the general population and indicates half of respondents had a worse score. OBJECTIVE MEASURES WITH LEVEL OF FUNCTION: Pelvic Floor Menstruation: Has not yet resumed Control Method: none, comments Control Comment: Natural family planning Pregnancies: 1 Births: 1 Vaginal Delivery: Tearing Currently ?: Yes Pain with penetration: Pain during intercourse, Deep and superficial, Pain after intercourse, Not sexually active, Pain with internal medical exam (lasts a little bit afterwards) Urinary/Bowel History : Urinary History, Bowel History Difficulty starting stream: No Incomplete emptying (more content not included)... [facility] 07-04-2023 History of Presen t illness Narrative Program_ID:[id number] Access Code: [email or web address] URL: [email or web address]/ Date: 07-04-2023 Prepared By: Sharla Cadena Program Notes Exercises - Supine Diaphragmatic Breathing - 10 x daily - 7 x weekly - 1 sets - 5-10 reps - Supine Transversus Abdominis Bracing - Hands on Stomach - 1 x daily - 7 x weekly - 1 sets - 10 reps - Seated Pelvic Floor Lengthening - 1 x daily - 7 x weekly - 1 sets - 5 reps Episode Visit Count: 1 Therapist That Will Accept/Oversee The Plan Of Care: Sharla Cadena PT, DPT Start of Care Date: 07/04/23 Onset Date: 11/23/22 Patient Identified by Name and Date of : Yes REHABILITATION AND SPORTS THERAPY PHYSICAL THERAPY EVALUATION PLAN OF CARE: Assessment: Enzo Villela presents with chief complaint of pelvic pain that interferes with altered sexual function, physical activities . She presents with impairments in coordination, overall function, range of motion, symptom management, and tissue tenderness. PROMIS (Patient-Reported Outcomes Measurement Information System) scores were reviewed and identified as within normal limits. Prognosis for therapy is Good due to: current objective clinical presentation, good overall health status, acuteness of condition, good support system/ coping skills . Deficits consistent with vaginal childbirth complicated by tearing resulting in scar tissue and muscle dysfunction/pain. She will benefit from skilled therapy services to meet the goals established for this plan of care as noted below. Goals for Episode of Care: created on 07/04/23 through 10/24/23 Patient demonstrates independence and compliance with home exercise program. Patient displays improved range of motion, coordination, and muscle dynamics of pelvic floor as evidenced by the ability to lengthen without paradoxical contraction at least 80% of the time to normalize bladder/bowel function; reduce pelvic pain. Patient demonstrates ability to perform diaphragmatic breathing and relaxation practice independently to allow for decreased muscle tightness, decreased pain, and improved bladder/bowel function. Patient displays decreased muscle spasms in levator ani, obturator internus, and superficial pelvic floor muscles to allow for decreased pain levels, improved bladder/bowel function. Patient will report decreased pain rating by 2 points to meet minimal clinical important difference for numeric pain rating scale. Patient will demonstrate <1 finger width diastasis recti with good underlying tension to improve core stability. Patient Goals: Not be in pain, be able to have another healthy vaginal Planned Interventions, Frequency, and Duration: Current Frequency: 1x/month Duration: 16 weeks Total Number of Visits Planned: 5 Planned Treatment Interventions: Therapeutic exercise (80280), Neuromuscular re-education (17931), Manual therapy (39631), Therapeutic activities (34078), Self-fci management (87154), Patient/Family/Caregiver Education, Body Mechanics Training, E-Stim Attended/TENS (32604) PLAN FOR NEXT VISIT: Check for progress with HEP, internal manual and recommend pelvic wand as indicated, progress core stability Patient demonstrates good understanding of plan of care and treatment. The above goals and plan of care were discussed and agreed upon by patient/family. SUBJECTIVE: Patient states she had a very quick 7 months ago. Charted as precipitous . Onset of labor to was about 3 hours. She had 4-5 total tears, but 2nd degree tear. Having pain with intercourse and being on her feet a lot. Denies hypermobility conditions. She did have some tailbone pain in . Pelvic pain Patient Goals: Not be in pain, be able to have another healthy vaginal Functional Limitations: altered sexual function, physical activities Intake Information: Prescription present Previous Treatment: NSAIDs Pain: Pain Pain Level: 6 Pain Location: Vaginal Description: Burning, Sharp (tearing) Frequency: Intermittent (penetration and prolonged standing/walking) PROMIS Scales 07/04/2023 Higher is Better Phys Func - Score 56 (within normal limits) Phys Func - Percentile 73 Self-Eff Symptom - Score 54 (Average) Self-Eff Symptom - Percentile 66 T-scores: mean of general population = 50. 5 points is clinically meaningfully difference Percentiles provide an indication of how the patient's score ranks in relation to the general population. Higher percentile rankings indicate better function/quality of life. 50th percentile is the average of the general population and indicates half of respondents had a worse score. OBJECTIVE MEASURES WITH LEVEL OF FUNCTION: Pelvic Floor Menstruation: Has not yet resumed Control Method: none, comments Control Comment: Natural family planning Pregnancies: 1 Births: 1 Vaginal Delivery: Tearing Currently ?: Yes Pain with penetration: Pain during intercourse, Deep and superficial, Pain after intercourse, Not sexually active, Pain with internal medical exam (lasts a little bit afterwards) Urinary/Bowel History : Urinary History, Bowel History Difficulty starting stream: No Incomplete emptying: No Stress Incontinence: No Urgency: No Nocturia (times per night): (Just when already up feeding baby) Fluid Intake: Water Water : 80-120 oz Daytime Voiding Interval: 3-4 hours Difficulty evacuating / Excessive Straining: No Incomplete emptying: No Bowel Movement Frequency: 2/day Bowel Movement Consistency (Riley) : 3: Like a sausage or snake but with cracks on its surface, 4: Like a sausage or snake, smooth and soft Bloating / abdominal pain: No Fecal incontinence: No Daily Dietary Fiber/ Food Intake: Vegetables, oats, fruit Bowel Aides / Supplements: Magnesium Pelvic Floor Muscle Assessment Consent for pelvic assessment/testing and treatment: Patient was educated regarding pelvic floor physical therapy assessment/treatment which may include pelvic floor and girdle muscle assessment externally or internally (vaginal or rectal approach)., Patient verbalized consent for the above treatment approaches today. Patient understands they have control of the treatment and an opportunity to stop treatment at any time. Pelvic Floor Muscle Assessment: Muscle Dynamics Contracton Pressure: Moderate squeeze, felt all the way around finger surface Duration of Contraction: >3 seconds Recruitment of pelvic floor muscles: Coordinated Range of Motion: Decreased Ability to Lengthen pelvic floor: Difficulty at first, but improves with cueing and practice Diastasis Rectus Abdominis: Above Umbilicus, At Umbilicus, Below Umbilicus Above Umbilicus (fingerwidth separation): 0.5 At Umbilicus (fingerwidth separation): 1.5 Below Umbilicus (fingerwidth separation): 0.5 Underlying REBECCA tissue tension: Fair (good above and below) Diaphragmatic Breathing : Poor Pelvic Floor Manual Assessment Pelvic Floor Tenderness/Hyperactivity: Tested Vaginally in Tested Vaginally in : Supine/hooklying Bulbocavernosus: Bilateral (major tension, TTP and mod scar tissue) Superficial transverse perineal: Bilateral (major tension, TTP and mod scar tissue) Ischiocavernosus: Bilateral (mod tension, TTP) Deep transverse perineal: Bilateral (mod tension) Iliococcygeus: Bilateral (min-mod tension) Obturator internus: Bilateral (min-mod tension) Pubococcygeus: Bilateral (min-mod tension, TTP) Education: Education Learning Preferences: Demonstration, Explanation, Performance, Printed Materials Barriers: None Learning/educational needs: Lifestyle changes, Health promotion, Plan of Care, Home exercise program, Posture, Body Mechanics Education Provided: Yes, see treatment interventions for education provided Education Provided To: Patient Education Mode/Type: Demonstration, Explanation/Discussion, Literature/Printed Materials, Performance Response to Education/Teach Back: States/Identifies, Return Demonstration, Requires Review/Additional Education TREATMENT: PT Treatment Interventions: Neuromuscular Re-Education, Self-Fci Management, Manual Therapy Evaluation Evaluation Manual Therapy: 1: Perineal STM/TPR 2: *Instructed patient in perineal massage for home Skilled Intervention: Manual skills to improve joint mobility, ROM, and decrease pain. Utilized anatomy knowledge of the therapist, and assessment of patient's response to intervention. Neuromuscular Re-Education: 1: Educated patient on reciprocal relationship between respiratory diaphragm and pelvic floor with role in pressure management. 2: *Pt instructed in diaphragmatic breathing. Place one hand on chest and one hand on abdomen. Inhale through the nose for 4 seconds and exhale through pursed lips for 8 seconds. Allow belly to rise but not chest. Focusing on promoting coordination 3: *PFM lengthening with breathing coordination 4: *TrA activation with breathing coordination Skilled Intervention: Skilled judgment used to assess appropriate program for balance and coordination activity. Provided written instruction for home program to facilitate proper performance and compliance. Correct performance of home program was facilitated with verbal, visual, and tactile cueing. Patient education as noted. Self-Fci Management: 1: Educated patient that for future deliveries, positional strategies can bs used to slow down labor and allow muscles time to accommodate for labor. Perineal massage may also help to reduce tearing Skilled Intervention: Skilled judgment in the selection of proper modification for activity of daily living/home management based on clinical presentation, deficits, and needs. Educated the patient regarding recommendations and provided written instruction to facilitate compliance. Reviewed patient specific diagnosis in relation to activities of daily living/home management. Access Code: [email or web address] URL: [email or web address] Date: 07/04/2023 Prepared by: Sharla Cadena Exercises - Supine Diaphragmatic Breathing - 10 x daily - 7 x weekly - 1 sets - 5-10 reps - Supine Transversus Abdominis Bracing - Hands on Stomach - 1 x daily - 7 x weekly - 1 sets - 10 reps - 3 hold - Seated Pelvic Floor Lengthening - 1 x daily - 7 x weekly - 1 sets - 5 reps Billing * Evaluation Low Complexity: 1 Unit Manual TherapyTreatment Minutes: 10 Neuromuscular Re-Education Treatment Minutes: 14 Self-Care/Home Management Treatment Minutes: 5 Skilled Treatment Time Minutes (timed and untimed codes): 50 Total Session Time (minutes): 50 Session Start Time : 1454 Session Stop Time : 1544 Sharla Cadena PT documented in this encounter [facility] 06-05-2023 Instructions Camron Chapin MD - 06/05/2023 2:44 PM EST Counseling and Psychiatry Services [facility] [address] [place], [place] [id number] *counseling [facility] [facility] [place] [address] [facility], [address], [facility] [id number] *counseling [place] [address] [place] [address] *counseling [place] [address] [place] [address] *counseling and psychiatry [address] [address] *counseling [place] [address] [place] [address] *counseling [place] [address] [facility] [place] [id number] *counseling [place] [address] [place] [address] *counseling [facility] [address] [place] [address] [facility] [address] [facility] [address] [place] [address] *counseling [facility] [address] [place] [address] [facility] [address] [place], [place] [address] *counseling Skye Medina [facility] [address] [facility] [address] [place] [address] [facility] [address] [facility] [place] [address] *counseling [employer] [address] [place] [address] *counseling [facility] [address] [place] [address] *counseling and psychiatry [facility] [address] [facility] [address] [place], [place] [address] *psychiatry [facility] [phone] *grief counseling, individual and groups *If you ever experience a mental health crisis please call [phone] 911, Please verify with insurance provider for coverage documented in this encounter [facility] 06-05-2023 History of Presen t illness 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 Smith is a 27 year old who presents for an annual gynecologic exam with complaints, dyspareunia . Superficial dyspareunia with every time she has intercourse. She describes the pain as a burning and tearing sensation. Having spotting that is brown in color. Has vaginal discharge as well. Menses: no menses - exclusive . Contraception: none. Tracking cycles HPV vaccine: Yes Last Pap: 04/08/2022 normal HPV: N/A History of abnormal pap: No Last mammogram: never Sexually active: Yes OB History T1 L1 SAB0 IAB0 Ectopic0 Multiple0 Live Births1 [place] History LMP: 02/16/2022 (Exact Date), Age at Menarche: Age at First : Age at Menopause: [place] History Comments: Sexual Activity: Yes; Male Contraception: Rhythm PAST MEDICAL HISTORY Diagnosis Date Generalized anxiety disorder anxiety and depression Migraines Dx 2014 PAST SURGICAL HISTORY Procedure Laterality Date PAST SURGICAL HISTORY OF 2019 removal of neuroma-benign SPINAL TAP PROCEDURE 2015 TONSILLECTOMY & ADENOIDECTOMY <AGE 14 age 5 FAMILY HISTORY Problem Relation Age of Onset Arthritis Mother No Known Problems Father No Known Problems Brother No Known Problems Brother No Known Problems Brother Hypertension Maternal Grandmother Diabetes Maternal Grandmother Liver Disease Maternal Grandfather Alcohol abuse Maternal Grandfather Breast Cancer Paternal Grandmother Colon Cancer Paternal Grandfather SOCIAL HISTORY Social History Tobacco Use Smoking status: Never Smokeless tobacco: Never Vaping Use Vaping Use: Never used Substance Use Topics Alcohol use: Not Currently Comment: Occasionally Drug use: Never REVIEW OF SYSTEMS Abdomen: No abdominal pain, nausea, vomiting, diarrhea, or constipation. No bloating, early satiety, indigestion, or increased flatulence. Bladder: No dysuria, gross hematuria, urinary frequency, urinary urgency, or incontinence. Breast: No breast lumps, nipple d/c, overlying skin changes, redness or skin retraction. Allergies and current medication updated:Yes EXAM: BP 110/70 Ht 5' 11 (1.80m) Wt 151 lb 11.2 oz (68.8kg) LMP 02/16/2022 BMI 21.17 kg/(m^2). GENERAL: pleasant, female in no apparent distress HEENT: Normocephalic and atraumatic NECK: full range of motion DERMATOLOGY: Normal, without lesions, non-icteric, and non-hirsute BREAST: soft, non-tender, symmetric, no dominant mass, normal nipple-areolar complex, no lymphadenopathy, and no nipple discharge CHEST: Normal inspiratory effort ABDOMEN: soft, non-tender, and no masses PELVIC: external genitalia normal, normal Bartholin's glands, urethra, [place]'s glands, no vulvar lesions, no cervical lesions, good vaginal support, physiologic discharge present, normal appearing perineal body and perianal region BIMANUAL: uterus normal size, shape and consistency, no adnexal masses, and tenderness along left vaginal side wall RECTOVAGINAL: deferred. NEURO: exam grossly non-focal EXTREMITIES: normal ASSESSMENT/PLAN: 1) Health maintenance: Pap/HPV up to date. Nutrition, exercise and routine health maintenance exams reviewed. HPV vaccine: completed series Dyspareunia: Recommend pelvic floor PT. Check BV, yeast 2) Contraception: natural family planning. Contraceptive options reviewed and information provided. 3) STD screening: Declined STD check. 4) Follow up one year or sooner as needed Camron Chapin DO documented in this encounter [facility] 01-12-2023 Instructions Camron Chapin MD - 01/12/2023 10:34 AM EDT Counseling and Psychiatry Services [facility] [address] [place] [address] *counseling [facility] [address] [facility], [address], [facility] [address] *counseling [address] [address] *counseling [facility] [place] [address] [place], [place] [id number] *counseling and psychiatry [address] [address] *counseling [address] [address] *counseling [place] [address] [facility] [place] [phone] *counseling [place] [address] [place], [place] [phone] *counseling [facility] [facility] [address] [place], [place] [address] [facility] [address] [facility], [address] [place] [address] *counseling [facility] [address] [place] [address] [facility] [address] [place], [place] [address] *counseling [place] [facility] [address] [facility] [address] [place] [address] [employer] [address] [place] [address] *counseling [facility] [facility] [address] [place] [address] *counseling [facility] [address] [place] [address] *counseling and psychiatry [facility] [address] [facility] [address] [place] [address] *psychiatry [facility] [phone] *grief counseling, individual and groups *If you ever experience a mental health crisis please call [phone], 911, Please verify with insurance provider for coverage documented in this encounter [facility] 01-12-2023 History of Presen t illness 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 VISIT Enzo Osman is a 27 year old year old here for visit. Delivery Summary: 11/28/2022 ROS/ Recovery: Feeding: Breast feeding problems: Sore nipples Menses since delivery: spotting Menstrual pattern prior to : Regular periods [place] since delivery: Not resumed Depression: denies, admits to symptoms of depression. OB Depression and Anxiety Screening- This Encounter (since 01/11/2023) Over the past 2 weeks have you felt down, depressed, or hopeless? Positive - Further Testing Indicated Over the past two weeks, have you felt little interest or pleasure in doing things? Negative I have been able to laugh and see the funny side of things. As much as I always could I have looked forward with enjoyment to things. As much as I ever did I have blamed myself unnecessarily when things went wrong. Yes, some of the time I have been anxious or worried for no good reason. Yes, sometimes I have felt scared or panicky for no good reason. Yes, sometimes Things have been getting on top of me. No, most of the time I have coped quite well I have been so unhappy that I have had difficulty sleeping. Not at all I have felt sad or miserable. Not very often I have been so unhappy that I have been crying. No, never The thought of harming myself has occurred to me. Never [place] Depression Scale Total 8 Feeling nervous, anxious or on edge 1-Several days Not being able to stop or control worrying 1-Several days Anxiety Pre-Screening Total (If >/= 3 additional questions will be reviewed) 2 Emotional support: Yes Bowel symptoms: Negative for abdominal discomfort, blood in stools or black stools and change in bowel habits Abdomen: N/A Bladder symptoms: No dysuria, gross hematuria, urinary frequency, urinary urgency, or incontinence Other issues: None Last Pap: 2022 normal HPV: N/A PAST MEDICAL HISTORY Diagnosis Date Generalized anxiety disorder anxiety and depression Migraines Dx 2014 PAST SURGICAL HISTORY Procedure Laterality Date PAST SURGICAL HISTORY OF 2019 removal of neuroma-benign SPINAL TAP PROCEDURE 2015 TONSILLECTOMY & ADENOIDECTOMY <AGE 14 age 5 FAMILY HISTORY Problem Relation Age of Onset Arthritis Mother No Known Problems Father No Known Problems Brother No Known Problems Brother No Known Problems Brother Hypertension Maternal Grandmother Diabetes Maternal Grandmother Liver Disease Maternal Grandfather Alcohol abuse Maternal Grandfather Breast Cancer Paternal Grandmother Colon Cancer Paternal Grandfather Social History Tobacco Use Smoking status: Never Smokeless tobacco: Never Vaping Use Vaping Use: Never used Substance Use Topics Alcohol use: Not Currently Comment: Occasionally Drug use: Never PHYSICAL EXAMINATION: BP 102/70 Wt 183 lb 3.2 oz (83.1kg) LMP 02/16/2022 GENERAL: pleasant, female in no apparent distress HEENT: Normocephalic, atraumatic, mucus membranes moist, and no lesions NECK: full range of motion DERMATOLOGY: Normal, without lesions, non-icteric, and non-hirsute BREAST: soft, non-tender, symmetric, no dominant mass, normal nipple-areolar complex, no lymphadenopathy, and no nipple discharge CHEST: Normal inspiratory effort ABDOMEN: soft, non-tender, and no masses. INCISION: N/A PELVIC: external genitalia normal, normal Bartholin's glands, urethra, [place]'s glands, no vulvar lesions, no cervical lesions, good vaginal support, physiologic discharge present, normal appearing perineal body and perianal region BIMANUAL: uterus normal size, shape and consistency, no adnexal masses, and non-tender NEURO: exam grossly non-focal EXTREMITIES: normal ASSESSMENT AND PLAN: 27 year old status post with normal course. - Increased Zoloft today and information given on counselors and psych services in area - Patient is going to ask her sister who is a PT for pelvic floor exercises to do at home for now given she does not have time to schedule with recommended pelvic floor PT Contraception plan: Called patient after visit to discuss further with no answer. Will send my chart message Follow up: RTC for annual exams and PRN Camron Chapin DO documented in this encounter [facility] 12-22-2022 Miscellaneous Notes [facility] paperwork completed, faxed to employer, scanned into EMR and filed in nurses station. Jaqueline Ortega LPN [facility] paperwork completed and placed on providers desk for signature. Jaqueline Ortega LPN documented in this encounter [facility] 11-30-2022 Discharge summary Note Date/Time November 30, 2022 9:01am [facility] Medical Records Department [address] [place] [address] Discharge Summary 11/30/22 0859 MR#: [id number] Acct: [id number] Name: ENZO PAULINO Rep #:[id number] : 1995 From: Leigha Agustin MD PCP: Dr. Hernán Lind MD Status:ADM I N Location: PU782-1 Providers Date of Admission: 11/28/22 Primary Care Physician: Dr. Hernán Lind MD Reason For Visit: VAGINAL DELIVERY Diagnosis Discharge Diagnosis (1) Vaginal delivery: Status: Acute Code(s): O80 - Encounter for full-term uncomplicated delivery Medications at Discharge Home Medications topiramate 50 mg tablet (Topamax) 50 mg PO BID headaches 03/15/17 magnesium 250 mg tablet 250 mg PO DAILY headaches 07/14/17 vit no.95-ferrous fumarate 28 mg-folic acid 800 mcg tablet ( Multivitamins) 1 ea PO DAILY supplement 07/14/17 sertraline 25 mg tablet mg PO QHS anxiety 11/29/22 Hospital Course Operations None Summary of Care Provided Hospital Course: 27-year-old female admitted in spontaneous labor. She delivered on 11/28/2022. She had some bilateral sulcus tears and a second-degree laceration. She had vaginal packing placed. This was removed on day #1. Patient's hemoglobin was stable. By day #2 she was ambulating, urinating tolerating regular diet without difficulty. She desired discharge home. was breast-feeding and doing well. Physical Exam Const alert and no apparent distress Narrative: Fundus firm, below umbilicus. Weight / BMI Weight Weight: 96.162 kg Body Mass Index (BMI) 30.4 ABG / Lab / Microbiology Data 11/29/22 04:55 D/C Instructions Discharge Diet: No restrictions May resume sexual activity in: 6 weeks Call your doctor if your incision/area has: Continuous Slow Oozing, Sudden Increased Bleeding, Foul Smelling Discharge and Swelling at the incision site Call your doctor if you observe: Fever of 101 or Higher and Inability to urinate Please Follow Up With: Camron Chapin DO When: Call [phone] or send a [employer] message to schedule follow-up appointment in 1 week and 6 weeks or as needed. Meaningful Use Info Meaningful Use Diagnoses (Choose all that apply): None applicable Discharge Plan Admission Admit Date/Time: 11/28/22 20:45 Primary Reason for Your Visit: Vaginal delivery Attending Provider: Camron Chapin Primary Care Provider: Hernán Lind Discharge Orders/Prescriptions Prescriptions: Continued topiramate [Topamax] 50 mg tablet 50 mg PO BID magnesium 250 MG tablet 250 mg PO DAILY PNV cmb#95-ferrous fumarate-FA [ Multivitamins] 1 EACH tablet 1 ea PO DAILY sertraline 25 mg tablet PO QHS Patient Comments: take 1 tablet by mouth once daily Referrals / Follow Up: Hernán Lind MD [Primary Care Provider] - Disposition Disposition (needs filled in before D/C Order can be placed): Home, Self Care 11/30/22 09 <Electronically signed by Leigha Agustin MD> Cosigner Signature (if applicable): CC: Dr. Hernán Lind MD; Dr. Leigha Agustin MD~ Signed [facility] Work Phone: 1(531) 497-987008-30-2023 [facility] Medical Records Department [address] [place] [address] Discharge Summary 11/30/2259 MR#: [id number] Acct: [id number] Name: ENZO PAULINO Rep #: [id number] : 1995 27 From: Leigha Agustin MD PCP: Dr. Hernán Lind MD Status:ADM IN [facility] Providers Date of Admission: 11/28/22 Primary Care Physician: Dr. Hernán Lind MD Reason For Visit: VAGINAL DELIVERY Diagnosis Discharge Diagnosis (1) Vaginal delivery: Status: Acute Code(s): O80 - Encounter for full-term uncomplicated delivery Medications at Discharge Home Medications topiramate 50 mg tablet (Topamax) 50 mg PO BID headaches 03/15/17 magnesium 250 mg tablet 250 mg PO DAILY headaches 07/14/17 vit no.95-ferrous fumarate 28 mg-folic acid 800 mcg tablet ( Multivitamins) 1 ea PO DAILY supplement 07/14/17 sertraline 25 mg tablet mg PO QHS anxiety 11/29/22 Hospital Course Operations None Summary of Care Provided Hospital Course: 27-year-old female admitted in spontaneous labor. She delivered on 11/28/2022. She had some bilateral sulcus tears and a second-degree laceration. She had vaginal packing placed. This was removed on day #1. Patient's hemoglobin was stable. By day #2 she was ambulating, urinating tolerating regular diet without difficulty. She desired discharge home. was breast-feeding and doing well. Physical Exam Const alert and no apparent distress Narrative: Fundus firm, below umbilicus. Weight / BMI Weight Weight: 96.162 kg Body Mass Index (BMI) 30.4 ABG / Lab / Microbiology Data 11/29/22 04:55 D/C Instructions Discharge Diet: No restrictions May resume sexual activity in: 6 weeks Call your doctor if your incision/area has: Continuous Slow Oozing, Sudden Increased Bleeding, Foul Smelling Discharge and Swelling at the incision site Call your doctor if you observe: Fever of 101 or Higher and Inability to urinate Please Follow Up With: Camron Chapin DO When: Call [phone] or send a [employer] message to schedule follow-up appointment in 1 week and 6 weeks or as needed. Meaningful Use Info Meaningful Use Diagnoses (Choose all that apply): None applicable Discharge Plan Admission Admit Date/Time: 11/28/22 20:45 Primary Reason for Your Visit: Vaginal delivery Attending Provider: Camron Chapin Primary Care Provider: Hernán Lind Discharge Orders/Prescriptions Prescriptions: Continued topiramate [Topamax] 50 mg tablet 50 mg PO BID magnesium 250 MG tablet 250 mg PO DAILY PNV cmb#95-ferrous fumarate-FA [ Multivitamins] 1 EACH tablet 1 ea PO DAILY sertraline 25 mg tablet PO QHS Patient Comments: take 1 tablet by mouth once daily Referrals / Follow Up: Hernán Lind MD [Primary Care Provider] - Disposition Disposition (needs filled in before D/C Order can be placed): Home, Self Care 11/30/22 0902 Cosigner Signature (if applicable): CC: Dr. Hernán Lind MD; Dr. Leigha Agustin MD [facility]08-29-2023 Progress note Author Uche Avalos [facility] November 29, 2022 8:38am Note Date/Time November 29, 2022 8: 38am [facility] Medical Records Department [address] [place] [address] Progress Note - OBGYN 11/29/22 0836 MR#: [id number] Acct: [id number] Name: ENZO OSMAN Rep #:[id number] : 1995 27 From: Uche Avalos MD PCP: Dr. Hernán Lind MD Status:ADM I N [facility] Subjective Subjective Denies complaints Objective Data Objective Data Vital Signs: Vital Signs Temp Pulse Resp BP Pulse Ox O2 Del Method 98.5 F 83 16 109/65 98 Room Air 11/29/22 04:42 11/29/22 04:42 11/29/22 04:42 11/29/22 04:42 11/29/22 01:42 11/29/22 04:42 Oxygen Delivery Method Room Air Weight: 212 lb Body Mass Index (BMI) 30.4 Intake & Output: Intake and Output for Last 24 Hours 11/27/22 11/28/22 11/29/22 23:59 23:59 23:59 Intake Total 20.83 / 20.83 250 / 250 Output Total 400 / 400 Balance -379.17 / -379.17 250 / 250 Lab / Micro Data 11/29/22 04:55 Labs: Laboratory Results - last 24 hr 11/28/22 20:50: WBC 13.3 H, RBC 4.03 L, Hgb 13.3, Hct 40.2, MCV 99.8 H, MCH 33.0H, MCHC 33.1, RDW Std Deviation 45.7 H, RDW Coeff of Aga 12.4, Plt Count 220, MPV 12.1 H, Immature Gran % (Auto) 0.800, Neut % (Auto) 81.7 H, Lymph % (Auto) 11.5 L, [place] % (Auto) 5.6, Eos % (Auto) 0.1, Baso % (Auto) 0.3, Absolute Neuts (auto) 10.9 H, Absolute Lymphs (auto) 1.53, Nucleated RBC % 0, Syphilis Total AbNon-reactive, Antibody Screen NEGATIVE 11/29/22 04:55: WBC 17.5 H, RBC 3.54 L, Hgb 11.7 L, Hct 35.5 L, MCV 100.3 H, MCH33.1 H, MCHC 33.0, RDW Std Deviation 45.4 H, RDW Coeff of Aga 12.4, Plt Count 201, MPV 11.8, Immature Gran % (Auto) 0.700, Neut % (Auto) 79.1 H, Lymph % (Auto) 11.4 L, [place] % (Auto) 8.6, Eos % (Auto) 0.0, Baso % (Auto) 0.2, Absolute Neuts (auto) 13.9 H, Absolute Lymphs (auto) 2.00, Nucleated RBC % 0, Differential Comment SCANNED, Diff Path Review August Physical Exam Const alert, oriented x3 and no apparent distress HEENT normocephalic GI soft to palpation, non-tender and non-distended GI Narrative: fundus firm, mid & below umbilicus Extremity normal to inspection and no calf tenderness Assessment & Plan (1) Vaginal delivery: COMMENT: PPD#1 PLAN: Plan Vaginal packing removed. No active bleeding noted. RN to remove mccormick. HEME - cbc reviewed Routine care 11/29/22 0838 <Electronically signed by Uche Avalos MD> Cosigner Signature (if applicable): CC: ~ Signed [facility] Work Phone: 1([phone]) 377-371208-29-2023 History of Present illness Narrative* Augustina Theodore RN - 11/29/2022 9:20 AM EDT Patient delivered via at [facility] on 11/29/22 per Camron Cahpin DO. See OB Outcome note. Augustina Theodore RN [facility] [facility]08-28-2023 Progress note Author Camron Chapin [facility] November 28, 2022 9:20pm Note Date/Time November 28, 2022 9: 20pm [facility] Medical Records Department [address] [place] [address] Progress Note 11/28/222118 MR#: [id number] Acct: [id number] Name: ENZO OSMAN Rep #:[id number] : 1995 27 From: Camron Chapin DO PCP: Dr. Hernán Lind MD Status:ADM I N Location: [place] [address] Progress Note At bedside and pt uncomfortable with ctx's Assessment & Plan Assessment/Plan (1) 40 weeks gestation of : PLAN: Cvx /0, head well applied. AROM performed for clear fluid in usual fashion. Pt requested intermittent auscultation. FHT checked before and after rupture and reassuring. (2) Uterine contractions: 11/28/222119 <Electronically signed by Camron Chapin DO> Camron Chapin DO Cosigner Signature (if applicable): CC: ~ Signed [facility] Work Phone: 1(693) 143-146608-28-2023 History and physical note Author Camron Chapin [facility] November 28, 2022 9:07pm Note Date/Time November 28, 2022 9: 07pm [facility] Medical Records Department [address] [place] [address] H&P Exam - PACKAGE CLERK 11/28/222103 MR#: [id number] Acct: [id number] Name: ENZO OSMAN Rep #:[id number] : 1995 From: Camron Chapin DO PCP: Dr. Hernán Lind MD Status:ADM I N [facility] HPI - General General Date of Admission: 11/28/22 Date of Service: 11/28/22 Chief Complaint: labor HPI Narrative ENZO OSMAN, is a 27 F who presents at 40w5d with ctx's and 4-5 cm with BBOWper RN. No vb, lof. Good FM. [facility] Medical History (Updated 11/28/22 @ 21:[address] Camron Chapin DO) Pseudotumor cerebri Home Medications escitalopram oxalate 10 mg tablet (Lexapro) 20 mg PO QDAY anxiety 03/15/17 [History Last Taken Unknown] topiramate 50 mg tablet (Topamax) 50 mg PO BID headaches 03/15/17 [History Last Taken Unknown] L norgest/E estradiol-E estrad 0.15 mg-30 mcg (84)/10 mcg(7) tabs,3mos (Ash[place])1 tab PO Q24H 04/07/17 [History Last Taken Unknown] magnesium 250 mg tablet 250 mg PO DAILY headaches 07/14/17 [History Last Taken Unknown] vit no.95-ferrous fumarate 28 mg-folic acid 800 mcg tablet ( Multivitamins) 1 ea PO DAILY supplement 07/14/17 [History Last Taken Unknown] hydrocodone 5 mg-acetaminophen 300 mg tablet 1 - 2 tab PO Q6H PRN PRN Pain 3 days #30 tabs 04/20/18 [Rx Last Taken Unknown] Allergy/AdvReac Type Severity Reaction Status Date / Time nickel Allergy Mild Rash Verified 11/28/22 20:29 Family History Other Arthritis Surgical History (Updated 07/21/17 @ 10:[address] Marques Ferrer DPM) History of tonsillectomy and adenoidectomy Social History (Updated 04/10/17 @ 10:43 by Mario Jeffers DO) Smoking Status: Never smoker NST FHR Rate Baby A Baseline: 120 Variability:: Moderate Accelerations:: 15 x 15 Decelerations:: None NST Reactive:: Yes FHR Category:: Category I Uterine Activity:: ctx q 2-3 min Vital Signs Vital Signs Vital Signs: 11/28/22 20:25 11/28/22 20:25 11/28/22 20:25 Temperature Temperature Source Temporal Pulse Rate 73 Blood Pressure BP Systolic BP Diastolic Pulse Ox 97 11/28/22 20:26 11/28/22 20:26 11/28/22 20:25 Temperature 97.7 F L Temperature Source Pulse Rate 69 Blood Pressure 121/77 H BP Systolic 121 BP Diastolic 77 Pulse Ox Weight Weight: 212 lb Body Mass Index (BMI) 30.4 Labs Labs Labs: Hct 40.5 % (37-47) Hgb 13.2 g/dl (12.0-15.0) VZV IgG Antibody < 135 index (Immune >165) L Assessment & Plan (1) 40 weeks gestation of : PLAN: Admit for routine intrapartum care. Patient plans unmedicated . GBSnegative. Expected estimated weight less than 4500 g and pelvis adequate. Anticipate vaginal delivery. (2) Primiparous: (3) Uterine contractions: 11/28/222106 <Electronically signed by Camron Chapin DO> Cosigner Signature (if applicable): CC: Dr. Hernán Lind MD; Dr. Camron Chapin DO~ Signed [facility] Work Phone: 1(737) 673-531108-25-2023 Miscellaneous Notes* Telephone Encounter - Jaqueline Ortega LPN - 11/25/2022 7:49 AM EDT Please see pt's mychart message and advise. Jaqueline Ortega LPN documented in this encounter[facility] Miscellaneous Notes* Quick Notes - Debra Mcdonald APRN.CNM - 11/09/2022 3:58 PM EDT CP- HAZEL Enzo Osman is a 27 year old female who presents at 38w0d Estimated Date of Delivery: 11/23/22 for a routine visit. Good movement. Denies any cramps or contractions. Occasional headaches without visual changes, chest pain, shortness of breath, vaginal bleeding, leakage of fluid, or dysuria. Feeling well, no complaints. Drinking red raspberry leaf tea and sitting on birthing ball at home. Size equal to dates. Labor and preeclampsia precautions reviewed. RTC in 1 week for AXEL or sooner if needed. Debra Mcdonald APRN.CNM documented in this encounterSelect [facility]08-[facility]-2023 Instructions* Patient Instructions* Stephani Simth MA - 11/09/2022 1:18 PM EDT SEQUENTIAL SCREENINGS The [facility] offers sequential screenings for women who are interested in screenings for chromosomal abnormalities and certain defects during a . The sequential screen combinesultrasound and blood tests to determine the risk of chromosomal abnormalities, including Down's Syndrome (Trisomy 21) and Trisomy 18, as well as open neural tube defects including spina bifida. Ultrasound examination is performed between 11 weeks and 13 weeks gestational age. Blood tests are drawn after the ultrasound and again later in the between 15 and 21 weeks gestational age. Please let your physician know if you are interested in this testing. It will require an appointment withour electrocardiograph technician. This is not an ultrasound performed by a physician in our office during a routine visit. SIGNS AND SYMPTOMS OF LABOR 1. Contractions every 10 minutes or more often 2. Clear, pink, or brownish fluid (water) leaking from vagina 3. Feeling that baby is pushing down, pressure 4. Low, dull backache 5. Cramps that feel like a period 6. Cramps with or without diarrhea If you notice any of the above symptoms, contact our office at [phone] and ask to speak with anurse. After hours, you can call doctors registry at [phone] OR call [facility] at [phone] ask to have the doctor carbonation tester paged. If you consider this an emergency, dial 9--1 or go to your nearest emergency department. NEED HELP? Are you dealing with a violent or abusive relationship? Are you a victim of rape or sexual assult? Call [facility] ([place]) 24 hour Crisis Hotline: 668.113.4000 or 230-952-7182. MANUAL Your Guide to a Healthy manual is now on-line. Visit [email or web address] to download your free copy documented in this encounterSelect [facility] [place]07-26-2023 Instructions* Patient Instructions* Nelson Payne Cma - 10/26/2022 2:14 PM EDT SEQUENTIAL SCREENINGS The [facility] offers sequential screenings for women who are interested in screenings for chromosomal abnormalities and certain defects during a . The sequential screen combinesultrasound and blood tests to determine the risk of chromosomal abnormalities, including Down's Syndrome (Trisomy 21) and Trisomy 18, as well as open neural tube defects including spina bifida. Ultrasound examination is performed between 11 weeks and 13 weeks gestational age. Blood tests are drawn after the ultrasound and again later in the between 15 and 21 weeks gestational age. Please let your physician know if you are interested in this testing. It will require an appointment withour electrocardiograph technician. This is not an ultrasound performed by a physician in our office during a routine visit. SIGNS AND SYMPTOMS OF LABOR 1. Contractions every 10 minutes or more often 2. Clear, pink, or brownish fluid (water) leaking from vagina 3. Feeling that baby is pushing down, pressure 4. Low, dull backache 5. Cramps that feel like a period 6. Cramps with or without diarrhea If you notice any of the above symptoms, contact our office at [phone] and ask to speak with anurse. After hours, you can call doctors registry at [phone] OR call [facility] at [phone] ask to have the doctor carbonation tester paged. If you consider this an emergency, dial 9-1-3 or go to your nearest emergency department. NEED HELP? Are you dealing with a violent or abusive relationship? Are you a victim of rape or sexual assult? Call [facility] ([place]) 24 hour Crisis Hotline: 927.977.2943 or 677-594-2668. MANUAL Your Guide to a Healthy manual is now on-line. Visit [email or web address] to download your free copy documented in this encounterSelect [facility] [place]07-26-2023 Miscellaneous Notes* Quick Notes - Debra Mcdonald APRN.CNM - 10/26/2022 1:16 PM EDT CP Centering Enzo Dawson is a 26 year old female who presents at 36w0d for a routine visit. Feeling good. Good movement. Feeling occasional tightening. Denies headache, visual changes,chest pain, shortness of breath, vaginal bleeding, leakage of fluid, or dysuria. Feeling well, no complaints. GBS today. 43lbs TWG. PTL precautions reviewed. RTC in 1 week for AXEL with TAUS for position. Debra Mcdonald APRN.CNM documented in this encounterSelect [facility] [place]07-12-2023 Miscellaneous Notes* Quick Notes - Nelson Payne Cma - 10/12/2022 1:26 PM EDT CP- Centering Enzo Osman is a 26 year old female who presents at 35w5d Estimated Date of Delivery: 11/11/22 for a routine visit. Good movement. Denies headache, visual changes, chest pain, shortness of breath, vaginal bleeding, leakage of fluid, or dysuria. Feeling well, no complaints. Size equal to dates. PTL precautions reviewed. RTC in 2 weeks or sooner if needed. Debra Mcdonald APRN.CNM documented in this encounterSelect [facility] [place]07-12-2023 Instructions* Patient Instructions* Nelson Payne Cma - 10/12/2022 12:48 PM EDT SEQUENTIAL SCREENINGS The [facility] offers sequential screenings for women who are interested in screenings for chromosomal abnormalities and certain defects during a . The sequential screen combinesultrasound and blood tests to determine the risk of chromosomal abnormalities, including Down's Syndrome (Trisomy 21) and Trisomy 18, as well as open neural tube defects including spina bifida. Ultrasound examination is performed between 11 weeks and 13 weeks gestational age. Blood tests are drawn after the ultrasound and again later in the between 15 and 21 weeks gestational age. Please let your physician know if you are interested in this testing. It will require an appointment withour electrocardiograph technician. This is not an ultrasound performed by a physician in our office during a routine visit. SIGNS AND SYMPTOMS OF LABOR 1. Contractions every 10 minutes or more often 2. Clear, pink, or brownish fluid (water) leaking from vagina 3. Feeling that baby is pushing down, pressure 4. Low, dull backache 5. Cramps that feel like a period 6. Cramps with or without diarrhea If you notice any of the above symptoms, contact our office at [phone] and ask to speak with anurse. After hours, you can call doctors registry at [phone] OR call [facility] at [phone] ask to have the doctor carbonation tester paged. If you consider this an emergency, dial 9-1-1 or go to your nearest emergency department. NEED HELP? Are you dealing with a violent or abusive relationship? Are you a victim of rape or sexual assult? Call [facility] ([place]) 24 hour Crisis Hotline: 704.624.2162 or 276-595-7998. MANUAL Your Guide to a Healthy manual is now on-line. Visit [email or web address] to download your free copy documented in this encounterSelect [facility] [place]07-06-2023 Miscellaneous Notes* Quick Notes - Debra Mcdonald APRN.CNM - 10/06/2022 11:28 AM EDT Enzo Osman is a 26 year old female who presents at 33w1d for a routine visit. Was on vacation last week and missed centering class. Good movement. Denies headache, visual changes, chest pain,shortness of breath, vaginal bleeding, leakage of fluid, or dysuria. Feeling well, no complaints. 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 Size equal to dates. PTL precautions reviewed. RTC in 1 week for Centering. Debra Mcdonald APRN.CNM documented in this encounterSelect [facility] [place]07-06-2023 Instructions* Patient Instructions* Nelson Payne Cma - 10/06/2022 11:12 AM EDT SEQUENTIAL SCREENINGS The [facility] offers sequential screenings for women who are interested in screenings for chromosomal abnormalities and certain defects during a . The sequential screen combinesultrasound and blood tests to determine the risk of chromosomal abnormalities, including Down's Syndrome (Trisomy 21) and Trisomy 18, as well as open neural tube defects including spina bifida. Ultrasound examination is performed between 11 weeks and 13 weeks gestational age. Blood tests are drawn after the ultrasound and again later in the between 15 and 21 weeks gestational age. Please let your physician know if you are interested in this testing. It will require an appointment withour electrocardiograph technician. This is not an ultrasound performed by a physician in our office during a routine visit. SIGNS AND SYMPTOMS OF LABOR 1. Contractions every 10 minutes or more often 2. Clear, pink, or brownish fluid (water) leaking from vagina 3. Feeling that baby is pushing down, pressure 4. Low, dull backache 5. Cramps that feel like a period 6. Cramps with or without diarrhea If you notice any of the above symptoms, contact our office at [phone] and ask to speak with anurse. After hours, you can call doctors registry at [phone] OR call [facility] at [phone] ask to have the doctor carbonation tester paged. If you consider this an emergency, dial 4-9- or go to your nearest emergency department. NEED HELP? Are you dealing with a violent or abusive relationship? Are you a victim of rape or sexual assult? Call [facility] ([place]) 24 hour Crisis Hotline: 709.924.9947 or 823-818-4713. MANUAL Your Guide to a Healthy manual is now on-line. Visit [email or web address] to download your free copy documented in this encounterSelect [facility] [place]06-23-2023 Miscellaneous Notes* Quick Notes - Camron Chapin MD - 09/23/2022 2:46 PM EDT SW- No pain, lof, vb. Good FM PE: Gen- NAD, well appearing Abd- Soft, gravid, NT See flowsheet A/p 31 wk gestation - Reviewed ultrasound of axilla and questions answered - Scheduled for [facility] classes - Reviewed weight gain and exercise in - RTO 2 wks Camron Chapin DO documented in this encounterSelect Medical [facility] [place]06-23-2023 Instructions* Patient Instructions* Stephani Smith MA - 09/23/2022 2:30 PM EDT SEQUENTIAL SCREENINGS The [facility] offers sequential screenings for women who are interested in screenings for chromosomal abnormalities and certain defects during a . The sequential screen combinesultrasound and blood tests to determine the risk of chromosomal abnormalities, including Down's Syndrome (Trisomy 21) and Trisomy 18, as well as open neural tube defects including spina bifida. Ultrasound examination is performed between 11 weeks and 13 weeks gestational age. Blood tests are drawn after the ultrasound and again later in the between 15 and 21 weeks gestational age. Please let your physician know if you are interested in this testing. It will require an appointment withour electrocardiograph technician. This is not an ultrasound performed by a physician in our office during a routine visit. SIGNS AND SYMPTOMS OF LABOR 1. Contractions every 10 minutes or more often 2. Clear, pink, or brownish fluid (water) leaking from vagina 3. Feeling that baby is pushing down, pressure 4. Low, dull backache 5. Cramps that feel like a period 6. Cramps with or without diarrhea If you notice any of the above symptoms, contact our office at [phone] and ask to speak with anurse. After hours, you can call doctors registry at [phone] OR call [facility] at [phone] ask to have the doctor carbonation tester paged. If you consider this an emergency, dial 7- or go to your nearest emergency department. NEED HELP? Are you dealing with a violent or abusive relationship? Are you a victim of rape or sexual assult? Call [facility] ([place]) 24 hour Crisis Hotline: 219.216.7968 or 435-670-4755. MANUAL Your Guide to a Healthy manual is now on-line. Visit [email or web address] to download your free copy documented in this encounterSelect [facility] [place]06-20-2023 Miscellaneous Notes* Telephone Encounter - Jaqueline Ortega LPN - 09/20/2022 1:49 PM EDT Mychart and voicemail message left for pt. Will await further response from pt. Jaqueline Ortega LPN * Telephone Encounter - Jaqueline Ortega LPN - 09/20/2022 1:46 PM EDT ----- Message from Cristina Brady APRN.CNM sent at 09/20/2022 10:17 AM EDT ----- Follow up breast US in 3 months. documented in this encounterCleveland [id number] History of Present illness Narrative* Iris Saha RDMS - 09/20/2022 8:30 AM EDT Radiology Service Progress Note PATIENT NAME: Enzo Osman DATE OF SERVICE: September 20, 2022 TIME: 9:15 AM PATIENT IDENTITY VERIFICATION COMPLETED USING TWO (2) IDENTIFIERS: Name and Date of confirmedby patient verbally. FALL SCREENING: Has the patient had 2 falls in the last year or 1 fall with injury or currently using an Ambulatory Assistive Device (Walker, Cane, Wheelchair, Crutches, etc.)? No PATIENT GENDER DATA: Female. status: : No status: NO. PATIENT RELEVANT IMPLANT DATA REVIEWED: Not Applicable RADIOLOGY DEPARTMENT: Ultrasound PERIPHERAL IV DATA: Not applicable SIGNED BY: Iris Saha RDMS September 20, 2022 9:15 AM documented in this encounterSelect [facility]06-19-2023 Miscellaneous Notes* Telephone Encounter - Shahnaz Calvin RN - 09/19/2022 4:29 PM EDT Order signed and faxed. Shahnaz Calvin RN * Telephone Encounter - Augustina Theodore RN - 09/15/2022 8:03 AM EDT [facility] To DAVE to sign. Augustina Theodore RN documented in this encounterSelect [facility] [place]06-14-2023 Miscellaneous Notes* Quick Notes - Cristina Brady APRN.CNM - 09/14/2022 1:23 PM EDT DAVE-S: Centering GroupEnzo Osman is a 26 year old female who presents at 30w0d with KENYATTA:11/23/2022, by Last Menstrual Period for a routine visit. Good FM. Denies headache, visual changes, chest pain, shortness of breath, vaginal bleeding, leakage of fluid, or dysuria. Feeling well, no complaints. O: See flow sheet Gen: No apparent distress Abd: Gravid, nontender Breast: right axillary mass remains present, soft, mobile, distinct, no redness. ASSESSMENT/PLAN: 1. Need for vaccination 2. 30 weeks gestation of P: 1) PTL precautions reviewed and when to call 2) RTO in 2 weeks 3) Tdap today 4) Did not make appt for axilla US, will schedule today. 5) Continue ASA Cristina Brady APRN.CNM documented in this encounterSelect [facility]06-14-2023 Instructions* Patient Instructions* Stephani Smith MA - 09/14/2022 1:09 PM EDT SEQUENTIAL SCREENINGS The [facility] offers sequential screenings for women who are interested in screenings for chromosomal abnormalities and certain defects during a . The sequential screen combinesultrasound and blood tests to determine the risk of chromosomal abnormalities, including Down's Syndrome (Trisomy 21) and Trisomy 18, as well as open neural tube defects including spina bifida. Ultrasound examination is performed between 11 weeks and 13 weeks gestational age. Blood tests are drawn after the ultrasound and again later in the between 15 and 21 weeks gestational age. Please let your physician know if you are interested in this testing. It will require an appointment withour electrocardiograph technician. This is not an ultrasound performed by a physician in our office during a routine visit. SIGNS AND SYMPTOMS OF LABOR 1. Contractions every 10 minutes or more often 2. Clear, pink, or brownish fluid (water) leaking from vagina 3. Feeling that baby is pushing down, pressure 4. Low, dull backache 5. Cramps that feel like a period 6. Cramps with or without diarrhea If you notice any of the above symptoms, contact our office at [phone] and ask to speak with anurse. After hours, you can call doctors registry at [phone] OR call [facility] at [phone] ask to have the doctor carbonation tester paged. If you consider this an emergency, dial 9-1-1 or go to your nearest emergency department. NEED HELP? Are you dealing with a violent or abusive relationship? Are you a victim of rape or sexual assult? Call [facility] ([place]) 24 hour Crisis Hotline: 730.676.8382 or 759-141-5555. MANUAL Your Guide to a Healthy manual is now on-line. Visit [email or web address] to download your free copy documented in this encounterSelect [facility]06-14-2023 History of Present illness Narrative* Stephani Smith MA - 09/14/2022 8:30 AM EDT Patient identified by name and date of . Enzo Osman presents today for a vaccination of Tdap. Patient denies an allergy to latex: yes Patient denies a severe (life-threatening) allergy to a previous dose of Tdap, DTP, DTaP, DT or Td vaccine. Yes Patient denies history of epilepsy or neurological problems: Yes Patient is afebrile and denies being moderately or severely ill: Yes Patient denies history of Guillain-Welcome Syndrome (a severe paralytic illness): Yes Tdap Adacel injection was given without incident. See immunizations for details of immunizations administered today. VIS sheet provided: Yes Provider Cristina Brady CNM was present in office at time of injection. Stephani Smith MA documented in this encounterSelect [facility]06-04-2023 Miscellaneous Notes* Quick Notes - Cristina Brady APRN.CNM - 09/04/2022 9:39 PM EDT DAVE-S: Centering Group. Enzo Osman is a 26 year old female who presents at 28w4d with KENYATTA:11/23/2022, by Last Menstrual Period for a routine visit. Good FM. Denies headache, visual changes,chest pain, shortness of breath, vaginal bleeding, leakage of fluid, or dysuria. Feeling well, no complaints. O: See flow sheet Gen: No apparent distress Abd: Gravid, nontender Breast: RIght axilla swollen lymp node S=D ASSESSMENT/PLAN: 1. 28 weeks gestation of 2. Swollen lymph nodes P: 1) PTL precautions reviewed and when to call 2) RTO in 2 weeks 3) 28 week labs today 4) Right axilla swelling/probable lymph node. US ordered. 5) Tdap next visit, not available in office today. Cristina Brady APRN.CNM documented in this encounterSelect Medical [facility]05-31-2023 Instructions* Patient Instructions* Nelson Payne Ground Water Technician - 08/31/2022 9:56 AM EDT SEQUENTIAL SCREENINGS The [facility] offers sequential screenings for women who are interested in screenings for chromosomal abnormalities and certain defects during a . The sequential screen combinesultrasound and blood tests to determine the risk of chromosomal abnormalities, including Down's Syndrome (Trisomy 21) and Trisomy 18, as well as open neural tube defects including spina bifida. Ultrasound examination is performed between 11 weeks and 13 weeks gestational age. Blood tests are drawn after the ultrasound and again later in the between 15 and 21 weeks gestational age. Please let your physician know if you are interested in this testing. It will require an appointment withour electrocardiograph technician. This is not an ultrasound performed by a physician in our office during a routine visit. SIGNS AND SYMPTOMS OF LABOR 1. Contractions every 10 minutes or more often 2. Clear, pink, or brownish fluid (water) leaking from vagina 3. Feeling that baby is pushing down, pressure 4. Low, dull backache 5. Cramps that feel like a period 6. Cramps with or without diarrhea If you notice any of the above symptoms, contact our office at [phone] and ask to speak with anurse. After hours, you can call doctors registry at [phone] OR call [facility] at [phone] ask to have the doctor carbonation tester paged. If you consider this an emergency, dial 12-02- or go to your nearest emergency department. NEED HELP? Are you dealing with a violent or abusive relationship? Are you a victim of rape or sexual assult? Call [facility] ([place]) 24 hour Crisis Hotline: 192.658.3986 or 137-327-4127. MANUAL Your Guide to a Healthy manual is now on-line. Visit [email or web address] to download your free copy documented in this encounterSelect [facility] [place]05-03-2023 Miscellaneous Notes* Addendum Note - Nelson Payne Cma - 08/03/2022 2:41 PM EDTAddended by: NELSON PAYNE CMA on: 08/03/2022 02:41 PM Modules accepted: Orders documented in this encounterSelect Medical [facility]ty [facility] [place]05-03-2023 History of Present illness Narrative* Cristina Brday APRN.CNM - 08/03/2022 1:50 PM EDT DAVE-Centering Group today S: Enzo Osman is a 26 year old female who presents at 24w0d with KENYATTA:11/23/2022, by Last MenstrualPeriodfor a routine visit. Good FM. Denies headache, visual changes, chest pain, shortness of breath, vaginal bleeding, leakage of fluid, or dysuria. Feeling well, no complaints. Headaches, no visual changes. Po hydration, rest, tylenol and resolved. Eczema returned to neck and under axilla right side. O: See flow sheet Gen: No apparent distress Abd: Gravid, nontender ASSESSMENT/PLAN: 1. 24 weeks gestation of P: 1) PTL precautions reviewed and when to call 2) RTO in 4 weeks 3) 1hr GCT, CBC, and RPR next visit 4) Tdap next visit 5) plan given 6) Magnesium for headaches. 7) ASA 162mg PO once daily 8) Steroid ointment for skin irritation. Cristina Brady APRN.CNM documented in this [facility]05-03-2023 Instructions* Patient Instructions* Cristina Brday APRN.CNM - 08/03/2022 1:20 PM EDT Magnesium 400mg by mouth at bedtime. SIGNS AND SYMPTOMS OF LABOR 1. Contractions every 10 minutes or more often 2. Clear, pink, or brownish fluid (water) leaking from vagina 3. Feeling that baby is pushing down, pressure 4. Low, dull backache 5. Cramps that feel like a period 6. Cramps with or without diarrhea If you notice any of the above symptoms, contact our office at [phone] and ask to speak with anurse. After hours, you can call doctors registry at [phone] OR call [facility] at [phone] ask to have the doctor carbonation tester paged. If you consider this an emergency, dial 5-7-5 or go to your nearest emergency department. NEED HELP? Are you dealing with a violent or abusive relationship? Are you a victim of rape or sexual assult? Call [facility] ([place]) 24 hour Crisis Hotline: 280.111.7580 or 326-338-0587. MANUAL Your Guide to a Healthy manual is now on-line. Visit [email or web address] to download your free copy documented in this encounterSelect Medical [facility]04-[facility]-2023 Instructions* Patient Instructions* Nelson Payne [facility] - 07/06/2022 2:13 PM EDT SEQUENTIAL SCREENINGS The [facility] offers sequential screenings for women who are interested in screenings for chromosomal abnormalities and certain defects during a . The sequential screen combinesultrasound and blood tests to determine the risk of chromosomal abnormalities, including Down's Syndrome (Trisomy 21) and Trisomy 18, as well as open neural tube defects including spina bifida. Ultrasound examination is performed between 11 weeks and 13 weeks gestational age. Blood tests are drawn after the ultrasound and again later in the between 15 and 21 weeks gestational age. Please let your physician know if you are interested in this testing. It will require an appointment withour electrocardiograph technician. This is not an ultrasound performed by a physician in our office during a routine visit. SIGNS AND SYMPTOMS OF LABOR 1. Contractions every 10 minutes or more often 2. Clear, pink, or brownish fluid (water) leaking from vagina 3. Feeling that baby is pushing down, pressure 4. Low, dull backache 5. Cramps that feel like a period 6. Cramps with or without diarrhea If you notice any of the above symptoms, contact our office at [phone] and ask to speak with anurse. After hours, you can call doctors registry at [phone] OR call [facility] at [phone] ask to have the doctor carbonation tester paged. If you consider this an emergency, dial 9- or go to your nearest emergency department. NEED HELP? Are you dealing with a violent or abusive relationship? Are you a victim of rape or sexual assult? Call [facility] ([place]) 24 hour Crisis Hotline: 188.663.7136 or 843-536-1994. MANUAL Your Guide to a Healthy manual is now on-line. Visit [email or web address] to download your free copy documented in this encounter[facility] Miscellaneous Notes* Quick Notes - Cristina Brady APRN.CNM - 07/06/2022 12:27 PM EDT DAVE-S: Centering Group visit Enzo Osman is a 26 year old female who presents at 20w0d with KENYATTA:11/23/2022, by Last Menstrual Period for a routine visit. Good FM. Denies headache, visual changes, chest pain, shortness of breath,vaginal bleeding, leakage of fluid, or dysuria. Feeling well, no complaints. O: See flow sheet Gen: No apparent distress Abd: Gravid, nontender S=D, 17 lb TWG P: 1) PTL precautions reviewed and when to call 2) RTO in 4 weeks 3) Anatomy US today 4) Reviewed AFP results and negative 5) Reviewed CBE and Cristina Brady APRN.CNM documented in this encounterSelect [facility] [place]-2023 Miscellaneous Notes* Quick Notes - Cristina Brady APRN.CNM - 06/08/2022 5:17 PM EST CP-S: Enzo Osman is a 26 year old female who presents at 16w0d with KENYATTA:11/23/2022, by Last Menstrual Period Gestational for a routine visit. No movement to date. Denies headache, visual changes, chest pain, shortness of breath, vaginal bleeding, leakage of fluid, or dysuria. Feeling well, no complaints. O: See flow sheet Gen: No apparent distress Abd: Gravid, nontender ASSESSMENT/PLAN: 1. 16 weeks gestation of 2. Encounter for supervision of normal first in first trimester 3. History of anxiety 4. History of migraine headaches 5. Patient request for diagnostic testing P: 1) PTL precautions reviewed and when to call 2) RTO in 4 weeks 3) Anatomy US ordered 4) AFP today Debra Mcdonald APRN.CNM documented in this encounterSelect [facility] [place]-2023 Instructions* Patient Instructions* Stephani Smith MA - 06/08/2022 3:30 PM EST SEQUENTIAL SCREENINGS The [facility] offers sequential screenings for women who are interested in screenings for chromosomal abnormalities and certain defects during a . The sequential screen combinesultrasound and blood tests to determine the risk of chromosomal abnormalities, including Down's Syndrome (Trisomy 21) and Trisomy 18, as well as open neural tube defects including spina bifida. Ultrasound examination is performed between 11 weeks and 13 weeks gestational age. Blood tests are drawn after the ultrasound and again later in the between 15 and 21 weeks gestational age. Please let your physician know if you are interested in this testing. It will require an appointment withour electrocardiograph technician. This is not an ultrasound performed by a physician in our office during a routine visit. SIGNS AND SYMPTOMS OF LABOR 1. Contractions every 10 minutes or more often 2. Clear, pink, or brownish fluid (water) leaking from vagina 3. Feeling that baby is pushing down, pressure 4. Low, dull backache 5. Cramps that feel like a period 6. Cramps with or without diarrhea If you notice any of the above symptoms, contact our office at [phone] and ask to speak with anurse. After hours, you can call doctors registry at [phone] OR call [facility] at [phone] ask to have the doctor carbonation tester paged. If you consider this an emergency, dial 9--3 or go to your nearest emergency department. NEED HELP? Are you dealing with a violent or abusive relationship? Are you a victim of rape or sexual assult? Call [facility] ([place]) 24 hour Crisis Hotline: 207.823.8093 or 472-959-4628. MANUAL Your Guide to a Healthy manual is now on-line. Visit [email or web address] to download your free copy documented in this encounterSelect Medical [facility] [place]02-24-2023 Miscellaneous Notes* Telephone Encounter - Augustina Theodore RN - 05/27/2022 10:26 AM EST Patient returned call. 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 Patient will send us a [email or web address] message reply. Augustina Theodore RN * Telephone Encounter - Stephani Smith MA - 05/27/2022 10:20 AM EST LM for patient to call back. Please ask patient if she has reviewed information about centering and if she is interested in getting scheduled. Stephani Smith MA documented in this encounterSelect Medical [facility] [place]02-14-2023 Miscellaneous Notes* Telephone Encounter - Elana Villatoro RN - 05/17/2022 10:48 AM EST Called Enzo Osman and identified by name and date of . Enzo Osman was informed of negativeNon-Invasive Testing (NIPT) results for Trisomy 21, Trisomy 18 and Trisomy 13. Patient wasalso notified of the result of no sex chromosome aneuploidy detected. Patient does not wish to knowreported sex. Reviewed with patient Enzo Osman that NIPT is considered screening and not diagnostic, so this result greatly reduces, but does not eliminate the chance that the fetus could have trisomy 21, trisomy 18, trisomy 13 or sex chromosome aneuploidy. Enzo Osman indicated understanding this information. Patient advised to follow up with AFP neural tube defect screening (blood draw) at 16-18 weeks gestation and 18-20 week detailed anatomy ultrasound. Also instructed to follow-up with Primary OB Provider. Elana Villatoro RN documented in this encounterSelect Medical [facility] [place]02-09-2023 Miscellaneous Notes* Telephone Encounter - Debra Mcdonald APRN.CNM - 05/12/2022 1:40 PM EST Message about Centering option sent to patient. Debra Mcdonald APRN.CNM documented in this encounterSelect Medical [facility] [place]02-08-2023 Miscellaneous Notes* Quick Notes - Debra Mcdonald APRN.CNM - 05/11/2022 2:41 PM EST Enzo Osman is a 26 year old female who presents at 12w0d for a routine visit. Just completed NT US and will have blood work today (MaterniT 21). Denies headache, visual changes, chest pain, shortness of breath, vaginal bleeding, leakage of fluid, or dysuria. Feeling well, no complaints. Size =Dates. 9 lbs. TWG. PTL/Bleeding precautions reviewed. RTC in 4 weeks or sooner if needed. Debra Mcdonald APRN.CNM documented in this encounterSelect Medical [facility] [place]02-08-2023 Instructions* Patient Instructions* Stephani Simth MA - 05/11/2022 2:22 PM EST SEQUENTIAL SCREENINGS The [facility] offers sequential screenings for women who are interested in screenings for chromosomal abnormalities and certain defects during a . The sequential screen combinesultrasound and blood tests to determine the risk of chromosomal abnormalities, including Down's Syndrome (Trisomy 21) and Trisomy 18, as well as open neural tube defects including spina bifida. Ultrasound examination is performed between 11 weeks and 13 weeks gestational age. Blood tests are drawn after the ultrasound and again later in the between 15 and 21 weeks gestational age. Please let your physician know if you are interested in this testing. It will require an appointment withour electrocardiograph technician. This is not an ultrasound performed by a physician in our office during a routine visit. SIGNS AND SYMPTOMS OF LABOR 1. Contractions every 10 minutes or more often 2. Clear, pink, or brownish fluid (water) leaking from vagina 3. Feeling that baby is pushing down, pressure 4. Low, dull backache 5. Cramps that feel like a period 6. Cramps with or without diarrhea If you notice any of the above symptoms, contact our office at [phone] and ask to speak with anurse. After hours, you can call doctors registry at [phone] OR call [facility] at [phone] ask to have the doctor carbonation tester paged. If you consider this an emergency, dial 4-3-1 or go to your nearest emergency department. NEED HELP? Are you dealing with a violent or abusive relationship? Are you a victim of rape or sexual assult? Call [facility] ([place]) 24 hour Crisis Hotline: 631.594.2271 or 483-041-0826. MANUAL Your Guide to a Healthy manual is now on-line. Visit [email or web address] to download your free copy documented in this encounterSelect [facility] [place]01-30-2023 Miscellaneous Notes* Telephone Encounter - Cristina Brady APRN.CNM - 05/02/2022 12:10 PM EST Patient would like NIPT with NT US, can you please place order. Thank you, Cristina Brady APRN.CNM * Telephone Encounter - Jaqueline Ortega LPN - 05/02/2022 10:33 AM EST Pt wanting to remind you that she does not want to know the gender and does not want to have reportin mychart where she might see it. Jaqueline Ortega LPN * Telephone Encounter - Jaqueline Ortega LPN - 05/02/2022 9:25 AM EST Please see pt's [employer] message. Jaqueline Ortega LPN documented in this encounterSelect Medical [facility] [place]01-04-2023 History of Present illness Narrative* Cristina Brady APRN.CNM - 04/06/2022 1:01 PM EST INITIAL OB ASSESSMENT OB Provider: Cristina Brady CNM HPI: Enzo Osman is a 26 year old female here to establish Obstetrical Care. Patient's last menstrual period was 02/16/2022 (exact date). from OB Dating Form. Cycle length: 29-32 days Complaints: nausea without vomiting and breast tenderness was planned. OB History T0 L0 SAB0 IAB0 Ectopic0 Multiple0 Live Births0 Prior : never History of 4th degree laceration: NA Patient's Risk Screening for delivery: History of abnormal pap: No Prior treatment for cervical dysplasia: none. 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 Patient BMI over 30? No Marital Status: Partner: Name: Zeyad Villela Age: 26 Occupation: unemployed Gender: male History of STDs: None PAST MEDICAL HISTORY Diagnosis Date Generalized anxiety disorder anxiety and depression Migraines Dx 2013 PAST SURGICAL HISTORY Procedure Laterality Date PAST SURGICAL HISTORY OF 2019 removal of neuroma-benign SPINAL TAP PROCEDURE 2015 TONSILLECTOMY & ADENOIDECTOMY <AGE 14 age 5 Current Outpatient Medications on File Prior to Visit Medication Sig sertraline (ZOLOFT) 25 mg tablet Take 25 mg by mouth once daily. prental multivitamin 27 mg iron- 800 mcg tablet Take 1 tablet by mouth once daily. No current facility-administered medications on file prior to visit. Review of Systems: GENERAL: Negative for: Fever or Chills HEENT: Negative for: Headache, Impaired Vision, Ringing in Ears, Nosebleeds- occasionally normal for patient NECK: Negative for: Swelling, Pain, Stiffness RESPIRATORY: Negative for: Cough, Shortness of breath, Wheezing GASTROINTESTINAL: Negative for: Heartburn, Constipation, Diarrhea, Blood in stool, Vomiting MUSCULOSKELETAL: Negative for: Muscle or joint pain, stiffness, Joint swelling NEUROLOGIC/PSYCHIATRIC: Negative for: Weakness, Paralysis, Numbness, Tingling, Tremor, Anxiety, Depression, Memory loss SKIN: Negative for: Rash, Itching GENITOURINARY: Negative for: vaginal itching, vaginal discharge, hematuria or dysuria PHYSICAL EXAM: BP 110/64 Wt 171 lb 12.8 oz (77.9kg) LMP 02/16/2022 GENERAL: pleasant female in no apparent distress DERMATOLOGY: Normal, without lesions, non-icteric, and non-hirsute NECK: Supple, full range of motion, no adenopathy, and thyroid normal CHEST: Normal inspiratory effort BREAST: soft, non-tender, symmetric, no dominant mass, normal nipple-areolar complex, no lymphadenopathy, and no nipple discharge ABDOMEN: soft, non-tender, and no masses NEURO: alert and oriented x3,exam grossly non-focal PELVIS: External genitalia normal without lesions. Perineal body intact. No vaginal or cervical lesions. Cervix closed. Uterus 8 week size. No adnexal masses or tenderness. Clinical Pelvimetry: Pelvimetry clinically assessed as adequate Limited OB ultrasound exam: single intrauterine , positive cardiac activity, crown-rump length 6w5d, and normal bilateral adnexa LMP 7w0d US 6w5d OB Risk Screening: Completed, no positive findings documented. ASSESSMENT: 26 year old at 7 wks gestational age PLAN: 1) Patient oriented to practice. Discussed nutrition, folic acid supplementation, dietary guidelines, exercise, smoking, alcohol, caffeine, and drug use. Discussed routine OB labs including STD/HIV. Discussed aneuploidy screening options including serum screening and nuchal translucency. Reviewed risks of testing and alternatives. Discussed aneuploidy screening options including serum screening and nuchal translucency. Info given on NIPT and sequential screen. Reviewed testing is screening and not diagnostic. Testing is for aneuploidy screening and not determination of sex. Reviewed risks, benefits and alternatives to testing. Discussed detections rate and false positive rate with NIPT vs sequential screen. Discussed follow up testing if positive screen for either test. Patient will verify cost with insurance prior to testing and decide at next visit. NT US ordered CF carrier screening discussed and accepted. 2) PN labs next visit 3) ASA 162 mg PO once daily starting at 12 weeks 4) Ok to continue Zoloft, handout given on risks vs benefit of treatment vs no treatment during . Follow up in 4 weeks or sooner prn. Cristina Brady APRN.CNM documented in this encounterSelect Medical [facility]01-04-2023 Instructions* Patient Instructions* Cristina Brady APRN.CNM - 04/06/2022 1:01 PM EST Please select the following link to access the [facility] Your Guide to a Healthy . [email or web address] Look over taking Aspirin during for prevention. Will start at 12 weeks. Nausea and Vomitin) Vitamin B6 50 mg by mouth twice daily. Take this daily until approximately 14 weeks for prevention. 2) Unisom 1/2 tablet by mouth at bedtime. May increase to full tablet if needed. If no improvement in nausea may up to a full tablet every 8 hours as needed. Share with Women Nausea and Vomiting During Do all women have nausea or vomiting during ? About one in 4 women have only mild nausea. Three of every 10 women have nausea that is bad enough to interfere with their daily lives. Half of all women have both nausea and vomiting during the first months of . Nausea and vomiting during tends to be the worst at 8 to 10 weeks after your last menstrual period. It usually goes away by 12 to 16 weeks after your last period. Nausea and vomiting during is often called morning sickness but can occur all day longor at any time in the day or night. What causes nausea and vomiting during ? The cause of nausea and vomiting during is not known for sure. Changes in hormone levels may be involved. If your mother had morning sickness when she was , you may be more likely to have nausea and vomiting during . A history of motion sickness or stomach problems beforeyou got may be another risk factor. Nausea during is worse if you are dehydrated (there is not enough fluid in your body) or if the level of sugar in your blood is low from not eating often enough. Are nausea and vomiting during dangerous? Mild nausea and vomiting may make you feel awful, but it will not hurt you or your baby. You can talk to your health care provider about ways to make you feel better if nausea and or vomiting is making it hard for you to do your normal activities. Lots of vomiting that keeps you from keeping any food down is rare, but severe vomiting can cause health problems. You should call your health care provider if any of the following happen: You are not able to keep any liquids or foods down for 24 hours You are vomiting several times a day or after every meal You have abdominal pain, difficulty urinating, or a fever You do not urinate as often as usual and your urine is dark in color You are weak, dizzy, or faint when you stand up You do not gain weight or you lose weight in a week How are nausea and vomiting treated? Nausea or vomiting during is treated in 3 steps: 1. Simple diet changes in what you eat and how often you eat may lessen nausea and help you avoid vomiting. This is all it takes for many women. 2. If diet changes are not enough, you can try eating irvin or using acupressure bands. Both have been shown to decrease nausea in research studies. 3. If the nausea and/or vomiting are making it hard to do your usual activities, your health care provider can prescribe medication. Your health care provider can talk with you about how often you have nausea and are vomiting then help you decide which of the following ways to treat nausea and vomiting will be best for you. Step One: Lifestyle and Diet Changes Drink small amounts of fluids often all day long. Drinking a small amount at one time will also help the nausea lessen. Cold drinks may make you feel better than hot drinks will. Eat small meals every 2 to 3 hours. Do notwait to be hungry or thirsty before you eat or drink. Eat something plain like crackers, toast, or cereal in themorning. Some women find it helps to eat something before getting out of bed. Avoid eating foods that have strong odors. Avoid foods that are greasy, fried, spicy, or very hot. Try eating foods that are high in carbohydrates, such as potatoes, noodles, rice, or toast.AmericanCollege of [email or web address] [email or web address] Do not lie down right after eating. Some women say dairy products like yogurt are helpful, but this does not work for every woman. vitamins may make your nausea worse. If you take your vitamin at night or with food, it may not make you nauseated. Your provider can also help you find a vitamin that does not makeyour nausea worse. Vitamins that do not have iron in them are less likely to cause your stomach to be upset. Children s vitamins that have folic acid can also be used. If you stop taking a multivitamin, you should take one tablet of folic acid daily (0.4 mg, which is 400 micrograms per day). Folic acid tablets will not worsen nausea. Step Two: Treatments that Do Not Use Medications Irvin Irvin has been used for treating nausea since ancient times and can lessen nausea. Irvin root tea, irvin gum, irvin snaps, irvin syrup added to water, irvin newton, and all other forms of irvin are safe to use in . You can also buy irvin capsules at a drug store. The dose of irvin that has been studied for nausea and vomiting in is 1 gram per day. Some forms of irvin like tea or cookies do not list the dose. Ask your health care provider or pharmacist how often you should take irvin products that do not have the dose of irvin listed. Acupressure Bands Seabands are wristbands with a pressure point placed on the inside of your wrist. They are often used for motion sickness. Some women find them helpful for nausea during , and they are safe. Step Three: Medication There are several different types of nauseamedicines that work well and are safe for you and your baby. Because nausea and vomiting is caused by different triggers in your body, you and your health care provider can work together to find the medicine that is right for you. There are both gcqt-mgx-tunlovr and prescription medicines that can be used if your nausea and vomiting are severe. Tkic-Sxm-Pvxqupb Medication Xgop-tir-uzsqhcd medications for motion sickness should not be taken during unless recommended by your health care provider. Many women have found that vitamin B6 is helpful for making mildnausea better. Vitamin B6 does not help stop vomiting. Your health care provider can help you choose the dose and how often to take vitamin B6 if you want to try it. Prescription Medication If your nausea and vomiting continues after trying lifestyle and diet changes and hzam-qwl-whlwbqa medications or you are vomiting frequently, you may need a prescription medication. There are several different prescription medicines that have been studied and found to be safe for you and your baby. Your health care provider can talk with you about these medicines. For More Information [employer] Research Nausea and Vomiting Helpline [email or web address] Sertraline (Zoloft ) March 04, 2019 This sheet talks about exposure to sertraline during and while . This information should not take the place of medical care and advice from your healthcare provider. What is sertraline? Sertraline is a medication that has been used to treat depression, obsessive- compulsive disorder, panic disorder, post-traumatic stress disorder, premenstrual dysphoric disorder (a severe form of premenstrual syndrome), and social phobia. Sertraline belongs to the class of antidepressants known as s elective serotonin reuptake inhibitors (SSRIs). A brand name for sertraline is Zoloft . I take sertraline. Can it make it harder for me to get ? Studies have not been done to see if sertraline could make it harder for a woman to get . I just found out I am . Should I stop taking sertraline? You should speak to your healthcare providers before making any changes to this medication. For some women, the benefits of staying on an antidepressant during can outweigh the potential risks. If you plan to stop the medication, your healthcare provider may suggest that you slowly lower the dose instead of stopping all at once. Stopping this medication suddenly can cause some people to have withdrawal symptoms. In addition, some people may have a relapse of their symptoms if they stop this medication during . Does taking sertraline increase the chance for miscarriage? Miscarriage can occur in any . Use of sertraline and the chance of miscarriage has not been well-studied. One study found no significant differences in the rates of miscarriage in women who filled prescriptions for sertraline during the first 35 days of and those who stopped filling prescriptions between 3 and 12 months before to . Can taking sertraline in the first trimester increase the chance of defects? In every , a woman starts out with a 3-5% chance of having a baby with a defect. This is called her background risk. Sertraline is one of the better studied antidepressants during . There are reports of more than 10,000 pregnancies exposed to sertraline during the first trimester. A small number of studies have found associations between sertraline use during andbirth defects, such as heart defects. However, the majority of studies have found that women takingsertraline during are not more likely to have a baby with a defect than women not taking sertraline. Overall, the available information does not suggest that sertraline increases the chance for defects above the 3-5% background risk. Could taking sertraline in the second or third trimester cause other complications? Some studies suggest that use of SSRIs, like sertraline, during can contribute to complications like low weight and premature delivery (delivery before 37 weeks of ). It is difficult to know whether these findings are due to the medicine, underlying depression, orother factors. Two studies have suggested that babies whose mothers take SSRIs like sertraline during the second half of the may be at an increased risk for pulmonary hypertension, a serious lung problem at . Other studies have not supported this association. Further study is needed but if any increased risk does exist, it is thought to be small. You should inform your marine photographer and your baby s paper machine back tender that you are taking sertraline so that any extra care can be provided,if needed. Research has also shown that when depression is left untreated during , there could be an increased chance for complications. This makes it difficult to determine if it is the medication or the untreated depression that is increasing the chance for these problems. Please see our fact sheet on Depression at https://mothertobaby.org/fact-sheets/depression-/pdf/. Does taking sertraline in cause long-term problems in behavior or learning for the baby? One study found that children whose mothers took SSRIs during scored lower on motor skilltests than other children. This was a very small study of 31 children; about half of these childrenwere exposed to sertraline. Another small study evaluated behaviors in children ages 4-5 years old.This study found no difference in behavior between children whose mothers took sertraline or other S SRIs and those children whose mother did not take an SSRI. I need to take sertraline throughout my entire . Will it cause withdrawal symptoms in my baby? If you are taking sertraline at the time of delivery, your baby may have some difficulties for the first few days of life. Your baby may have jitteriness, vomiting, constant crying, increased muscle tone, irritability, altered sleep patterns, tremors, difficulty eating and regulating body temperature and some problems with breathing. While in most cases these effects are mild and go away on theirown within 2 weeks of age, some babies may need to stay in a special care nursery for several days until the effects from sertraline and withdrawal go away. Not all babies exposed to sertraline will have these symptoms. Can I breastfeed while taking sertraline? When a mother takes sertraline, only a small amount of the drug passes into the breast milk. Very small amounts of sertraline and its breakdown product, norsertraline, are found in breast milk. Most published reports on sertraline and reported no harmful effects on the nursing infant.Long-term studies on infants exposed to sertraline in breast milk have not been conducted. If you are worried about symptoms your baby has, contact the child s healthcare provider. Be sure to talk toyour healthcare provider about all of your questions. If a man takes sertraline, could it affect his fertility (ability to get partner ) or increase the chance of defects? An increased chance of defects or complications is not expected when the father of the baby takes sertraline. In general, exposures that fathers have are unlikely to increase risks toa . For more information, please see the MotherToBaby fact sheet Paternal Exposures at http s://mothertobaby.org/fact-sheets/xugbtcfx-jziydcdav-oqnqcbgij/pdf/. Please click here to view references National Registry for Psychiatric Medications: There is a registry for women who take psychiatric medications, such as sertraline. For more information you can look at their website: https://womensmentalhealth.org/research/pregnancyregistry/ INFORMATION FOR [facility] PATIENTS WHO ARE CONSIDERING CARRIER SCREENING FOR CYSTIC FIBROSIS The [facility] offers carrier screening for cystic fibrosis or CF. Because the results of the screening test may be confusing, the purpose of this document is to provide information to those patients who would like to be tested for carrier status of cystic fibrosis. This is a voluntary test so please read the following information carefully and discuss any concerns with your marine photographer or healthcare provider. CYSTIC FIBROSIS: Cystic fibrosis is a chronic life-shortening illness that can cause problems with breathing and digestion. Some patients are more severely affected than others. However, appearance and intelligence are generally not affected. Treatment is necessary and there is no cure. In general,individuals with CF have a shortened life span usually due to recurrent, frequent lung infections. The purpose of CF carrier testing is to determine if you are at increased risk of giving to achild with CF. The gene that causes CF was identified in 1988. Identifying this gene and one of themany mutations (altered gene) allows for screening of carrier status. Your ethnicity or race and family history are important to estimate your carrier risk. For example, a or Ashkenazi Orthodox person has a 1 in 29 chance of being a CF carrier. A Singaporean has a 1 in 46 chance of being a CF carrier; an has a 1 in 65 chance; and an [place]an has a 1 in 90 chance. In addition, both parents must be carriers of this gene to have a baby with CF because it is genetically inherited as an autosomal recessive disease. That is, if both the mother and the father of the fetus are carriers, the risk of having an affected baby will be 1 in 4 or 25%. Further testing would be necessary to know whether your fetus has CF. The carrier screening test for cystic fibrosis is performed from the DNA in your blood. The laboratory test is highly complex and the current standard screening panel consists of 25 mutations. The [place] [employer]ician (ACOG) currently recommends this 25 mutation screening panel that [facility]. This test is expected to detect most carriers, depending on ethnici ty. Detection rates of carriers are 97% for Ashkenazi Jews, 80% for Caucasians, 69% for Americans, and 57% for Hispanics. A more complex screening panel is available as a send out toa reference lab, but this test can still fail to diagnose some cases. In addition, this DNA test may disclose a risk for male infertility. LIMITATIONS of CYSTIC FIBROSIS SCREENING: It is important for you to know that cystic fibrosis screening cannot detect all mutations, that is carriers of the gene. A negative screening test for one of both members of a couple does not exclude the small possibility of an affected child. This level of risk depends on your ethnic background, the specific mutation, family history, and correct paternity. For example, a couple in which both partners test negative, the risk of having a childwith cystic fibrosis is estimated to be 1 in 80,000. If only one partner is screened and the test is negative, the risk of having a child with CF is about 1 in 16,000 for a couple, 1 in 19,000 for a Singaporean couple, and 1 in 50,000 for n couple. A CF screening strategy is to test one partner and then the second partner only if the first partner is identified asa carrier. This sequential approach may be used for CF screening. However, testing both partners more precisely identifies each individual's carrier status. Finally, your insurance company may not cover the cost of CF testing. The estimated cost of one CF screening test is approximately $550. We suggest that you check with your insurance company. The decision to be tested for cystic fibrosis is completely yours. The [facility] also offers more detailed genetic counseling and information through the Medical Genetics program. Genetic counselors are available to answer any questions that you may have or if you have additional concerns. More information is available through the [place] [employer]. Your healthcare provider can answer your questions. A few resources are listed below: Cystic Fibrosis Foundation: [address] [place] [address], [place] [address]; www.cff.org National Society of Genetic Counselors: [address]. Ion Hickman [id number]; www.nsgc.org Genetic [place]: [address] [place], [address] [email or web address] MaterniT 21 PLUS: The MaterniT 21 Plus test analyzes genetic information that enters your bloodstream from the placenta. It requires a serum sample (blood draw). It screens for certain chromosomal abnormalities that could affect you baby's health and development. The MaterniT 21 Plus detects the following chromosomal abnormalities: Trisomy 21 (Downs syndrome), Trisomy 18 (Lucio syndrome), Trisomy 13 (Patau syndrome). It also detects 45 X, 47 XXY, 47 XXX, and 47 XYY. MaterniT 21 PLUS is a noninvasive test that can be completed as early as 9 weeks gestation. There are many ways to get this abnormal chromosomal information including serum screens and diagnostic procedures such as amniocentesis. MaterniT 21 has a high er detection rate over routine serum screening and results are typically available within 5 days. Please contact your insurance company to inquire if this service is covered and if not you could be required to pay for this test out of pocket. Please contact [employer] at forgeneral questions and for billing and/or cost questions. [email or web address]/transparency genetic testing gives suabads-hu-dl information about whether their fetus has certain genetic disorders. Genetic disorders are caused by changes in a person s genes or chromosomes. Aneuploidy is a condition in which there are missing or extra chromosomes. In a trisomy, there is an extra chromosome. In amonosomy, a chromosome is missing. Inherited disorders are caused by changes in genes called mutations. Inherited disorders include sickle cell disease, cystic fibrosis, Nahun-Sachs disease, and many others. In most cases, both parents must carry the same gene to have an affected child. Cell-free DNA is the small amount of DNA that is released from the placenta into a woman sbloodstream. The cell-free DNA in a sample of a woman s blood can be screened for Down syndrome, Patau syndrome (trisomy 13), Lucio syndrome, and problems with the number of sex chromosomes. This test can be done starting at 10 weeks of . It takes about 1 week to get the results. A positive cell-free DNA test result should be followed by a diagnostic test with amniocentesis or [facility]. Results of blood screening tests for aneuploidy are reported as the level of risk that the disordermight be present: A positive screening test result for aneuploidy means that your fetus is at higher risk of having the disorder compared with the general population. It does not mean that your fetus definitely has the disorder. A negative result means that your fetus is at lower risk of having the disorder compared with the general population. It does not rule out the possibility that your fetus has the disorder. Diagnostic testing with CVS or amniocentesis that gives a more definite result is an option for all women. Your marine photographer or other health personal care aide, such as a genetic counselor, will discuss what your screening test results mean and help you decide the next steps. With any type of testing, there is a possibility of false-positive results and false-negative results. A screening test result that shows there is a problem when one does not exist is called a false-positive result. A screening test result that shows there is not a problem when one does exist is called a false- negative result. Your health personal care aide can give you information about the ratesof false-positive and false-negative results for each test. We discussed the nuchal translucency measurement as a method of detection for both aneuploidy and congenital malformations. She was counseled that in up to 70-80% of fetuses with these conditions, demonstrable thickening of the transl ucent area of the scalp and neck area is visible. Hence, the finding of a normal nuchal skin is very reassuring in reduction of risk. The patient was counseled about first trimester biochemical screening using Melecio-A and free beta HCG. She was counseled that biochemical testing permits detection of approximately 80% of cases of Down Syndrome. She was counseled that the combined nuchal translucency biochemical testing is highly sensitive for the detection of Down Syndrome. Chorionic villi sampling for karyotype was also discussed. The patient was counseled about the technique, including the benefits and limitations. She was counseled that in up to 4% of cases, the karyotype indicates placental mosaicism. Under those circumstances, amniocentesis is required. The fetalloss rate is 1-1.5%. We then discussed that the AFP Quadruple Screen was available for screening earliest at the 15th week of gestation. This test is primarily useful for the detection of Down Syndrome, which approximates 70-80% with a false-positive rate of approximately 5-7%. She was counseled that the test was also useful for the detection of 60% of cases of Trisomy-18 and 85% of cases of open neural tube defect. she currently appears accepting of this test and was given a requisition for the test to be drawn after the 15th week of gestation. We have also requested that copies be forwarded to you. We then discussed the issue of a Level II ultrasound for the detection of aneuploidy and defects. She was counseled that a 16-18 week ultrasound is sensitive for the detection of 80% of cases of serious congenital abnormalities. One of the major limitations of the midtrimester ultrasound is in the detection of down Syndrome, which only approximates 30-50%. She was counseled that for fe michael Trisomy-13 and Trisomy-18, the detection rate approximate 90 and 80% respectively. For spinal defects, the detection rate approximates 90-95%. Lastly, we discussed the issue of amniocentesis at 16 weeks. The patient was counseled that this remains one of the most sensitive methods for the detection of all aneuploidies, including Down Syndrome. she was counseled that amniocentesis is insensitive for the detection of single gene defects such as cystic fibrosis, mental retardation, cerebral palsy, and epilepsy. She was counseled thatamniocentesis carries a loss rate of approximately 1/200 or 0.5%. [facility] Miscellaneous Notes* Quick Notes - Madeline Clemente RN - 03/21/2022 11:07 AM EST DISTANCE HEALTH VISIT This Team Access Model visit is a phone encounter. It required patient-provider interaction for themedical decision making as documented below. Enzo Osman is a 26 year old female seen for PNOB visit.Pt has a history of anxiety diagnosed in 2018. She states she has had depression in the past but has never been diagnosed. She currently takesZoloft prescribed by Dr. Lind. She believes she is doing well on Zoloft. I have read precautionsregarding Zoloft in from up-to-date.com to patient. I have advised her to call Dr. Lind to discuss treatment of the anxiety during .. Discussed increased risks of depression during and and importance of reporting the development or worsening of symptoms should they occur. Pt denies ever having any suicidal thoughts or tendencies or thoughts of hurting others. Patient states that she had migraines caused by increased intracranial pressure in 2013. She was treated by Dr. Yoder her PCP [facility] Neurology visits are viewable in care everywhere. Patient was last seen by neurology in 2018. She states that she has not had any migraines since 2018 and has been following up with Dr. Lind. Patient desires aneuploidy screening. Contact information for integrated genetics given to patient to check on insurance coverage. Patient considering genetic carrier screening testing. Contact informationfor [facility] given to patient to check on insurance coverage.Madeline Clemente RN documented in [facility] [place] [facility]* Diagnosis Supervision of normal first , antepartum- Primary History of anxiety and depression Personal history of other mental disorder History of migraine headaches Personal history of other disorders of nervous system and sense organs Patient request for diagnostic testing Other specified examination documented [facility] [place] [facility]* Diagnosis Encounter for supervision of normal first in first trimester- Primary Supervision of normal first 7 weeks gestation of state, incidental [facility] [place] [facility] Diagnosis Encounter for supervision of normal first in first trimester- Primary Supervision of normal first [facility] [place] [facility]* Diagnosis 12 weeks gestation of - Primary state, incidental Encounter for supervision of normal first in first trimester Supervision of normal first [facility] [place] [facility]* Diagnosis First trimester screening- Primary Other specified screening 12 weeks gestation of state, incidental [facility] [place] [facility] Diagnosis 16 weeks gestation of - Primary state, incidental Encounter for supervision of normal first in first trimester Supervision of normal first History of anxiety Personal history of other mental disorder History of migraine headaches Personal history of other disorders of nervous system and sense organs Patient request for diagnostic testing Other specified examination [facility] Diagnosis Encounter for supervision of normal first in first trimester Supervision of normal first 7 weeks gestation of state, incidental documented in this [facility] [place] [facility]* Diagnosis History of anxiety- Primary Personal history of other mental disorder History of migraine headaches Personal history of other disorders of nervous system and sense organs Patient request for diagnostic testing Other specified examination 20 weeks gestation of state, incidental documented in this encounter [facility] [place] [facility]* Diagnosis 24 weeks gestation of - Primary state, incidental documented in this encounter [facility] [place] [facility]* Diagnosis 28 weeks gestation of - Primary state, incidental Swollen lymph nodes Enlargement of lymph nodes documented in this [facility] [place] [facility]* Diagnosis Need for vaccination- Primary Need for prophylactic vaccination and inoculation against unspecified single disease 30 weeks gestation of state, incidental History of anxiety Personal history of other mental disorder History of migraine headaches Personal history of other disorders of nervous system and sense organs Patient request for diagnostic testing Other specified examination documented [facility] this [facility] [place] [facility]* Diagnosis 31 weeks gestation of - Primary state, incidental documented in this encounter [facility] [place] [facility]* Diagnosis 33 weeks gestation of - Primary state, incidental documented in this encounter [facility] [place] [facility]* Diagnosis 34 weeks gestation of - Primary state, incidental documented in this encounter [facility] [place] [facility]* Diagnosis 36 weeks gestation of - Primary state, incidental Supervision of normal first , antepartum [facility] [place] [facility]* Diagnosis 38 weeks gestation of - Primary state, incidental Supervision of normal first , antepartum History of anxiety Personal history of other mental disorder History of migraine headaches Personal history of other disorders of nervous system and sense organs Patient request for diagnostic testing Other specified examination documented in this encounter [facility] [place] [facility]* Diagnosis Onset Date Resolution Status 40 weeks gestation of acute Primiparous acute Uterine contractions acute Vaginal delivery [facility] Work Phone: Evaluation note* Diagnosis care and examination- Primary Routine follow-up documented in this encounter [facility] [place] [facility]* Diagnosis Swollen lymph nodes Enlargement of lymph nodes documented in this encounter [facility] [place] [facility]* Diagnosis Encounter for gynecological examination (general) (routine) without abnormal findings- Primary care and examination Routine follow-up Superficial dyspareunia Exclusive by mother documented in this encounter [facility] [place] [facility]* Diagnosis Muscle pain- Primary Mylagia and myositis, unspecified documented in this encounter [facility] [place] [facility]* Diagnosis Mastitis Inflammatory disease of breast documented in this encounter [facility] [place] [facility]* Diagnosis care and examination Routine follow-up documented in this encounter [facility] [place] [facility]* Diagnosis care and examination Routine follow-up documented in this encounter [facility] [place] [facility]* Diagnosis Encounter for gynecological examination (general) (routine) with abnormal findings- Primary Family history of breast cancer Family history of malignant neoplasm of breast Family history of colon cancer Family history of malignant neoplasm of gastrointestinal tract Encounter for preconception consultation Other procreative management counseling and advice documented in this encounter [facility] [place] [facility]* Diagnosis care and examination Routine follow-up documented in this encounter [facility] [place] [facility]* Diagnosis with fetus of unknown gestational age (HCC)- Primary 6 weeks gestation of ([facility]) state, incidental History of anxiety Personal history of other mental disorder Encounter for supervision of normal in multigravida in first trimester ([facility]) History of precipitous delivery Anxiety Anxiety state, unspecified documented in this encounter [facility] [place] [facility]* Diagnosis 12 weeks gestation of (HCC)- Primary state, incidental Anxiety Anxiety state, unspecified History of precipitous delivery Encounter for supervision of normal first in third trimester ([facility]) Supervision of normal first Encounter for supervision of normal in multigravida in first trimester ([facility]) documented in this encounter [facility] [place] [facility]* Diagnosis Encounter for screening for malformation using ultrasound ([facility])- Primary 12 weeks gestation of ([facility]) state, incidental documented in this encounter [facility] [place] [facility]* Diagnosis Encounter for supervision of normal in multigravida in second trimester ([facility])- Primary 15 weeks gestation of ([facility] [facility] state, incidental Anxiety Anxiety state, unspecified History of precipitous delivery [facility] [place] [facility] Diagnosis Encounter for supervision of normal in multigravida in second trimester ([facility])- Primary 20 weeks gestation of ([facility]) state, incidental History of precipitous delivery Anxiety Anxiety state, unspecified Tinea corporis Dermatophytosis of the body documented in this [facility] [place] [facility] Diagnosis Encounter for supervision of other normal in second trimester ([facility])- Primary with fetus of unknown gestational age ([facility]) documented [facility] [place] [facility]* Diagnosis Screening for diabetes mellitus- Primary Encounter for supervision of normal first in second trimester ([facility]) Supervision of normal first Encounter for supervision of normal in multigravida in second trimester ([facility]) History of precipitous delivery 24 weeks gestation of ([facility]) state, incidental documented in this encounter [facility] note* Diagnosis Need for influenza vaccination- Primary Need for prophylactic vaccination and inoculation against influenza Need for vaccination Need for prophylactic vaccination and inoculation against unspecified single disease 27 weeks gestation of ([facility]) state, incidental Encounter for supervision of normal first in second trimester ([facility]) Supervision of normal first documented in this encounter [facility] for referral (narrative)* Diagnostic Procedure Only (Routine) - Pending Review Specialty Diagnoses / Procedures Referred By David story Referred To Contact [facility] Diagnoses Swollen lymph nodes Procedures US BREAST LTD RIGHT US BREAST UNI REAL TIME WITH IMAGE LIMITED Cristina Brady APRN.CNM [address] [place] [address] [facility] [address] [place] [address] Referral ID Status Reason Start Date Expiration Date Visits Requested Visits Authorized [id number] Pending Review Auto-Generat ed Referral 08/31/2022 09/30/2023 1 1 [facility] for referral (narrative)* Diagnostic Procedure Only (Routine) - Closed Specialty Diagnoses / Procedures Referred By David story Referred To Contact [facility] Diagnoses Swollen lymph nodes Procedures US BREAST LTD RIGHT US BREAST UNI REAL TIME WITH IMAGE LIMITED Cristina Brady APRN.CNM [address] [place] [address] [facility] [address] [place] [address] Referral ID Status Reason Start Date Expiration Date V isits Requested Visits Authorized [id number] Closed Auto-Generate d Referral 08/31/2022 09/30/2023 1 1 [facility] Summary Purpose Family History No Family History Records Found Relationship Condition Age at Onset Recorded Date/T autumn Not Specified Arthritis Unknown Advance Directives No Advanced Directives Records Found Advance Directive Response Recorded Date/ Time Living Will No November 28 9:39pm 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 No November 28 023 9:39pm Reason for Referral Specialty Diagnoses / Procedures Referred By David t Referred To Contact [facility] Diagnoses 7 weeks gestation of Procedures CYSTIC FIBROSIS PATHOGENIC VARIANT ANALYSIS CFTR GENE ANALYSIS COMMON VARIANTS Cristina Brady APRN.CNM [address] [place] [address] [facility] [address] [id number] Referral ID Status Reason Start Date Expiration Date V isits Requested Visits Authorized [id number] Closed PCP Requested Referral Auto-Generated Referral 04/06/2022 04/06/2022 1 1 Specialty Diagnoses / Procedures Referred By David t Referred To Contact [facility] Diagnoses Encounter for supervision of normal first in first trimester 7 weeks gestation of Procedures NUCHAL TRANSLUCENCY WHI US NUCHAL TRANSLUCENCY 1ST GESTATION Cristina Brady APRN.CNM [address] [place] [address] [address] [address] [place] [address] Referral ID Status Reason Start Date Expiration Date Visits Requested Visits Authorized [id number] Authorized Auto-Generat ed Referral 05/07/2022 04/06/2023 1 1 Specialty Diagnoses / Procedures Referred By David t Referred To Contact [facility] Diagnoses Encounter for supervision of normal first in first trimester 7 weeks gestation of Procedures OBSTETRIC ULTRASOUND WHI US PREG UTERUS AFTER 1ST TRIMEST GESTATION Cristina Brady APRN.CNM [address] [place] [address] [address] Referral ID Status Reason Start Date Expiration Date Visits Requested Visits Authorized [id number] Pending Review Auto-Generat ed Referral 07/05/2022 04/06/2023 1 1 Specialty Diagnoses / Procedures Referred By David story Referred To Contact [facility] Diagnoses care and examination Encounter for gynecological examination (general) (routine) without abnormal findings Superficial dyspareunia Procedures CONSULT TO PHYSICAL THERAPY PHYSICAL THERAPY EVALUATION HIGH COMPLEX 45 MINS Camron Chapin MD [address] [place] [address] [facility] [address] [place] [address] Referral ID Status Reason Start Date Expiration Date Visits Requested Visits Authorized [id number] Pending Review Auto-Generat ed Referral 06/05/2023 06/04/2024 1 1 Health Concerns Problem Noted Date OB Reminders 04/06/2022 Problem Noted Date OB Reminders 04/06/2022 Problem Noted Date OB Reminders 04/06/2022 Problem Noted Date OB Reminders 04/06/2022 Problem Noted Date OB Reminders 04/06/2022 Problem Noted Date OB Reminders 04/06/2022 Problem Noted Date OB Reminders 04/06/2022 Problem Noted Date OB Reminders 04/06/2022 Problem Noted Date OB Reminders 04/06/2022 Problem Noted Date OB Reminders 04/06/2022 Problem Noted Date OB Reminders 04/06/2022 Problem Noted Date OB Reminders 04/06/2022 Problem Noted Date Diagnosed Date OB Reminders 04/06/2022 Problem Noted Date Diagnosed Date OB Reminders 04/06/2022 Problem Noted Date Diagnosed Date OB Reminders 04/06/2022 Problem Noted Date Diagnosed Date OB Reminders 04/06/2022 Problem Noted Date Diagnosed Date OB Reminders 04/06/2022 Problem Noted Date Diagnosed Date OB Reminders 04/06/2022 Problem Noted Date Diagnosed Date OB Reminders 04/06/2022 Problem Noted Date Diagnosed Date OB Reminders 04/06/2022 Chief Complaint and Reason for Visit Chief Complaint VAGINAL DELIVERY Reason for Visit 40 weeks gestation o f Primiparous Uterine contractions Vaginal delivery Additional Source Comments INFORMATION SOURCE (unrecogn ized section and content) DATE CREATED AUTHOR 10/11/[address] [facility] DATE CREATED AUTHOR AUTHOR'S ORGANIZ ATION 01/08/2023 [facility] DATE CREATED AUTHOR AUTHOR'S ORGANIZ ATION 08/08/2023 [facility] DATE CREATED AUTHOR AUTHOR'S ORGANIZ ATION 02/01/2025 [facility] Source Comments (unrecognize d section and content) In the event this informatio n is protected by the Federal Confidentiality of Alcohol and Drug Abuse Patient Records regulations: The Federal rules restrict any use of the information to criminally investigate or prosecute any alcohol or drug abuse patient.[facility] the event this information is protected by the Federal Confidentiality of Alcohol and Drug Abuse Patient Records regulations: The Federal rules restrict any use of the information to criminally investigate or prosecute any alcohol or drug abuse patient.[facility] the event this information is protected by the Federal Confidentiality of Alcohol and Drug Abuse Patient Records regulations: The Federal rules restrict any use of the information to criminally investigate or prosecute any alcohol or drug abuse patient.[facility] the event this information is protected by the Federal Confidentiality of Alcohol and Drug Abuse Patient Records regulations: The Federal rules restrict any use of the information to criminally investigate or prosecute any alcohol or drug abuse patient.[facility] the event this information is protected by the Federal Confidentiality of Alcohol and Drug Abuse Patient Records regulations: The Federal rules restrict any use of the information to criminally investigate or prosecute any alcohol or drug abuse patient.[facility] the event this information is protected by the Federal Confidentiality of Alcohol and Drug Abuse Patient Records regulations: The Federal rules restrict any use of the information to criminally investigate or prosecute any alcohol or drug abuse patient.[facility] the event this information is protected by the Federal Confidentiality of Alcohol and Drug Abuse Patient Records regulations: The Federal rules restrict any use of the information to criminally investigate or prosecute any alcohol or drug abuse patient.[facility] the event this information is protected by the Federal Confidentiality of Alcohol and Drug Abuse Patient Records regulations: The Federal rules restrict any use of the information to criminally investigate or prosecute any alcohol or drug abuse patient.[facility] the event this information is protected by the Federal Confidentiality of Alcohol and Drug Abuse Patient Records regulations: The Federal rules restrict any use of the information to criminally investigate or prosecute any alcohol or drug abuse patient.[facility] the event this information is protected by the Federal Confidentiality of Alcohol and Drug Abuse Patient Records regulations: The Federal rules restrict any use of the information to criminally investigate or prosecute any alcohol or drug abuse patient.[facility] the event this information is protected by the Federal Confidentiality of Alcohol and Drug Abuse Patient Records regulations: The Federal rules restrict any use of the information to criminally investigate or prosecute any alcohol or drug abuse patient.[facility] the event this information is protected by the Federal Confidentiality of Alcohol and Drug Abuse Patient Records regulations: The Federal rules restrict any use of the information to criminally investigate or prosecute any alcohol or drug abuse patient.[facility] the event this information is protected by the Federal Confidentiality of Alcohol and Drug Abuse Patient Records regulations: The Federal rules restrict any use of the information to criminally investigate or prosecute any alcohol or drug abuse patient.[facility] the event this information is protected by the Federal Confidentiality of Alcohol and Drug Abuse Patient Records regulations: The Federal rules restrict any use of the information to criminally investigate or prosecute any alcohol or drug abuse patient.[facility] the event this information is protected by the Federal Confidentiality of Alcohol and Drug Abuse Patient Records regulations: The Federal rules restrict any use of the information to criminally investigate or prosecute any alcohol or drug abuse patient.[facility] the event this information is protected by the Federal Confidentiality of Alcohol and Drug Abuse Patient Records regulations: The Federal rules restrict any use of the information to criminally investigate or prosecute any alcohol or drug abuse patient.[facility] the event this information is protected by the Federal Confidentiality of Alcohol and Drug Abuse Patient Records regulations: The Federal rules restrict any use of the information to criminally investigate or prosecute any alcohol or drug abuse patient.[facility] the event this information is protected by the Federal Confidentiality of Alcohol and Drug Abuse Patient Records regulations: The Federal rules restrict any use of the information to criminally investigate or prosecute any alcohol or drug abuse patient.[facility] the event this information is protected by the Federal Confidentiality of Alcohol and Drug Abuse Patient Records regulations: The Federal rules restrict any use of the information to criminally investigate or prosecute any alcohol or drug abuse patient.[facility] the event this information is protected by the Federal Confidentiality of Alcohol and Drug Abuse Patient Records regulations: The Federal rules restrict any use of the information to criminally investigate or prosecute any alcohol or drug abuse patient.[facility] the event this information is protected by the Federal Confidentiality of Alcohol and Drug Abuse Patient Records regulations: The Federal rules restrict any use of the information to criminally investigate or prosecute any alcohol or drug abuse patient.[facility] the event this information is protected by the Federal Confidentiality of Alcohol and Drug Abuse Patient Records regulations: The Federal rules restrict any use of the information to criminally investigate or prosecute any alcohol or drug abuse patient.[facility] the event this information is protected by the Federal Confidentiality of Alcohol and Drug Abuse Patient Records regulations: The Federal rules restrict any use of the information to criminally investigate or prosecute any alcohol or drug abuse patient.[facility] the event this information is protected by the Federal Confidentiality of Alcohol and Drug Abuse Patient Records regulations: The Federal rules restrict any use of the information to criminally investigate or prosecute any alcohol or drug abuse patient.[facility] the event this information is protected by the Federal Confidentiality of Alcohol and Drug Abuse Patient Records regulations: The Federal rules restrict any use of the information to criminally investigate or prosecute any alcohol or drug abuse patient.[facility] the event this information is protected by the Federal Confidentiality of Alcohol and Drug Abuse Patient Records regulations: The Federal rules restrict any use of the information to criminally investigate or prosecute any alcohol or drug abuse patient.[facility] the event this information is protected by the Federal Confidentiality of Alcohol and Drug Abuse Patient Records regulations: The Federal rules restrict any use of the information to criminally investigate or prosecute any alcohol or drug abuse patient.[facility] the event this information is protected by the Federal Confidentiality of Alcohol and Drug Abuse Patient Records regulations: The Federal rules restrict any use of the information to criminally investigate or prosecute any alcohol or drug abuse patient.[facility] the event this information is protected by the Federal Confidentiality of Alcohol and Drug Abuse Patient Records regulations: The Federal rules restrict any use of the information to criminally investigate or prosecute any alcohol or drug abuse patient.[facility] the event this information is protected by the Federal Confidentiality of Alcohol and Drug Abuse Patient Records regulations: The Federal rules restrict any use of the information to criminally investigate or prosecute any alcohol or drug abuse patient.[facility] the event this information is protected by the Federal Confidentiality of Alcohol and Drug Abuse Patient Records regulations: The Federal rules restrict any use of the information to criminally investigate or prosecute any alcohol or drug abuse patient.[facility] the event this information is protected by the Federal Confidentiality of Alcohol and Drug Abuse Patient Records regulations: The Federal rules restrict any use of the information to criminally investigate or prosecute any alcohol or drug abuse patient.[facility] the event this information is protected by the Federal Confidentiality of Alcohol and Drug Abuse Patient Records regulations: The Federal rules restrict any use of the information to criminally investigate or prosecute any alcohol or drug abuse patient.[facility] the event this information is protected by the Federal Confidentiality of Alcohol and Drug Abuse Patient Records regulations: The Federal rules restrict any use of the information to criminally investigate or prosecute any alcohol or drug abuse patient.[facility] the event this information is protected by the Federal Confidentiality of Alcohol and Drug Abuse Patient Records regulations: The Federal rules restrict any use of the information to criminally investigate or prosecute any alcohol or drug abuse patient.[facility] the event this information is protected by the Federal Confidentiality of Alcohol and Drug Abuse Patient Records regulations: The Federal rules restrict any use of the information to criminally investigate or prosecute any alcohol or drug abuse patient.[facility] the event this information is protected by the Federal Confidentiality of Alcohol and Drug Abuse Patient Records regulations: The Federal rules restrict any use of the information to criminally investigate or prosecute any alcohol or drug abuse patient.[facility] the event this information is protected by the Federal Confidentiality of Alcohol and Drug Abuse Patient Records regulations: The Federal rules restrict any use of the information to criminally investigate or prosecute any alcohol or drug abuse patient.[facility] the event this information is protected by the Federal Confidentiality of Alcohol and Drug Abuse Patient Records regulations: The Federal rules restrict any use of the information to criminally investigate or prosecute any alcohol or drug abuse patient.[facility] the event this information is protected by the Federal Confidentiality of Alcohol and Drug Abuse Patient Records regulations: The Federal rules restrict any use of the information to criminally investigate or prosecute any alcohol or drug abuse patient.[facility] the event this information is protected by the Federal Confidentiality of Alcohol and Drug Abuse Patient Records regulations: The Federal rules restrict any use of the information to criminally investigate or prosecute any alcohol or drug abuse patient.[facility] the event this information is protected by the Federal Confidentiality of Alcohol and Drug Abuse Patient Records regulations: The Federal rules restrict any use of the information to criminally investigate or prosecute any alcohol or drug abuse patient.[facility] the event this information is protected by the Federal Confidentiality of Alcohol and Drug Abuse Patient Records regulations: The Federal rules restrict any use of the information to criminally investigate or prosecute any alcohol or drug abuse patient.[facility] the event this information is protected by the Federal Confidentiality of Alcohol and Drug Abuse Patient Records regulations: The Federal rules restrict any use of the information to criminally investigate or prosecute any alcohol or drug abuse patient.[facility] the event this information is protected by the Federal Confidentiality of Alcohol and Drug Abuse Patient Records regulations: The Federal rules restrict any use of the information to criminally investigate or prosecute any alcohol or drug abuse patient.[facility] the event this information is protected by the Federal Confidentiality of Alcohol and Drug Abuse Patient Records regulations: The Federal rules restrict any use of the information to criminally investigate or prosecute any alcohol or drug abuse patient.[facility]In the event this information is protected by the Federal Confidentiality of Alcohol and Drug Abuse Patient Records regulations: The Federal rules restrict any use of the information to criminally investigate or prosecute any alcohol or drug abuse patient.[facility] the event this information is protected by the Federal Confidentiality of Alcohol and Drug Abuse Patient Records regulations: The Federal rules restrict any use of the information to criminally investigate or prosecute any alcohol or drug abuse patient.[facility] the event this information is protected by the Federal Confidentiality of Alcohol and Drug Abuse Patient Records regulations: The Federal rules restrict any use of the information to criminally investigate or prosecute any alcohol or drug abuse patient.[facility] Reason for Visit (unrecogniz ed section and content) Reason Comments Physical Therapy Specialty Diagnoses / Procedures Referred By Contac t Referred To Contact [facility] Diagnoses care and examination Encounter for gynecological examination (general) (routine) without abnormal findings Superficial dyspareunia Procedures CONSULT TO PHYSICAL THERAPY PHYSICAL THERAPY EVALUATION HIGH COMPLEX 45 MINS Camron Chapin MD [address] [place] [address] [facility] [address] [address] Referral ID Status Reason Start Date Expiration Date Visits Requested Visits Authorized [id number] Authorized Auto-Generat ed Referral 06/05/2023 04/02/2024 60 60 Reason Comments Care Reason Comments Care Reason Onset Date Comments Care 05/11/2022 Reason Comments US Specialty Diagnoses / Procedures Referred By Contac t Referred To Contact [facility] Diagnoses Encounter for supervision of normal first in first trimester 7 weeks gestation of Procedures NUCHAL TRANSLUCENCY WHI US NUCHAL TRANSLUCENCY 1ST GESTATION Cristina Brady APRN.CNM [address] [place] [address] [address] Referral ID Status Reason Start Date Expiration Date V isits Requested Visits Authorized [id number] Closed Auto-Generate d Referral 05/07/2022 04/06/2023 1 1 Reason Comments NIPT results Reason Comments Appointment Reason Onset Date Comments Care 06/08/2022 Specialty Diagnoses / Procedures Referred By Contac t Referred To Contact [facility] Diagnoses Encounter for supervision of normal first in first trimester 7 weeks gestation of Procedures OBSTETRIC ULTRASOUND WHI US PREG UTERUS AFTER 1ST TRIMEST GESTATION Cristina Brady APRN.CNM [address] [place] [address] [address] Referral ID Status Reason Start Date Expiration Date V isits Requested Visits Authorized [id number] Closed Auto-Generate d Referral 07/05/2022 04/06/2023 1 1 Reason Onset Date Comments Care 07/06/2022 Reason Onset Date Comments Care 08/03/2022 Reason Onset Date Comments Care 08/31/2022 Reason Onset Date Comments Care 09/14/2022 Reason Comments Breast Pump Reason Comments Results Reason Onset Date Comments Care 09/23/2022 Reason Onset Date Comments Care 10/06/2022 Reason Onset Date Comments Care 10/12/2022 Reason Onset Date Comments Care 10/26/2022 Reason Onset Date Comments Care 11/09/2022 Reason Comments Ob Delivery Note Reason Comments Routine Reason Comments Radiology US Specialty Diagnoses / Procedures Referred By Contac t Referred To Contact [facility] Diagnoses Swollen lymph nodes Procedures US BREAST LTD RIGHT US BREAST UNI REAL TIME WITH IMAGE LIMITED Cristina Brady APRN.CNM [address] [place] [address] [facility] [address] [place] [address] Referral ID Status Reason Start Date Expiration Date V isits Requested Visits Authorized [id number] Closed Auto-Generate d Referral 08/31/2022 09/30/2023 1 1 Reason Comments Well Woman Reason Comments PT Eval Reason Comments Refill Request Reason Onset Date Comments Refill Request 12/06/2023 Reason Onset Date Comments Refill Request 06/10/2024 Reason Onset Date Comments Refill Request 06/20/2024 Reason Comments Initial OB Visit Reason Onset Date Comments Care 08/29/2024 Specialty Diagnoses / Procedures Referred By Contac t Referred To Contact [facility] Diagnoses with fetus of unknown gestational age (HCC) Procedures OBSTETRIC ULTRASOUND WHI US PREG UTERUS AFTER 1ST TRIMEST GESTATION Debra Mcdonald APRN.[facility] [address] [place] [address] Phone: tel: fax: [facility] [address] [place] [address] Referral ID Status Reason Start Date Expiration Date V isits Requested Visits Authorized [id number] Closed Auto-Generate d Referral 07/24/2024 07/24/2025 1 1 Reason Onset Date Comments Care 09/25/2024 Reason Onset Date Comments Care 10/24/2024 Referral ID Status Reason Start Date Expiration Date V isits Requested Visits Authorized [id number] Closed Auto-Generate d Referral 07/24/2024 07/24/2025 1 1 Reason Onset Date Comments Immunizations 12/18/2024 Flu vaccination Care 12/18/2024 Care Teams (unrecognized sec tion and content) Team Status: Active Member Role Status Dates Dr. Curt Yoder MD Family Provider Active Dr. Hernán Lind MD Primary Care Provider Active Team Status: Inactive Member Role Status Dates Dr. Hernán Lidn MD Primary Care Provider Active Dr. Camron Chapin DO Admit Provider, Attending Provid er Active FOR RECORDS PERTAINING TO PATIENTS WHO ARE OR HAVE BEEN ENROLLED IN A CHEMICAL DEPENDENCY/SUBSTANCEABUSE PROGRAM, SOME INFORMATION MAY BE OMITTED. This clinical summary was aggregated from multiple sources. Caution should be exercised in using it in the provision of clinical care. This summary normalizes information from multiple sources, and as a consequence, information in this document may materially change the coding, format and clinical context of patient data. In addition, data may be omitted in some cases. CLINICAL DECISIONS SHOULD BE BASED ON THE PRIMARY CLINICAL RECORDS. [facility] [employer] [facility]. provides no warranty or guarantee of the accuracy or completeness of information in this document.
[2025-03-09 09:24] LABS: Hematocrit 38.0 % (37-47); Hemoglobin 12.8 g/dL (12.0-15.0); Immature Granulocytes Count 0.170 X10^3/uL (0.0-0.0); Mean Corp Hgb Conc 33.7 g/dL (32-36); Mean Corpuscular Volume 98.4 fL (81-99); Mean Platelet Vol. 10.9 fl (6.2-12.0); NRBC Flagged by Analyzer 0 % (0-5); Platelet Count 234 K/mm3 (150-450); RBC Distribution Width CV 12.8 % (11.6-14.6); RBC Distribution Width SD 46.0 fl (35.1-43.9); Red Blood Count 3.86 M/mm3 (4.2-5.4); White Blood Count 14.1 K/mm3 (4.4-11.0)
[2025-03-09] MEDS: Oxytocin 15 Units/NS 250ml 15 UNITS/250 ML IV.SOLN 334 UNITS IV (09:27)
[2025-03-09] MEDS: Lidocaine 1% (20 ml mdv) 20 ML Vial INFILT (09:38)
[2025-03-09 09:56] LABS: Syphilis Antibodies Nonreactive (Nonreactive)
[2025-03-09] MEDS: GLYCERIN/WITCH HAZEL (TUCKS) MED..PAD 1 EACH TOPICAL (15:14)
--- NOTE | 2025-03-09 17:04 | HP.PCM.OB_ITS ---
HPI - General General Date of Admission: 03/09/25 HPI Narrative ENZO VILLELA, is a 29 F at 39.3 who presents in spontaneous labor with spontaneous rupture of membranes. [facility] Medical History (Updated 03/09/25 @ 17:07 by Debra Mcdonald CNM) Anxiety Anxiety Vaginal delivery Pseudotumor cerebri Home Medications ?Medication ?Instructions ?Recorded ?Last Taken ?Type vit no.95-ferrous 1 ea PO DAILY supplement 03/08/25 21:00 History fumarate 28 mg-folic acid 800 mcg 1 ea tablet ( Multivitamins) sertraline 25 mg tablet 50 mg PO QHS anxiety 3 03/08/25 21:00 History 50 mg aspirin 81 mg tablet,delayed 81 mg PO DAILY 03/09/25 03/08/25 21:00 History release (Adult Low Dose Aspirin) 81 mg pantoprazole 40 mg tablet,delayed 40 mg PO DAILY heart burn 03/09/25 03/08/25 21:00 History release (Protonix) 40 mg Allergy/AdvReac Type Severity Reaction Status Date / Time nickel Allergy Mild Rash Verified 03/09/25 09:10 Family History Other Arthritis Surgical History (Updated 03/09/25 @ 10:10 by Rj Cisse) History of surgery History of tonsillectomy and adenoidectomy Social History (Updated 04/10/17 @ 10:43 by Mario Jeffers DO) Smoking Status: Never smoker History Elective abortions Hx Para 1 Spontaneous abortions Hx # Term Pregnancies Ectopic pregnancies Hx # Pregnancies Multiple births # of living children ROS Eyes Eyes: Denies blurry vision, change in vision or spots in vision ENT HEENT: Denies dizziness or headache(s) Cardiovascular Cardiovascular: Denies abdominal pain, chest pain or dyspnea Respiratory/Chest Respiratory/Chest: Denies cough, dyspnea, shortness of breath at rest or shortness of breath with exertion Gastrointestinal Gastrointestinal: Denies abdominal pain, diarrhea or vomiting Genitourinary Genitourinary: Denies change in urinary stream, difficulty urinating or dysuria Musculoskeletal Musculoskeletal: Reports none Integumentary Integumentary: Denies rash Neurologic Neurologic: Denies dizziness, headache(s), memory loss or weakness Psychiatric Psychiatric: Reports none Vital Signs Vital Signs Vital Signs: 03/09/25 09:05 03/09/25 09:05 03/09/25 09:06 Temperature 96.7 F L Temperature Source Temporal Pulse Rate Respiratory Rate Blood Pressure 135/84 H Blood Pressure Mean BP Systolic 135 BP Diastolic 84 Blood Pressure Source Blood Pressure Position Blood Pressure Location Pulse Ox Oxygen Delivery Method 03/09/25 09:06 03/09/25 09:49 03/09/25 09:49 Temperature Temperature Source Pulse Rate 98 95 Respiratory Rate Blood Pressure 122/75 H Blood Pressure Mean BP Systolic 122 BP Diastolic 75 Blood Pressure Source Blood Pressure Position Blood Pressure Location Pulse Ox Oxygen Delivery Method 03/09/25 09:52 03/09/25 09:52 03/09/25 09:57 Temperature Temperature Source Pulse Rate 95 90 Respiratory Rate Blood Pressure Blood Pressure Mean BP Systolic BP Diastolic Blood Pressure Source Blood Pressure Position Blood Pressure Location Pulse Ox 100 Oxygen Delivery Method 03/09/25 09:57 03/09/25 10:00 03/09/25 10:02 Temperature Temperature Source Pulse Rate 88 Respiratory Rate 18 Blood Pressure Blood Pressure Mean BP Systolic BP Diastolic Blood Pressure Source Blood Pressure Position Blood Pressure Location Pulse Ox 100 Oxygen Delivery Method 03/09/25 10:02 03/09/25 10:04 03/09/25 10:04 Temperature Temperature Source Pulse Rate 95 Respiratory Rate Blood Pressure 114/73 Blood Pressure Mean BP Systolic 114 BP Diastolic 73 Blood Pressure Source Blood Pressure Position Blood Pressure Location Pulse Ox 100 Oxygen Delivery Method 03/09/25 10:07 03/09/25 10:07 03/09/25 10:12 Temperature Temperature Source Pulse Rate 86 92 Respiratory Rate Blood Pressure Blood Pressure Mean BP Systolic BP Diastolic Blood Pressure Source Blood Pressure Position Blood Pressure Location Pulse Ox 100 Oxygen Delivery Method 03/09/25 10:12 03/09/25 10:15 03/09/25 10:17 Temperature Temperature Source Pulse Rate 90 Respiratory Rate 16 Blood Pressure Blood Pressure Mean BP Systolic BP Diastolic Blood Pressure Source Blood Pressure Position Blood Pressure Location Pulse Ox 100 Oxygen Delivery Method 03/09/25 10:17 03/09/25 10:19 03/09/25 10:19 Temperature Temperature Source Pulse Rate 87 Respiratory Rate Blood Pressure 110/63 Blood Pressure Mean BP Systolic 110 BP Diastolic 63 Blood Pressure Source Blood Pressure Position Blood Pressure Location Pulse Ox 99 Oxygen Delivery Method 03/09/25 10:22 03/09/25 10:22 03/09/25 10:27 Temperature Temperature Source Pulse Rate 95 85 Respiratory Rate Blood Pressure Blood Pressure Mean BP Systolic BP Diastolic Blood Pressure Source Blood Pressure Position Blood Pressure Location Pulse Ox 100 Oxygen Delivery Method 03/09/25 10:27 03/09/25 10:32 03/09/25 10:32 Temperature Temperature Source Pulse Rate 94 Respiratory Rate Blood Pressure Blood Pressure Mean BP Systolic BP Diastolic Blood Pressure Source Blood Pressure Position Blood Pressure Location Pulse Ox 99 100 Oxygen Delivery Method 03/09/25 10:34 03/09/25 10:34 03/09/25 10:37 Temperature Temperature Source Pulse Rate 89 90 Respiratory Rate Blood Pressure 124/73 H Blood Pressure Mean BP Systolic 124 BP Diastolic 73 Blood Pressure Source Blood Pressure Position Blood Pressure Location Pulse Ox Oxygen Delivery Method 03/09/25 10:37 03/09/25 10:42 03/09/25 10:42 Temperature Temperature Source Pulse Rate 91 Respiratory Rate Blood Pressure Blood Pressure Mean BP Systolic BP Diastolic Blood Pressure Source Blood Pressure Position Blood Pressure Location Pulse Ox 100 99 Oxygen Delivery Method 03/09/25 10:45 03/09/25 10:47 03/09/25 10:47 Temperature Temperature Source Pulse Rate 87 Respiratory Rate 16 Blood Pressure Blood Pressure Mean BP Systolic BP Diastolic Blood Pressure Source Blood Pressure Position Blood Pressure Location Pulse Ox 99 Oxygen Delivery Method 03/09/25 10:49 03/09/25 10:49 03/09/25 10:52 Temperature Temperature Source Pulse Rate 94 91 Respiratory Rate Blood Pressure 127/74 H Blood Pressure Mean BP Systolic 127 BP Diastolic 74 Blood Pressure Source Blood Pressure Position Blood Pressure Location Pulse Ox Oxygen Delivery Method 03/09/25 10:52 03/09/25 10:57 03/09/25 10:57 Temperature Temperature Source Pulse Rate 91 Respiratory Rate Blood Pressure Blood Pressure Mean BP Systolic BP Diastolic Blood Pressure Source Blood Pressure Position Blood Pressure Location Pulse Ox 98 99 Oxygen Delivery Method 03/09/25 11:02 03/09/25 11:02 03/09/25 11:04 Temperature Temperature Source Pulse Rate 88 Respiratory Rate Blood Pressure 124/59 H Blood Pressure Mean BP Systolic 124 BP Diastolic 59 Blood Pressure Source Blood Pressure Position Blood Pressure Location Pulse Ox 97 Oxygen Delivery Method 03/09/25 11:04 03/09/25 11:11 03/09/25 11:11 Temperature Temperature Source Pulse Rate 82 96 Respiratory Rate Blood Pressure 122/61 H Blood Pressure Mean BP Systolic 122 BP Diastolic 61 Blood Pressure Source Blood Pressure Position Blood Pressure Location Pulse Ox Oxygen Delivery Method 03/09/25 11:11 03/09/25 11:11 03/09/25 11:11 Temperature 98.1 F Temperature Source Temporal Pulse Rate Respiratory Rate 16 Blood Pressure Blood Pressure Mean BP Systolic BP Diastolic Blood Pressure Source Blood Pressure Position Blood Pressure Location Pulse Ox Oxygen Delivery Method 03/09/25 11:23 03/09/25 11:23 03/09/25 11:23 Temperature 98.1 F Temperature Source Temporal Pulse Rate Respiratory Rate 18 Blood Pressure Blood Pressure Mean BP Systolic BP Diastolic Blood Pressure Source Blood Pressure Position Blood Pressure Location Pulse Ox Oxygen Delivery Method 03/09/25 11:30 03/09/25 11:38 03/09/25 11:38 Temperature Temperature Source Pulse Rate 101 H Respiratory Rate 18 Blood Pressure 112/63 Blood Pressure Mean BP Systolic 112 BP Diastolic 63 Blood Pressure Source Blood Pressure Position Blood Pressure Location Pulse Ox Oxygen Delivery Method 03/09/25 11:45 03/09/25 11:45 03/09/25 11:45 Temperature 98.3 F Temperature Source Temporal Pulse Rate Respiratory Rate 18 Blood Pressure Blood Pressure Mean BP Systolic BP Diastolic Blood Pressure Source Blood Pressure Position Blood Pressure Location Pulse Ox Oxygen Delivery Method 03/09/25 11:53 03/09/25 11:53 03/09/25 12:08 Temperature Temperature Source Pulse Rate 90 Respiratory Rate Blood Pressure 108/59 L 95/56 L Blood Pressure Mean BP Systolic 108 95 BP Diastolic 59 56 Blood Pressure Source Blood Pressure Position Blood Pressure Location Pulse Ox Oxygen Delivery Method 03/09/25 12:08 03/09/25 12:32 03/09/25 12:32 Temperature 98.3 F Temperature Source Temporal Temporal Pulse Rate 96 96 Respiratory Rate 16 Blood Pressure 95/56 L Blood Pressure Mean 69 BP Systolic BP Diastolic Blood Pressure Source Monitor Blood Pressure Position Semi-Fowlers Blood Pressure Location Right Arm Pulse Ox Oxygen Delivery Method 03/09/25 15:13 03/09/25 15:13 03/09/25 15:14 Temperature Temperature Source Pulse Rate 98 Respiratory Rate Blood Pressure 121/73 H Blood Pressure Mean BP Systolic 121 BP Diastolic 73 Blood Pressure Source Blood Pressure Position Blood Pressure Location Pulse Ox 97 Oxygen Delivery Method 03/09/25 15:14 03/09/25 15:24 03/09/25 15:24 Temperature 97.8 F Temperature Source Temporal Temporal Pulse Rate 93 98 Respiratory Rate 16 Blood Pressure 121/73 H Blood Pressure Mean 89 BP Systolic BP Diastolic Blood Pressure Source Monitor Blood Pressure Position Semi-Fowlers Blood Pressure Location Right Arm Pulse Ox 97 Oxygen Delivery Method Room Air Weight PRE- weight 160 lb PRE- Body Mass Index 22.8 (BMI) Physical Exam Const alert, oriented x3 and no apparent distress General Appearance: cooperative Orientation / Consciousness: awake Exam Limitations: no limitations HEENT normocephalic Head and Scalp: normal to inspection Eyes General Eye: normal appearance of both eyes Neck full ROM and no lymphadenopathy Lymph Lymphatic: no lymphadenopathy noted Chest inspection of chest normal Resp normal respiratory effort, normal air movement and clear to auscultation bilaterally Effort and Inspection: able to speak in complete sentences and symmetric chest movement Cardio regular rate and regular rhythm GI normal to inspection, nondistended, normoactive bowel sounds Manual OB Exam: presentation cephalic Back/Spine normal ROM Extremity full ROM and no calf tenderness Skin no rashes or lesions noted General Skin Exam: no breakdown Neuro oriented x3 and CN's II-XII intact bilaterally Psych mental status grossly normal and thought process normal Labs Labs Labs: Blood Type O POSITIVE Antibody Screen NEGATIVE Hct, (37-47) 38.0 % Hgb, (12.0-15.0) 12.8 g/dL Syphilis Total Ab, (Nonreactive) Nonreactive VZV IgG Antibody, (Immune >165) < 135 index L Rhogam given: No Assessment & Plan (1) Spontaneous onset of labor: (2) Spontaneous rupture of amniotic membranes: (3) History of precipitous delivery: (4) Anxiety: (5) 39 weeks gestation of : (6) Positive GBS test: (7) History of migraine: PLAN: Plan Grossly ruptured- clear fluid CE 9.5cm Admit to labor and delivery Anticipate Dr. Moreau notified of admission and is collaborating physician
--- NOTE | 2025-03-09 17:10 | EX.PCM.OBVAG ---
Assessment & Plan (1) (spontaneous vaginal delivery): (2) Precipitous delivery: (3) Laceration, obstetrical, second degree: (4) Mother currently breast-feeding: (5) Positive GBS test: (6) Anxiety: (7) History of migraine: Vaginal Delivery Maternal Presentation Maternal Presentation: Active Labor and Spontaneous Rupture of Membranes Maternal Presentation: at 39.3 weeks gestation that arrived to unit with spontaneous rupture of membranes, and active labor. Vaginal Delivery Information Procedure Performed: Spontaneous Vaginal Delivery (precipitous ) Surgeon/Practitioner: Debra Mcdonald Date of Procedure: 03/09/25 Pre-Procedure Diagnosis: Term gestation, spontaneous rupture of membranes, spontaneous onset of labor Post-Procedure Diagnosis: , Live female Type of anesthesia: Local with 1% Lidocaine Estimated Blood Loss: 250 Time of Delivery: 09:23 Findings Description of procedure: Patient arrived to unit and found to be 9.5 cm dilated. Assisted patient to hands and knees and patient quickly progressed to complete dilation. With good maternal effort, head delivered followed by anterior shoulder and remainder of infant body without any force, delay, or traction. Vigorous female was delivered atraumatically and placed on maternal abdomen. Pitocin IM given due to no IV access, for active management of the third stage of labor. 3 vessel cord clamped and cut by FOB after delay and infant placed immediately skin to skin with patient. Cord blood collected. Placenta delivered spontaneously and intact. A second degree laceration was repaired in usual fashion using 3-0 Vicryl Rapid after local anesthesia administered. Hemostasis obtained. Vaginal sweep performed. Fundus is firm 2 below U and bleeding is hemostatic. Sponge and sharps counts correct. Patient and infant bonding well at this time. Dr. Moreau notified of delivery. Routine post orders placed. Presentation: Vertex Amniotic Membrane Rupture Type: Spontaneous Amniotic Fluid Description: Clear Placental Delivery Description: Spontaneous Placenta Disposition: [facility] Specimen collected: No Cord Vessel Description: 3 Vessels Cord Entanglement: None Nuchal Cord Compression: Without compression A Gender: Female (1 minute): 8 (5 minute): 8 Delayed Cord Clamping: Yes Movement Assembler radiology services manager: No Post Vaginal Deli Medications given after delivery: IM Pitocin Episiotomy Description: None Laceration: 2nd degree Complication Complications: No
[2025-03-09] MEDS: SELF ADMINISTRATION OF MEDS 1 EACH NOTE (22:04)
[2025-03-10] VITALS (9 sets, daily range): BP systolic 117–131; BP diastolic 65–76; PULSE 71–96; RESP 16; TEMP 36.3–36.8; O2SAT 93–97; BMI 30.7
--- NOTE | 2025-03-10 06:26 | PN.OBGYN_ITS ---
Subjective Subjective Patient seen at bedside. Denies any pain. Ambulating and voiding without difficulty. Lochia decreasing. Objective Data Objective Data Vital Signs: Vital Signs Temp Pulse Resp BP Pulse Ox O2 Del Method 98.0 F 74 16 117/65 97 Room Air 03/10/25 04:42 03/10/25 04:42 03/10/25 04:42 03/10/25 04:42 03/10/25 04:42 03/10/25 04:42 Oxygen Delivery Method Room Air Intake & Output: Intake and Output for Last 24 Hours 03/08/25 03/09/25 03/10/25 23:59 23:59 23:59 Intake Total 44.53 / 44.53 Output Total 950 / 950 Balance -905.47 / -905.47 Lab / Micro Data Attestation: I reviewed the patient's lab results. 03/09/25 09:05 Labs: Laboratory Results - last 24 hr 03/09/25 09:05: WBC 14.1 H, RBC 3.86 L, Hgb 12.8, Hct 38.0, MCV 98.4, MCH 33.2 H , MCHC 33.7, RDW Std Deviation 46.0 H, RDW Coeff of Aga 12.8, Plt Count 234, MPV 10.9, Immature Gran % (Auto) 1.200 H, Neut % (Auto) 79.6 H, Lymph % (Auto) 13.9 L, [place] % (Auto) 5.0, Eos % (Auto) 0.1, Baso % (Auto) 0.2, Absolute Neuts (auto) 11.2 H, Absolute Lymphs (auto) 1.96, Nucleated RBC % 0, Syphilis Total Ab Nonreactive, Blood Type O POSITIVE, Antibody Screen NEGATIVE ROS Eyes Eyes: Denies blurry vision, change in vision or spots in vision ENT HEENT: Denies dizziness or headache(s) Cardiovascular Cardiovascular: Denies abdominal pain, chest pain or dyspnea Respiratory/Chest Respiratory/Chest: Denies cough, dyspnea, shortness of breath at rest or shortness of breath with exertion Gastrointestinal Gastrointestinal: Denies abdominal pain, diarrhea or vomiting Genitourinary Genitourinary: Denies change in urinary stream, difficulty urinating or dysuria Musculoskeletal Musculoskeletal: Reports none Integumentary Integumentary: Denies rash Neurologic Neurologic: Denies dizziness, headache(s), memory loss or weakness Physical Exam Const alert and no apparent distress General Appearance: cooperative and comfortable Exam Limitations: no limitations HEENT normocephalic Eyes General Eye: normal appearance of both eyes Neck full ROM General: normal visual inspection Chest Chest: symmetrical chest wall rise Resp normal respiratory effort and normal air movement Effort and Inspection: symmetric chest movement Auscultation: clear to auscultation bilaterally Cardio regular rate and regular rhythm GI normal to inspection, nondistended, normoactive bowel sounds Back/Spine normal ROM Extremity full ROM and no calf tenderness General Extremity: normal exam except as noted Skin no rashes or lesions noted Neuro oriented x3 Speech: speech normal Psych mental status grossly normal Thought Process: normal thought process Assessment & Plan (1) Mother currently breast-feeding: (2) Laceration, obstetrical, second degree: (3) Precipitous delivery: (4) (spontaneous vaginal delivery): (5) Anxiety: PLAN: Plan PPD 1 - second degree Routine care support Zoloft 50 mg PO HS GBS + - untreated due to precipitous delivery- needs to stay 36 hours for observation Anticipate D/C home tomorrow
--- NOTE | 2025-03-10 12:20 | DCINST_ITS ---
Discharge Instructions DC O2, CPAP, BIPAP needs Home O2 Discharge instructions: No Dressing / Incision Discharge Activity: May Drive and May Shower Weight Bearing Status: Weight bearing as tolerated Dressing / Incision Call your doctor if you observe: Fever of 101 or Higher, Inability to urinate, Inability to have a bowel movement, Using more than 1 pad per hour, Shortness of breath, Dizziness, Swelling in the ankles, Chest pain, Increased palpitations (irregular heartbeat), Calf discomfort and Uncontrolled pain Follow Up Care Please Follow Up With: Debra Mcdonald CNM When: 1 week early 6 week visit Test Results: Test results from this visit will be discussed in further detail at your follow- up appointment, if applicable. Discharge Plan Admission Admit Date/Time: 03/09/25 09:08 Attending Provider: Debra Mcdonald Primary Care Provider: Hernán Lind Instructions Patient Instructions: After a Vaginal Delivery (WP) Discharge Orders/Prescriptions Prescriptions: Continued PNV no.95-ferrous fumarate-FA [ Multivitamins] 1 EACH tablet 1 ea PO DAILY sertraline 25 mg tablet 50 mg PO QHS Patient Comments: take 1 tablet by mouth once daily Discontinued pantoprazole [Protonix] 40 mg tablet,delayed release (DR/EC) 40 mg PO DAILY aspirin [Adult Low Dose Aspirin] 81 mg tablet,delayed release (DR/EC) 81 mg PO DAILY Referrals / Follow Up: Hernán Lind MD [Primary Care Provider, Family Practice] Disposition Disposition (needs filled in before D/C Order can be placed): Home, Self Care
--- NOTE | 2025-03-11 14:53 | CASEMGMT ---
Social Work Assessment Labor and Delivery Unit Patient Address: [address] [place] [address]. [place] [address] Phone number: [phone] Date of Referral: 03/09/25 Time of Referral:? 1431 Referred By: Debra Mcdonald Date of Intervention: ??03/10/25 Time of Intervention:? 1045 Reason for Referral:? hx anxiety, and depression, on zoloft Sw completed chart review and acknowledges social work consult. Sw presented to bedside and introduced self to mother of baby, NICK Smith. Sw explained reason for sw involvement and completed psychosocial assessment. Mo remembers MOB from her first delivery 2 years ago. History obtained from: medical records, MOB Household composition: Currently residing in the home is MELISSA CARO, their 2 year old son, Manny. [place] baby to be included in residence when ready for discharge. VANIA denies any housing concerns stating that housing is safe and secure. Patient's parent/guardian status:? VANIA and MELISSA have been together since high school, for 12 years. VANIA denies any domestic violence or intimate partner violence. This is second baby for parents together. ? Medical History: VANIA is 29 year old female who is 3, para 1- now 2 following labor and delivery of . VANIA reports that she had an early miscarriage earlier this year. VANIA received routine [facility] with [facility] during . VANIA presented to hospital and delivered baby via vaginal delivery on 03/09/25 at 39 weeks gestation. Baby girl, named Mehul, was born weighing 6lbs 5oz with apgars of 8 and 8 at one and five minutes of life, respectfully. VANIA is breast feeding and states that baby will be followed by Dr. Go for pediatrics. ? Educational Status: VANIA and MELISSA both graduated from high school, VANIA obtained her Bachelor's degree. No problems with reading, learning or comprehension. ? Financial Status: Both parents are gainfully employed outside of the home. FOB works at [employer] in [place] and on the [employer] on the weekends, and VANIA works at [email or web address]. Infant Supplies:??All necessary baby supplies obtained, including: car seat, safe sleep space, clothes, diapers and wipes. 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 Transportation:??Both parents have their drivers license and reliable means of transportation, no barriers. Programs/Agencies Involved: Parents are not connected to any community resources that provide financial assistance as they are over income. ??? Children Services/Legal Issues: No prior children services involvement, no issues or concerns warranting referral to be made at this time. ??? Behavioral Health Issues: ??Mental Health History: MOB states that she has been diagnosed with anxiety and is currently prescribed Zoloft. MOB states that she is not currently connected to any mental health resources. MOB states that she felt good during her , denies struggling with her anxiety. ?? Substance Use History:?MOB denies substance use prior to and during . ? Family History:?MOB denies family history of addiction or significant mental health history. ? Drug Screens: No drug screens observed while completing chart review. Family/Social Stressors:? MOB denies any issues, stressors or concerns. Support Systems: MOB states that FOB, and both sides of their families are supportive. Depression/Shaken Baby/Safe Sleeping:? Sw educated MOB on signs and symptoms of baby blues and mood and anxiety disorders. MOB states that she is aware of what to be on the lookout for. MOB states that she did not struggle after her son was born two years ago. MOB states that she has a lot of supports in her life that she is able to talk to if she needs to. MOB states that if she were to experience depression or anxiety, FOB would be able to recognize that and would know how to help and support her. Mo expressed importance of safe sleep inside and outside of the bedroom. Sw educated MOB on always placing baby in bedside bassinet and not sleeping with baby in bed with her. Sw explained that baby's bassinet should be free of any blankets, pillows or stuffed animals. And baby should be sleeping in a onsie and a sleep sack/ swaddle sack for sleep. MOB expressed understanding. Sw discouraged sleeping with baby on a couch or in a reclining chair explaining that sleep accidents also happen in those areas as well. Sw educated MOB on shaken baby prevention. MOB expressed understanding. ASSESSMENT:? MOB and baby admitted following labor and delivery. MOB has history of anxiety and is currently prescribed Zoloft. VANIA states that she is able to tell a difference with the medication, and she did ask for an increase following her delivery with her last baby. MOB states that she asked for the increase just as a precautionary measure. MOB states that she does not have any intentions of making adjustments at this time. VANIA reports that since delivery she feels like herself, denies feeling down, sad, anxious, tearful or depressed. MOB was observed laying down in bed and was attentive to baby. MOB was talkative, conversation flowed easily and naturally. MOB was receptive to talking about her mental health and receptive to opening up to her supports if she feels like she is struggling. VANIA has all necessary baby supplies and people she can talk to. PLAN:? No other services requested or indicated. MOB and baby to be discharged when medically ready. Parents were provided literature regarding: signs and symptoms of baby blues and mood and anxiety disorders, Help Me Grow, shaken baby prevention, ABCs of safe sleep and a list of county resources that are available for them should any needs present themselves. Kyle Green, INTERNAL AUDIT SENIOR MANAGER, [employer]
== END 2025-03-10 20:52 | disposition home or self-care (01) | DRG 806 ==
PROVIDERS: Admitting Provider Advanced Practice Midwife; PCP Family Medicine; Visit Provider Advanced Practice Midwife
DX: O62.3 Precipitate labor (principal); Z37.0 Single live birth; O98.82 Other maternal infectious and parasitic diseases complicating childbirth; F41.9 Anxiety disorder, unspecified; O70.1 Second degree perineal laceration during delivery; Z3A.39 39 weeks gestation of pregnancy; B95.1 Streptococcus, group B, as the cause of diseases classified elsewhere; O99.344 Other mental disorders complicating childbirth; Z87.59 Personal history of other complications of pregnancy, childbirth and the puerperium; Z86.69 Personal history of other diseases of the nervous system and sense organs
CPT/HCPCS: 59050; 85025; 86780; 86850; 86900; 86901; 99221; G0378